=== PATIENT | male | born 1945 | race Caucasian/White ===

== ENCOUNTER 2017-02-21 20:35 | Observation (INO) | payer BC, MEDICARE ==
[2017-02-21 20:36] VITALS: BMI 37.0
--- NOTE | 2017-02-21 21:22 | ED PDOC ---
Arrival/HPI - General Time Seen by Provider: 02/21/17 21:18 Historian: Patient, Family - History of Present Illness Narrative History of Present Illness (Text): 02/21/17 21:19 71 year old male with a past medical history that includes hypertension, diabetes, coronary artery disease, CVA, CABG, COPD, peripheral vascular disease presents to the emergency department with bilateral foot pain and swelling. Family member translates history. Patient states it is worse in the left than the right. He states pain has been keeping him up at night. Family member reports the worsening skin color changes to purplish color prompted them to come to the ER for further evaluation. Denies fever, shortness of breath, chest pain, or other symptoms. PMD: Dr. Ferrell Symptom Onset: Gradual Symptom Course: Worsening Modifying Factors (Text): None Associated Symptoms (Text): None Past Medical History - Provider Review Nursing Documentation Reviewed: Yes - Infectious Disease Hx of Infectious Diseases: None - Past Medical History Past Medical History: No Previous - Cardiac Hx Cardiac Disorders: Yes Hx Hypertension: Yes - Pulmonary Hx Chronic Obstructive Pulmonary Disease (COPD): Yes - Neurological HX Cerebrovascular Accident: Yes (during this hospitalization) - HEENT Hx HEENT Disorder: No - Renal Hx Renal Failure: No - Endocrine/Metabolic Hx Diabetes Mellitus Type 2: Yes - Hematological/Oncological Hx Cancer: No - Integumentary Hx Dermatological Disorder: No - Musculoskeletal/Rheumatological Hx Arthritis: No Hx Rheumatoid Arthritis: No - Gastrointestinal Hx Gastroesophageal Reflux: No - Genitourinary/Gynecological Hx Genitourinary Disorders: No - Psychiatric Hx Psychophysiologic Disorder: No Hx Substance Use: No - Surgical History Hx Cardiac Catheterization: Yes Hx Cholecystectomy: Yes Hx Coronary Stent: Yes Hx Open Heart Surgery: Yes (CABG) - Anesthesia Hx Anesthesia Reactions: No Hx Malignant Hyperthermia: No - Suicidal Assessment Feels Threatened In Home Enviroment: No Family/Social History - Physician Review Nursing Documentation Reviewed: Yes Family/Social History: Unknown Family HX Smoking Status: Heavy Smoker > 10 Cigarettes Daily Hx Alcohol Use: No Hx Substance Use: No Hx Substance Use Treatment: No Allergies/Home Meds Allergies/Adverse Reactions: Allergies No Known Allergies Allergy (Verified 11/11/15 12:31) Review of Systems - Physician Review All systems were reviewed & negative as marked: Yes - Review of Systems Respiratory: absent: SOB Cardiovascular: Edema (in bilateral feet, L>R). absent: Chest Pain Neurological: absent: Dizziness Physical Exam - Physical Exam Narrative Physical Exam (Text): Constitutional: No acute distress. Head: Normocephalic. Atraumatic. Eyes: PERRL. ENT: Moist mucous membranes. Musculoskeletal: Bilateral lower extremity edema, L>R, with duskiness. No black or blue digits. Bilateral DP pulses palpable but diminished. Skin: No rash. Neurologic: Alert, no focal deficit. Sensation to light touch in bilateral feet intact. Moves all toes. Vital Signs Temp Pulse Resp BP Pulse Ox 02/22/17 01:02 92 H 18 110/72 95 02/21/17 22:15 97.6 F 93 H 16 146/82 98 Medical Decision Making ED Course and Treatment: Impression: 71 year old male with a past medical history that includes hypertension, diabetes, coronary artery disease, CVA, CABG, COPD, peripheral vascular disease presents to the emergency department with bilateral foot pain and swelling. Differential Diagnosis included but are not limited to: Plan: -- EKG, Chest X-ray, US ankle/brachial indice -- Labs -- Reassess and disposition Prior Visits: Notes and results from previous visits were reviewed. In 04/2016 patient had angioplasty for short segment of distal left SFA, atherectomy and drug-eluted balloon agioplasty, and percutaneous embolectomy of macroembolus to the left TP trans-bifurcation. Progress Notes: Dr. Cordova recommends hydration and PRAVEEN/TBI for tomorrow morning and he will see patient as consult. Dr. Agarwal accepts to her service. - Lab Interpretations Lab Results: 02/21/17 22:40 02/21/17 22:40 Lab Results 02/21/17 22:40: WBC 5.1 D, RBC 5.29, Hgb 16.9, Hct 49.1, MCV 92.8, MCH 31.9, MCHC 34.4, RDW 13.8, Plt Count 115 L, Gran % 41.7 L, Lymph % (Auto) 44.4 H, [place] % (Auto) 7.4 H, Eos % (Auto) 4.9, Baso % (Auto) 1.6, Gran # 2.13, Lymph # 2.3, [place] # 0.4, Eos # 0.3, Baso # 0.08, PT 11.6, INR 1.07, APTT 30.4, Sodium 133, Potassium 4.9, Chloride 95 L, Carbon Dioxide 28, Anion Gap 15, BUN 23 H, Creatinine 1.1, Est GFR ( Amer) > 60, Est GFR (Non-Af Amer) > 60, Random Glucose 491 H* D, Calcium 9.1, Total Bilirubin 0.9, AST 26, ALT 15, Alkaline Phosphatase 75, Total Creatine Kinase 106, Troponin I < 0.01 D, Total Protein 7.9, Albumin 4.1, Globulin 3.7, Albumin/Globulin Ratio 1.1, Blood Type A POSITIVE, Antibody Screen Negative, BBK History Checked Patient has bt - RAD Interpretation Radiology Orders: 02/21/17 21:41 CHEST PORTABLE [RAD] Stat 02/22/17 07:00 LOWER EXT ART NON-INV COMPL [US] Urgent - Medication Orders Current Medication Orders: Acetaminophen (Tylenol 325mg Tab) 650 mg PO Q6H PRN PRN Reason: Fever >100.4 F Aspirin (Ecotrin) 81 mg PO DAILY [facility] Last Admin: 02/22/17 17:13 Dose: Not Given Non-Admin Reason: NPO Atorvastatin Calcium (Lipitor) 40 mg PO DIN [facility] Last Admin: 02/22/17 17:16 Dose: 40 MG Clopidogrel Bisulfate (Plavix) 75 mg PO DAILY [facility] Last Admin: 02/22/17 17:16 Dose: 75 MG Sodium Chloride (Sodium Chloride 0.45%) 1,000 mls @ 75 mls/hr IV .[id number] [facility] Insulin Detemir (Levemir) 25 unit SC ACB [facility] Last Admin: 02/22/17 14:00 Dose: Not Given Non-Admin Reason: NPO Insulin Human Lispro (Humalog High) 0 units SC ACHS [facility] PRN Reason: Protocol Last Admin: 02/22/17 17:14 Dose: 4 UNITS Subcutaneous Administrations Document 02/22/17 17:14 LUKE (Rec: 02/22/17 17:14 LUKE [id number]) Charges for Administration # of Subcutaneous Administrations 1 Metoprolol Succinate (Toprol Xl) 25 mg PO BRK [facility] Last Admin: 02/22/17 17:17 Dose: 25 MG MAR Pulse and Blood Pressure Document 02/22/17 17:17 LUKE (Rec: 02/22/17 17:17 LUKE [id number]) Pulse Pulse Rate (60-90) 81 Blood Pressure Blood Pressure (100/60-150/90) 146/88 Pantoprazole Sodium (Protonix Ec Tab) 40 mg PO 0630 AMINA Discontinued Medications Acetaminophen (Tylenol 325mg Tab) 650 mg PO Q4H PRN PRN Reason: Fever >100.5 F Sodium Chloride (Sodium Chloride 0.9%) 1,000 mls @ 150 mls/hr IV .Q6H40M STA Stop: 02/22/17 04:20 Last Admin: 02/21/17 22:46 Dose: 150 MLS/HR eMAR Start Stop Document 02/21/17 22:46 EQ (Rec: 02/21/17 22:46 EQ [id number]) Intravenous Solution Start Date 02/21/17 Start Time 22:46 Insulin Human Regular (Humulin R) 10 units IVP STAT STA Stop: 02/21/17 23:59 Last Admin: 02/22/17 00:12 Dose: 10 UNITS Subcutaneous Admin in ER Document 02/22/17 00:12 CHAITANYA (Rec: 02/22/17 00:13 CHAITANYA [facility] [email or web address] Injection Site MAR Injection Site Left Arm IVP Administration Document 02/22/17 00:12 CHAITANYA (Rec: 02/22/17 00:13 CHAITANYA [facility] [email or web address] Charges for Administration # of IVP Administrations 1 Insulin Human Regular (Humulin R) Confirm Administered Dose 10 units .ROUTE .STK -MED ONE Stop: 02/22/17 00:11 Last Admin: 02/22/17 01:45 Dose: Not Given Non-Admin Reason: Blood Sugar Parameter MAR Blood Glucose Document 02/22/17 01:45 CHAITANYA (Rec: 02/22/17 01:45 CHAITANYA [facility] [email or web address] Blood Glucose Finger Stick Blood Glucose (70-120) 0 Morphine Sulfate (Morphine) 2 mg IVP STAT STA Stop: 02/22/17 00:57 Last Admin: 02/22/17 01:14 Dose: 2 MG MAR Pain Assessment Document 02/22/17 01:14 CHAITANYA (Rec: 02/22/17 01:15 CHAITANYA [facility] [email or web address] Pain Reassessment Is this a pain reassessment? Yes Sleep Is patient sleeping during reassessment? No Presence of Pain Presence of Pain Yes Location Left, Right or Bilateral Left Upper or Lower Lower Pain Location Body Site Leg IVP Administration Document 02/22/17 01:14 CHAITANYA (Rec: 02/22/17 01:15 CHAITANYA [facility] [email or web address] Charges for Administration # of IVP Administrations 1 Re-Assess: JANETH Pain Assessment Document 02/22/17 02:14 [email or web address] (Rec: 02/22/17 05:14 [email or web address] [facility] [id number] Pain Reassessment Is this a pain reassessment? Yes Sleep Is patient sleeping during reassessment? No Presence of Pain Presence of Pain No - Scribe Statement The provider has reviewed the documentation as recorded by the Ra Sifuentes Provider Scribe Attestation: All medical record entries made by the Ra were at my direction and personally dictated by me. I have reviewed the chart and agree that the record accurately reflects my personal performance of the history, physical exam, medical decision making, and the department course for this patient. I have also personally directed, reviewed, and agree with the discharge instructions and disposition. Disposition/Present on Arrival - Present on Arrival Any Indicators Present on Arrival: Yes History of DVT/PE: No History of Uncontrolled Diabetes: Yes Urinary Catheter: No History Surgical Site Infection Following: None - Disposition Have Diagnosis and Disposition been Completed?: Yes Diagnosis: Peripheral arterial disease Disposition: HOSPITALIZED Disposition Time: 19:00 Patient Plan: Admission Condition: GOOD
[2017-02-21] MEDS ORDERED: Sodium Chloride 0.9% 1,000 ML IV STA (21:41)
[2017-02-21 22:49] LABS: ADD MANUAL DIFF? NO
[2017-02-21 23:19] LABS: ALB/GLOB RATIO 1.1 (1.1-1.8); ALKALINE PHOSPHATASE 75 U/L (38-133); ALT/SGPT 15 U/L (7-56); AST/SGOT 26 U/L (15-59); BILIRUBIN,TOTAL 0.9 mg/dL (0.2-1.3); BLOOD UREA NITROGEN 23 mg/dL (7-21); CALCIUM 9.1 mg/dL (8.4-10.5); CARBON DIOXIDE 28 mmol/L (21-33); CHLORIDE 95 mmol/L (98-107); GFR AFRICAN-AMERICAN > 60; POTASSIUM 4.9 mmol/L (3.6-5.0); SODIUM 133 mmol/L (132-148); TOTAL PROTEIN 7.9 g/dL (5.8-8.3)
[2017-02-21 23:24] LABS: BASO # 0.08 K/mm3 (0.0-2.0); BASO % 1.6 % (0.0-3.0); EOS # 0.3 (0.0-0.7); EOS % 4.9 % (1.5-5.0); GLUCOSE,RANDOM 491 mg/dL (70-110); GRAN # 2.13 (1.4-6.5); GRAN % 41.7 % (50.0-68.0); HEMATOCRIT 49.1 % (42.0-52.0); LYMPH # 2.3 (1.2-3.4); LYMPH % 44.4 % (22.0-35.0); MEAN CELL VOLUME 92.8 fL (80.0-105.0); MEAN CORPUSCULAR HEMOGLOBIN 31.9 pg (25.0-35.0); MEAN CORPUSCULAR HGB CONC 34.4 g/dl (31.0-37.0); MONO # 0.4 (0.1-0.6); MONO % 7.4 % (1.0-6.0); PLATELET COUNT 115 10^3/uL (120.0-450.0); RED CELL DISTRIBUTION WIDTH 13.8 % (11.5-14.5); WHITE BLOOD COUNT 5.1 10^3/ul (4.5-11.0)
[2017-02-21 23:26] LABS: INR 1.07 (0.93-1.08); PARTIAL THROMBOPLASTIN TIME 30.4 Seconds (23.7-30.8)
[2017-02-21 23:31] LABS: TROPONIN I < 0.01 ng/mL
[2017-02-21] MEDS ORDERED: Insulin Regular 1 UNITS/0.01 ML ML IVP STA (23:58)
[2017-02-22] MEDS ORDERED: Insulin Regular 1 UNITS/0.01 ML ML ONE (00:10)
--- NOTE | 2017-02-22 00:31 | ED PDOC ---
Physical Exam Vital Signs Temp Pulse Resp BP Pulse Ox 02/21/17 22:15 97.6 F 93 H 16 146/82 98 Temperature: Afebrile Blood Pressure: Normal Pulse: Regular Respiratory Rate: Normal Appearance: Positive for: Well-Appearing, Non-Toxic, Comfortable Pain Distress: None Mental Status: Positive for: Alert and Oriented X 3 Medical Decision Making ED Course and Treatment: 02/21/17 23:00 Case endorsed to me by Dr. Damon, who discussed case with Dr. Agarwal. Pending labs, imaging studies, and hospital admission. - Lab Interpretations Lab Results: 02/21/17 22:40 02/21/17 22:40 Lab Results 02/21/17 22:40: WBC 5.1 D, RBC 5.29, Hgb 16.9, Hct 49.1, MCV 92.8, MCH 31.9, MCHC 34.4, RDW 13.8, Plt Count 115 L, Gran % 41.7 L, Lymph % (Auto) 44.4 H, [place] % (Auto) 7.4 H, Eos % (Auto) 4.9, Baso % (Auto) 1.6, Gran # 2.13, Lymph # 2.3, [place] # 0.4, Eos # 0.3, Baso # 0.08, PT 11.6, INR 1.07, APTT 30.4, Sodium 133, Potassium 4.9, Chloride 95 L, Carbon Dioxide 28, Anion Gap 15, BUN 23 H, Creatinine 1.1, Est GFR ( Amer) > 60, Est GFR (Non-Af Amer) > 60, Random Glucose 491 H* D, Calcium 9.1, Total Bilirubin 0.9, AST 26, ALT 15, Alkaline Phosphatase 75, Total Creatine Kinase 106, Troponin I < 0.01 D, Total Protein 7.9, Albumin 4.1, Globulin 3.7, Albumin/Globulin Ratio 1.1, Blood Type A POSITIVE, Antibody Screen Negative, BBK History Checked Patient has bt - RAD Interpretation Radiology Orders: 02/21/17 21:41 CHEST PORTABLE [RAD] Stat 02/22/17 07:00 ANKLE/BRACHIAL INDICE [US] Urgent - Medication Orders Current Medication Orders: Sodium Chloride (Sodium Chloride 0.9%) 1,000 mls @ 150 mls/hr IV .Q6H40M STA Stop: 02/22/17 04:20 Last Admin: 02/21/17 22:46 Dose: 150 MLS/HR eMAR Start Stop Document 02/21/17 22:46 EQ (Rec: 02/21/17 22:46 EQ [id number]) Intravenous Solution Start Date 02/21/17 Start Time 22:46 Discontinued Medications Insulin Human Regular (Humulin R) 10 units IVP STAT STA Stop: 02/21/17 23:59 Last Admin: 02/22/17 00:12 Dose: 10 UNITS Subcutaneous Admin in ER Document 02/22/17 00:12 CHAITANYA (Rec: 02/22/17 00:13 [facility]ITANYA [email or web address]) Injection Site MAR Injection Site Left Arm IVP Administration Document 02/22/17 00:12 CHAITANYA (Rec: 02/22/17 00:13 [facility]ITANYA [email or web address]) Charges for Administration # of IVP Administrations 1 Insulin Human Regular (Humulin R) Confirm Administered Dose 10 units .ROUTE .STK -MED ONE Stop: 02/22/17 00:11 Disposition/Present on Arrival - Present on Arrival Any Indicators Present on Arrival: No History of DVT/PE: No History of Uncontrolled Diabetes: Yes Urinary Catheter: No History of Decub. Ulcer: No History Surgical Site Infection Following: None - Disposition Have Diagnosis and Disposition been Completed?: Yes Diagnosis: PAD (peripheral artery disease) Disposition: HOSPITALIZED Disposition Time: 23:00 Condition: GOOD
[2017-02-22] MEDS ORDERED: Morphine 2 mg/ml ISec IVP STA (00:56)
[2017-02-22] MEDS ORDERED: Insulin Reg-LOW-Coverage SC SCH (07:30)
[2017-02-22] MEDS ORDERED: Sodium Chloride 0.45% 1,000 ML IV SCH (07:45)
--- NOTE | 2017-02-22 09:32 | RAD ---
HISTORY: LEG PAINS COMPARISON: 10/17/2016 FINDINGS: LUNGS: No active pulmonary disease. PLEURA: No significant pleural effusion identified, no pneumothorax apparent. CARDIOVASCULAR: No cardiomegaly. Sternotomy wires noted. OSSEOUS STRUCTURES: No significant abnormalities. VISUALIZED UPPER ABDOMEN: Normal. OTHER FINDINGS: None. IMPRESSION: No active disease.
--- NOTE | 2017-02-22 10:33 | US ---
PROCEDURE: Lower extremity PRAVEEN exam HISTORY: Peripheral vascular disease. Previous bilateral SFA interventions. Left foot pain. Evaluate for occlusive disease. PHYSICIAN(S): David Cordova MD. FINDINGS: The resting PRAVEEN's are mildly abnormal: Right, 0.85 and left, 0.82 The brachial systolic pressures are symmetric. The right high thigh PVR waveform is normal. The left high thigh PVR waveform is slightly decreased in amplitude compared to the right. There is a 26 mm gradient between the high thigh pressures. Could represent subtle left iliac disease The calf PVR waveforms augment normally. No gradients are noted across the thighs. This implies that the SFA interventions are patent bilaterally. The ankle and metatarsal waveforms are pulsatile bilaterally. The left ankle PVR waveform is decreased in amplitude compared to the right. IMPRESSION: 1. Patent SFA interventions bilaterally. 2. Mildly abnormal ABIs at rest. 3. Subtle left iliac occlusive disease.
--- NOTE | 2017-02-22 10:37 | US ---
PROCEDURE: Duplex arterial ultrasound of the distal left SFA HISTORY: Bilateral SFA interventions. Left foot pain. Evaluate for restenosis. PHYSICIAN(S): David Cordova MD. FINDINGS: Extensive atherosclerotic disease is noted. The distal left SFA is patent though there are areas of significantly elevated velocities suggestive of restenosis. The left popliteal artery is patent with normal velocities. IMPRESSION: 1. Focal areas of elevated velocities in the distal left SFA suggestive of 50-99 percent stenoses. The previously intervened segment is patent. A repeat angio can be considered as an outpatient if the patient describes claudication
[2017-02-22] MEDS: Insulin Lispro (HUMAlog) HIGH Coverage SC SCH ×3 (11:54→22:38)
--- NOTE | 2017-02-22 13:13 | HP ---
HISTORY OF PRESENT ILLNESS: The patient is a 71-year-old, seen and examined. He came to [facility] last night because of increasing pain in his legs. He is also complaining of bilateral leg and f eet pain and swelling. His symptoms are more in the left leg and the foot as compared to the right. Pain is more at nighttime and he is unable to sleep because of pain. He does not have any fever or chills. No nausea, vomiting, no diarrhea, no trauma to the area. PAST MEDICAL HISTORY: Significant for: 1. Recent CVA and he was admitted 09/2016. 2. Hypertension. 3. Coronary artery disease, status post open heart surgery many years ago. 4. Insulin-dependent diabetes. 5. COPD. 6. Active smoker. 7. Peripheral vascular disease, angioplasty done in the short segment of distal left superficial fem oral artery and status post atherectomy and drug-eluted balloon angioplasty. ALLERGIES: He is not allergic to any medications. MEDICATIONS AT HOME: The patient is on: 1. Plavix 75 daily. 2. Aspirin 81 daily. 3. Protonix 40 daily. 4. Metoprolol 25 daily. 5. Levemir 25 units before breakfast. 6. Atorvastatin 40 mg daily. SOCIAL HISTORY: He is , lives with his . He used to be a 2-pack smoker for many, many ye ars. He still smokes here and there. REVIEW OF SYSTEMS: Significant for bilateral leg discoloration, mostly on the distal legs and both f eet. Complained of feeling tired, said he did not sleep well. PHYSICAL EXAMINATION: GENERAL: He is awake and alert, able to communicate. VITAL SIGNS: He is afebrile, pulse 67, respirations 18, blood pressure 140/75. LUNGS: Bilateral fair airflow, no rhonchi or crackle. HEART: S1, S2 audible. ABDOMEN: Soft, nontender, no rebound, no guarding. NEUROLOGIC: The patient is awake, alert, feels sleepy because he did not sleep good last night. LABORATORY EXAMINATION: WBC is 5.1, hemoglobin 16.9, hematocrit 49.1, and platelets of 115. PT 11.6 , INR 1.07. Chemistry: Sodium 133, potassium 4.9, chloride 95, CO2 of 28, BUN 23, creatinine 1.1, b lood sugar of 264. Bilateral lower extremity Doppler shows focal areas of elevated velocity in the d istal left SFA suggestive of 50-90% stenosis. Previously intervened segment is patent. PLAN: Currently, the patient is n.p.o. Dr. David Cordova is aware, plan for angiography and possible intervention today later on. Kierra Agarwal MD cc: [phone] TT: 02/22/2017 13:13:24 tn
[2017-02-22] MEDS: Insulin Detemir 100 units/ml Vial (Levemir) SC SCH (14:00)
[2017-02-22] MEDS: Metoprolol Succinate 25 mg XL Tab PO SCH (17:17)
[2017-02-22 17:39] VITALS: RESP 20; TEMP 98.4
--- NOTE | 2017-02-22 18:31 | CARD ---
APPROVED REPORT EKG Measurement Heart [id number] <Conclusion> Normal sinus rhythm Possible Left atrial enlargement Right bundle branch block Left posterior fascicular block Bifascicular block Cannot rule out Inferior infarct, age undetermined Abnormal ECG
[2017-02-23] MEDS ORDERED: Pantoprazole 40 mg EC Tab PO SCH (06:30)
[2017-02-23] MEDS: Insulin Detemir 100 units/ml Vial (Levemir) SC SCH (08:09)
[2017-02-23] MEDS: Insulin Lispro (HUMAlog) HIGH Coverage SC SCH ×2 (08:09→12:18)
[2017-02-23] MEDS: Metoprolol Succinate 25 mg XL Tab PO SCH (08:10)
[2017-02-23 08:11] VITALS: O2SAT 97
[2017-02-23 08:14] VITALS: BP 143/74
[2017-02-23 14:52] VITALS: PULSE 83
--- NOTE | 2017-02-23 16:14 | CON ---
DATE: 02/23/2017 PAST MEDICAL HISTORY: A 71-year-old male seen at bedside complaining of pain and discomfort as well as swelling in both lower legs. The patient states that he has been feeling pain and discomfort for the past several days. Arterial Dopplers taken yesterday revealed patent SFA interventions bilateral ly as well as mild left iliac occlusive disease. Dr. David Cordova has recommended a repeat angio be c onsidered as an outpatient due to his intermittent claudication. VITAL SIGNS: Reveal a temperature of 98.4, pulse rate of 81, blood pressure 155/94, respiratory rate of 20. PAST MEDICAL HISTORY: Significant for peripheral arterial disease, cerebral vascular disease, acute pancreatitis and erythrocytosis. ALLERGIES: The patient has no known drug allergies. CURRENT MEDICATIONS: All medications are noted in MAR. SOCIAL HISTORY: The patient is and lives with his . Was a very heavy smoker most of his life and states he is still smoking; however, he has cut down to less than 1 pack a day. The patien t denies illicit drug use and denies alcohol abuse. FAMILY HISTORY: Noncontributory LABORATORY DATA: Reveal a white count of 5.1, hemoglobin of 16.9, hematocrit 49.1, platelet count of 115. OBJECTIVE: Nonpalpable posterior tibial pulse and weakly palpable dorsalis pedis pulse. There is di ffuse discomfort upon palpation at the gastrocsoleus complex as well as along the course of the left lower leg. There is just diffuse discomfort when the dorsal foot is palpated. There are no open les ions. There are no ulcerations. There are no interdigital macerations. There are no signs of acute cellulitis. ASSESSMENT: Severe peripheral vascular disease, bilateral lower extremities. PLAN: The patient was examined. Diagnostic ultrasounds were reviewed. Dr. David Cordova is planning vascular intervention in the near future. In the meantime, I gave the patient a light compression Tu bigrip to be used while walking and in bed, and to be removed at nighttime. Meño Navarro DPM cc: [phone] TT: 02/23/2017 16:13:09 Confirmation # [id number] Dictation # [id number] mn
--- NOTE | 2017-02-23 21:34 | DS ---
The patient is 71-year-old male, seen and examined, sitting in chair. Complained of some foot pain, but better than before. The patient was evaluated by Dr. David Cordova who ordered for arterial Dopple r. According to him, his previous stent is patent, and his ABIs seems to be fair, does not need any intervention; however, Dr. Navarro was consulted who evaluated the patient, and there was no more need to have any interventions done, so patient is being discharged home today. PHYSICAL EXAMINATION: GENERAL: He is awake and alert, communicative. VITAL SIGNS: He is afebrile, pulse 83, respirations 20, blood pressure 143/74. LUNGS: Bilateral fair airflow, no rhonchi or crackle. However, he has diffusely decreased breath so unds. HEART: S1, S2 audible. ABDOMEN: Soft, nontender, no rebound, no guarding. NEUROLOGIC: He is awake and alert, communicative. EXTREMITIES: Bilateral legs, no edema. He has chronic microvascular changes with discoloration of b oth shins and feet. LABORATORY EXAM: There is no new lab available today. Blood sugar is 236. ASSESSMENT: 1. Severe peripheral vascular disease. 2. Recent cerebrovascular accident. 3. Peripheral vascular disease in the distal left superficial femoral artery suggestive of stenosis. 4. Chronic obstructive pulmonary disease. 5. Heavy smoker. 6. Left iliac occlusive disease. 7. Abnormal ankle-brachial index at rest. 8. Coronary artery disease, status post open heart surgery. 9. Insulin-dependent diabetes. 10. Active smoker. PLAN: The patient is being discharged home today. He is advised to resume all his medication as khadar or to admission that include Protonix 40 daily, metoprolol 25 daily, Levemir 25 before breakfast, Miko vix 75 daily, Lipitor 40 mg at dinnertime, aspirin 81 daily. He will follow up with his PMD, Dr. ___ __ He will follow with Dr. David Cordova as an outpatient. He was evaluated by Dr. Navarro. He will fo llow up with him, also. Kierra Agarwal MD cc: [phone] TT: 02/23/2017 21:33:20 mn
== END 2017-02-23 14:47 | disposition home or self-care (01) ==
LOC: ED 20:35 → ERH 02-22 00:40 → INTOOBSV 02-22 00:40 → 3RSO 02-22 02:43
PROVIDERS: ADMIT Internal Medicine; ATTEND Internal Medicine
DX: E11.51 Type 2 diabetes mellitus with diabetic peripheral angiopathy without gangrene (principal); J44.9 Chronic obstructive pulmonary disease, unspecified; F17.200 Nicotine dependence, unspecified, uncomplicated; I10 Essential (primary) hypertension; I25.10 Atherosclerotic heart disease of native coronary artery without angina pectoris; Z79.4 Long term (current) use of insulin; Z95.1 Presence of aortocoronary bypass graft; Z95.5 Presence of coronary angioplasty implant and graft; Z79.82 Long term (current) use of aspirin; Z79.02 Long term (current) use of antithrombotics/antiplatelets; Z86.73 Personal history of transient ischemic attack (TIA), and cerebral infarction without residual deficits
CPT/HCPCS: 71010; 80053; 82550; 82948; 84484; 85025; 85610; 85730; 86850; 86900; 93005; 93923; 93926; 96374; 96375; 99285; G0378; J2270; J7030; J7040

== ENCOUNTER 2017-05-06 18:31 | Observation (INO) | payer BC ==
[2017-05-06 18:31] VITALS: BMI 26.6
--- NOTE | 2017-05-06 19:11 | ED PDOC ---
Arrival/HPI - General Chief Complaint: Weakness/Neurological Deficit Time Seen by Provider: 05/06/17 19:03 - History of Present Illness Narrative History of Present Illness (Text): 05/06/17 19:08 72 yo male, hx of htn, hld, copd, prevous cva, residual mild left sided deficit , presents with weakness/slurred speech that started last night as per pt, "feels like another stroke". denies any fevers, cough, n/v, abdominal pain, cp, urinary changes Past Medical History - Provider Review Nursing Documentation Reviewed: Yes - Infectious Disease Hx of Infectious Diseases: None - Past Medical History Past Medical History: No Previous - Cardiac Hx Cardiac Disorders: Yes Hx Hypertension: Yes - Pulmonary Hx Chronic Obstructive Pulmonary Disease (COPD): Yes - Neurological HX Cerebrovascular Accident: Yes - HEENT Hx HEENT Disorder: No - Renal Hx Renal Failure: No - Endocrine/Metabolic Hx Diabetes Mellitus Type 2: Yes - Hematological/Oncological Hx Cancer: No - Integumentary Hx Dermatological Disorder: No - Musculoskeletal/Rheumatological Hx Arthritis: No - Gastrointestinal Hx Gastroesophageal Reflux: No - Genitourinary/Gynecological Hx Genitourinary Disorders: No - Psychiatric Hx Psychophysiologic Disorder: No Hx Substance Use: No - Surgical History Hx Cardiac Catheterization: Yes Hx Cholecystectomy: Yes Hx Coronary Stent: Yes Hx Open Heart Surgery: Yes (CABG) - Anesthesia Hx Anesthesia Reactions: No Hx Malignant Hyperthermia: No - Suicidal Assessment Feels Threatened In Home Enviroment: No Family/Social History - Physician Review Nursing Documentation Reviewed: Yes Family/Social History: Unknown Family HX Smoking Status: Heavy Smoker > 10 Cigarettes Daily Hx Alcohol Use: No Hx Substance Use: No Hx Substance Use Treatment: No Allergies/Home Meds Allergies/Adverse Reactions: Allergies No Known Allergies Allergy (Verified 05/06/17 18:38) Home Medications: Home Meds Medication Instructions Recorded Confirmed Albuterol 0.083% [Albuterol 0.083% 2.5 mg NEB Q6 PRN 05/06/17 05/06/17 Inhal Olga (2.5 mg/3 ml) UD] Baclofen [Lioresal] 10 mg PO DAILY 05/06/17 05/06/17 Fluticasone/Salmeterol [Advair 1 inh NEB Q12 05/06/17 05/06/17 250-50 Diskus] Rosuvastatin Calcium [Crestor] 40 mg PO DAILY 05/06/17 05/06/17 Tiotropium [Spiriva] 1 cap NEB DAILY 05/06/17 05/06/17 traZODone [Desyrel] 50 mg PO DAILY 05/06/17 05/06/17 Review of Systems - Review of Systems Constitutional: Normal Eyes: Normal ENT: Normal Respiratory: Normal Cardiovascular: Normal Gastrointestinal: Normal Genitourinary Male: Normal Musculoskeletal: Normal Skin: Normal Neurological: Speech Changes, Facial Droop Endocrine: Normal Hemo/Lymphatic: Normal Psychiatric: Normal Physical Exam Vital Signs Temp Pulse Resp BP Pulse Ox 05/06/17 22:21 98.9 F 78 16 159/78 H 96 05/06/17 21:01 84 16 95 05/06/17 18:31 98.2 F 97 H 17 121/65 92 L Temperature: Afebrile Blood Pressure: Normal Pulse: Regular Respiratory Rate: Normal Appearance: Positive for: Well-Appearing, Non-Toxic, Comfortable Pain Distress: None Mental Status: Positive for: Alert and Oriented X 3 - Systems Exam Head: Present: Atraumatic, Normocephalic Pupils: Present: PERRL Extroacular Muscles: Present: EOMI Conjunctiva: Present: Normal Mouth: Present: Moist Mucous Membranes Neck: Present: Normal Range of Motion Respiratory/Chest: Present: Clear to Auscultation, Good Air Exchange. No: Respiratory Distress, Accessory Muscle Use Cardiovascular: Present: Regular Rate and Rhythm, Normal S1, S2. No: Murmurs Abdomen: Present: Normal Bowel Sounds. No: Tenderness, Distention, Peritoneal Signs Back: Present: Normal Inspection Upper Extremity: Present: Normal Inspection. No: Cyanosis, Edema Lower Extremity: Present: Normal Inspection. No: Edema Neurological: Present: GCS=15, CN II-XII Intact, Speech Normal, Motor Func Grossly Intact, Normal Sensory Function, Normal Cerebellar Funct, Other (midly slured speech, left sided facial droop (baseline)) Skin: Present: Warm, Dry, Normal Color. No: Rashes Psychiatric: Present: Alert, Oriented x 3, Normal Insight, Normal Concentration Medical Decision Making ED Course and Treatment: 05/06/17 19:24 consider cva, metabolic infectious etiology labs imaging neg as read by me cxr neg as read by me. 05/06/17 19:24 05/06/17 19:35 ekg nsr 96 rbbb, no interval changes from previous 05/06/17 20:00 IMPRESSION: No acute intracranial process. Chronic right MCA territory infarction. Age appropriate volume loss and small associated change. 05/06/17 20:56 noted blood sugar, no e/o of dka, fluids, and insulin dosed. dr jing macias. - Lab Interpretations Lab Results: 05/06/17 19:20 05/06/17 19:20 Lab Results 05/06/17 20:45: Urine Color Yellow, Urine Appearance Clear, Urine pH 6.0, Ur Specific [place] 1.020, Urine Protein Trace H, Urine Glucose (UA) >=1000, Urine Ketones Negative, Urine Blood Negative, Urine Nitrate Negative, Urine Bilirubin Negative, Urine Urobilinogen 0.2, Ur Leukocyte Esterase Negative, Urine RBC 0 - 2, Urine WBC 0 - 2, Ur Epithelial Cells None, Urine Bacteria Small 05/06/17 20:30: Serum Osmolality 301 H 05/06/17 20:30: pO2 206 H, VBG pH 7.38, VBG pCO2 42.0, VBG HCO3 24.8, VBG Total CO2 26.1, VBG O2 Sat (Calc) 98.8 H, VBG Base Excess -0.4 L, VBG Potassium 4.5, Glucose 507 H*, Lactate 2.1, FiO2 21.0, Sodium 130.0 L, Chloride 98.0, Venous Blood Potassium 4.5 05/06/17 19:20: Sodium 130 L, Potassium 4.2, Chloride 95 L, Carbon Dioxide 24, Anion Gap 15, BUN 22 H, Creatinine 1.1, Est GFR ( Amer) > 60, Est GFR ( Non-Af Amer) > 60, Random Glucose 526 H*, Calcium 9.0, Magnesium 2.1, Total Bilirubin 1.6 H, AST 28, ALT 25, Alkaline Phosphatase 69, Lactate Dehydrogenase 389, Total Creatine Kinase 80, Troponin I < 0.01, Total Protein 7.2, Albumin 3.9 , Globulin 3.3, Albumin/Globulin Ratio 1.2 05/06/17 19:20: PT 12.0 H, INR 1.11 H, APTT 31.4 H 05/06/17 19:20: WBC 4.6, RBC 5.15, Hgb 16.2, Hct 46.8, MCV 90.9, MCH 31.5, MCHC 34.6, RDW 13.8, Plt Count 127, Gran % 46.2 L, Lymph % (Auto) 41.7 H, [place] % ( Auto) 7.8 H, Eos % (Auto) 3.2, Baso % (Auto) 1.1, Gran # 2.14, Lymph # 1.9, [place] # 0.4, Eos # 0.2, Baso # 0.05 - RAD Interpretation Radiology Orders: 05/06/17 19:07 CHEST PORTABLE [RAD] Stat 05/06/17 19:08 HEAD W/O CONTRAST [CT] Stat - Medication Orders Current Medication Orders: Acetaminophen (Tylenol 325mg Tab) 650 mg PO Q6H PRN PRN Reason: Fever >100.4 F Albuterol/Ipratropium (Duoneb 3 Mg/0.5 Mg (3 Ml) Ud) 3 ml IH Q2H PRN PRN Reason: Shortness of Breath Albuterol/Ipratropium (Duoneb 3 Mg/0.5 Mg (3 Ml) Ud) 3 ml IH [id number] AMINA Aspirin (Ecotrin) 81 mg PO DAILY AMINA Atorvastatin Calcium (Lipitor) 40 mg PO DIN MAINA Baclofen (Lioresal) 10 mg PO DAILY AMINA Clopidogrel Bisulfate (Plavix) 75 mg PO DAILY AMINA Insulin Detemir (Levemir) 25 unit SC ACB AMINA Insulin Human Regular (Humulin R High) 0 units SC ACHS AMINA PRN Reason: Protocol Insulin Lispro Protam/Lispro Human (Humalog Mix 75/25) 15 units SC ACBD AMINA Pantoprazole Sodium (Protonix Ec Tab) 40 mg PO 0630 AMINA Tiotropium [place] (Spiriva) 18 mcg INH DAILY AMINA Trazodone HCl (Desyrel) 50 mg PO HS AMINA Discontinued Medications Aspirin (Aspirin) 325 mg PO STAT STA Stop: 05/06/17 20:22 Last Admin: 05/06/17 20:35 Dose: 325 mg Sodium Chloride (Sodium Chloride 0.9%) 1,000 mls @ 999 mls/hr IV .Q1H1M STA Stop: 05/06/17 21:13 Last Admin: 05/06/17 20:34 Dose: 999 mls/hr Insulin Human Regular (Humulin R) 6 units IV STAT STA Stop: 05/06/17 20:16 Last Admin: 05/06/17 20:35 Dose: 6 units Insulin Human Regular (Humulin R High) 1 units SC ACHS [facility] PRN Reason: Protocol Non-Formulary Medication (Rosuvastatin Calcium [Crestor]) 40 mg PO DAILY AMINA NIHSS Scale ([place]) Time Performed: 19:10 - How Severe is the Stoke Baseline Level of Consciousness: 0=Alert LOC to Questions: 0=Both comments correct LOC to commands: 0=Obeys both correctly Best Gaze: 0=Normal Visual: 0=No visual loss Facial: 0=Normal Motor Arm - Left: 0=No drift Motor Arm - Right: 0=No drift Motor Leg - Left: 0=No drift Motor Leg - Right: 0=No drift Limb Ataxia: 0=Absent Sensory: 0=Normal Best Language: 1=Mild to moderate aphasia Dysarthia: 1=Mild to moderate slurring Extinction & Inattention (Neglect): 0=Normal, no object Score: 2 Risk Level: Minor Stroke Risk rTPA Inclusion/Exclusion - Refusal of Treatment Patient Refused Treatment: No - Inclusion Criteria for Altepase Patient is 18 years or Older: Yes The Clinical Diagnosis of Ischemic Stroke That is Causing a Potentially Disabling Neurological Deficit: No Time of Onset is Well Established to be Less Than 270 Minute Before Treatment Would Begin: No Risk/Benefit Discussed With Patient/Family Member Present: Yes Disposition/Present on Arrival - Present on Arrival Any Indicators Present on Arrival: No History of DVT/PE: No History of Uncontrolled Diabetes: Yes Urinary Catheter: No History of Decub. Ulcer: No History Surgical Site Infection Following: None - Disposition Have Diagnosis and Disposition been Completed?: Yes Diagnosis: Weakness, Hyperglycemia Disposition: HOSPITALIZED Disposition Time: 10:00 Condition: FAIR
[2017-05-06 19:44] LABS: ADD MANUAL DIFF? NO
[2017-05-06 19:58] LABS: ALB/GLOB RATIO 1.2 (1.1-1.8); ALKALINE PHOSPHATASE 69 U/L (38-133); ALT/SGPT 25 U/L (7-56); AST/SGOT 28 U/L (15-59); BILIRUBIN,TOTAL 1.6 mg/dL (0.2-1.3); BLOOD UREA NITROGEN 22 mg/dL (7-21); CARBON DIOXIDE 24 mmol/L (21-33); CHLORIDE 95 mmol/L (98-107); GFR AFRICAN-AMERICAN > 60; MAGNESIUM 2.1 mg/dL (1.7-2.2); POTASSIUM 4.2 mmol/L (3.6-5.0); SODIUM 130 mmol/L (132-148); TOTAL PROTEIN 7.2 g/dL (5.8-8.3)
[2017-05-06 20:05] LABS: BASO # 0.05 K/mm3 (0.0-2.0); BASO % 1.1 % (0.0-3.0); EOS # 0.2 (0.0-0.7); EOS % 3.2 % (1.5-5.0); GRAN # 2.14 (1.4-6.5); GRAN % 46.2 % (50.0-68.0); HEMATOCRIT 46.8 % (42.0-52.0); LYMPH # 1.9 (1.2-3.4); LYMPH % 41.7 % (22.0-35.0); MEAN CELL VOLUME 90.9 fL (80.0-105.0); MEAN CORPUSCULAR HEMOGLOBIN 31.5 pg (25.0-35.0); MEAN CORPUSCULAR HGB CONC 34.6 g/dl (31.0-37.0); MONO # 0.4 (0.1-0.6); MONO % 7.8 % (1.0-6.0); PLATELET COUNT 127 10^3/uL (120.0-450.0); RED CELL DISTRIBUTION WIDTH 13.8 % (11.5-14.5); WHITE BLOOD COUNT 4.6 10^3/ul (4.5-11.0)
[2017-05-06 20:09] LABS: INR 1.11 (0.93-1.08); PARTIAL THROMBOPLASTIN TIME 31.4 Seconds (23.7-30.8)
[2017-05-06 20:13] LABS: GLUCOSE,RANDOM 526 mg/dL (70-110); TROPONIN I < 0.01 ng/mL
[2017-05-06] MEDS ORDERED: Sodium Chloride 0.9% 1,000 ML IV STA (20:13)
[2017-05-06] MEDS ORDERED: Insulin Regular 1 UNITS/0.01 ML ML IV STA (20:15)
[2017-05-06 20:42] LABS: VENOUS BLOOD GAS BASE EXCESS -0.4 mmol/L (0.0-2.0); VENOUS BLOOD PH 7.38 (7.32-7.43)
[2017-05-06 21:08] LABS: URINE APPEARANCE CLEAR (CLEAR); URINE BILIRUBIN NEGATIVE (NEGATIVE); URINE BLOOD NEGATIVE (NEGATIVE); URINE COLOR YELLOW (YELLOW); URINE GLUCOSE (UA) >=1000 mg/dL (NEGATIVE); URINE KETONE NEGATIVE (NEGATIVE); URINE LEUKOCYTE ESTERASE NEGATIVE Leu/uL (NEGATIVE); URINE PROTEIN TRACE mg/dL (<30 mg/dL); URINE UROBILINOGEN 0.2 E.U./dL (<1 E.U./dL)
[2017-05-06 21:11] LABS: URINE BACTERIA SMALL (NEG); URINE RBC 0 - 2 /hpf (0-2); URINE WBC 0 - 2 /hpf (0-6)
[2017-05-06] MEDS ORDERED: Albuterol-Ipratrop 3 mg / 0.5 (3 ml) UD IH PRN (22:07)
[2017-05-07] MEDS ORDERED: Pantoprazole 40 mg EC Tab PO SCH (06:30)
[2017-05-07 06:33] VITALS: O2SAT 95
[2017-05-07 07:21] LABS: ADD MANUAL DIFF? NO
[2017-05-07] MEDS ORDERED: Insulin Detemir 100 units/ml Vial (Levemir) SC SCH ×3 (07:30→22:00)
[2017-05-07] MEDS ORDERED: Insulin Lispro (humaLOG) MIX 75/25(10 ml) SC SCH ×2 (07:30→16:30)
[2017-05-07] MEDS ORDERED: Insulin Reg-HIGH-Coverage SC SCH (07:30)
[2017-05-07 07:31] LABS: BASO # 0.04 K/mm3 (0.0-2.0); BASO % 0.8 % (0.0-3.0); EOS # 0.3 (0.0-0.7); EOS % 5.7 % (1.5-5.0); GRAN # 1.98 (1.4-6.5); GRAN % 38.8 % (50.0-68.0); HEMATOCRIT 50.3 % (42.0-52.0); LYMPH # 2.4 (1.2-3.4); LYMPH % 46.9 % (22.0-35.0); MEAN CELL VOLUME 90.1 fL (80.0-105.0); MEAN CORPUSCULAR HEMOGLOBIN 31.9 pg (25.0-35.0); MEAN CORPUSCULAR HGB CONC 35.4 g/dl (31.0-37.0); MONO # 0.4 (0.1-0.6); MONO % 7.8 % (1.0-6.0); PLATELET COUNT 113 10^3/uL (120.0-450.0); RED CELL DISTRIBUTION WIDTH 13.7 % (11.5-14.5); WHITE BLOOD COUNT 5.1 10^3/ul (4.5-11.0)
[2017-05-07 07:42] LABS: ALB/GLOB RATIO 1.2 (1.1-1.8); ALKALINE PHOSPHATASE 72 U/L (38-133); ALT/SGPT 27 U/L (7-56); AST/SGOT 23 U/L (15-59); BILIRUBIN,TOTAL 1.6 mg/dL (0.2-1.3); BLOOD UREA NITROGEN 17 mg/dL (7-21); CALCIUM 9.3 mg/dL (8.4-10.5); CARBON DIOXIDE 28 mmol/L (21-33); CHLORIDE 99 mmol/L (98-107); CHOLESTEROL 125 mg/dL (130-200); GFR AFRICAN-AMERICAN > 60; GLUCOSE,RANDOM 248 mg/dL (70-110); PHOSPHOROUS 3.2 mg/dL (2.5-4.5); SODIUM 135 mmol/L (132-148); TOTAL PROTEIN 7.5 g/dL (5.8-8.3)
[2017-05-07] MEDS: Insulin Reg-HIGH-Coverage SC SCH ×2 (07:46→11:48)
[2017-05-07 07:53] LABS: TROPONIN I 0.01 ng/mL
[2017-05-07 08:11] LABS: THYROID STIMULATING HORMONE 3.67 mIU/mL (0.46-4.68)
--- NOTE | 2017-05-07 08:20 | CT ---
PROCEDURE: CT HEAD WITHOUT CONTRAST. HISTORY: weakness/slurred speech COMPARISON: 10/17/2016 TECHNIQUE: Axial computed tomography images were obtained through the head/brain without intravenous contrast. Radiation dose: Total exam DLP = 774 mGy-cm. This CT exam was performed using one or more of the following dose reduction techniques: Automated exposure control, adjustment of the mA and/or kV according to patient size, and/or use of iterative reconstruction technique. FINDINGS: HEMORRHAGE: No intracranial hemorrhage. BRAIN: No mass effect or edema. Interval development of a large right frontal parietal infarct which appears chronic. VENTRICLES: Unremarkable. No hydrocephalus. CALVARIUM: Unremarkable. PARANASAL SINUSES: Unremarkable as visualized. No significant inflammatory changes. MASTOID AIR CELLS: Unremarkable as visualized. No inflammatory changes. OTHER FINDINGS: None. IMPRESSION: No acute hemorrhage.
[2017-05-07 08:41] LABS: VENOUS BLOOD GAS BASE EXCESS 1.3 mmol/L (0.0-2.0); VENOUS BLOOD PH 7.37 (7.32-7.43)
[2017-05-07] MEDS: Albuterol-Ipratrop 3 mg / 0.5 (3 ml) UD IH SCH ×3 (08:49→19:24)
--- NOTE | 2017-05-07 08:49 | HP ---
The patient is a 72-year-old Samo[place] male, known to me from multiple previous admissions, was natalya t to Emergency Room when family noted having slurred speech and generalized weakness that started las t night. They felt he was having another stroke. Denies any nausea and vomiting. No history of fev er, no chills, no headache. Abdominal pain. The patient states he felt better, but had symptoms aga in, so he was brought to Emergency Room for further evaluation. PAST MEDICAL HISTORY: Significant for: 1. Hypertension. 2. History of CVA in the past. 3. Insulin-dependent diabetes. 4. Coronary artery disease. 5. Status post open heart surgery many, many years ago. 6. Chronic obstructive pulmonary disease. 7. Severe peripheral vascular disease, had angioplasty done for short segment of the distal left sup erficial femoral artery in 04/[address] David Cordova. He also had atherectomy followed by drug elute d balloon angioplasty. 8. Erythrocytosis, secondary to active smoking. 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 No evidence of hematological malignancy. ALLERGIES: He is not allergic to any medications. MEDICATIONS AT HOME: 1. He is on insulin. 2. He is on Levemir 25 units at bedtime. 3. Nebulizer treatment. 4. Crestor 40 mg daily. 5. Baclofen 10 mg daily. 6. Spiriva 1 cap inhaled daily. 7. Plavix 75 daily. 8. Aspirin 81 daily. 9. Trazodone 50 mg at bedtime. 10. Advair. 11. Protonix. SOCIAL HISTORY: He is , lives with his and family. He has been a heavy smoker and smoke s almost 2 packs a day, although has cut down much less than before. REVIEW OF SYSTEMS: Significant for generalized weakness and slight left-sided weakness. PHYSICAL EXAMINATION: GENERAL: He is awake and alert, communicative. VITAL SIGNS: He is afebrile, pulse 97, respirations 17, blood pressure 121/65. LUNGS: Bilateral fair airflow, few expiratory rhonchi. HEART: S1, S2 audible. ABDOMEN: Soft, nontender, no rebound, no guarding. NEUROLOGIC: The patient is awake and alert, able to communicate. No significant weakness noted othe r than previous left-sided slight weakness. ASSESSMENT: 1. Coronary artery disease, status post open heart surgery and angioplasty. 2. Hypertension. 3. Insulin-dependent diabetes and uncontrolled hyperglycemia. 4. Right internal carotid stenosis. 5. Severe peripheral vascular disease, status post in angioplasties. 6. Active smoker. 7. Chronic obstructive pulmonary disease. 8. Polycythemia. 9. History of previous cerebrovascular accident with left hemiparesis. 10. Right internal carotid artery occlusion. PLAN: The patient will be admitted to telemetry. We will monitor blood sugar. Dr. Elizabeth Blevins has be en consulted. I will start him on high dose coverage. He will receive his Levemir. I will start hi m on 75/25, units before breakfast and dinner. We will start him on low dose IV fluid, monitor his blood pressure, start him on neuro check to avoid stroke . Dr. Heck has been also consul caitlyn. The patient has been started on aspirin and Plavix. Continue on nebulizer treatment. We will reevaluate patient in a.m. Kierra Agarwal MD cc: [phone] TT: 05/07/2017 08:48:26 en
[2017-05-07] MEDS ORDERED: Tiotropium 18 mcg Cap For Inhalation INH SCH (10:00)
--- NOTE | 2017-05-07 10:23 | RAD ---
HISTORY: weakness COMPARISON: 02/21/2017 FINDINGS: LUNGS: No active pulmonary disease. PLEURA: No significant pleural effusion identified, no pneumothorax apparent. CARDIOVASCULAR: Normal. OSSEOUS STRUCTURES: Sternal wires VISUALIZED UPPER ABDOMEN: Normal. OTHER FINDINGS: None. IMPRESSION: No active disease.
--- NOTE | 2017-05-07 10:56 | CARD ---
APPROVED REPORT EKG Measurement Heart [id number] IN [id number] [id number] <Conclusion> Normal sinus rhythm Possible Left atrial enlargement Right bundle branch block Left posterior fascicular block Bifascicular block Possible Inferior infarct, age undetermined STTW changes c/w ischemia
[2017-05-07 12:07] VITALS: RESP 20
[2017-05-07] MEDS ORDERED: Insulin Lispro (humaLOG) LOW Coverage SC SCH (16:30)
[2017-05-07 19:04] VITALS: BP 134/79; PULSE 78; TEMP 97.3
--- NOTE | 2017-05-07 19:05 | US ---
PROCEDURE: Bilateral carotid artery duplex ultrasound HISTORY: Carotid stenosis PHYSICIAN(S): David Cordova MD. TECHNIQUE: Duplex sonography and color-flow Doppler were used to evaluate the carotid bifurcations and limited segments of the vertebral arteries bilaterally. FINDINGS: There is sonographic occlusion of the proximal right internal carotid artery. No string sign is appreciated. The proximal right external carotid artery is patent. There is antegrade flow in the right vertebral artery. The peak systolic velocity in the proximal left internal carotid artery is 61 cm/sec. This corresponds to a 20 to 39% proximal left ICA stenosis. Normal systolic velocities are noted in the proximal left external carotid artery. There is antegrade flow in the left vertebral artery. IMPRESSION: 1. Sonographic occlusion of the proximal right internal carotid artery. No string sign is appreciated. 2. 20-39 percent proximal left ICA stenosis. 3. Antegrade flow in both vertebral arteries.
--- NOTE | 2017-05-07 20:25 | CON ---
DATE: 05/07/2017 LOCATION: Room 272. HISTORY OF PRESENT ILLNESS: This is a 72-year-old male with known history of type 2 insulin-requirin g diabetes, admitted here with worsening left-sided weakness on the background of a previous CVA and was admitted for a possible acute onset of right CVA with worsening left-sided weakness and is curren tly undergoing neurological evaluation and management, and has been referred also for diabetic evalua tion because of marked hyperglycemic accelerations as noted thereof. PAST MEDICAL HISTORY: As mentioned above, history of type 2 insulin-requiring diabetes, currently on a combination of Levemir given as 25 units subcutaneous before breakfast once daily as given with re gular insulin coverage scale as noted for his mealtimes. History of hypertensive cardiovascular dise ase and dyslipidemia, history of chronic obstructive lung disease with previous admissions for exacer bations of the same, history of a prior CVA with residual left-sided weakness as noted, history of co ronary artery disease with a previous coronary artery bypass graft surgery and subsequent coronary st ent placement, history of diabetic retinopathy and polyneuropathy with underlying diabetic peripheral arterial disease and vasculopathy. FAMILY HISTORY: Positive for diabetes and hypertension. SOCIAL HISTORY: The patient has a supportive family and admits to nicotine dependence. No other sub stance use. REVIEW OF SYSTEMS: As mentioned above, admits to generalized body weakness with easy fatigability an d tiredness and suboptimal energy level. Also admits to bifrontal headaches with recent onset of slu rred speech and worsening left-sided weakness as noted. No chest pains or palpitations or paroxysmal nocturnal dyspnea. However, admits to occasional dyspnea and fatigability upon exertion. His oral intake is variable with nausea, dyspepsia, and vague upper abdominal pain. Admits to persistent noct uria, as noted, and occasional constipation. PHYSICAL EXAMINATION: GENERAL: This is an average-built male in no apparent distress. VITAL SIGNS: Blood pressure 150/90, pulse of 70 beats per minute, regular, temperature 98, respirati ons 20. Height is 6 feet, weight is 188 pounds. HEENT: Head normocephalic. Eyes anicteric with pink conjunctivae. Fundoscopy not possible at this time. Ears, nose, and throat otherwise normal. NECK: Supple. Thyroid gland is normal size. No carotid bruits or any cervical adenopathy. CARDIOPULMONARY: Some adynamic precordium. S1, S2 are rapid and regular. LUNGS: Clear to auscultation. ABDOMEN: Flat, soft, with positive bowel sounds. EXTREMITIES: No peripheral edema. Pulses are +2 bilaterally. LABORATORY DATA: Hemoglobin A1c is 12.5%, clearly extremely elevated and indicative of suboptimal me tabolic control of his diabetic condition, with his current insulin regimen taken on the outpatient, as noted. His laboratories, chemistry showed a BUN of 17, sodium 135, potassium 4.0, chloride 99, CO 2 26, glucose 248, and creatinine is 0.9. His glucose levels have ranged from 289 to 293 mg/dL. His TSH is 3.67. ASSESSMENT: This is a 72-year-old male with uncontrolled and decompensated type 2 insulin-requiring diabetes, presenting here with an acute cerebrovascular accident in the background of a previous cere brovascular accident, and is now undergoing neurological workup and management as noted thereof. He also has marked uncontrolled type 2 insulin-requiring diabetes with hyperglycemic accelerations, as n oted thereof, and also clearly has prior suboptimal metabolic control of his diabetic condition prior to this admission with a superimposed acute physical stressor, which could contribute to the increas ed insulin resistance and further impair glucose tolerance thereof. He has diabetic microvascular co mplications of retinopathy and polyneuropathy with diabetic macrovascular complications of cerebrovas cular disease with a possible acute and recurrent cerebrovascular accident, and also concomitant emma nary artery disease with a previous coronary artery bypass graft surgery and peripheral arterial dise ase and vasculopathy. PLAN OF MANAGEMENT: As discussed with the patient and the staff. Will modify his current insulin r egimen and increase the premixed regimen to Humalog 75/25 given as 30 units a.c. breakfast and 20 uni ts a.c. dinner to start today. We will also modify the basal insulin and we will switch it over to a n overnight bedtime dose of Levemir given as 20 units subcutaneous at bedtime daily to start tonight. Will modify the coverage scale to a very low-dose algorithm using Humalog insulin as given to obvia te hypoglycemia and detailed orders have been given. We will obtain serial chemistries and supplemen t accordingly as needed. We will also initiate diabetic education and dietary instructions at the [facility] of this admission. Will follow. Elizabeth Blevins MD cc: [phone] TT: 05/07/2017 20:25:11 Confirmation # [id number] Dictation # [id number] dn
--- NOTE | 2017-05-07 21:43 | CON ---
DATE: 05/07/2017 HISTORY OF PRESENT ILLNESS: This is a 72-year-old [place] female who came to the hospital with slur ring of speech and generalized weakness, started last night and felt that having another stroke and d enies any nausea or vomiting, no fever, no chills, no abdominal pain. PAST MEDICAL HISTORY: Hypertension, history of CVA in the past, diabetes, coronary artery disease, s tatus post open heart surgery many years ago, COPD and peripheral vascular disease. ALLERGIES: None known, allergic to any medication. MEDICATIONS: The patient is on insulin, Levemir, nebulizer, Crestor, baclofen, Spiriva, Plavix, aspi rin, trazodone, and Protonix. SOCIAL HISTORY: , living with family. Heavy smoker. REVIEW OF SYSTEMS: Was negative. PHYSICAL EXAMINATION: HEENT: Normocephalic, atraumatic. NECK: Supple. NEUROLOGIC: Alert, awake, oriented x 3. No aphasia. Cranial nerves II through XII are tested. Pup ils reactive. EOM intact. Visual marinelli full. No facial asymmetry. Tongue midline. Motor examina tion: Moves all the extremities equally. Tone normal. Deep tendon reflexes 1+. Both plantars down going. Sensory appears intact. Cerebellar gait deferred. IMPRESSION AND PLAN: Possibly transient ischemic attack, less likely a stroke. CAT scan of the head was negative and workup in progress. We will follow up. Juan Heck MD cc: [id number] TT: 05/07/2017 21:43:33 Confirmation # [id number] Dictation # [id number] mn
[2017-05-08] MEDS ORDERED: Insulin Lispro (humaLOG) MIX 75/25(10 ml) SC SCH (07:30)
--- NOTE | 2017-05-08 08:15 | PN ---
DATE: 05/07/2017 The patient is 72 years old, seen and examined sitting in chair. He states he feels a lot better. María Elena nieves only felt dizzy yesterday because of the heat, he could not sleep and his family noticed he was slu rring speech, but he states actually he was just having generalized weakness because of sleeplessness . PHYSICAL EXAMINATION: GENERAL: He is awake and alert, communicative, eating his bagel and cup of coffee brought by the [facility]. He is anxious to go home. VITAL SIGNS: He is afebrile, pulse 74, respirations 20, blood pressure 113/65. LUNGS: Bilateral fair airflow, no rhonchi or crackle. HEART: S1, S2 audible. ABDOMEN: Soft, nontender, no rebound, no guarding. NEUROLOGIC: The patient is awake and alert and able to communicate. Moves all extremities. LABORATORY EXAMINATION: WBC 5.1, hemoglobin 17.8, hematocrit 50, platelets 113. Chemistry: Sodium 135, potassium 4.0, chloride 99, CO2 of 28, BUN 17, creatinine 0.9, blood sugar 293. ASSESSMENT: 1. Generalized weakness. 2. Questionable transient ischemic attack, highly doubt. The patient's neurological status is back to baseline. 3. Active smoker. 4. Right carotid stenosis, complete occlusion, sign, probably not a candidate for surgical int ervention. 5. Hypertension. 6. Insulin-dependent diabetes. 7. Hyperlipidemia. PLAN: Get physical therapy evaluation after patient is evaluated by neurologist, and we can make a d ischarge plan. Kierra Agarwal MD cc: [phone] TT: 05/07/2017 21:39:04 Confirmation # [id number] Dictation # [id number]
== END 2017-05-07 21:11 | disposition home or self-care (01) ==
LOC: ED 18:31 → ERH 21:31 → 2RSO 22:57
PROVIDERS: ADMIT Internal Medicine; ATTEND Internal Medicine
DX: R53.1 Weakness (principal); E11.65 Type 2 diabetes mellitus with hyperglycemia; E11.319 Type 2 diabetes mellitus with unspecified diabetic retinopathy without macular edema; E11.42 Type 2 diabetes mellitus with diabetic polyneuropathy; I73.9 Peripheral vascular disease, unspecified; D75.1 Secondary polycythemia; E78.5 Hyperlipidemia, unspecified; F17.210 Nicotine dependence, cigarettes, uncomplicated; I11.9 Hypertensive heart disease without heart failure; I25.10 Atherosclerotic heart disease of native coronary artery without angina pectoris; I69.354 Hemiplegia and hemiparesis following cerebral infarction affecting left non-dominant side; I65.21 Occlusion and stenosis of right carotid artery; J44.9 Chronic obstructive pulmonary disease, unspecified; Z79.02 Long term (current) use of antithrombotics/antiplatelets; Z79.4 Long term (current) use of insulin; Z79.82 Long term (current) use of aspirin; Z79.899 Other long term (current) drug therapy; Z82.49 Family history of ischemic heart disease and other diseases of the circulatory system; Z83.3 Family history of diabetes mellitus; Z90.49 Acquired absence of other specified parts of digestive tract; Z95.1 Presence of aortocoronary bypass graft; Z95.5 Presence of coronary angioplasty implant and graft; R35.1 Nocturia; K59.00 Constipation, unspecified
CPT/HCPCS: 36415; 70450; 71010; 80053; 80061; 81001; 82550; 82803; 82948; 83036; 83615; 83735; 83930; 84100; 84439; 84443; 84484; 85025; 85610; 85730; 93005; 93880; 94640; 97116; 97162; 99285; G0378; G8978; G8979; G8980; J7040

== ENCOUNTER 2018-01-11 09:14 | Inpatient (IN) | payer BC, MEDICARE ==
[2018-01-11 09:25] VITALS: BMI 27.1
[2018-01-11] MEDS ORDERED: Sodium Chloride 0.9% 1,000 ML IV STA (09:40)
--- NOTE | 2018-01-11 10:00 | RAD ---
HISTORY: admission COMPARISON: 05/06/2017. FINDINGS: LUNGS: The lungs are well inflated and clear. There is right basilar atelectasis. PLEURA: No significant pleural effusion identified, no pneumothorax apparent. CARDIOVASCULAR: There is mild cardiomegaly. Status post CABG. OSSEOUS STRUCTURES: No significant abnormalities. VISUALIZED UPPER ABDOMEN: Normal. OTHER FINDINGS: None. IMPRESSION: No active pulmonary disease.
[2018-01-11 10:09] LABS: BASO # 0.05 K/mm3 (0.0-2.0); BASO % 0.8 % (0.0-3.0); EOS # 0.2 (0.0-0.7); EOS % 2.7 % (1.5-5.0); GRAN # 2.84 (1.4-6.5); GRAN % 45.4 % (50.0-68.0); HEMOGLOBIN 15.1 g/dL (14.0-18.0); LYMPH # 2.6 (1.2-3.4); LYMPH % 40.7 % (22.0-35.0); MEAN CELL VOLUME 90.3 fl (80.0-105.0); MEAN CORPUSCULAR HGB CONC 34.3 g/dl (31.0-37.0); MEAN PLATELET VOLUME 13.1 fl (7.0-11.0); MONO # 0.7 (0.1-0.6); MONO % 10.4 % (1.0-6.0); RBC 4.87 10^6/uL (3.5-6.1); RED CELL DISTRIBUTION WIDTH 14.6 % (11.5-14.5); WHITE BLOOD COUNT 6.3 10^3/ul (4.5-11.0)
--- NOTE | 2018-01-11 10:20 | ED PDOC ---
Arrival/HPI - General Chief Complaint: High Blood Sugar Time Seen by Provider: 01/11/18 09:39 Historian: Patient - History of Present Illness Narrative History of Present Illness (Text): 01/11/18 10:17 72yo male with PMhx of Polycythemia, PVD, Diabetes, COPD, CVA bib bls with complaint of hyperglycemia. PAtient states he was lightheaded when he woke up this morning and tried to stand up, so he assumed that his BS is elevated. Notes that he took his insulin this morning. He however denies headache, chest pain, focal weakness, nausea, vomiting, diarrhea, fever, chills, recent URI symptoms, sick contact, any other complaint. Past Medical History - Provider Review Nursing Documentation Reviewed: Yes - Infectious Disease Hx of Infectious Diseases: None - Past Medical History Past Medical History: No Previous - Cardiac Hx Cardiac Disorders: Yes Hx Hypertension: Yes - Pulmonary Hx Chronic Obstructive Pulmonary Disease (COPD): Yes - Neurological HX Cerebrovascular Accident: Yes - HEENT Hx HEENT Disorder: No - Renal Hx Renal Failure: No - Endocrine/Metabolic Hx Diabetes Mellitus Type 2: Yes - Hematological/Oncological Hx Blood Disorders: No - Integumentary Hx Dermatological Disorder: No - Musculoskeletal/Rheumatological Hx Arthritis: No - Gastrointestinal Hx Gastroesophageal Reflux: No - Genitourinary/Gynecological Hx Genitourinary Disorders: No - Psychiatric Hx Psychophysiologic Disorder: No Hx Substance Use: No - Surgical History Hx Cardiac Catheterization: Yes Hx Cholecystectomy: Yes Hx Coronary Stent: Yes Hx Open Heart Surgery: Yes (CABG) - Anesthesia Hx Anesthesia Reactions: No Hx Malignant Hyperthermia: No - Suicidal Assessment Feels Threatened In Home Enviroment: No Family/Social History - Physician Review Nursing Documentation Reviewed: Yes Family/Social History: Unknown Family HX Smoking Status: Current Some Days Smoker Hx Alcohol Use: No Hx Substance Use: No Hx Substance Use Treatment: No Allergies/Home Meds Allergies/Adverse Reactions: Allergies No Known Allergies Allergy (Verified 01/11/18 17:49) Home Medications: Home Meds Medication Instructions Recorded Confirmed Albuterol 0.083% [Albuterol 0.083% 2.5 mg NEB Q6 PRN 05/06/17 05/07/17 Inhal Olga (2.5 mg/3 ml) UD] Baclofen [Lioresal] 10 mg PO DAILY 05/06/17 05/07/17 Fluticasone/Salmeterol [Advair 1 inh NEB Q12 05/06/17 05/06/17 250-50 Diskus] Rosuvastatin Calcium [Crestor] 40 mg PO DAILY 05/06/17 05/07/17 Tiotropium [Spiriva] 1 cap NEB DAILY 05/06/17 05/07/17 traZODone [Desyrel] 50 mg PO DAILY 05/06/17 05/06/17 Review of Systems - Physician Review All systems were reviewed & negative as marked: Yes - Review of Systems Constitutional: Normal Eyes: Normal ENT: Normal Respiratory: Normal Cardiovascular: Normal Gastrointestinal: Normal Genitourinary Male: Normal Musculoskeletal: Normal Skin: Normal Neurological: Dizziness. absent: Headache, Focal Weakness, Speech Changes, Facial Droop Endocrine: Other (elevated BS) Hemo/Lymphatic: Normal Psychiatric: Normal Physical Exam Vital Signs Reviewed: Yes Vital Signs Temp Pulse Resp BP Pulse Ox 01/11/18 12:35 90 17 108/72 96 01/11/18 11:40 90 18 135/83 99 01/11/18 10:57 92 H 17 117/63 97 01/11/18 09:59 96 H 19 107/64 97 01/11/18 09:41 97.8 F 84 18 70/49 L 97 Temperature: Afebrile Blood Pressure: Normal Pulse: Regular Respiratory Rate: Normal Appearance: Positive for: Well-Appearing, Non-Toxic, Comfortable Pain Distress: None Mental Status: Positive for: Alert and Oriented X 3 Finger Stick Blood Glucose: 338 - Systems Exam Head: Present: Atraumatic, Normocephalic Pupils: Present: PERRL Extroacular Muscles: Present: EOMI Conjunctiva: Present: Normal Mouth: Present: Moist Mucous Membranes Neck: Present: Normal Range of Motion Respiratory/Chest: Present: Clear to Auscultation, Good Air Exchange. No: Respiratory Distress, Accessory Muscle Use Cardiovascular: Present: Regular Rate and Rhythm, Normal S1, S2. No: Murmurs Abdomen: Present: Normal Bowel Sounds. No: Tenderness, Distention, Peritoneal Signs, Rebound, Guarding, McBurney's Point Tender, Rovsing's Sign Present Back: Present: Normal Inspection Upper Extremity: Present: Normal Inspection. No: Cyanosis, Edema Lower Extremity: Present: Normal Inspection. No: Edema Neurological: Present: GCS=15, CN II-XII Intact, Speech Normal, Motor Func Grossly Intact, Normal Sensory Function, Normal Cerebellar Funct, Norm Deep Tendon Reflexes, Memory Normal Skin: Present: Warm, Dry, Normal Color. No: Rashes Psychiatric: Present: Alert, Oriented x 3, Normal Insight, Normal Concentration Medical Decision Making ED Course and Treatment: 01/11/18 19:19 PT in ED for stated history. He was hypotensive on arrival. His BP improved in ED with a liter of NS. BS also improved in ED with insulin. On re evaluation pt states he feels better. The who was by the bedside notes that pt is noncompliant with his medication. PT was however admitted. Head CT - Negative EKG NSR; RBBB @85bpm Case was DW Dr. Agarwal and pt was admitted. She also saw patient by the bedside in ED. - Lab Interpretations Lab Results: 01/11/18 09:30 01/11/18 09:30 Lab Results 01/11/18 12:00: Urine Color Light yellow, Urine Appearance Clear, Urine pH 6.0, Ur Specific [place] 1.015, Urine Protein Negative, Urine Glucose (UA) >=1000, Urine Ketones Negative, Urine Blood Negative, Urine Nitrate Negative, Urine Bilirubin Negative, Urine Urobilinogen 0.2, Ur Leukocyte Esterase Negative 01/11/18 11:24: POC Glucose (mg/dL) 259 H 01/11/18 10:05: pO2 190 H, VBG pH 7.34, VBG pCO2 47.0, VBG HCO3 25.4, VBG Total CO2 26.8, VBG O2 Sat (Calc) 99.2 H, VBG Base Excess -0.8 L, VBG Potassium 3.7, Glucose 446 H* D, Lactate 2.1, FiO2 21.0, Sodium 131.0 L, Chloride 98.0, Venous Blood Potassium 3.7 01/11/18 09:30: Sodium 132, Potassium 3.8, Chloride 96 L, Carbon Dioxide 22, Anion Gap 18, BUN 25 H, Creatinine 1.5, Est GFR ( Amer) 56, Est GFR (Non- Af Amer) 46, Random Glucose 426 H* D, Calcium 9.8, Magnesium 2.3 H, Total Bilirubin 0.9, AST 21, ALT 20, Alkaline Phosphatase 72, Lactate Dehydrogenase 352, Total Creatine Kinase 129, Troponin I 0.03 D, Total Protein 7.3, Albumin 3.9, Globulin 3.4, Albumin/Globulin Ratio 1.1 01/11/18 09:30: PT 11.8, INR 1.03, APTT 32.1 01/11/18 09:30: WBC 6.3 D, RBC 4.87, Hgb 15.1 D, Hct 44.0, MCV 90.3, MCH 31.0 , MCHC 34.3, RDW 14.6 H, Plt Count 157, MPV 13.1 H, Gran % 45.4 L, Lymph % (Auto ) 40.7 H, Winkler % (Auto) 10.4 H, Eos % (Auto) 2.7, Baso % (Auto) 0.8, Gran # 2.84 , Lymph # (Auto) 2.6, Winkler # (Auto) 0.7 H, Eos # (Auto) 0.2, Baso # (Auto) 0.05 01/11/18 09:29: POC Glucose (mg/dL) 338 H - RAD Interpretation Radiology Orders: 01/11/18 09:39 CHEST PORTABLE [RAD] Stat - Medication Orders Current Medication Orders: Acetaminophen (Tylenol 325mg Tab) 650 mg PO Q6H PRN PRN Reason: Fever >100.4 F Albuterol/Ipratropium (Duoneb 3 Mg/0.5 Mg (3 Ml) Ud) 3 ml IH [id number] [facility] Aspirin (Ecotrin) 81 mg PO DAILY [facility] Last Admin: 01/11/18 15:39 Dose: 81 mg Clopidogrel Bisulfate (Plavix) 75 mg PO DAILY [facility] Last Admin: 01/11/18 15:39 Dose: 75 mg Insulin Detemir (Levemir) 25 unit SC ACB [facility] Insulin Human Regular (Humulin R High) 0 units SC ACHS [facility] PRN Reason: Protocol Meclizine HCl (Antivert) 25 mg PO TID [facility] Non-Formulary Medication (Rosuvastatin Calcium [Crestor]) 40 mg PO DAILY [facility] Last Admin: 01/11/18 15:39 Dose: Pantoprazole Sodium (Protonix Ec Tab) 40 mg PO 0630 [facility] Tiotropium Normanna (Spiriva) 18 mcg IH DAILY [facility] Last Admin: 01/11/18 18:58 Dose: 18 mcg Trazodone HCl (Desyrel) 50 mg PO DAILY [facility] Last Admin: 01/11/18 15:39 Dose: 50 mg Discontinued Medications Sodium Chloride (Sodium Chloride 0.9%) 1,000 mls @ 999 mls/hr IV .Q1H1M STA Stop: 01/11/18 10:40 Last Admin: 01/11/18 09:40 Dose: 999 mls/hr eMAR Start Stop Document 01/11/18 09:40 SF (Rec: 01/11/18 10:01 SF [id number]) Intravenous Solution Start Date 01/11/18 Start Time 09:40 End Date 01/11/18 End time 10:41 Total Infusion Time 61 Insulin Human Regular (Humulin R) 10 units IVP ONCE STA Stop: 01/11/18 10:31 Last Admin: 01/11/18 10:54 Dose: 10 units MAR Blood Glucose Document 01/11/18 10:54 SF (Rec: 01/11/18 10:54 SF [id number]) Blood Glucose Finger Stick Blood Glucose (70-120) 446 IVP Administration Document 01/11/18 10:54 SF (Rec: 01/11/18 10:54 SF [id number]) Charges for Administration # of IVP Administrations 1 Disposition/Present on Arrival - Present on Arrival Any Indicators Present on Arrival: No History of DVT/PE: No History of Uncontrolled Diabetes: Yes Urinary Catheter: No History of Decub. Ulcer: No History Surgical Site Infection Following: None - Disposition Have Diagnosis and Disposition been Completed?: Yes Diagnosis: Hyperglycemia, Near syncope, Hypotension Disposition: HOSPITALIZED Disposition Time: 12:05 Patient Plan: Admission Patient Problems: Current Active Problems Problem Status Onset Hyperglycemia Acute Hypotension Acute Near syncope Acute Condition: FAIR
[2018-01-11 10:24] LABS: VENOUS BLOOD GAS BASE EXCESS -0.8 mmol/L (0.0-2.0); VENOUS BLOOD GAS PO2 190 mm/Hg (30-55); VENOUS BLOOD PH 7.34 (7.32-7.43)
[2018-01-11 10:24] LABS: INR 1.03 (0.93-1.08); PARTIAL THROMBOPLASTIN TIME 32.1 Seconds (25.1-36.5); PROTHROMBIN TIME 11.8 SECONDS (9.4-12.5)
[2018-01-11 10:30] LABS: ALB/GLOB RATIO 1.1 (1.1-1.8); ALBUMIN 3.9 g/dL (3.0-4.8); CALCIUM 9.8 mg/dL (8.4-10.5); MAGNESIUM 2.3 mg/dL (1.7-2.2); TROPONIN I 0.03 ng/mL
[2018-01-11] MEDS ORDERED: Insulin Regular 1 UNITS/0.01 ML ML IVP STA (10:30)
[2018-01-11 12:19] LABS: URINE BILIRUBIN NEGATIVE (NEGATIVE); URINE BLOOD NEGATIVE (NEGATIVE); URINE GLUCOSE (UA) >=1000 mg/dL (NEGATIVE); URINE LEUKOCYTE ESTERASE NEGATIVE Leu/uL (NEGATIVE); URINE NITRATE NEGATIVE (NEGATIVE); URINE PROTEIN NEGATIVE mg/dL (<30 mg/dL); URINE UROBILINOGEN 0.2 E.U./dL (<1 E.U./dL)
[2018-01-11 12:20] LABS: URINE APPEARANCE CLEAR (CLEAR); URINE COLOR LIGHT YELLOW (YELLOW)
[2018-01-11] MEDS ORDERED: Iohexol 350 MG/100 ML VIAL ONE (12:32)
[2018-01-11 13:46] LABS: VENOUS BLOOD GAS BASE EXCESS -1.3 mmol/L (0.0-2.0); VENOUS BLOOD GAS PO2 73 mm/Hg (30-55); VENOUS BLOOD PH 7.34 (7.32-7.43)
--- NOTE | 2018-01-11 15:59 | CT ---
PROCEDURE: CT Chest with contrast HISTORY: cough COMPARISON: Chest radiograph 01/11/2018 TECHNIQUE: Contiguous axial images were obtained through the chest with intravenous contrast enhancement. Sagittal and coronal reconstructions were performed. IV contrast: Omnipaque 350, 100 cc Radiation dose (DLP): 485.24 mGy-cm. This CT exam was performed using one or more of the following dose reduction techniques: Automated exposure control, adjustment of the mA and/or kV according to patient size, and/or use of iterative reconstruction technique. FINDINGS: LUNGS: No definite alveolar infiltrate is appreciated although centrilobular emphysema is appreciated which is apical predominant. Further, there multiple small partially calcified plaque scattered bilaterally, some of which are noncalcified though. A 5 mm subpleural nodule seen in the right lower lobe posteriorly in image 69 series 3. A 3 mm subpleural nodule seen at the left apex image 8. Limited fibrotic changes seen at the right greater than left lower lobe basilar subsegments as well as the inferior right middle lobe as well. Central airways appear clear, however, medium-sized bronchi appears somewhat thick-walled which may reflect bronchitis. MEDIASTINUM: The thoracic aorta is mildly aneurysmal at 4.1 cm greatest transverse dimension taper to a normal caliber at the proximal arch (3.6 cm). Cardiac size appears borderline enlarged. Main pulmonary artery unremarkable. No vascular congestion. No lymphadenopathy. Mild thickening of the esophagus is in question. Clinically correlate for potential esophagitis or other pathology. PLEURA: No pneumothorax is appreciated or definite pleural effusion. Trace thickening of the minor fissure. BONES: No fracture. No destructive lesion. Prior median sternotomy apparent. UPPER ABDOMEN: Surgically absent gallbladder. Left renal lucency is too small to characterize. OTHER FINDINGS: None. IMPRESSION: 1. COPD is identified with centrilobular emphysema as discussed above. Limited fibrotic change identified in the bilateral bases. Medium-size bronchial thickening may indicate bronchitis though etiologies are possible clinical correlation is advised. 2. Multifocal partially calcified pleural plaques identified bilaterally. Two nodular foci are subpleural and may be related but are not calcified. Recommend follow-up chest CT in 12 months. 3. Mild esophageal thickening is identified relatively diffusely. 4. Mildly aneurysmal at the ascending thoracic aorta up to 4.1 cm greatest transverse dimension. The remainder of the thoracic aorta appears normal caliber.
[2018-01-11] MEDS: Tiotropium 18 mcg Cap For Inhalation IH SCH (18:58)
[2018-01-11] MEDS ORDERED: Pneumococcal 23-Valent Vaccine IM ONE (20:00)
[2018-01-11] MEDS ORDERED: Influenza Vaccine 60 mcg/0.5 mL SYR (4YR UP) IM ONE (20:00)
[2018-01-11] MEDS: Albuterol-Ipratrop 3 mg / 0.5 (3 ml) UD IH SCH (20:35)
[2018-01-11] MEDS: Insulin Reg-HIGH-Coverage SC SCH (22:05)
[2018-01-12] MEDS: Albuterol-Ipratrop 3 mg / 0.5 (3 ml) UD IH SCH ×4 (01:02→20:04)
--- NOTE | 2018-01-12 05:18 | HP ---
HISTORY OF PRESENT ILLNESS: The patient is 72 years old, known to me from previous admission, came to emergency room because of feeling weak and dizzy as if he is going to pass out. The patient states that he has not been eating, was not feeling well. According to , he smokes a lot, almost 2 packs a day. The patient denies any fever or chills. No history of nausea or vomiting. No diarrhea. The patient states that this morning when he got up, he was having difficulty walking. He thought his sugar is high. He took his insulin, did without checking his blood sugar. PAST MEDICAL HISTORY: Significant for 1. Polycythemia secondary to heavy smoking. 2. Insulin-dependent diabetes. 3. History of COPD. 4. History of previous stroke. 5. Chronic bronchitis. 6. History of angioplasty. 7. History of coronary artery disease, status post open heart surgery. 8. PVD, had distal left superficial femoral artery angioplasty done by Dr. David Cordova. ALLERGIES: HE IS NOT ALLERGIC TO ANY MEDICATION. MEDICATION AT HOME: He is on Protonix 40 day, Advair 250/50 one puff twice a day, trazodone 50 mg at bedtime, aspirin 81 daily, Plavix 75 daily, Spiriva one inhaler daily, baclofen 10 mg daily, Crestor 40 mg daily, nebulizer treatment. He is on Levemir 25 units at bedtime. SOCIAL HISTORY: He is , lives with his . Denies alcohol use; however, he is smoking a lot. He smokes almost 2 pack a day. REVIEW OF SYSTEMS: Significant for generalized weakness and dizziness. PHYSICAL EXAMINATION: GENERAL: He is awake, alert, oriented, and communicative. VITAL SIGNS: He is afebrile. Pulse 90, respirations 17, blood pressure 108/72. LUNGS: Bilateral good airflow. Soft crackle in the upper lung region. HEART: S1 and S2 audible. ABDOMEN: Soft and nontender. No rebound. No guarding. NEUROLOGIC: He is awake, alert, oriented, and communicative. LABORATORY DATA: WBC 6.3, hemoglobin 15, hematocrit 44, and platelets 157. PT 11.8 and INR 1.03. Chemistry: Sodium 132, potassium 3.8, chloride 96, CO2 of 22, BUN 25, creatinine 1.5, and blood sugar . Urinalysis is unremarkable. Blood sugar is 426. He had CT scan of the chest done . CT scan of the chest shows COPD with centrilobular emphysema, medium-sized bronchial thickening may indicate bronchitis, multifocal partially calcified pleural plaques, nodular foci are subpleural and may be related, but not calcified, mild esophageal thickening is identified. ASSESSMENT: 1. Uncontrolled diabetes. 2. Hypotension. 3. Dehydration. 4. Dizziness secondary to hypotension and hyperglycemia. PLAN: We will continue the patient on IV fluids. Start nebulizer treatment. Monitor blood sugar. Continue on Protonix. I will follow up this patient closely and monitor his vital signs. Monitor his CBC and CMP in the a.m. Kierra Agarwal MD
[2018-01-12] MEDS: Pantoprazole 40 mg EC Tab PO SCH (05:44)
[2018-01-12] MEDS ORDERED: Insulin Detemir 100 units/ml Vial (Levemir) SC SCH ×2 (07:30→22:00)
[2018-01-12 08:26] LABS: BASO # 0.04 K/mm3 (0.0-2.0); BASO % 0.9 % (0.0-3.0); EOS # 0.2 (0.0-0.7); EOS % 4.7 % (1.5-5.0); GRAN # 1.52 (1.4-6.5); GRAN % 35.4 % (50.0-68.0); HEMOGLOBIN 14.6 g/dL (14.0-18.0); LYMPH # 2.2 (1.2-3.4); LYMPH % 50.9 % (22.0-35.0); MEAN CELL VOLUME 91.5 fl (80.0-105.0); MEAN CORPUSCULAR HEMOGLOBIN 30.2 pg (25.0-35.0); MEAN PLATELET VOLUME 12.7 fl (7.0-11.0); MONO # 0.4 (0.1-0.6); MONO % 8.1 % (1.0-6.0); RBC 4.84 10^6/uL (3.5-6.1); RED CELL DISTRIBUTION WIDTH 14.7 % (11.5-14.5); WHITE BLOOD COUNT 4.3 10^3/ul (4.5-11.0)
[2018-01-12 08:54] LABS: ALB/GLOB RATIO 1.1 (1.1-1.8); ALBUMIN 3.7 g/dL (3.0-4.8); ALT/SGPT 29 U/L (7-56); AST/SGOT 19 U/L (17-59); BLOOD UREA NITROGEN 19 mg/dL (7-21); CALCIUM 9.8 mg/dL (8.4-10.5); GFR AFRICAN-AMERICAN > 60; GFR NON-AFRICAN AMERICAN > 60
[2018-01-12] MEDS: Insulin Reg-HIGH-Coverage SC SCH ×3 (08:56→17:24)
--- NOTE | 2018-01-12 09:44 | CARD ---
APPROVED REPORT EKG Measurement Heart [id number] <Conclusion> Normal sinus rhythm Possible Left atrial enlargement Right bundle branch block Left posterior fascicular block Bifascicular block Possible Inferior infarct, old STTW changes Less ST depression c/w ECG 05/06/17
[2018-01-12] MEDS: Tiotropium 18 mcg Cap For Inhalation IH SCH (11:00)
[2018-01-12] MEDS ORDERED: Insulin Lispro (humaLOG) MIX 75/25(10 ml) SC STA (19:18)
[2018-01-12] MEDS ORDERED: Oxycodone/Acetaminophen 5/325 mg Tab PO PRN (19:19)
[2018-01-12] MEDS: Magnesium Oxide 400 mg Tab UD PO SCH (20:23)
--- NOTE | 2018-01-12 22:05 | PN ---
DATE: SUBJECTIVE: The patient is 72 years old, seen and examined, lying in bed. Complained of leg cramp. Eating and tolerating. Blood sugar running on the high side. PHYSICAL EXAMINATION: VITAL SIGNS: He is afebrile, pulse 88, respirations 20, blood pressure 110/67. LUNGS: Bilateral fair airflow. No rhonchi or crackle. HEART: S1 and S2 audible. ABDOMEN: Soft. Nontender. No rebound. No guarding. NEUROLOGIC: He is awake and alert, able to communicate. Complained of bilateral leg cramps. LABORATORY EXAM: WBC is 4.3, hemoglobin 14.3, hematocrit 44.3, platelet 145. Chemistry: Sodium 135, potassium 4.5, chloride 97, CO2 of 27, BUN 19, creatinine 1.0, blood sugar of 418. CT scan of the chest was done that showed COPD with centrilobular emphysema, multifocal partially calcified pleural plaques. ASSESSMENT: 1. Dizziness with dehydration, probably secondary to uncontrolled diabetes. 2. Hypertension. 3. Severe peripheral vascular disease, status post angioplasty. 4. Coronary artery disease. 5. History of cerebrovascular accident in the past. PLAN: We will request physical therapy evaluation and monitor blood sugar. Endocrine consult by Dr. Elizabeth Blevins has been requested. Kierra Agarwal MD
[2018-01-12] MEDS: Insulin Lispro (humaLOG) LOW Coverage SC SCH (22:28)
[2018-01-13] MEDS: Albuterol-Ipratrop 3 mg / 0.5 (3 ml) UD IH SCH ×4 (04:15→20:03)
[2018-01-13] MEDS: Pantoprazole 40 mg EC Tab PO SCH (05:31)
[2018-01-13 07:15] VITALS: O2SAT 98
[2018-01-13] MEDS ORDERED: Insulin Lispro (humaLOG) MIX 75/25(10 ml) SC SCH ×3 (07:30→16:30)
[2018-01-13 08:05] LABS: ALB/GLOB RATIO 1.1 (1.1-1.8); ALBUMIN 4.2 g/dL (3.0-4.8); ALT/SGPT 27 U/L (7-56); AST/SGOT 21 U/L (17-59); BLOOD UREA NITROGEN 18 mg/dL (7-21); CALCIUM 10.4 mg/dL (8.4-10.5); GFR AFRICAN-AMERICAN > 60; GFR NON-AFRICAN AMERICAN > 60; HDL CHOLESTEROL 55 mg/dL (29-60)
[2018-01-13] MEDS: Insulin Lispro (humaLOG) LOW Coverage SC SCH ×4 (08:16→23:21)
[2018-01-13 08:23] LABS: LDL CHOLESTEROL 108 mg/dL (0-129)
[2018-01-13] MEDS: Magnesium Oxide 400 mg Tab UD PO SCH ×2 (09:25→17:29)
[2018-01-13] MEDS: Tiotropium 18 mcg Cap For Inhalation IH SCH (09:25)
--- NOTE | 2018-01-13 09:35 | CON ---
DATE: ENDOCRINOLOGY CONSULT LOCATION: Room 373. HISTORY OF PRESENT ILLNESS: This is a 72-year-old male with known history of type 2 insulin-requiring diabetes, presenting here with generalized body weakness and progressive dizziness and lightheadedness with supervening hyperglycemic accelerations and is now being referred for diabetic evaluation and management. PAST MEDICAL HISTORY: As mentioned above, history of type 2 insulin-requiring diabetes, currently on Levemir taken as 25 units once daily in the morning with a sliding scale coverage as noted. History of hypertensive cardiovascular disease and dyslipidemia, history of diabetic retinopathy and painful polyneuropathy in both lower extremities. History of a previous cerebrovascular event with no residual weakness. He also has significant history of cardiac vasculopathy with a previous coronary artery bypass graft surgery and subsequent coronary stent placements as noted. History of peripheral arterial disease and vasculopathy with the previous angioplasty in the left lower extremity undertaken as noted. History of chronic obstructive lung disease from longstanding nicotine dependence. He also has underlying and associated polycythemia as noted. FAMILY HISTORY: Positive for hypertension and diabetes. SOCIAL HISTORY: The patient has longstanding history of nicotine dependence and smokes 2 packs of cigarettes a day until the present time. He is and has a very supportive family otherwise. REVIEW OF SYSTEMS: Admits to generalized body weakness with progressive dizziness and lightheadedness, worse on the day of admission. Also admits to increasing somnolence and lethargy with suboptimal energy level. No chest pains, but admits to progressive shortness of breath, especially on exertion. His oral intake has been variable with nausea, dyspepsia and vague upper abdominal pains. Also admitted to marked polyuria, nocturia and polydipsia as noted. PHYSICAL EXAMINATION: GENERAL: This is an average built male, in no apparent distress. VITAL SIGNS: Blood pressure of 150/90, pulse of 100 beats per minute regular, temperature 98, respirations 20, height is 6 feet, weight is 176 pounds. HEENT: Head normocephalic. Eyes anicteric with pink conjunctivae. Funduscopy not possible at this time. Ears, nose and throat otherwise normal. NECK: Supple. Thyroid gland is normal in size. No carotid bruits. No cervical adenopathy. CARDIOPULMONARY: Some adynamic precordium. S1, S2 is rapid and regular. LUNGS: Clear to auscultation. ABDOMEN: Flat, soft with positive bowel sounds. EXTREMITIES: No peripheral edema. Pulses are +2 bilaterally. LABORATORY DATA: Chemistry showed a BUN of 19, sodium 135, potassium 4.5, chloride 97, CO2 of 27, glucose 562 and creatinine 1.0. His glucose levels are ranging from 284-418 and 445 mg/dL. ASSESSMENT: This is a 72-year-old male with uncontrolled and decompensated type 2 insulin-requiring diabetes related to a subtherapeutic insulin regimen as noted thereof. He also has diabetic microvascular complications of retinopathy and polyneuropathy and possibly also underlying subclinical nephropathy with microalbuminuria. He also has diabetic macrovascular complications of cerebrovascular disease with no residual weakness and coronary artery disease and a pair coronary artery bypass graft surgery with subsequent coronary stent placements. Moreover, he also has diabetic peripheral arterial disease and vasculopathy with a previous angioplasty in the left lower extremity as noted. PLAN OF MANAGEMENT: As discussed with the patient and the staff, we will modify his current insulin regimen to a more physiologic basal and premixed insulin drug combination. It would be ideal to give him a basal and bolus insulin dose regimen, but because of his variable eating patterns and poor adherence to home glucose monitoring, then would concur with the current initiation of a premixed insulin regimen and we will titrate accordingly to optimize metabolic control. We will increase the Humalog 75/25 to 40 units before meals breakfast and 30 units before meals dinner to start tomorrow morning as ordered. We will also add tonight a basal insulin with Levemir given as 20 units subcu at bedtime daily to be initiated tonight as ordered. We will obtain serial chemistries and supplement accordingly needed. We will also give him a very low-dose Humalog coverage scale as ordered to obviate hypoglycemia and detailed orders have been given. A hemoglobin A1c will be done to confirm his prior glycemic control and baseline thyroid function studies and the lipid panel will be ordered. We will initiate diabetic education and dietary instructions also at the time of this admission. We will also strongly advise for smoking cessation especially in the light of significant macrovascular disease as noted and mentioned. We will follow and advise accordingly. Elizabeth Blevins MD [facility] # [id number]
[2018-01-13] MEDS: Insulin Lispro (humaLOG) MIX 75/25(10 ml) SC SCH (17:37)
[2018-01-13 18:42] VITALS: BP 115/65; RESP 20; TEMP 98
--- NOTE | 2018-01-13 20:05 | PN ---
DATE: ENDOCRINOLOGY FOLLOWUP NOTE LOCATION: Room 373. SUBJECTIVE: This is a 72-year-old male with recent uncontrolled type 2 insulin-requiring diabetes, presenting here with near-syncopal episodes and progressive dizziness and lightheadedness with generalized body weakness and associated hyperglycemic accelerations and is being followed closely for metabolic management. His glycemic levels today are fluctuating and have ranged from 249-303 mg/dL. His latest chemistry showed a BUN of 18, sodium 137, potassium 3.9, chloride 98, CO2 of 29, glucose 274, and creatinine 0.9. ASSESSMENT: This is a 72-year-old male with uncontrolled and decompensated type 2 insulin-requiring diabetes, presenting here with marked hyperglycemic accelerations and concomitant hyperosmolar hyperglycemic state and dehydration and is now being followed closely for metabolic management. PLAN OF MANAGEMENT: We will modify once again his basal and premixed insulin regimen as he clearly is quite insulin resistant and would have to give higher insulin requirements to override the existing insulin resistance thereof. We will increase the Levemir to 30 units subcu at bedtime daily to start tonight. We will also increase the premixed insulin regimen with Humalog 75/25 given as 46 units before breakfast and 36 units before dinner as ordered. We will titrate incrementally as indicated to optimize metabolic control. We will continue the same low-dose correction scale using Humalog insulin as given. We will follow and advise accordingly. Elizabeth Blevins MD
--- NOTE | 2018-01-13 21:06 | PN ---
DATE: SUBJECTIVE: Patient is 72 years old, seen and examined. Complaining of feeling weak and dizzy, but better than before. Eating and tolerating. PHYSICAL EXAMINATION: VITAL SIGNS: He is afebrile, pulse 62, respiration 18, blood pressure 94/57. LUNGS: Bilateral fair airflow. No rhonchi or crackle. HEART: S1, S2 audible. ABDOMEN: Soft. Nontender. No rebound. No guarding. NEUROLOGIC: He is awake, alert, oriented; able to communicate; able to walk with a walker. LABORATORY DATA: Blood sugar is 303. ASSESSMENT: 1. Uncontrolled hypertension. 2. Dehydration. 3. Peripheral vascular disease. 4. Coronary artery disease, status post open heart surgery. 5. History of chronic obstructive pulmonary disease. 6. Active smoker. PLAN: Patient is still unsteady to walk. We will continue to monitor his blood sugar. Continue on nebulizer treatment. Dr. Elizabeth Blevins's input noted and appreciated. I think patient will benefit from admission, so we can monitor his blood sugar to control it better and give him a regimen prior to discharge. Kierra Agarwal MD
[2018-01-13] MEDS ORDERED: Insulin Detemir 100 units/ml Vial (Levemir) SC SCH (22:00)
[2018-01-14 03:12] VITALS: PULSE 62
[2018-01-14] MEDS: Albuterol-Ipratrop 3 mg / 0.5 (3 ml) UD IH SCH ×3 (03:30→13:17)
[2018-01-14] MEDS: Pantoprazole 40 mg EC Tab PO SCH (05:52)
[2018-01-14] MEDS ORDERED: Insulin Lispro (humaLOG) MIX 75/25(10 ml) SC SCH (07:30)
[2018-01-14] MEDS: Insulin Lispro (humaLOG) LOW Coverage SC SCH ×3 (08:54→17:18)
[2018-01-14] MEDS: Magnesium Oxide 400 mg Tab UD PO SCH ×2 (10:06→17:20)
[2018-01-14] MEDS: Tiotropium 18 mcg Cap For Inhalation IH SCH (10:06)
[2018-01-14] MEDS: Insulin Lispro (humaLOG) MIX 75/25(10 ml) SC SCH (17:26)
--- NOTE | 2018-01-14 21:57 | PN ---
DATE: ENDOCRINOLOGY FOLLOWUP NOTE ROOM: 373 This is a 72-year-old male with recent uncontrolled type 2 insulin-requiring diabetes, now being followed closely for metabolic management. His glycemic levels are fluctuating but much improved at this time and the glucose levels today have ranged from 175-232 mg/dL. It was 251 at bedtime last night. His latest chemistry showed a BUN of 18, sodium 139, potassium 3.9, chloride 98, CO2 of 29, glucose 274 and creatinine 0.9. So at this time, we will continue the same basal and premixed insulin regimen to allow for dose equilibration and keep him on the Levemir given as 30 units subcu at bedtime daily as ordered. We will continue the premixed insulin regimen given as Humalog 75/25 at 46 units before breakfast and 36 units before dinner as ordered. He will follow with his medical doctor for outpatient diabetic management. We will follow. Elizabeth Blevins MD
--- NOTE | 2018-01-15 16:00 | DS ---
HISTORY OF PRESENT ILLNESS: The patient is 72 years old who was admitted because of feeling dizzy as if he is going to pass out. The patient was found to be hyperglycemic, dehydrated, was given IV fluids. Blood sugar was running high and he was hypotensive, so Dr. Elizabeth Blevins was involved. His insulin is adjusted. He was started on therapy. He seems to be stable and he was seen walking today. Blood sugar seems to be doing better. PHYSICAL EXAMINATION: VITAL SIGNS: He is afebrile, pulse 96, respirations 20, blood pressure 115/65. LUNGS: Bilateral fair airflow. No rhonchi or crackle. HEART: S1 and S2 audible. ABDOMEN: Soft. Nontender. No rebound. No guarding. NEUROLOGIC: He is awake and alert, able to communicate. LABORATORY EXAM: Blood sugar is 232. ASSESSMENT: 1. Dizziness secondary to dehydration and dehydration is secondary to uncontrolled diabetes. 2. Active smoker. 3. Hypertension. 4. Uncontrolled hypertension. 5. Hyperlipidemia. 6. Severe peripheral vascular disease. 7. Coronary artery disease, status post open heart surgery. 8. History of chronic obstructive pulmonary disease. PLAN: The patient is being discharged home today. Dr. Elizabeth Blevins was consulted. She recommended Humalog 75/25, 46 units before breakfast, 36 units before dinner, and he was given nicotine patch and he will be managed medically. Kierra Agarwal MD
== END 2018-01-14 21:56 | disposition home or self-care (01) | DRG 639 ==
LOC: ED 09:14 → ERH 12:08 → 3RSO 14:04 → OBSVTOIN 01-13 16:04 → 3RNO 01-14 06:20
PROVIDERS: ADMIT Internal Medicine; ATTEND Internal Medicine
PROC: 3E0F7GC Introduction of Other Therapeutic Substance into Respiratory Tract, Via Natural or Artificial Opening (ICD-10-PCS; principal; 2018-01-11)
DX: E11.65 Type 2 diabetes mellitus with hyperglycemia (principal); E11.42 Type 2 diabetes mellitus with diabetic polyneuropathy; E11.51 Type 2 diabetes mellitus with diabetic peripheral angiopathy without gangrene; D75.1 Secondary polycythemia; J44.9 Chronic obstructive pulmonary disease, unspecified; E86.0 Dehydration; E11.319 Type 2 diabetes mellitus with unspecified diabetic retinopathy without macular edema; I25.10 Atherosclerotic heart disease of native coronary artery without angina pectoris; F17.210 Nicotine dependence, cigarettes, uncomplicated; I11.9 Hypertensive heart disease without heart failure; E78.5 Hyperlipidemia, unspecified; Z79.4 Long term (current) use of insulin; Z86.73 Personal history of transient ischemic attack (TIA), and cerebral infarction without residual deficits; Z95.1 Presence of aortocoronary bypass graft; Z95.5 Presence of coronary angioplasty implant and graft

== ENCOUNTER 2018-06-20 14:04 | Inpatient (IN) | payer BC, MEDICARE ==
[2018-06-20 14:04] VITALS: BMI 27.1
[2018-06-20] MEDS ORDERED: Sodium Chloride 0.9% 1,000 ML IV STA ×2 (14:41→15:53)
--- NOTE | 2018-06-20 14:54 | ED PDOC ---
Arrival/HPI - General Chief Complaint: Weakness/Neurological Deficit Time Seen by Provider: 06/20/18 14:07 Historian: Patient, Spouse - History of Present Illness Narrative History of Present Illness (Text): 06/20/18 14:45 A 73 year old male, whose past medical history includes Polycythemia, PVD, Diabetes, COPD, CVA in 2016, presents to the emergency room with a complaint of worsening right-sided weakness. At baseline, patient walks with a cane. The patient's states that the patient has been complaining of worsening weakness of the right side for the past week. She notes that yesterday the patient fell and was able to get up on his own. However, this morning, while he was on his way to the bathroom he fell and was too weak to stand up. The patient 's notes that his blood sugar was high yesterday. The patient The patient denies fevers, chills, headache, dizziness, sore throat, cough, chest pain, shortness of breath, dyspnea on exertion, abdominal pain, nausea, vomiting, diarrhea, neck/back pain, urinary/bowel changes or any other complaint. PMD: Dr. Ferrell Time/Duration: 1 week Symptom Onset: Gradual Symptom Course: Unchanged Activities at Onset: Rest, Light Context: Home Past Medical History - Provider Review Nursing Documentation Reviewed: Yes - Infectious Disease Hx of Infectious Diseases: None - Past Medical History Past Medical History: No Previous - Cardiac Hx Cardiac Disorders: Yes (CABG) Hx Hypertension: Yes - Pulmonary Hx Chronic Obstructive Pulmonary Disease (COPD): Yes - Neurological HX Cerebrovascular Accident: Yes (Mild residual weakness) - HEENT Hx HEENT Disorder: No - Renal Hx Renal Failure: No - Endocrine/Metabolic Hx Diabetes Mellitus Type 2: Yes - Hematological/Oncological Hx Blood Disorders: No - Integumentary Hx Dermatological Disorder: No - Musculoskeletal/Rheumatological Hx Arthritis: No Hx Falls: Yes - Gastrointestinal Hx Gastroesophageal Reflux: No - Genitourinary/Gynecological Hx Genitourinary Disorders: No - Psychiatric Hx Psychophysiologic Disorder: No Hx Substance Use: No - Surgical History Hx Cardiac Catheterization: Yes Hx Cholecystectomy: Yes Hx Coronary Stent: Yes Hx Open Heart Surgery: Yes (CABG) - Anesthesia Hx Anesthesia Reactions: No Hx Malignant Hyperthermia: No - Suicidal Assessment Feels Threatened In Home Enviroment: No Family/Social History - Physician Review Nursing Documentation Reviewed: Yes Family/Social History: No Known Family HX Smoking Status: Former Smoker Hx Alcohol Use: No Hx Substance Use: No Hx Substance Use Treatment: No Allergies/Home Meds Allergies/Adverse Reactions: Allergies No Known Allergies Allergy (Verified 06/20/18 14:19) Home Medications: Home Meds Medication Instructions Recorded Confirmed Albuterol 0.083% [Albuterol 0.083% 2.5 mg NEB Q6 PRN 05/06/17 01/11/18 Inhal Olga (2.5 mg/3 ml) UD] Baclofen [Lioresal] 10 mg PO DAILY 05/06/17 01/11/18 Fluticasone/Salmeterol [Advair 1 inh NEB Q12 05/06/17 01/11/18 250-50 Diskus] Rosuvastatin Calcium [Crestor] 40 mg PO DAILY 05/06/17 01/11/18 Tiotropium [Spiriva] 1 cap NEB DAILY 05/06/17 01/11/18 traZODone [Desyrel] 50 mg PO DAILY 05/06/17 01/11/18 Review of Systems - Physician Review All systems were reviewed & negative as marked: Yes - Review of Systems Constitutional: absent: Fevers, Night Sweats Respiratory: absent: SOB, Cough Cardiovascular: absent: Chest Pain, DELACRUZ Gastrointestinal: absent: Abdominal Pain, Stool Changes, Diarrhea, Nausea, Vomiting Genitourinary Male: absent: Urinary Output Changes Musculoskeletal: absent: Back Pain, Neck Pain Neurological: Other (Right sided weakness. ). absent: Headache, Dizziness Physical Exam Vital Signs Reviewed: Yes Vital Signs Temp Pulse Resp BP Pulse Ox 06/20/18 16:12 98.1 F 94 H 18 146/57 L 94 L 06/20/18 14:21 98.2 F 95 H 18 99/60 L 97 Temperature: Afebrile Blood Pressure: Hypotensive Pulse: Tachycardic Respiratory Rate: Normal Appearance: Positive for: Well-Appearing, Non-Toxic, Comfortable Pain Distress: None Mental Status: Positive for: Alert and Oriented X 3 Finger Stick Blood Glucose: 413 - Systems Exam Head: Present: Atraumatic, Normocephalic Pupils: Present: PERRL Extroacular Muscles: Present: EOMI Conjunctiva: Present: Normal Mouth: Present: Moist Mucous Membranes Neck: Present: Normal Range of Motion Respiratory/Chest: No: Good Air Exchange (Decreased air entry at the bases. ) Cardiovascular: Present: Regular Rate and Rhythm, Normal S1, S2. No: Murmurs Abdomen: No: Tenderness, Distention, Peritoneal Signs Back: Present: Normal Inspection Upper Extremity: Present: Normal Inspection. No: Cyanosis, Edema Lower Extremity: Present: Normal Inspection. No: Edema Neurological: Present: GCS=15, CN II-XII Intact, Speech Normal. No: Gait Normal (Ataxia) Skin: Present: Warm, Dry, Normal Color. No: Rashes Psychiatric: Present: Alert, Oriented x 3, Normal Insight, Normal Concentration Medical Decision Making ED Course and Treatment: 06/20/18 14:56 Impression: A 73 year old presents to the emergency room with for complaining of worsening right-sided weakness for the past week. He reports that he is having a right sided stroke. He has normal strength in b/l upper and lower extremities , however, he is ataxic when attempts to ambulate. Plan: -- EKG -- Head CT -- Chest X-ray -- Labs -- Urinalysis -- IV Fluids -- Reassess and disposition Progress Notes: 06/20/18 14:57 EKG: Ordered, reviewed, and independently interpreted the EKG. Rate : 97 BPM Rhythm : NSR Interpretation : RBBB, Left posterior fasicular block. Comparison : No change from 01/11/18 Chest X-ray Dictator : David Ventura MD Report Date : 06/20/2018 15:41:30 IMPRESSION: No active disease. 06/20/18 16:00: Case discussed in detail with Dr. Agarwal who accepts patient to her service. 06/20/18 16:07 Lactate 2.4. SIRS criteria due to elevated hr and elevated wbc. Blood spectrum antibiotics, IVF, blood and urine cultures ordered. Elevated lactate thought more likely secondary to hyperglycemia but ua still pending. Insulin ordered for hyperglycemia. Aspirin given due to cva concern PROCEDURE: CT HEAD WITHOUT CONTRAST. Dictator : Mario Alberto Travis MD Report Date : 06/20/2018 15:56:35 IMPRESSION: Extensive chronic encephalomalacia is seen in the right cerebral hemisphere. No acute findings 06/20/18 17:29 Repeat xray ordered as patient now coughing and has been given IVF LUNGS: Patchy left basilar and right midlung atelectasis PLEURA: No significant pleural effusion identified, no pneumothorax apparent. CARDIOVASCULAR: Prior sternotomy with sternal wires and surgical clips redemonstrated. Atherosclerotic aortic calcifications. Cardiomediastinal silhouette stably enlarged. OSSEOUS STRUCTURES: Unchanged. VISUALIZED UPPER ABDOMEN: Normal. OTHER FINDINGS: None. IMPRESSION: Patchy left basilar right midlung atelectasis. - Lab Interpretations Lab Results: 06/20/18 15:00 06/20/18 15:00 Lab Results 06/20/18 16:18: POC Glucose (mg/dL) 328 H 06/20/18 15:00: pO2 24 L, VBG pH 7.31 L, VBG pCO2 63.0 H, VBG HCO3 31.7 H, VBG Total CO2 33.6 H, VBG O2 Sat (Calc) 45.2, VBG Base Excess 3.6 H, VBG Potassium 4.9, Sodium 133.0, Chloride 92.0 L, Glucose 442 H*, Lactate 2.4 H, FiO2 21.0, Venous Blood Potassium 4.9 06/20/18 15:00: Sodium 134, Chloride 91 L, Potassium 5.0, Carbon Dioxide 29, Anion Gap 19, BUN 21, Creatinine 1.5, Est GFR ( Amer) 56, Est GFR (Non- Af Amer) 46, Random Glucose 430 H* D, Calcium 9.8, Phosphorus 3.4, Magnesium 2.3 H, Total Bilirubin 1.6 H, AST 26, ALT 27, Alkaline Phosphatase 104, Troponin I 0.02 D, Total Protein 8.2, Albumin 4.4, Globulin 3.8, Albumin/ Globulin Ratio 1.2, Lipase 57, B-Hydroxybutyrate Pending 06/20/18 15:00: WBC 13.1 H D, RBC 5.17, Hgb 16.4, Hct 46.4, MCV 89.7, MCH 31.7, MCHC 35.3, RDW 13.4, Plt Count 179, MPV 13.0 H, Gran % 77.5 H, Lymph % (Auto) 15.9 L, [place] % (Auto) 6.0, Eos % (Auto) 0.4 L, Baso % (Auto) 0.2, Gran # 10.12 H , Lymph # (Auto) 2.1, [place] # (Auto) 0.8 H, Eos # (Auto) 0.1, Baso # (Auto) 0.03 06/20/18 14:28: POC Glucose (mg/dL) 413 H* I have reviewed the lab results: Yes - RAD Interpretation Radiology Orders: 06/20/18 14:39 HEAD W/O CONTRAST [CT] Stat CHEST PORTABLE [RAD] Stat 06/20/18 16:54 CHEST PORTABLE [RAD] Stat - EKG Interpretation Interpreted by ED Physician: Yes Type: 12 lead EKG - Medication Orders Current Medication Orders: Acetaminophen (Tylenol 325mg Tab) 650 mg PO Q6H PRN PRN Reason: Fever >100.4 F Albuterol/Ipratropium (Duoneb 3 Mg/0.5 Mg (3 Ml) Ud) 3 ml IH Q2H PRN PRN Reason: Shortness of Breath Albuterol/Ipratropium (Duoneb 3 Mg/0.5 Mg (3 Ml) Ud) 3 ml IH [id number] AMINA Aspirin (Ecotrin) 81 mg PO DAILY AMINA Clopidogrel Bisulfate (Plavix) 75 mg PO DAILY AMINA Ceftriaxone Sodium (Rocephin 1 Gram Ivpb) 1 gm in 100 mls @ 100 mls/hr IVPB DAILY AMINA PRN Reason: Protocol Sodium Chloride (Sodium Chloride 0.45%) 1,000 mls @ 60 mls/hr IV .[id number] AMINA Insulin Detemir (Levemir) 30 unit SC HS AMINA Insulin Lispro Protam/Lispro Human (Humalog Mix 75/25) 36 units SC ACD AMINA Insulin Lispro Protam/Lispro Human (Humalog Mix 75/25) 46 units SC ACB AMINA Nicotine (Nicoderm Cq) 1 patch TD DAILY AMINA Pantoprazole Sodium (Protonix Ec Tab) 40 mg PO 0630 AMINA Trazodone HCl (Desyrel) 50 mg PO DAILY AMINA Discontinued Medications Aspirin (Aspirin Chewable) 324 mg PO STAT STA Stop: 06/20/18 15:58 Last Admin: 06/20/18 16:40 Dose: 324 mg Sodium Chloride (Sodium Chloride 0.9%) 1,000 mls @ 999 mls/hr IV .[id number] STA Stop: 06/20/18 15:41 Last Admin: 06/20/18 15:11 Dose: 999 mls/hr eMAR Start Stop Document 06/20/18 15:11 [email or web address] (Rec: 06/20/18 15:11 [email or web address] [id number]) Intravenous Solution Start Date 06/20/18 Start Time 15:11 Lactated Ringer's 1,600 ml/ IV (SUPPLIES) 1,600 mls @ 5,443.08 mls/hr IV ONCE ONE PRN Reason: 60 ML/KG/HR Stop: 06/20/18 16:02 Last Admin: 06/20/18 16:30 Dose: 5,443.08 mls/hr eMAR Start Stop Document 06/20/18 16:30 [email or web address] (Rec: 06/20/18 16:31 [email or web address] [id number]) Intravenous Solution Start Date 06/20/18 Start Time 16:31 Vancomycin HCl (Vancomycin 1gm) 1 gm in 250 mls @ 167 mls/hr IVPB STAT STA PRN Reason: Protocol Stop: 06/20/18 17:35 Piperacillin Sod/Tazobactam Sod (Zosyn 4.5 Gm In Ns 100ml) 4.5 gm in 100 mls @ 200 mls/hr IVPB STAT STA PRN Reason: Protocol Stop: 06/20/18 16:35 Last Admin: 06/20/18 16:31 Dose: 200 mls/hr eMAR Start Stop Document 06/20/18 16:31 [email or web address] (Rec: 06/20/18 16:31 [email or web address] [id number]) Intravenous Solution Start Date 06/20/18 Start Time 16:31 Insulin Human Regular (Humulin R) 8 units IV STAT STA Stop: 06/20/18 15:54 Last Admin: 06/20/18 16:40 Dose: 8 unit eMAR Start Stop Document 06/20/18 16:40 [email or web address] (Rec: 06/20/18 16:41 [email or web address] [id number]) Intravenous Solution Start Date 06/20/18 Start Time 16:41 MAR Blood Glucose Document 06/20/18 16:40 [email or web address] (Rec: 06/20/18 16:41 [email or web address] [id number]) Blood Glucose Finger Stick Blood Glucose (70-120) 328 Disposition/Present on Arrival - Present on Arrival Any Indicators Present on Arrival: No History of DVT/PE: No History of Uncontrolled Diabetes: Yes Urinary Catheter: No History of Decub. Ulcer: No History Surgical Site Infection Following: None - Disposition Have Diagnosis and Disposition been Completed?: Yes Diagnosis: Hyperglycemia, Ataxia Disposition: HOSPITALIZED Disposition Time: 16:12 Patient Plan: Observation Patient Problems: Current Active Problems Problem Status Onset Ataxia Acute Hyperglycemia Acute Condition: FAIR
[2018-06-20 15:28] LABS: VENOUS BLOOD GAS BASE EXCESS 3.6 mmol/L (0.0-2.0); VENOUS BLOOD GAS PO2 24 mm/Hg (30-55); VENOUS BLOOD PH 7.31 (7.32-7.43)
[2018-06-20 15:31] LABS: BASO # 0.03 K/mm3 (0.0-2.0); BASO % 0.2 % (0.0-3.0); EOS # 0.1 (0.0-0.7); EOS % 0.4 % (1.5-5.0); GRAN # 10.12 (1.4-6.5); GRAN % 77.5 % (50.0-68.0); HEMOGLOBIN 16.4 g/dL (14.0-18.0); LYMPH # 2.1 (1.2-3.4); LYMPH % 15.9 % (22.0-35.0); MEAN CELL VOLUME 89.7 fl (80.0-105.0); MEAN CORPUSCULAR HEMOGLOBIN 31.7 pg (25.0-35.0); MEAN CORPUSCULAR HGB CONC 35.3 g/dl (31.0-37.0); MONO # 0.8 (0.1-0.6); RBC 5.17 10^6/uL (3.5-6.1); RED CELL DISTRIBUTION WIDTH 13.4 % (11.5-14.5); WHITE BLOOD COUNT 13.1 10^3/ul (4.5-11.0)
--- NOTE | 2018-06-20 15:43 | RAD ---
Date of service: 06/20/2018 HISTORY: ataxia COMPARISON: 01/11/2018 FINDINGS: LUNGS: No active pulmonary disease. PLEURA: No significant pleural effusion identified, no pneumothorax apparent. CARDIOVASCULAR: Sternotomy wires. Normal heart size. No congestive change. OSSEOUS STRUCTURES: No significant abnormalities. VISUALIZED UPPER ABDOMEN: Normal. OTHER FINDINGS: None. IMPRESSION: No active disease.
[2018-06-20 15:50] LABS: ALB/GLOB RATIO 1.2 (1.1-1.8); ALBUMIN 4.4 g/dL (3.0-4.8); CALCIUM 9.8 mg/dL (8.4-10.5)
[2018-06-20 15:53] LABS: TROPONIN I 0.02 ng/mL
[2018-06-20] MEDS ORDERED: Insulin Regular 1 UNITS/0.01 ML ML IV STA ×2 (15:53→21:51)
--- NOTE | 2018-06-20 15:57 | CT ---
Date of service: 06/20/2018 PROCEDURE: CT HEAD WITHOUT CONTRAST. HISTORY: head injury COMPARISON: 05/06/2017 TECHNIQUE: Axial computed tomography images were obtained through the head/brain without intravenous contrast. Radiation dose: Total exam DLP = 999 mGy-cm. This CT exam was performed using one or more of the following dose reduction techniques: Automated exposure control, adjustment of the mA and/or kV according to patient size, and/or use of iterative reconstruction technique. FINDINGS: HEMORRHAGE: No intracranial hemorrhage. BRAIN: No mass effect or edema. Extensive chronic encephalomalacia is seen in the right cerebral hemisphere. No acute findings VENTRICLES: Enlargement of the right lateral ventricle secondary to atrophy. CALVARIUM: Unremarkable. PARANASAL SINUSES: Unremarkable as visualized. No significant inflammatory changes. MASTOID AIR CELLS: Unremarkable as visualized. No inflammatory changes. OTHER FINDINGS: None. IMPRESSION: Extensive chronic encephalomalacia is seen in the right cerebral hemisphere. No acute findings
[2018-06-20] MEDS ORDERED: Piperacill/Tazo 4.5gm in NS 4.5 GM/100 ML BAG IVPB STA (16:06)
[2018-06-20] MEDS ORDERED: Vancomycin 1gm in NS 250ml 1 GM/250 ML BAG IVPB STA (16:06)
--- NOTE | 2018-06-20 17:26 | RAD ---
Date of service: 06/20/2018 HISTORY: cough COMPARISON: Chest radiograph performed 1.75 hours prior. FINDINGS: LUNGS: Patchy left basilar and right midlung atelectasis PLEURA: No significant pleural effusion identified, no pneumothorax apparent. CARDIOVASCULAR: Prior sternotomy with sternal wires and surgical clips redemonstrated. Atherosclerotic aortic calcifications. Cardiomediastinal silhouette stably enlarged. OSSEOUS STRUCTURES: Unchanged. VISUALIZED UPPER ABDOMEN: Normal. OTHER FINDINGS: None. IMPRESSION: Patchy left basilar right midlung atelectasis.
[2018-06-20] MEDS ORDERED: Albuterol-Ipratrop 3 mg / 0.5 (3 ml) UD IH PRN (17:55)
[2018-06-20] MEDS ORDERED: Insulin Lispro (humaLOG) MIX 75/25(10 ml) SC SCH (18:00)
[2018-06-20] MEDS ORDERED: Sodium Chloride 0.45% 1,000 ML IV SCH (18:15)
[2018-06-20 18:47] LABS: URINE APPEARANCE CLEAR (CLEAR); URINE BILIRUBIN NEGATIVE (NEGATIVE); URINE BLOOD LARGE (NEGATIVE); URINE COLOR LIGHT YELLOW (YELLOW); URINE GLUCOSE (UA) >=1000 mg/dL (NEGATIVE); URINE LEUKOCYTE ESTERASE NEGATIVE Leu/uL (NEGATIVE); URINE PROTEIN TRACE mg/dL (<30 mg/dL); URINE UROBILINOGEN 0.2 E.U./dL (<1 E.U./dL)
--- NOTE | 2018-06-20 18:53 | CARD ---
APPROVED REPORT Date of service: 06/20/2018 EKG Measurement Heart [id number] <Conclusion> Poor data quality, interpretation may be adversely affected Normal sinus rhythm Possible Left atrial enlargement Right bundle branch block Left posterior fascicular block Bifascicular block Possible Inferior infarct, age undetermined Abnormal ECG
[2018-06-20 18:57] LABS: URINE WBC NEGATIVE /hpf (0-6)
--- NOTE | 2018-06-20 19:32 | PCM.SEPTIC ---
Sepsis Progress Note - Reassessment Type Date of Evaluation: 06/20/18 Time of Evaluation: 19:04 Reassessment Type: Non-invasive reassessment - Non Invasive Reassessment Were the most recent vital sign reviewed: Yes Vital Sign (Latest): Temp Pulse Resp BP Pulse Ox 98.0 F 106 H 20 131/77 99 06/20/18 19:26 06/20/18 19:26 06/20/18 19:26 06/20/18 19:26 06/20/18 19:26 Cardiovascular: Yes: Tachycardia Respiratory: Yes: Normal Breath Sounds Capillary Refill: Normal (Less than 2 sec) Pulses: Normal Dorsalis Pedis Skin: Normal Color, Warm, Dry - Invasive Reassessment (complete 2 of 4) Was a Central Venous Pressure Measurement obtained within 6 Hours after the presentation of septic shock: No Was a central venous oxygen measurement obtained within 6 hours after the presentation of septic shock: No Was a bedside cardiovascular ultrasound performed within 6 hours after the presentation of septic shock: No Was a passive leg raise performed or was a fluid challenge performed within 6 hrs of the initial fluid bolus: Yes Fluid Challenge performed: Yes
[2018-06-20] MEDS: Albuterol-Ipratrop 3 mg / 0.5 (3 ml) UD IH SCH (20:15)
--- NOTE | 2018-06-20 21:03 | HP ---
HISTORY OF PRESENT ILLNESS: The patient is 73 years old, brought to the emergency room by the family because of left sided weakness, more than usual. According to , he fell yesterday, was able to get up, was able to ambulate with the cane; however, he has been increasingly weak. She complained that he still smokes heavy. Yesterday while on his way to the bathroom, he fell. Since then, his pain has gotten worse. Denies any slurred speech. No history of headaches. No nausea or vomiting. No fever, no chills. No chest pain. No shortness of breath. PAST MEDICAL HISTORY: Significant for: 1. COPD. 2. History of CVA in 2016. 3. Insulin-dependent diabetes. 4. Polycythemia vera. 5. Severe peripheral vascular disease. 6. History of previous angioplasty done by Dr. David Cordova. ALLERGIES: HE IS NOT ALLERGIC TO ANY MEDICATION. MEDICATION AT HOME: He is on trazodone 50 mg at bedtime, Protonix 40 daily, nicotine patch, he is on Humalog 75/25 before breakfast and dinner, Levemir 30 units at bedtime, Plavix 75 daily, aspirin 81 daily, Crestor 40 mg daily and he is on nebulizer treatment. SOCIAL HISTORY: He lives with his . He is a heavy smoker, almost one to two pack every day for many years. He does not drink. REVIEW OF SYSTEMS: Significant for generalized weakness. PHYSICAL EXAMINATION: GENERAL: He is awake, alert, oriented, and communicative. VITAL SIGNS: He is afebrile. Pulse 94, respirations 18, blood pressure 146/57. LUNGS: Bilateral fair airflow. No rhonchi or crackle. He has diffusely decreased breath sounds. HEART: S1 and S2 audible. ABDOMEN: Soft and nontender. No rebound. No guarding. NEUROLOGIC: He is awake, alert, oriented with left sided weakness. LABORATORY EXAM: WBC 13.1, hemoglobin 16, hematocrit 46, platelets 179. Chemistry: Sodium 134, potassium 5, chloride 91, CO2 of 29, BUN 21, creatinine 1.5, blood sugar of 413. Magnesium 2.3. Total bili 1.6. He had x-ray of chest done that shows patchy left basilar right midlung atelectasis. CT scan of the head, extensive chronic encephalomalacia in the right cerebral hemisphere, no acute finding otherwise. ASSESSMENT: 1. Generalized weakness with multiple falls at home. 2. Left sided weakness, history of cerebrovascular accident in the past, in 2016. 3. Coronary artery disease, status post angioplasty. 4. Hypertension. 5. Hyperlipidemia. 6. Insulin-dependent diabetes. 7. Severe peripheral vascular disease. 8. History of chronic obstructive pulmonary disease. 9. Status post open heart surgery. 10. Uncontrolled diabetes. PLAN: The patient will be admitted. We will start him on IV fluids. Monitor his blood sugar. Blood culture, urine cultures were sent. We will start him empirically on Rocephin. Because of his leukocytosis, we will monitor his blood sugar. Neuro consult by Dr. Heck, Cardiology consult by Dr. Rubio has been requested. We will follow up electrolytes and CBC in a.m. Kierra Agarwal MD
[2018-06-20] MEDS: Insulin Detemir 100 units/ml Vial (Levemir) SC SCH (22:10)
[2018-06-20 23:01] LABS: VENOUS BLOOD GAS PO2 48 mm/Hg (30-55)
[2018-06-20] MEDS: Sodium Chloride 0.45% 1,000 ML IV SCH (23:43)
[2018-06-21] MEDS: guaiFENesin 600 mg ER Tab PO SCH ×3 (01:59→17:40)
[2018-06-21] MEDS: Albuterol-Ipratrop 3 mg / 0.5 (3 ml) UD IH SCH ×4 (03:24→21:00)
[2018-06-21] MEDS: Pantoprazole 40 mg EC Tab PO SCH (05:58)
[2018-06-21 07:07] LABS: ALB/GLOB RATIO 1.1 (1.1-1.8); ALBUMIN 3.8 g/dL (3.0-4.8); ALT/SGPT 21 U/L (7-56); AST/SGOT 21 U/L (17-59); BLOOD UREA NITROGEN 19 mg/dL (7-21); CALCIUM 9.4 mg/dL (8.4-10.5); GFR AFRICAN-AMERICAN > 60; GFR NON-AFRICAN AMERICAN > 60; HDL CHOLESTEROL 42 mg/dL (29-60)
[2018-06-21 07:16] LABS: LDL CHOLESTEROL 62 mg/dL (0-129)
[2018-06-21] MEDS ORDERED: Insulin Lispro (humaLOG) MIX 75/25(10 ml) SC SCH (07:30)
[2018-06-21] MEDS: Insulin Lispro (humaLOG) LOW Coverage SC SCH ×5 (08:15→21:47)
--- NOTE | 2018-06-21 08:16 | CON ---
DATE: 06/20/2018 ENDOCRINOLOGY CONSULTATION LOCATION: Room 267. HISTORY OF PRESENT ILLNESS: This is a 73-year-old male with known history of type 2 insulin-requiring diabetes presenting here with sudden onset of worsening right-sided weakness with severe ataxia and an apparent fall prompting this ER consult and subsequent admission. PAST MEDICAL HISTORY: As mentioned above, history of type 2 insulin-requiring diabetes, currently on a combination of a premixed insulin regimen using Humalog 75/25 given as 46 units before breakfast and 36 units before dinner with Levemir given as 30 units subcu at bedtime daily as given. However, he admits to recent hyperglycemic accelerations and glucose levels over 400 mg/dL at home in the past week or so prior to admission, history of hypertension and dyslipidemia, history of a previous CVA with residual right-sided weakness, history of diabetic retinopathy, polyneuropathy and nephropathy. Also, history of coronary artery disease, peripheral arterial disease and vasculopathy, history of polycythemia vera, history of COPD with longstanding nicotine dependence. FAMILY HISTORY: Positive for diabetes and hypertension. SOCIAL HISTORY: The patient admits to nicotine dependence and has a supportive family, otherwise. PAST SURGICAL HISTORY: History of coronary artery bypass graft surgery. REVIEW OF SYSTEMS: Admits to generalized body weakness with easy fatigability and tiredness and suboptimal energy level with supervening progressive bouts of dizziness and lightheadedness with gait instability and worsening right-sided weakness with an apparent fall at home. Also, admits to visual blurring and bifrontal headaches. No chest pains, but admits to progressive shortness of breath, initially on exertion and then at rest. His oral intake has been variable with nausea, dyspepsia and vague upper abdominal pains. Also, admits to marked polyuria and nocturia and polydipsia with lower extremity painful paresthesias. PHYSICAL EXAMINATION: GENERAL: An average built male in no apparent distress. VITAL SIGNS: Blood pressure of 150/90, pulse of 100 beats per minute and regular, temperature 98, respirations 20, height is 6 feet, weight is 200 pounds. HEENT: Head normocephalic. Eyes anicteric with pink conjunctivae. Funduscopy not possible at this time. Ears, nose and throat, otherwise, normal. NECK: Supple. Thyroid gland is normal in size. No carotid bruits or cervical adenopathy. CARDIOPULMONARY: Some adynamic precordium. S1, S2 is rapid and regular. LUNGS: Clear to auscultation. ABDOMEN: Flat, soft with positive bowel sounds. EXTREMITIES: No peripheral edema. Pulses are +2 bilaterally. LABORATORY DATA: Initial chemistries showed a BUN of 21, sodium 134, potassium 5, chloride 91, CO2 29, glucose 430 and creatinine 1.5. His subsequent glucose levels have ranged from 320 to 444 mg/dL. ASSESSMENT: This is a 73-year-old male with uncontrolled and decompensated type 2 insulin-requiring diabetes presenting here with progressively worsening right-sided weakness and supervening marked hyperglycemic accelerations with hyperosmolar hyperglycemic state and dehydration with prerenal azotemia and spurious hyponatremia. He also has diabetic microvascular complications of retinopathy, polyneuropathy and nephropathy with diabetic macrovascular complications of cerebrovascular disease with possible worsening of right-sided weakness and also concomitant coronary artery disease with previous coronary artery bypass graft surgery and underlying peripheral arterial disease and vasculopathy. PLAN OF MANAGEMENT: We will continue the vigorous IV hydration as given and increase the normal saline to 100 mL/hour as ordered and obtain serial chemistries and supplement accordingly as needed. We will also switch him over to a more physiologic basal and bolus insulin regimen instead of using his current premixed insulin regimen at this time. We will start Humalog given as 12 units subcu t.i.d. before meals to start tomorrow morning as ordered. We will modify the coverage scale to obviate hypoglycemia and detailed orders have been given with Humalog coverage to be given only for glucose above 300 mg/dL. We will also continue the basal insulin given as Levemir at 30 units subcu at bedtime daily as given. We will titrate incrementally as indicated to optimize metabolic control. We will also obtain a hemoglobin A1c to confirm his prior glycemic control and baseline thyroid function studies and lipid panel will be ordered. We will obtain serial chemistries and supplement accordingly as needed. We will follow. Elizabeth Blevins MD
[2018-06-21] MEDS: Insulin Lispro 1 UNITS/0.01 ML SC SCH ×3 (08:40→17:39)
[2018-06-21] MEDS: Sodium Chloride 0.45% 1,000 ML IV SCH (09:58)
[2018-06-21] MEDS: cefTRIAXone 1 gm 1 GM/100 ML BAG IVPB SCH (09:58)
[2018-06-21] MEDS ORDERED: cefTRIAXone 1 gm 1 GM/100 ML BAG IVPB SCH (10:00)
--- NOTE | 2018-06-21 13:39 | PN ---
DATE: 06/21/2018 ENDOCRINOLOGY FOLLOWUP LOCATION: Room 267. This is a 73-year-old male with recent uncontrolled type 2 insulin-requiring diabetes presenting here with gait instability and worsening right-sided weakness with supervening hyperglycemic accelerations and is now being followed closely for metabolic management. His glucose values are fluctuating as noted overnight, but have improved, otherwise and the glucose levels have ranged from 133 to 201 and 290 mg/dL. His latest chemistries showed BUN of 19, sodium 142, potassium 3.8, chloride 102, CO2 29, glucose 85 and creatinine 1. His hemoglobin A1c is extremely elevated at 16.2%, which is indicative of very poor outpatient metabolic control of his diabetic condition despite the use of his premixed insulin regimen and also, basal insulin at bedtime. ASSESSMENT: This is a 73-year-old male with uncontrolled and decompensated type 2 insulin-requiring diabetes, presented here with hyperosmolar hyperglycemic state and dehydration with clearly a subtherapeutic insulin regimen as noted, especially with the extremely elevated A1c value as given. PLAN OF MANAGEMENT: We will also increase the basal insulin, Levemir to be given as 34 units subcutaneously at bedtime daily to start tonight. We will continue the modified coverage scale to obviate hypoglycemia and detailed orders have been given. We will also continue the IV hydration as ordered. We will obtain serial chemistries and supplement accordingly needed. We will follow up with you. Elizabeth Blevins MD
--- NOTE | 2018-06-21 15:18 | CON ---
DATE: 06/21/2018 SERVICE: Cardiology. REASON FOR THE CONSULTATION AND FOLLOWUP: Cardiac evaluation; history of coronary artery disease, status post coronary artery bypass surgery; hypertension; hyperlipidemia admitted with ataxia and hyperglycemia and falling on standing. BRIEF CLINICAL HISTORY: This is a 73-year-old Indian male with past medical history significant for coronary artery disease, status post coronary artery bypass surgery 10-12 years ago, diabetes, hypertension, hyperlipidemia, very noncompliant to medication, history of CVA with left-sided weakness, history of active tobacco abuse came in with complaint that on standing, the patient falling and unsteady gait, also was hyperglycemic. The patient is a private patient of Dr. Agarwal, went to the office and complained that the patient keeps on falling, so brought here. Denies any chest pain. Denies any shortness of breath. Denies any palpitation. Denies any focal weakness. PAST MEDICAL HISTORY: Past history significant for history of coronary artery disease, status post CABG 10 to 12 years ago, history of CVA 2 years ago, history of diabetes, hypertension, hyperlipidemia, history of polycythemia vera, history of peripheral arterial disease, history of COPD, history of peripheral intervention by Dr. Cordova in the past. SOCIAL HISTORY: Active tobacco abuse 2 packs a day, still smokes. Denies any history of alcohol abuse. CURRENT MEDICATIONS: The patient is taking trazodone at bedtime, Protonix, nicotine, Humalog at breakfast and dinner, Levemir, Plavix and Crestor. REVIEW OF SYSTEMS: As per HPI. RECENT CARDIAC WORKUP: The patient had echocardiography on 10/18/2016 that showed normal chamber size, ejection fraction 50-55%, trace mitral regurgitation, trace tricuspid regurgitation, trace aortic regurgitation, trace pulmonary insufficiency. No vegetation noted, dated 10/20/2016. The patient had multiple peripheral intervention by Dr. Cordova done in the past. PHYSICAL EXAMINATION: VITAL SIGNS: Height of the patient is 6 feet, weight of the patient is 173 pounds, body mass index 23.5 kg/m2. Temperature afebrile, heart rate 60, blood pressure 102/51. HEENT: PERRLA, intact. NECK: Supple. No carotid bruit. No thyromegaly. CHEST: Clear to auscultation. HEART: S1 and S2 regular. ABDOMEN: Soft. EXTREMITIES: Clubbing and cyanosis negative. LABORATORY DATA: EKG shows normal sinus, right-bundle branch block, left axis deviation. No acute ST-T changes noted. Blood workup as follows; WBC , hemoglobin 16.4, hematocrit 46.4, platelet count 179. Chemistry shows sodium 142, potassium 3.8, chloride 102, carbon dioxide 27, anion gap of 16, BUN 19, creatinine 1. IMPRESSION: This is a 73-year-old male with past medical history significant for diabetes, hypertension, hyperlipidemia, history of coronary artery disease 12 years ago, status post coronary artery bypass graft, very noncompliant, the patient has active tobacco abuse admitted with blood sugar of 403, uncontrolled diabetes and keeps on falling. RECOMMENDATIONS: We will do echo to assess LV function, orthostatic hypotension, aggressive controlled medical treatment, complete cessation of smoking, emphasis made and lifestyle modification. For risk stratification, suggest also a stress test on Sunday or as outpatient. We will get lipid profile, TSH, hemoglobin A1c. We will follow with you and we will also check orthostatic tension. Thank you, Dr. Agarwal, for providing us the opportunity in taking care of the patient, Brad Barber. Cami Rubio MD cc: Kierra Agarwal MD.
--- NOTE | 2018-06-21 15:28 | CON ---
DATE: 06/21/2018 HISTORY OF PRESENT ILLNESS: This is a 73-year-old [place] male with past medical history of COPD, history of stroke in 2016 with residual left-sided weakness and also diabetes, polycythemia vera, peripheral vascular disease. Came to the hospital with at this time right-sided weak and has been falling at home for the last 3 times in 5 days. The patient has difficulty ambulating and also has numbness and tingling. The patient walks with a cane. Complaining of worsening of the right-sided weakness while going to the bathroom and felt too weak to stand up. His blood sugar was also high and brought in to the hospital for further management of the patient. PAST MEDICAL HISTORY: As above. ALLERGY: NO KNOWN DRUG ALLERGY. HOME MEDICATIONS: Baclofen, Crestor, Desyrel. REVIEW OF THE SYSTEMS: Ten-point review of systems was right-sided weakness. PHYSICAL EXAMINATION: VITAL SIGNS: Blood pressure 99/60. HEENT: Normocephalic, atraumatic. NECK: Supple. NEUROLOGIC: Awake, orientated to self. No aphasia. Cranial nerves II through XII were tested. Pupils reactive. EOM intact. Visual field full. No facial asymmetry. Tongue is midline. Motor examination: Moves all the extremities spontaneously. Deep tendon reflexes 1+. Both plantars are downgoing. Sensory appears intact. Cerebellar gait deferred. IMPRESSION: A 73-year-old male with past medical history of diabetes and chronic obstructive pulmonary disease, peripheral vascular disease and stroke with residual left-sided weakness. Came to hospital after having 3 falls. CAT scan of the head was done, which was reported chronic encephalomalacia on the right hemisphere. LABORATORY DATA: WBC 13.1, hemoglobin 16.4, hematocrit 46.4, platelet 179. Sodium 134, potassium 5, glucose 430, BUN 21, creatinine 1.5. We will order MRI of the head with and without Gadolinium and carotid Doppler. Further management after the results of above tests and physical therapy for ambulation. Juan Heck MD
--- NOTE | 2018-06-21 17:03 | CARD ---
APPROVED REPORT Date of service: 06/21/2018 EXAM: Two-dimensional and M-mode echocardiogram with Doppler and color Doppler. INDICATION Cardiac Disease: CAD Syncope 2D DIMENSIONS Left Atrium (2D)3.7 (1.6-4.0cm)IVSd1.5 (0.7-1.1cm) LVDd4.0 (3.9-5.9cm)PWd1.2 (0.7-1.1cm) LVDs2.9 (2.5-4.0cm)FS (%) 27.0 % LVEF (%)53.3 (>50%) M-Mode DIMENSIONS Aortic Root3.20 (2.2-3.7cm)Aortic Cusp Exc.1.10 (1.5-2.0cm) Aortic Valve AoV Peak Apfmubzr804.0cm/Ene Peak GR.13mmHgLVOT Peak Wgvvbiha79.1cm/s LVOT VTI15.60cm Mitral Valve MV E Bzmabtnr64.1cm/sMV A Oatabgsa32.3cm/sE/A ratio0.6 TDI E/Lateral E'0.0E/Medial E'0.0 Tricuspid Valve TR Peak Abgfnshk557qj/sRAP SZHPCEPC89ujIeWQ Peak Gr.11mmHg [id number] LEFT VENTRICLE The left ventricle is normal size. There is mild concentric left ventricular hypertrophy. The left ventricular function is normal.Ef-55% There is normal LV segmental wall motion. Transmitral Doppler flow pattern is Grade III-reversible restrictive diastolic dysfunction. No left ventricle thrombus noted on this study. There is no ventricular septal defect visualized. There is no left ventricular aneurysm. There is no mass noted in the left ventricle. RIGHT VENTRICLE The right ventricle is normal size. There is normal right ventricular wall thickness. The right ventricular systolic function is normal. ATRIA The left atrium size is normal. The right atrium size is normal. The interatrial septum is intact with no evidence for an atrial septal defect. AORTIC VALVE The aortic valve is calcified and displays decreased opening. Non coronary cusp is immobile There is trace aortic regurgitation. There is moderate valvular aortic stenosis.Peakgradient across aortic valve is 13 mm of Hg. Non coronary cusp is immobile There is no aortic valvular vegetation. MITRAL VALVE The mitral valve is thickened but opens well. Mitral regurgitation is trace to mild. There is no mitral valve stenosis. There is no evidence of mitral valve prolapse. TRICUSPID VALVE The tricuspid valve leaflets are thickened , but open well. There is trace tricuspid regurgitation.RVSP-21 mmof Hg. There is no tricuspid valve stenosis. There is no tricuspid valve prolapse or vegetation. PULMONIC VALVE The pulmonic valve is mildly thickened. There is no pulmonic valvular regurgitation. There is no pulmonic valvular stenosis. GREAT VESSELS The aortic root is normal in size. The ascending aorta is normal in size. The pulmonary artery is normal. The IVC is normal in size and collapses >50% with inspiration. PERICARDIAL EFFUSION There is no pleural effusion. There is no pericardial effusion. <Conclusion> The left ventricle is normal size. There is mild concentric left ventricular hypertrophy. The left ventricular function is normal.Ef-55% There is trace aortic regurgitation. There is moderate valvular aortic stenosis.Peakgradient across aortic valve is 13 mm of Hg. Non coronary cusp is immobile Mitral regurgitation is trace to mild. There is trace tricuspid regurgitation.RVSP-21 mmof Hg. The IVC is normal in size and collapses >50% with inspiration. There is no pericardial effusion.
--- NOTE | 2018-06-21 21:15 | PN ---
DATE: 06/21/2018 SUBJECTIVE: The patient is 73 years old, known to me from previous admission. Admitted because of right-sided weakness, has difficulty walking according to . He has multiple falls at home. This right-sided weakness is new, although he has left-sided weakness from previous stroke. PHYSICAL EXAMINATION: Today; GENERAL: He is awake, alert, oriented, able to communicate. VITAL SIGNS: He is afebrile, pulse 60, respirations 18, and blood pressure 138/69. LUNGS: Bilateral fair airflow. No rhonchi or crackle. HEART: S1 and S2 audible. ABDOMEN: Soft, obese, and nontender. No rebound. No guarding. NEUROLOGICAL: He is awake, alert, oriented, able to communicate. He has right-sided weakness. Subtle weakness 4/5, motor and has unstable gait. LABORATORY EXAM: Blood sugar is 290. Sodium 142, potassium 3.8, chloride 102, CO2 of 29. BUN 19, creatinine 1. Blood sugar of 85. LFTs are within normal limit. Urine shows large blood. No leukocyte. Urine culture is pending. Echocardiogram shows concentric LVH with ejection fraction of 55%. There is moderate valvular aortic stenosis with mitral regurgitation. ASSESSMENT: 1. Right-sided weakness. 2. Status post cerebrovascular accident in the past with left-sided weakness. 3. Coronary artery disease. 4. Hypertension. 5. Hyperlipidemia. 6. Coronary artery disease, status post open heart surgery. 7. Insulin-dependent diabetes because of noncompliance with the diet and the medications. 8. History of chronic obstructive pulmonary disease. 9. Active 2-pack smoker. 10. Dysuria. PLAN: The patient has been empirically started on Rocephin to cover UTI complaining of dysuria, generalized weakness with multiple falls at home, coronary artery disease, hypertension. We will continue the patient on current antibiotic. We will request for TCU evaluation. We will continue to monitor his blood sugar. He needs physical therapy and gait training. Continue nebulizer treatment. We will follow up. Kierra Agarwal MD
[2018-06-21] MEDS: Insulin Detemir 100 units/ml Vial (Levemir) SC SCH (21:48)
[2018-06-22] MEDS: Albuterol-Ipratrop 3 mg / 0.5 (3 ml) UD IH SCH ×4 (03:00→20:09)
[2018-06-22] MEDS: Pantoprazole 40 mg EC Tab PO SCH (05:46)
[2018-06-22 07:17] LABS: BASO # 0.05 K/mm3 (0.0-2.0); BASO % 0.9 % (0.0-3.0); EOS # 0.1 (0.0-0.7); EOS % 2.3 % (1.5-5.0); GRAN # 2.54 (1.4-6.5); GRAN % 45.8 % (50.0-68.0); HEMOGLOBIN 15.1 g/dL (14.0-18.0); LYMPH # 2.5 (1.2-3.4); LYMPH % 44.3 % (22.0-35.0); MEAN CELL VOLUME 90.8 fl (80.0-105.0); MEAN CORPUSCULAR HGB CONC 34.2 g/dl (31.0-37.0); MEAN PLATELET VOLUME 12.6 fl (7.0-11.0); MONO # 0.4 (0.1-0.6); MONO % 6.7 % (1.0-6.0); RBC 4.87 10^6/uL (3.5-6.1); WHITE BLOOD COUNT 5.6 10^3/ul (4.5-11.0)
[2018-06-22] MEDS: Insulin Lispro (humaLOG) LOW Coverage SC SCH ×4 (07:37→22:40)
[2018-06-22] MEDS: Insulin Lispro 1 UNITS/0.01 ML SC SCH ×3 (07:40→17:37)
[2018-06-22 07:43] LABS: LDL CHOLESTEROL 69 mg/dL (0-129)
[2018-06-22 07:45] LABS: ALB/GLOB RATIO 1.1 (1.1-1.8); ALBUMIN 3.9 g/dL (3.0-4.8); ALT/SGPT 24 U/L (7-56); AST/SGOT 29 U/L (17-59); BLOOD UREA NITROGEN 16 mg/dL (7-21); CALCIUM 9.4 mg/dL (8.4-10.5); GFR AFRICAN-AMERICAN > 60; GFR NON-AFRICAN AMERICAN > 60; HDL CHOLESTEROL 45 mg/dL (29-60)
--- NOTE | 2018-06-22 09:09 | CP.PCM.PN ---
Subjective - Date & Time of Evaluation Date of Evaluation: 06/22/18 Time of Evaluation: 06:20 - Subjective Subjective: Awake,alert, denies chest pain,denies shortness of breath Reason for consultation and follow up: Cardiac evaluation for coronary artery disease, history of CVA 2015,diabetes, PVD, COPD, polycythemia, Seen and examined by me and Dr. Starks Objective - Vital Signs/Intake and Output Vital Signs (last 24 hours): Temp Pulse Resp BP Pulse Ox 98.4 F 100 H 20 150/91 H 96 06/22/18 06:00 06/22/18 06:00 06/22/18 06:00 06/22/18 06:00 06/22/18 06:00 Intake and Output: 06/22/18 06/22/18 06:59 18:59 Intake Total 1840 Output Total 1050 Balance 790 - Medications Medications: Current Medications Acetaminophen (Tylenol 325mg Tab) 650 mg PO Q6H PRN PRN Reason: Fever >100.4 F Albuterol/Ipratropium (Duoneb 3 Mg/0.5 Mg (3 Ml) Ud) 3 ml IH Q2H PRN PRN Reason: Shortness of Breath Last Admin: 06/20/18 23:15 Dose: 3 ml Albuterol/Ipratropium (Duoneb 3 Mg/0.5 Mg (3 Ml) Ud) 3 ml IH [id number] [facility] Last Admin: 06/22/18 07:40 Dose: 3 ml Aspirin (Ecotrin) 81 mg PO DAILY [facility] Last Admin: 06/21/18 10:01 Dose: 81 mg Benzonatate (Tessalon Perles) 100 mg PO TID [facility] Clopidogrel Bisulfate (Plavix) 75 mg PO DAILY [facility] Last Admin: 06/21/18 10:01 Dose: 75 mg Guaifenesin (Mucinex La) 600 mg PO BID [facility] Last Admin: 06/21/18 17:40 Dose: 600 mg Ceftriaxone Sodium (Rocephin 1 Gram Ivpb) 1 gm in 100 mls @ 100 mls/hr IVPB DAILY [facility] PRN Reason: Protocol Last Admin: 06/21/18 09:58 Dose: 100 mls/hr Insulin Detemir (Levemir) 30 unit SC HS [facility] Last Admin: 06/21/18 21:48 Dose: 30 units Insulin Human Lispro (Humalog Low) 0 units SC ACHS [facility] PRN Reason: Protocol Last Admin: 06/22/18 07:37 Dose: Not Given Insulin Human Lispro (Humalog) 16 units SC AC [facility] Last Admin: 06/22/18 07:40 Dose: 16 unit Nicotine (Nicoderm Cq) 1 patch TD DAILY [facility] Last Admin: 06/21/18 10:00 Dose: 1 patch Pantoprazole Sodium (Protonix Ec Tab) 40 mg PO 0630 [facility] Last Admin: 06/22/18 05:46 Dose: 40 mg Trazodone HCl (Desyrel) 50 mg PO DAILY [facility] Last Admin: 06/21/18 10:01 Dose: 50 mg - Labs Labs: 06/22/18 06:30 06/22/18 06:30 - Constitutional Appears: No Acute Distress - Eye Exam Eye Exam: Normal appearance - Respiratory Exam Respiratory Exam: Decreased Breath Sounds, NORMAL BREATHING PATTERN - Cardiovascular Exam Cardiovascular Exam: REGULAR RHYTHM, +S1, +S2 Additional comments: NSR-90's - GI/Abdominal Exam GI & Abdominal Exam: Soft, Normal Bowel Sounds - Exam Additional comments: continent - Extremities Exam Extremities Exam: Normal Capillary Refill - Neurological Exam Neurological Exam: Alert, Awake, Oriented x3 - Psychiatric Exam Psychiatric exam: Normal Affect - Skin Skin Exam: Intact, Warm Assessment and Plan - Assessment and Plan (Free Text) Assessment: A 73 year old male who came in to the ER due to progressive right sided weakness. History of coronary artery disease, status post CABG 12 years ago, history of CVA 2016, diabetes mellitus, uncontrolled glucose, PVD, COPD, polycythemia,hypertension, hyperlipidemia, current smoker, non compliant and kept falling. Plan: ECHO done- mild LV hyperthropy, LVEF 55%, trace AR/TR, moderate aortic stenosis peak gradient 13mmHg mild MR Will order Orthostatic vital signs Glucose control Neuro on consult On ASA 81 mg daily,Plavix 75 mg daily,Nicotine patch daily Smoking cessation Lifestyle modifications Continue current treatment Continue current medications Will follow up Plan and treatment discussed with Dr. Starks
[2018-06-22] MEDS: guaiFENesin 600 mg ER Tab PO SCH ×2 (10:17→17:37)
[2018-06-22] MEDS: cefTRIAXone 1 gm 1 GM/100 ML BAG IVPB SCH (10:19)
--- NOTE | 2018-06-22 10:40 | PN ---
DATE: 06/22/2018 ENDO FOLLOWUP NOTE LOCATION: In room 267. SUBJECTIVE: This is a 73-year-old male with recent uncontrolled type 2 insulin-requiring diabetes, presenting here with gait instability and ataxia and worsening right-sided weakness and is currently undergoing neurologic workup and management and is also being followed closely for metabolic management. His glycemic levels are still fluctuating as noted overnight and the glucose levels have ranged from 292-327 mg/dL. It was 337 at bedtime last night. The chemistries today showed a BUN of 16, sodium 139, potassium 4, chloride 100, CO2 of 28, glucose 317 and creatinine 0.9. So at this time, we will modify once again his basal and bolus insulin regimen considering the increased insulin resistance thereof and clearly has increased insulin requirements as noted thereof. We will increase his Humalog to 20 units subcu t.i.d. before meals to start at lunchtime today as ordered. We will also increase the basal insulin with Levemir to be given as 40 units subcu at bedtime daily to start tonight. We will continue the low-dose correction scale using Humalog insulin as given. We will obtain serial chemistries and supplement accordingly as needed. We will follow. Elizabeth Blevins MD
--- NOTE | 2018-06-22 22:31 | US ---
PROCEDURE: Bilateral carotid artery duplex ultrasound HISTORY: Carotid stenosis PHYSICIAN(S): David Cordova MD. TECHNIQUE: Duplex sonography and color-flow Doppler were used to evaluate the carotid bifurcations and limited segments of the vertebral arteries bilaterally. FINDINGS: There is diffuse moderate smooth heterogeneous plaque noted at the carotid bifurcations bilaterally. There is sonographic occlusion of the proximal right internal carotid artery. Normal systolic velocities are noted in the proximal right external carotid artery. There is antegrade flow in the right vertebral artery. The peak systolic velocity in the proximal left internal carotid artery is 68 cm/sec. This corresponds to a 20 to 39% proximal left ICA stenosis. Normal systolic velocities are noted in the proximal left external carotid artery. There is antegrade flow in the left vertebral artery. IMPRESSION: 1. Sonographic occlusion of the proximal right internal carotid artery. No string sign is appreciated. If clinically indicated, this can be confirmed with CTA, MRA, or conventional arteriography 2. 20-39 percent proximal left ICA stenosis. 3. Antegrade flow in both vertebral arteries
[2018-06-22] MEDS: Insulin Detemir 100 units/ml Vial (Levemir) SC SCH (22:40)
--- NOTE | 2018-06-22 23:25 | PN ---
DATE: 06/22/2018 SUBJECTIVE: The patient is 73-year-old, seen and examined. Complaining of generalized weakness, difficulty walking. Right-sided weakness was recent. The patient is scheduled to have MRI of the brain done later on today. PHYSICAL EXAMINATION: GENERAL: He is awake, alert, oriented, communicative. VITAL SIGNS: He is afebrile, pulse 94, respirations 18, blood pressure 118/63. LUNGS: Bilateral fair airflow. No rhonchi or crackle. HEART: S1 and S2 audible. ABDOMEN: Soft. Nontender. No rebound. No guarding. NEUROLOGICAL: He is awake, alert, oriented, able to communicate. Has generalized weakness and difficulty walking. LABORATORY DATA: WBC 5.6, hemoglobin 15, hematocrit 44, platelet 187. Chemistry: Sodium 139, potassium 4, chloride 100, CO2 of 28, BUN 16, creatinine 0.9, blood sugar of 254. Blood culture and urine cultures are negative. ASSESSMENT: 1. New right-sided weakness. 2. Uncontrolled diabetes. 3. Noncompliance with diet and medication. 4. Hypertension. 5. History of cerebrovascular accident with left-sided weakness in the past. 6. Coronary artery disease, status post open-heart surgery. 7. Deconditioning and difficulty walking. PLAN: We will follow up MRI of the brain. Continue nebulizer treatment. He is on aspirin 81 daily. Continue him on Plavix 75 daily. He is on Rocephin. Started on . We will follow up carotid Doppler. The patient needs to going to subacute rehab. We will talk to Insurance Sales Associate. Kierra Agarwal MD
[2018-06-23] MEDS: Albuterol-Ipratrop 3 mg / 0.5 (3 ml) UD IH SCH ×4 (01:20→21:30)
[2018-06-23] MEDS: Pantoprazole 40 mg EC Tab PO SCH (06:02)
--- NOTE | 2018-06-23 07:38 | CP.PCM.PN ---
Subjective - Date & Time of Evaluation Date of Evaluation: 06/23/18 Time of Evaluation: 06:15 - Subjective Subjective: OOB to chair, Awake,alert, denies chest pain,denies shortness of breath Reason for consultation and follow up: Cardiac evaluation for coronary artery disease, history of CVA 2015,diabetes, PVD, COPD, polycythemia, Seen and examined by me and Dr. Starks Objective - Vital Signs/Intake and Output Vital Signs (last 24 hours): Temp Pulse Resp BP Pulse Ox 97.6 F 105 H 20 140/87 93 L 06/23/18 06:00 06/23/18 06:00 06/23/18 06:00 06/23/18 06:00 06/23/18 06:00 Intake and Output: 06/23/18 06/23/18 06:59 18:59 Intake Total 300 Output Total 800 Balance -500 - Medications Medications: Current Medications Acetaminophen (Tylenol 325mg Tab) 650 mg PO Q6H PRN PRN Reason: Fever >100.4 F Last Admin: 06/22/18 10:25 Dose: 650 mg Albuterol/Ipratropium (Duoneb 3 Mg/0.5 Mg (3 Ml) Ud) 3 ml IH Q2H PRN PRN Reason: Shortness of Breath Last Admin: 06/20/18 23:15 Dose: 3 ml Albuterol/Ipratropium (Duoneb 3 Mg/0.5 Mg (3 Ml) Ud) 3 ml IH [id number] [facility] Last Admin: 06/23/18 07:29 Dose: 3 ml Aspirin (Ecotrin) 81 mg PO DAILY [facility] Last Admin: 06/22/18 10:17 Dose: 81 mg Benzonatate (Tessalon Perles) 100 mg PO TID [facility] Last Admin: 06/22/18 17:38 Dose: 100 mg Clopidogrel Bisulfate (Plavix) 75 mg PO DAILY [facility] Last Admin: 06/22/18 10:18 Dose: 75 mg Guaifenesin (Mucinex La) 600 mg PO BID [facility] Last Admin: 06/22/18 17:37 Dose: 600 mg Ceftriaxone Sodium (Rocephin 1 Gram Ivpb) 1 gm in 100 mls @ 100 mls/hr IVPB DAILY [facility] PRN Reason: Protocol Last Admin: 06/22/18 10:19 Dose: 100 mls/hr Insulin Detemir (Levemir) 40 unit SC HS [facility] Last Admin: 06/22/18 22:40 Dose: 40 unit Insulin Human Lispro (Humalog Low) 0 units SC ACHS [facility] PRN Reason: Protocol Last Admin: 06/22/18 22:40 Dose: Not Given Insulin Human Lispro (Humalog) 20 units SC AC [facility] Last Admin: 06/22/18 17:37 Dose: 20 units Nicotine (Nicoderm Cq) 1 patch TD DAILY [facility] Last Admin: 06/22/18 10:17 Dose: 1 patch Pantoprazole Sodium (Protonix Ec Tab) 40 mg PO 629 [facility] Last Admin: 06/23/18 06:02 Dose: 40 mg Phenazopyridine HCl (Pyridium) 100 mg PO BID [facility] Stop: 06/25/18 12:00 Last Admin: 06/22/18 17:37 Dose: 100 mg Trazodone HCl (Desyrel) 50 mg PO DAILY [facility] Last Admin: 06/22/18 10:17 Dose: 50 mg - Labs Labs: 06/22/18 06:30 06/22/18 06:30 - Constitutional Appears: No Acute Distress - Eye Exam Eye Exam: Normal appearance - ENT Exam ENT Exam: Mucous Membranes Moist - Respiratory Exam Respiratory Exam: Decreased Breath Sounds, Clear to Ausculation Bilateral, NORMAL BREATHING PATTERN - Cardiovascular Exam Cardiovascular Exam: REGULAR RHYTHM, +S1, +S2 - GI/Abdominal Exam GI & Abdominal Exam: Soft, Normal Bowel Sounds - Extremities Exam Extremities Exam: Normal Capillary Refill - Neurological Exam Neurological Exam: Alert, Awake, Oriented x3 - Psychiatric Exam Psychiatric exam: Normal Affect - Skin Skin Exam: Intact, Warm Assessment and Plan - Assessment and Plan (Free Text) Assessment: A 73 year old male who came in to the ER due to progressive right sided weakness. History of coronary artery disease, status post CABG 12 years ago, history of CVA 2016 ( left sided weakness) diabetes mellitus, uncontrolled glucose, PVD, COPD, polycythemia,hypertension, hyperlipidemia, current smoker, non compliant and kept falling.ECHO done- mild LV hyperthropy, LVEF 55%, trace AR/TR, moderate aortic stenosis peak gradient 13mmHg, mild MR.new onset right sided weakness.MRI of brain done awaiting final result. Plan: Orthostatic vital signs normal Heart rate and blood pressure controlled New onset right sided weakness, MRI of brain done awaiting result Endocrine on consult for glucose control Neuro on consult/follow up On ASA 81 mg daily,Plavix 75 mg daily,Nicotine patch daily Smoking cessation Lifestyle modifications Continue current treatment Continue current medications Will follow up Plan and treatment discussed with Dr. Starks
[2018-06-23] MEDS: Insulin Lispro (humaLOG) LOW Coverage SC SCH ×4 (08:38→21:57)
[2018-06-23] MEDS: Insulin Lispro 1 UNITS/0.01 ML SC SCH ×3 (08:40→17:25)
[2018-06-23] MEDS: guaiFENesin 600 mg ER Tab PO SCH ×2 (09:41→17:25)
[2018-06-23] MEDS: cefTRIAXone 1 gm 1 GM/100 ML BAG IVPB SCH (09:42)
[2018-06-23] MEDS ORDERED: Lidocaine 2% Jelly (Uro-Jet) TOP SCH (11:00)
--- NOTE | 2018-06-23 20:58 | PN ---
DATE: 06/23/2018 SUBJECTIVE: The patient is 73 years old, seen and examined, sitting in chair, seems to be comfortable, complained of generalized weakness, complained of difficulty walking. Otherwise, he is eating well, tolerating. PHYSICAL EXAMINATION: VITAL SIGNS: He is afebrile, pulse 92, respirations 18, blood pressure 114/67. LUNGS: Bilateral fair airflow. No rhonchi or crackle. HEART: S1 and S2 audible. ABDOMEN: Soft. Nontender. No rebound. No guarding. NEUROLOGICAL: He is awake, alert, oriented, and communicative. Has right-sided weakness. LABORATORY DATA: Blood sugar is 254. MRI of the brain preliminary shows lacunar infarct. ASSESSMENT: 1. Right-sided weakness. 2. Status post multiple falls. 3. Deconditioning and difficulty walking. 4. Coronary artery disease, status post open heart surgery. 5. Polycythemia secondary to chronic smoking. 6. Insulin-dependent diabetes. 7. Chronic obstructive pulmonary disease. PLAN: The patient is currently on nebulizer treatment. He is on aspirin. Continue him on insulin. He is on Plavix and aspirin. Complained of burning urination. Will apply some urethra. His urine culture is negative. Empirically, he is on antibiotics. We will monitor in the next 24 hours. Today, social sciences research scientist need to make arrangements for subacute rehab. Once the arrangement is made, the patient will be discharged. Kierra Agarwal MD
[2018-06-23] MEDS: Insulin Detemir 100 units/ml Vial (Levemir) SC SCH (22:02)
[2018-06-24] MEDS: Albuterol-Ipratrop 3 mg / 0.5 (3 ml) UD IH SCH ×4 (03:00→19:57)
[2018-06-24] MEDS: Pantoprazole 40 mg EC Tab PO SCH (05:59)
--- NOTE | 2018-06-24 06:41 | PN ---
DATE: 06/23/2018 ENDOCRINOLOGY FOLLOWUP NOTE LOCATION: Room 267. SUBJECTIVE: This is a 73-year-old male with recent uncontrolled type 2 insulin-requiring diabetes, presenting here with severe hyperglycemic accelerations consistent with hyperosmolar hyperglycemic state thereof; however, overnight, he developed hyperglycemic accelerations and the glucose levels today have ranged from 312 mg/dL. His bedtime glucose was 222 mg/dL. His latest chemistries are pending at this time. ASSESSMENT AND PLAN: Because of the variability of his oral intake with preferential intake of food from home, we will hold off present dose adjustments for now to allow for dose equilibration. We will continue the modified basal and bolus insulin regimen as given with Humalog given as 20 units subcutaneously t.i.d. before meals as ordered. We will continue with the basal insulin given as Levemir at 40 units subcutaneously at bedtime daily as given. We will also continue the modified coverage scale with Humalog insulin as ordered. We will obtain serial chemistries and supplement accordingly as needed. We will follow. Elizabeth Blevins MD
[2018-06-24 06:49] LABS: ALB/GLOB RATIO 1.2 (1.1-1.8); ALBUMIN 3.8 g/dL (3.0-4.8); ALT/SGPT 16 U/L (7-56); AST/SGOT 14 U/L (17-59); BLOOD UREA NITROGEN 26 mg/dL (7-21); CALCIUM 9.6 mg/dL (8.4-10.5); GFR AFRICAN-AMERICAN > 60; GFR NON-AFRICAN AMERICAN > 60
[2018-06-24] MEDS: Insulin Lispro (humaLOG) LOW Coverage SC SCH ×4 (07:47→22:12)
[2018-06-24] MEDS: Insulin Lispro 1 UNITS/0.01 ML SC SCH ×3 (08:00→17:05)
[2018-06-24] MEDS: cefTRIAXone 1 gm 1 GM/100 ML BAG IVPB SCH (09:18)
[2018-06-24] MEDS: guaiFENesin 600 mg ER Tab PO SCH ×2 (09:18→17:06)
--- NOTE | 2018-06-24 10:51 | CP.PCM.PN ---
<Justyn Busch - Last Filed: 06/25/18 12:05> Subjective - Date & Time of Evaluation Date of Evaluation: 06/24/18 Time of Evaluation: 10:00 - Subjective Subjective: Endocrinology progress note for Dr. Blevins: Patient was seen and examined at bedside. No acute events overnight. Patient still complaining of some right-sided weakness. No other new complaints. Denies any headache, dizziness, visual changes, SOB, chest pain, abdominal pain , nausea, vomiting, or urinary changes. 12 point ROS performed and negative other than stated above. Objective - Vital Signs/Intake and Output Vital Signs (last 24 hours): Temp Pulse Resp BP Pulse Ox 97.6 F 99 H 20 123/79 97 06/24/18 05:52 06/24/18 10:00 06/24/18 05:52 06/24/18 05:52 06/24/18 05:52 Intake and Output: 06/24/18 06/24/18 06:59 18:59 Intake Total 480 Output Total 1550 Balance -1070 - Medications Medications: Current Medications Acetaminophen (Tylenol 325mg Tab) 650 mg PO Q6H PRN PRN Reason: Fever >100.4 F Last Admin: 06/22/18 10:25 Dose: 650 mg Albuterol/Ipratropium (Duoneb 3 Mg/0.5 Mg (3 Ml) Ud) 3 ml IH Q2H PRN PRN Reason: Shortness of Breath Last Admin: 06/20/18 23:15 Dose: 3 ml Albuterol/Ipratropium (Duoneb 3 Mg/0.5 Mg (3 Ml) Ud) 3 ml IH [id number] [facility] Last Admin: 06/24/18 07:28 Dose: 3 ml Aspirin (Ecotrin) 81 mg PO DAILY [facility] Last Admin: 06/24/18 09:18 Dose: 81 mg Benzonatate (Tessalon Perles) 100 mg PO TID [facility] Last Admin: 06/24/18 09:18 Dose: 100 mg Clopidogrel Bisulfate (Plavix) 75 mg PO DAILY [facility] Last Admin: 06/24/18 09:18 Dose: 75 mg Guaifenesin (Mucinex La) 600 mg PO BID [facility] Last Admin: 06/24/18 09:18 Dose: 600 mg Ceftriaxone Sodium (Rocephin 1 Gram Ivpb) 1 gm in 100 mls @ 100 mls/hr IVPB DAILY [facility] PRN Reason: Protocol Last Admin: 06/24/18 09:18 Dose: 100 mls/hr Insulin Detemir (Levemir) 40 unit SC [facility] Last Admin: 06/23/18 22:02 Dose: 40 unit Insulin Human Lispro (Humalog Low) 0 units SC ACHS [facility] PRN Reason: Protocol Last Admin: 06/24/18 07:47 Dose: Not Given Insulin Human Lispro (Humalog) 20 units SC AC [facility] Last Admin: 06/24/18 08:00 Dose: 20 units Nicotine (Nicoderm Cq) 1 patch TD DAILY [facility] Last Admin: 06/24/18 09:17 Dose: 1 patch Pantoprazole Sodium (Protonix Ec Tab) 40 mg PO 629 [facility] Last Admin: 06/24/18 05:59 Dose: 40 mg Phenazopyridine HCl (Pyridium) 100 mg PO BID [facility] Stop: 06/25/18 12:00 Last Admin: 06/24/18 09:18 Dose: 100 mg Trazodone HCl (Desyrel) 50 mg PO [facility] Last Admin: 06/23/18 22:02 Dose: 50 mg - Labs Labs: 06/22/18 06:30 06/24/18 05:25 - Constitutional Appears: No Acute Distress - Head Exam Head Exam: ATRAUMATIC, NORMOCEPHALIC - Eye Exam Eye Exam: EOMI - ENT Exam ENT Exam: Mucous Membranes Moist - Respiratory Exam Respiratory Exam: Clear to Ausculation Bilateral. absent: Rales, Wheezes - Cardiovascular Exam Cardiovascular Exam: REGULAR RHYTHM, RRR, +S1, +S2 - GI/Abdominal Exam GI & Abdominal Exam: Soft. absent: Distended, Tenderness - Extremities Exam Extremities Exam: absent: Calf Tenderness - Neurological Exam Neurological Exam: Alert, Awake - Skin Skin Exam: Intact, Normal Color, Warm Assessment and Plan - Assessment and Plan (Free Text) Assessment: 73-year-old M with past medical history of uncontrolled type 2 insulin- dependent diabetes presents with severe hypoglycemic accelerations since then with hyperosmolar hyperglycemic state. Patient had blood glucose levels in the 200s yesterday. 3 AM blood sugar was 341. - Continue with basal and bolus insulin regimen - Increase Humalog to 24 units sc TID before meals - Increase Levemir to 50 units sc at bedtime - Continue to monitor fingersticks and serial chemistries Case and plan was reviewed and discussed with Dr. Blevins. Justyn Busch, PGY3 <Elizabeth Blevins - Last Filed: 06/25/18 23:25> Objective - Vital Signs/Intake and Output Vital Signs (last 24 hours): Temp Pulse Resp BP Pulse Ox 98 F 93 H 21 128/76 95 06/25/18 18:00 06/25/18 18:00 06/25/18 18:00 06/25/18 18:00 06/25/18 19:00 Intake and Output: 06/25/18 06/26/18 18:59 06:59 Intake Total 300 Output Total 2150 Balance -1850 - Medications Medications: Current Medications Acetaminophen (Tylenol 325mg Tab) 650 mg PO Q6H PRN PRN Reason: Fever >100.4 F Last Admin: 06/22/18 10:25 Dose: 650 mg Albuterol/Ipratropium (Duoneb 3 Mg/0.5 Mg (3 Ml) Ud) 3 ml IH Q2H PRN PRN Reason: Shortness of Breath Last Admin: 06/20/18 23:15 Dose: 3 ml Albuterol/Ipratropium (Duoneb 3 Mg/0.5 Mg (3 Ml) Ud) 3 ml IH [id number] [facility] Last Admin: 06/25/18 21:05 Dose: Not Given Aspirin (Ecotrin) 81 mg PO DAILY [facility] Last Admin: 06/25/18 10:07 Dose: 81 mg Atorvastatin Calcium (Lipitor) 40 mg PO DIN [facility] Last Admin: 06/25/18 17:45 Dose: 40 mg Benzonatate (Tessalon Perles) 100 mg PO TID [facility] Last Admin: 06/25/18 17:45 Dose: 100 mg Clopidogrel Bisulfate (Plavix) 75 mg PO DAILY [facility] Last Admin: 06/25/18 10:07 Dose: 75 mg Guaifenesin (Mucinex La) 600 mg PO BID [facility] Last Admin: 06/25/18 17:45 Dose: 600 mg Insulin Detemir (Levemir) 60 unit SC HS [facility] Last Admin: 06/25/18 22:10 Dose: 60 unit Insulin Human Lispro (Humalog Low) 0 units SC ACHS [facility] PRN Reason: Protocol Last Admin: 06/25/18 16:53 Dose: Not Given Insulin Human Lispro (Humalog) 30 units SC AC [facility] Last Admin: 06/25/18 17:45 Dose: 30 units Nicotine (Nicoderm Cq) 1 patch TD DAILY [facility] Last Admin: 06/25/18 10:07 Dose: 1 patch Pantoprazole Sodium (Protonix Ec Tab) 40 mg PO 0630 [facility] Last Admin: 06/25/18 06:53 Dose: 40 mg Trazodone HCl (Desyrel) 25 mg PO HS [facility] Last Admin: 06/25/18 21:50 Dose: 25 mg - Labs Labs: 06/22/18 06:30 06/24/18 05:25 Assessment and Plan - Assessment and Plan (Free Text) Plan: Agree and concur with SOAP note and management. Discussed plan of care with resident.
[2018-06-24] MEDS ORDERED: Sodium Chloride 0.9% 250 ML IV SCH (12:15)
--- NOTE | 2018-06-24 12:27 | DS ---
HISTORY OF PRESENT ILLNESS: The patient is 73 years old. The patient was admitted with right-sided weakness. He already has history of previous CVA with left-sided weakness. According to , he had multiple falls prior to coming to the hospital. During his stay, he had MRI done that shows lacunar infarct. Receiving physical therapy. The patient's also states that he has been a heavy smoker all his life and he still smokes and his blood sugar has been also running high. PHYSICAL EXAMINATION: GENERAL: On examination today, he is awake, alert, oriented, came back from therapy, feels exhausted. VITAL SIGNS: He is afebrile, pulse 99, respirations 18, blood pressure 120/79. LUNGS: Bilateral fair airflow. No rhonchi or crackle. HEART: S1 and S2 audible. ABDOMEN: Soft. Nontender. No rebound. No guarding. NEUROLOGICAL: The patient is awake, alert, oriented, able to communicate. LABORATORY EXAM: Blood cultures are negative. Urine culture is negative. Had MRI of the brain that shows lacunar infarct. Carotid Doppler shows occlusion of the right internal carotid, but no string sign appreciated. However, left right coronary artery is 20-39%. ASSESSMENT: 1. Lacunar infarct. 2. Uncontrolled diabetes. 3. Insulin-dependent diabetes. 4. Hypertension. 5. Hyperlipidemia. 6. Coronary artery disease, status post open heart surgery. 7. Aortic stenosis. 8. Mitral regurgitation. PLAN: Currently, the patient is on nebulizer treatment. His blood sugar is being monitored closely. He is on Plavix 75 daily. He is on aspirin 81 daily. I will request Dr. David Cordova to reevaluate for evaluation of right internal carotid stenosis. Miniature Set Designer are making arrangement for subacute rehab. Once he is accepted, he will be discharged later on today. Kierra Agarwal MD
--- NOTE | 2018-06-24 15:13 | PN ---
DATE: 06/24/2018 NEUROLOGY FOLLOWUP CHIEF COMPLAINT: Generalized weakness. SUBJECTIVE: The patient is seen and examined at bedside and has left-sided weakness and prior CVA and has hyperglycemic accelerations and is a heavy smoker. Had MRI of the brain showed a small acute to subacute right frontal lacunar infarct, which is likely secondary to uncontrolled diabetes and dyslipidemia and also patient is being noncompliant from medical management standpoint. Carotid ultrasound showed right ICA occlusion, but no string sign and the left ICA of 20-29% proximal ICA stenosis. He has been evaluated and go to the subacute rehab which I agree with. PAST MEDICAL HISTORY: History of uncontrolled diabetes insulin dependent, hypertension, hyperlipidemia, coronary artery disease, status post open heart surgery, aortic stenosis, mitral regurgitation, history of right MCA territory infarct in the past related to left-sided weakness. REVIEW OF SYSTEMS: Fourteen-point review of systems was negative except as per the HPI. FAMILY HISTORY: Noncontributory. MEDICATIONS: Reviewed by nurses' reconciliation sheet. SOCIAL HISTORY: He is a heavy smoker. No illicit drug use or EtOH abuse. PHYSICAL EXAMINATION: VITAL SIGNS: Temperature 97.6, pulse rate of 102, blood pressure 123/79, respiratory rate of 20, oxygen saturation 97% by room air. GENERAL: The patient is sitting up in bed, in no acute distress. HEENT: Atraumatic, normocephalic. PERRLA. Extraocular muscles intact. NECK: Supple. No JVD, no adenopathy noted. LUNGS: Clear to auscultation. No adventitious sounds. HEART: S1 and S2. Normal rate and rhythm. No murmurs, rubs or gallops. ABDOMEN: Soft, nontender and nondistended. Bowel sounds are present. EXTREMITIES: No clubbing. No cyanosis. Peripheral pulses 2+ felt bilaterally. NEUROLOGIC: The patient is alert and oriented to person, place, month and year. Speech is fluent without any errors. No aphasia noted. Cranial nerves II through XII intact. Motor exam: Residual left-sided weakness from prior CVA and slightly reduced left-sided when compared to the right. Sensory exam: Decreased light touch and pinprick up to the calves bilaterally. Decreased vibration of the toes. DTRs are 2+ throughout and 1 at both knees and ankles. Coordination: [id number] intact. Gait is deferred for now. LABORATORY DATA: Sodium is 136, potassium 4.6, chloride 99, carbon dioxide 25, BUN of 26, creatinine of 0.8, random glucose of 333. ASSESSMENT AND PLAN: This is a 73-year-old man with past medical history of insulin-dependent diabetes mellitus, uncontrolled, noncompliant with diabetic medications, hypertension, hyperlipidemia, history of coronary artery disease, status post coronary artery bypass grafting, aortic stenosis and mitral regurgitation, history of right middle cerebral artery territory infarct with residual left-sided weakness who presented with generalized weakness and found to have hyperglycemic accelerations of sugars of above 300 in addition to acute to subacute infarct in the right frontal area, which is lacunar type and the carotid Doppler showing a right internal carotid artery proximal stenosis without any string sign and without 20-29% proximal internal carotid artery stenosis. At this time, since he is noncompliant with medications, his acute lacunar infarct is secondary to diffuse atherosclerotic disease from underlying uncontrolled risk factors of hypertension and dyslipidemia and diabetes and being heavy smoker. At this time, we recommend, 1. Keep his blood sugar between 140s-180s, get better diabetic management given his A1c is above 16. Follow Dr. Blveins's regimen from Endocrinology. 2. Aspirin 81 and Plavix 75 mg, Lipitor 80 for dual antiplatelet therapy. 3. Subacute rehab for physical and occupational therapy for weakness. 4. Smoking counseling done. 5. We will recommend to repeat CT angiogram in about 3-4 months in regards to his right internal carotid artery stenosis. At this time, continue medical management. Matthew Heck MD
--- NOTE | 2018-06-24 16:31 | PN ---
DATE: 06/24/2018 REASON FOR CONSULTATION AND FOLLOWUP: Cardiac evaluation, history of coronary artery disease status post coronary artery bypass surgery, admitted with ataxia and hyperglycemia, frequent falling. SUBJECTIVE: The patient denies any chest pain, shortness of breath, or any palpitation. OBJECTIVE: GENERAL: Not in apparent distress, sitting in bedside. VITAL SIGNS: Temperature afebrile, heart rate 99, blood pressure 123/79. Blood pressure lying 118/63, sitting 118/73, standing 112/70. HEENT: PERRLA. Extraocular muscles intact. NECK: Supple. No carotid bruits or thyromegaly. CHEST: Clear to auscultation. HEART: S1 and S2 regular. ABDOMEN: Soft. EXTREMITIES: Clubbing and cyanosis negative. LABORATORY DATA: Blood workup: WBC 5.6, hemoglobin , hematocrit 44.2, platelet count 187. Chemistry shows sodium 130, potassium 4.6, chloride 90, carbon dioxide 25, anion gap of 17, BUN 26, creatinine 0.8. IMPRESSION: A 73-year-old male with past medical history of coronary artery disease, coronary artery bypass graft, admitted with deconditioning and difficulty in walking, right-sided weakness, history of cerebrovascular accident, insulin-dependent diabetes, chronic obstructive pulmonary disease. No evidence of acute myocardial infarction. The patient had echocardiography on this admission on 06/21/2018 that showed ejection fraction of 55%, trace aortic regurgitation, moderate aortic stenosis. Peak gradient across the aortic valve, 13 mmHg. [id number] valvular aortic stenosis , trace to mild mitral regurgitation, tricuspid regurgitation, right ventricular systolic pressure of 21, bilateral carotid duplex at 20 to 39%, left internal carotid artery stenosis noted, sonographic artery, occlusion of the proximal internal carotid artery noted. History of coronary artery bypass graft 20 years ago, history of cerebrovascular accident in 2016 with left-sided weakness, diabetes mellitus, chronic obstructive pulmonary disease, polycythemia, hypertension, hyperlipidemia. MRI of the brain was done, awaiting for the result. RECOMMENDATION: Continue aspirin, continue Plavix, insulin. We will discontinue telemetry. We will follow with you. Follow up the MRI of the brain. Thank you, Dr. Agarwal, for providing us the opportunity in taking care of the patient, Brad Barber. For risk stratification, suggested stress test as outpatient in 4 weeks for risk stratification when the patient stabilizes. Cami Rubio MD cc: Kierra Agarwal MD.
--- NOTE | 2018-06-24 20:52 | PN ---
DATE: 06/24/2018 ENDOCRINOLOGY FOLLOWUP NOTE LOCATION: In room 267. SUBJECTIVE: This is a 73-year-old male with recent uncontrolled type 2 insulin-requiring diabetes with persistent hyperglycemic accelerations with increased insulin requirements thereof. His glucose values overnight have ranged from 225 mg/dL to 341 mg/dL. It was 203 mg/dL to 271 mg/dL this morning preprandially as noted. The latest chemistry showed a BUN of 26, sodium 136, potassium 4.6, chloride 99, CO2 of 25, glucose 333 and creatinine 0.8. ASSESSMENT AND PLAN: So at this time, we will modify once again his basal and bolus insulin regimen as he clearly has tremendous increased insulin resistance with hefty insulin requirements thereof to override the underlying increased insulin resistance. We will increase his Humalog to 24 units subcu t.i.d. before meals to start today as ordered. We will also increase the basal insulin with Levemir to be given as 50 units subcu at bedtime daily to start tonight. We will titrate incrementally as indicated to optimize metabolic control. We will obtain serial chemistries and supplement accordingly as needed. We will follow. Elizabeth Blevins MD
[2018-06-24] MEDS ORDERED: Insulin Detemir 100 units/ml Vial (Levemir) SC SCH (22:00)
[2018-06-25] MEDS: Albuterol-Ipratrop 3 mg / 0.5 (3 ml) UD IH SCH ×4 (01:25→21:05)
--- NOTE | 2018-06-25 04:34 | CON ---
DATE: 06/24/2018 TIME: 04:38 p.m. CHIEF COMPLAINT/HISTORY OF PRESENT ILLNESS: This is a noncompliant smoking diabetic, who was admitted with progressive left sided weakness. He has history of a right MCA infarct in the past. His previous carotid ultrasounds have demonstrated a right ICA occlusion. 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 I agree that further vascular imaging is not necessary at this time. He should be on dual platelet therapy. He should control his diabetes and quit smoking. David Cordova MD MTDD
[2018-06-25] MEDS: Pantoprazole 40 mg EC Tab PO SCH (06:53)
[2018-06-25] MEDS: Insulin Lispro (humaLOG) LOW Coverage SC SCH ×4 (07:47→22:00)
[2018-06-25] MEDS: Insulin Lispro 1 UNITS/0.01 ML SC SCH ×3 (08:20→17:45)
--- NOTE | 2018-06-25 08:38 | CP.PCM.PN ---
Subjective - Date & Time of Evaluation Date of Evaluation: 06/25/18 Time of Evaluation: 07:10 - Subjective Subjective: Endocrinology progress note for Dr. Blevins: Patient was seen and examined at bedside. Patient resting in bed comfortably and states that he is feeling well. No complaints. Denies any headache, dizziness, visual changes, SOB, chest pain, abdominal pain, nausea, vomiting, or urinary changes. 12 point ROS performed and negative other than stated above. Objective - Vital Signs/Intake and Output Vital Signs (last 24 hours): Temp Pulse Resp BP Pulse Ox 97.9 F 97 H 20 128/72 94 L 06/25/18 05:52 06/25/18 05:52 06/25/18 05:52 06/25/18 05:52 06/25/18 05:52 Intake and Output: 06/25/18 06/25/18 06:59 18:59 Intake Total 300 Output Total 2150 Balance -1850 - Medications Medications: Current Medications Acetaminophen (Tylenol 325mg Tab) 650 mg PO Q6H PRN PRN Reason: Fever >100.4 F Last Admin: 06/22/18 10:25 Dose: 650 mg Albuterol/Ipratropium (Duoneb 3 Mg/0.5 Mg (3 Ml) Ud) 3 ml IH Q2H PRN PRN Reason: Shortness of Breath Last Admin: 06/20/18 23:15 Dose: 3 ml Albuterol/Ipratropium (Duoneb 3 Mg/0.5 Mg (3 Ml) Ud) 3 ml IH [id number] [facility] Last Admin: 06/25/18 07:53 Dose: 3 ml Aspirin (Ecotrin) 81 mg PO DAILY [facility] Last Admin: 06/24/18 09:18 Dose: 81 mg Atorvastatin Calcium (Lipitor) 40 mg PO DIN [facility] Benzonatate (Tessalon Perles) 100 mg PO TID [facility] Last Admin: 06/24/18 17:06 Dose: 100 mg Clopidogrel Bisulfate (Plavix) 75 mg PO DAILY [facility] Last Admin: 06/24/18 09:18 Dose: 75 mg Guaifenesin (Mucinex La) 600 mg PO BID [facility] Last Admin: 06/24/18 17:06 Dose: 600 mg Insulin Detemir (Levemir) 50 unit SC [facility] Last Admin: 06/24/18 22:11 Dose: 50 units Insulin Human Lispro (Humalog Low) 0 units SC ACHS [facility] PRN Reason: Protocol Last Admin: 06/25/18 07:47 Dose: Not Given Insulin Human Lispro (Humalog) 24 units SC AC [facility] Last Admin: 06/25/18 08:20 Dose: 24 units Nicotine (Nicoderm Cq) 1 patch TD DAILY [facility] Last Admin: 06/24/18 09:17 Dose: 1 patch Pantoprazole Sodium (Protonix Ec Tab) 40 mg PO 30 [facility] Last Admin: 06/25/18 06:53 Dose: 40 mg Phenazopyridine HCl (Pyridium) 100 mg PO BID [facility] Stop: 06/25/18 12:00 Last Admin: 06/24/18 17:06 Dose: 100 mg Trazodone HCl (Desyrel) 50 mg PO HS [facility] Last Admin: 06/24/18 22:12 Dose: 50 mg - Labs Labs: 06/22/18 06:30 06/24/18 05:25 - Constitutional Appears: No Acute Distress - Head Exam Head Exam: ATRAUMATIC, NORMOCEPHALIC - Eye Exam Eye Exam: EOMI - ENT Exam ENT Exam: Mucous Membranes Moist - Respiratory Exam Respiratory Exam: Clear to Ausculation Bilateral. absent: Wheezes - Cardiovascular Exam Cardiovascular Exam: REGULAR RHYTHM - GI/Abdominal Exam GI & Abdominal Exam: Soft. absent: Tenderness - Extremities Exam Extremities Exam: absent: Calf Tenderness - Neurological Exam Neurological Exam: Alert, Awake - Skin Skin Exam: Normal Color, Warm Assessment and Plan - Assessment and Plan (Free Text) Assessment: 73-year-old M with past medical history of uncontrolled type 2 insulin- dependent diabetes presents with severe hypoglycemic accelerations since then with hyperosmolar hyperglycemic state. Patient had blood glucose levels in the low 200's yesterday. 8 AM blood sugar was 291. - Continue with basal and bolus insulin regimen - Inc Humalog to 30 units sc TID before meals - Inct Levemir to 60 units sc at bedtime - Continue to monitor fingersticks and serial chemistries Case and plan was reviewed and discussed with Dr. Blevins. Justyn Busch, PGY3
--- NOTE | 2018-06-25 09:46 | MRI ---
Date of service: 06/22/2018 PROCEDURE: MRI BRAIN WITHOUT CONTRAST HISTORY: ataxia COMPARISON: 10/18/2016 TECHNIQUE: Multiplanar, multisequence MR images of the brain were obtained without intravenous contrast enhancement. The study was performed on 06/22/2018 and a preliminary report was provided via [employer]. This was not available on the PAC system until today. FINDINGS: HEMORRHAGE: None DWI: There are 2 small foci of restricted diffusion within the larger area of chronic infarct in the right cerebral hemisphere. The findings are consistent with small acute infarcts. These are of doubtful clinical significance considering the size of the chronic infarct. BRAIN PARENCHYMA: No mass effect or edema. No atrophy or chronic microvascular ischemic changes. VENTRICLES: Unremarkable. No hydrocephalus. CRANIUM: There is a chronic fracture of the odontoid. ORBITS: Grossly unremarkable. PARANASAL SINUSES/MASTOIDS: Clear VASCULAR SYSTEM: There is occlusion of the right internal carotid artery. This was seen previously OTHER FINDINGS: None. IMPRESSION: Large chronic infarct in the right hemisphere in the distribution of the middle cerebral artery. There are 2 small foci of restricted diffusion within this area consistent with superimposed acute infarcts.
[2018-06-25] MEDS: guaiFENesin 600 mg ER Tab PO SCH ×2 (10:07→17:45)
--- NOTE | 2018-06-25 15:17 | PN ---
Copied To: Cami Rubio MD Attending MD: Cami Rubio MD. DATE: 06/25/2018 REASON FOR CONSULTATION AND FOLLOWUP: Cardiac evaluation, history of coronary artery disease, history of coronary artery bypass surgery, admitted with ataxia and hyperglycemia, frequent falling. SUBJECTIVE: The patient denies any chest pain, shortness of breath, or any palpitation. OBJECTIVE: GENERAL: Not in apparent distress, lying flat in the bed. VITAL SIGNS: Temperature afebrile, heart rate 97, blood pressure 128/72. HEENT: PERRLA. Extraocular muscles intact. NECK: Supple. No carotid bruits or thyromegaly. CHEST: Clear to auscultation. HEART: S1 and S2, regular. ABDOMEN: Soft. EXTREMITIES: Clubbing and cyanosis negative. LABORATORY DATA: Blood workup as follows: WBC 5.6, hemoglobin , hematocrit 42.4, and platelet count 187. Chemistry shows sodium yesterday was 130, potassium 4.6, chloride 99, carbon dioxide is 25, anion gap of 17, BUN 26, creatinine 0.8. IMPRESSION: A 73-year-old male with past medical history significant for coronary artery disease, history of coronary artery bypass surgery in the past, admitted with deconditioning of the body and difficulty in walking, right-sided weakness, history of old cerebrovascular accident, insulin-dependent diabetes, chronic obstructive pulmonary disease. No evidence of acute myocardial infarction. The patient had an echocardiogram on 06/21/2018, that showed ejection fraction of 55%, trace aortic regurgitation, moderate aortic stenosis, peak gradient across 13 mmHg, [id number] valvular aortic stenosis, bfkul-[id number] mitral regurgitation and tricuspid regurgitation, right ventricular systolic pressure of 21. Bilateral carotid duplex: 20% to 39% left internal carotid artery stenosis, total occlusion of right internal carotid artery. History of coronary artery bypass graft 20 years ago. History of cerebrovascular accident in 2016 with left-sided weakness and occlusion of 20% to 39% left internal carotid artery, right is totally occluded. MRI of the brain with large chronic infarct in the right hemisphere, in the distribution of middle cerebral artery territory infarct in the past. No acute infarct noted. RECOMMENDATIONS: Discontinue telemetry. Continue dual antiplatelet therapy. Because of risk stratification, we will schedule a stress test as an outpatient. Paper has given to Cardiology assembler tractor, Rebeca. Further recommendation as per Dr. Agarwal. From Cardiology point of view, the patient is stable to be discharged home. As mentioned, we will schedule a stress test for risk stratification as an outpatient. Thank you, Dr. Agarwal, for providing us the opportunity in taking care of the patient, Brad Barber. Cami Rubio MD
--- NOTE | 2018-06-25 15:33 | PN ---
Copied To: Kierra Agarwal MD Attending MD: Kierra Agarwal MD DATE: 06/25/2018 SUBJECTIVE: Patient is 73 years old, seen and examined, lying in bed, seems to be comfortable. No urinary symptoms. Eating and tolerating. No nausea or vomiting. No diarrhea. Awaiting subacute rehab transfer review of insurance company. PHYSICAL EXAMINATION: VITAL SIGNS: He is afebrile, pulse 97, respirations 20, and blood pressure 128/72. LUNGS: Bilateral fair airflow. No rhonchi or crackles. HEART: S1, S2 audible. ABDOMEN: Soft, nontender. No rebound. No guarding. NEUROLOGIC: Patient is awake, alert, oriented, and communicative. EXTREMITIES: Bilateral legs, no edema. LABORATORY DATA: His blood sugar is 291. Blood cultures and urine cultures are negative. ASSESSMENT: 1. Chronic infarct in the right hemisphere in the distribution of middle cerebral artery and there are two small parts of lacunar infarct in the same hemisphere. 2. New right-sided weakness, probably secondary to lacunar infarct. 3. Hypertension. 4. Insulin-dependent diabetes. 5. Hyperlipidemia. 6. Coronary artery disease, status post angioplasty. 7. Right internal carotid stenosis. PLAN: We will continue patient on current therapy that is aspirin 81 daily, Plavix 75 daily. He is on statins. Dr. David Cordova has been consulted for evaluation of carotid artery stenosis. We will continue to monitor blood sugar. His vital signs are stable at this point and awaiting transfer to subacute rehab. Kierra Agarwal MD
--- NOTE | 2018-06-25 20:05 | PN ---
Copied To: Elizabeth Blevins MD Attending MD: Elizabeth Blevins MD DATE: 06/25/2018 ENDOCRINOLOGY FOLLOWUP NOTE LOCATION: In room 267. SUBJECTIVE: This is a 73-year-old male with recent uncontrolled type 2 insulin-requiring diabetes, presenting here with persistent hyperglycemic accelerations despite daily insulin dose adjustments. He really has marked insulin resistance with increased insulin requirements to override the insulin resistance thereof. His glycemic levels overnight ranged from 160 to 291 and 208 mg/dL. His latest chemistry shows a BUN of 26, sodium 136, potassium 4.6, chloride 99, CO2 of 25, glucose 333 and creatinine 0.8. ASSESSMENT AND PLAN: So at this time, we will modify once again his basal and bolus insulin regimen, and increase the Humalog to 30 units subcutaneously t.i.d. before meals to start today. We will also increase the basal insulin with Levemir given at 60 units subcutaneously at bedtime daily to start tonight. We will obtain serial chemistries and supplement accordingly as needed. We will follow with you. Elizabeth Blevins MD
[2018-06-25] MEDS: Insulin Detemir 100 units/ml Vial (Levemir) SC SCH (22:10)
[2018-06-26] MEDS: Albuterol-Ipratrop 3 mg / 0.5 (3 ml) UD IH SCH ×3 (02:00→20:27)
[2018-06-26] MEDS: Pantoprazole 40 mg EC Tab PO SCH (05:30)
[2018-06-26] MEDS: Insulin Lispro (humaLOG) LOW Coverage SC SCH ×4 (08:00→21:30)
[2018-06-26] MEDS: Insulin Lispro 1 UNITS/0.01 ML SC SCH ×3 (08:17→18:19)
--- NOTE | 2018-06-26 08:46 | CP.PCM.PN ---
Subjective - Date & Time of Evaluation Date of Evaluation: 06/26/18 Time of Evaluation: 07:30 - Subjective Subjective: Endocrinology progress note for Dr. Blevins: Patient was seen and examined at bedside. Patient resting in bed comfortably and states that he is feeling well with no new complaints. 12 point ROS performed and negative other than stated above. Objective - Vital Signs/Intake and Output Vital Signs (last 24 hours): Temp Pulse Resp BP Pulse Ox 98.1 F 99 H 20 143/86 95 06/26/18 06:00 06/26/18 06:00 06/26/18 06:00 06/26/18 06:00 06/26/18 06:00 Intake and Output: 06/26/18 06/26/18 06:59 18:59 Intake Total 360 Balance 360 - Medications Medications: Current Medications Acetaminophen (Tylenol 325mg Tab) 650 mg PO Q6H PRN PRN Reason: Fever >100.4 F Last Admin: 06/22/18 10:25 Dose: 650 mg Albuterol/Ipratropium (Duoneb 3 Mg/0.5 Mg (3 Ml) Ud) 3 ml IH Q2H PRN PRN Reason: Shortness of Breath Last Admin: 06/20/18 23:15 Dose: 3 ml Albuterol/Ipratropium (Duoneb 3 Mg/0.5 Mg (3 Ml) Ud) 3 ml IH [id number] [facility] Last Admin: 06/26/18 07:46 Dose: 3 ml Aspirin (Ecotrin) 81 mg PO DAILY [facility] Last Admin: 06/25/18 10:07 Dose: 81 mg Atorvastatin Calcium (Lipitor) 40 mg PO DIN [facility] Last Admin: 06/25/18 17:45 Dose: 40 mg Benzonatate (Tessalon Perles) 100 mg PO TID [facility] Last Admin: 06/25/18 17:45 Dose: 100 mg Clopidogrel Bisulfate (Plavix) 75 mg PO DAILY [facility] Last Admin: 06/25/18 10:07 Dose: 75 mg Guaifenesin (Mucinex La) 600 mg PO BID [facility] Last Admin: 06/25/18 17:45 Dose: 600 mg Insulin Detemir (Levemir) 60 unit SC HS [facility] Last Admin: 06/25/18 22:10 Dose: 60 unit Insulin Human Lispro (Humalog Low) 0 units SC ACHS [facility] PRN Reason: Protocol Last Admin: 06/26/18 08:00 Dose: Not Given Insulin Human Lispro (Humalog) 30 units SC AC [facility] Last Admin: 06/26/18 08:17 Dose: 30 units Nicotine (Nicoderm Cq) 1 patch TD DAILY [facility] Last Admin: 06/25/18 10:07 Dose: 1 patch Pantoprazole Sodium (Protonix Ec Tab) 40 mg PO 0630 [facility] Last Admin: 06/26/18 05:30 Dose: 40 mg Trazodone HCl (Desyrel) 25 mg PO HS [facility] Last Admin: 06/25/18 21:50 Dose: 25 mg - Labs Labs: 06/22/18 06:30 06/24/18 05:25 - Constitutional Appears: No Acute Distress - Head Exam Head Exam: ATRAUMATIC, NORMOCEPHALIC - Eye Exam Eye Exam: EOMI - ENT Exam ENT Exam: Mucous Membranes Moist - Respiratory Exam Respiratory Exam: Clear to Ausculation Bilateral. absent: Rales, Wheezes - Cardiovascular Exam Cardiovascular Exam: REGULAR RHYTHM, +S1, +S2 - GI/Abdominal Exam GI & Abdominal Exam: Soft. absent: Distended, Tenderness - Neurological Exam Neurological Exam: Alert, Awake, Oriented x3 - Psychiatric Exam Psychiatric exam: Normal Mood - Skin Skin Exam: Dry, Intact, Warm Assessment and Plan - Assessment and Plan (Free Text) Assessment: 73-year-old M with past medical history of uncontrolled type 2 insulin- dependent diabetes presents with severe hypoglycemic accelerations since then with hyperosmolar hyperglycemic state. Patient had blood glucose levels in the low 100's yesterday. 2 AM blood sugar was 222. - Continue with basal and bolus insulin regimen - Inc Humalog to 30 units sc TID before meals and Levemir to 60 units sc at bedtime - Continue to monitor fingersticks and chemistries Case and plan was reviewed and discussed with Dr. Belvins. Justyn Busch, PGY3
[2018-06-26] MEDS: guaiFENesin 600 mg ER Tab PO SCH ×2 (09:25→18:18)
--- NOTE | 2018-06-26 12:27 | PN ---
Copied To: Cami Rubio MD Attending MD: Cami Rubio MD DATE: 06/26/2018 REASON FOR CONSULTATION AND FOLLOWUP: Cardiac evaluation, history of coronary artery disease, history of coronary artery bypass, admitted with ataxia and hyperglycemia, frequent falling. SUBJECTIVE: Patient denies any chest pain, shortness of breath, or any palpitation. OBJECTIVE: GENERAL: Not in apparent distress, lying flat in the bed. VITAL SIGNS: Temperature afebrile, heart rate 94, blood pressure 143/86. HEENT: PERRLA. Extraocular muscles intact. NECK: Supple. No carotid bruits or thyromegaly. CHEST: Clear to auscultation. HEART: S1 and S2 regular. ABDOMEN: Soft. EXTREMITIES: Clubbing and cyanosis, negative. LABORATORY DATA: Blood workup as follows: WBC 5.6, hemoglobin 15, hematocrit of 44.2, platelet count 187. Chemistry shows sodium 130, potassium 4.6, chloride 99, carbon dioxide 25, anion gap of 17, BUN 26, creatinine 0.8. IMPRESSION: A 73-year-old male with a past medical history significant for coronary artery disease, status post coronary artery bypass graft, admitted with deconditioning of the body and difficulty in walking, ataxia, history of cerebrovascular accident, right-sided stroke, history of cerebrovascular accident, diabetes, hypertension, hyperlipidemia, chronic obstructive pulmonary disease, history of total chronic occlusion of right internal carotid artery occlusion, history of coronary artery bypass surgery 20 years ago, history of cerebrovascular accident in 2016, history of old large infarct in right hemisphere. Recent echo dated 06/21/2018, showed ejection fraction of 55%, trace aortic regurgitation, moderate aortic stenosis, peak gradient across aortic valve13 mmHg, [id number]-[id number] valvular aortic stenosis, osmhg-ko-ywtr mitral regurgitation, and tricuspid regurgitation, right ventricular systolic pressure 21. RECOMMENDATION: Continue dual antiplatelet therapy. Patient is off telemetry. Continue rehab. Continue insulin. Continue albuterol. For risk stratification, we will do a stress test as outpatient. Arrangement has been made to . Patient is cleared from Cardiology point of view to go to rehab. Thank you, Dr. Agarwal, for providing us the opportunity in taking care of the patient, Brad Barber. Cami Rubio MD [facility] # [id number]
--- NOTE | 2018-06-26 20:29 | PN ---
Copied To: Elizabeth Blevins MD Attending MD: Elizabeth Blevins MD DATE: 06/26/2018 ENDO FOLLOWUP NOTE LOCATION: In room 267. SUBJECTIVE: This is a 73-year-old male with recent uncontrolled type 2 insulin-requiring diabetes presenting here with marked hyperglycemic accelerations and has now improved clinically and metabolically with a very hefty insulin dose regimen as noted. His glucose levels today have ranged from 128 to 192 and 241 mg/dL. It was 160 at bedtime last night. The latest chemistry showed a BUN of 26, sodium 136, potassium 4.6, chloride 99, CO2 of 25, glucose 333 and creatinine 0.8. So at this time, we will continue the same basal and bolus insulin dose regimen with the underlying increased insulin resistance thereof and also very hefty insulin requirements as noted. We will continue the Humalog given as 30 units subcu t.i.d. before meals and Levemir given as for as 60 units subcu at bedtime daily as given. We will continue the same regimen to allow for full dose equilibration as noted. We will obtain serial chemistries and supplement accordingly as needed. We will follow. Elizabeth Blevins MD
[2018-06-26] MEDS: Insulin Detemir 100 units/ml Vial (Levemir) SC SCH (22:41)
[2018-06-27] MEDS: Albuterol-Ipratrop 3 mg / 0.5 (3 ml) UD IH SCH ×4 (03:00→19:41)
[2018-06-27] MEDS: Pantoprazole 40 mg EC Tab PO SCH (05:32)
--- NOTE | 2018-06-27 07:52 | CP.PCM.PN ---
Subjective - Date & Time of Evaluation Date of Evaluation: 06/27/18 Time of Evaluation: 06:35 - Subjective Subjective: sleeping but easily awaken ,alert, denies chest pain,denies shortness of breath Reason for consultation and follow up: Cardiac evaluation for coronary artery disease, history of CVA 2015,diabetes, PVD, COPD, polycythemia, Seen and examined by me and Objective - Vital Signs/Intake and Output Vital Signs (last 24 hours): Temp Pulse Resp BP Pulse Ox 97.2 F L 95 H 20 130/74 96 06/26/18 17:56 06/26/18 17:56 06/26/18 17:56 06/26/18 17:56 06/26/18 17:56 Intake and Output: 06/27/18 06/27/18 06:59 18:59 Intake Total 360 Output Total 700 Balance -340 - Medications Medications: Current Medications Acetaminophen (Tylenol 325mg Tab) 650 mg PO Q6H PRN PRN Reason: Fever >100.4 F Last Admin: 06/22/18 10:25 Dose: 650 mg Albuterol/Ipratropium (Duoneb 3 Mg/0.5 Mg (3 Ml) Ud) 3 ml IH Q2H PRN PRN Reason: Shortness of Breath Last Admin: 06/20/18 23:15 Dose: 3 ml Albuterol/Ipratropium (Duoneb 3 Mg/0.5 Mg (3 Ml) Ud) 3 ml IH [id number] [facility] Last Admin: 06/27/18 03:00 Dose: 3 ml Aspirin (Ecotrin) 81 mg PO DAILY [facility] Last Admin: 06/26/18 09:25 Dose: 81 mg Atorvastatin Calcium (Lipitor) 40 mg PO DIN [facility] Last Admin: 06/26/18 18:18 Dose: 40 mg Benzonatate (Tessalon Perles) 100 mg PO TID [facility] Last Admin: 06/26/18 18:19 Dose: 100 mg Clopidogrel Bisulfate (Plavix) 75 mg PO DAILY [facility] Last Admin: 06/26/18 09:25 Dose: 75 mg Clotrimazole (Mycelex Patrick) 10 mg MT 5XD [facility] Last Admin: 06/27/18 05:32 Dose: 10 mg Guaifenesin (Mucinex La) 600 mg PO BID [facility] Last Admin: 06/26/18 18:18 Dose: 600 mg Insulin Detemir (Levemir) 60 unit SC [facility] Last Admin: 06/26/18 22:41 Dose: 60 unit Insulin Human Lispro (Humalog Low) 0 units SC ACHS [facility] PRN Reason: Protocol Last Admin: 06/26/18 21:30 Dose: Not Given Insulin Human Lispro (Humalog) 30 units SC AC [facility] Last Admin: 06/26/18 18:19 Dose: 30 units Nicotine (Nicoderm Cq) 1 patch TD DAILY [facility] Last Admin: 06/26/18 09:25 Dose: 1 patch Pantoprazole Sodium (Protonix Ec Tab) 40 mg PO 0630 [facility] Last Admin: 06/27/18 05:32 Dose: 40 mg Trazodone HCl (Desyrel) 25 mg PO [facility] Last Admin: 06/26/18 21:30 Dose: 25 mg - Labs Labs: 06/22/18 06:30 06/24/18 05:25 - Constitutional Appears: No Acute Distress - Eye Exam Eye Exam: Normal appearance - ENT Exam ENT Exam: Mucous Membranes Moist - Respiratory Exam Respiratory Exam: Decreased Breath Sounds, NORMAL BREATHING PATTERN - Cardiovascular Exam Cardiovascular Exam: +S1, +S2 - GI/Abdominal Exam GI & Abdominal Exam: Soft, Normal Bowel Sounds - Extremities Exam Extremities Exam: Normal Capillary Refill - Neurological Exam Neurological Exam: Alert, Awake, Oriented x3 - Psychiatric Exam Psychiatric exam: Normal Affect - Skin Skin Exam: Dry, Warm Assessment and Plan - Assessment and Plan (Free Text) Assessment: A 73 year old male who came in to the ER due to progressive right sided weakness. History of coronary artery disease, status post CABG 12 years ago, history of CVA 2016 ( left sided weakness) diabetes mellitus, uncontrolled glucose, PVD, COPD, polycythemia,hypertension, hyperlipidemia, current smoker, non compliant and kept falling.ECHO done- mild LV hyperthropy, LVEF 55%, trace AR/TR, moderate aortic stenosis peak gradient 13mmHg, mild MR.new onset right sided weakness.MRI of brain done.Orthostatic vital signs normal. Plan: Cardiac status stable Heart rate and blood pressure controlled Endocrine on consult for glucose control Neuro on consult/follow up On ASA 81 mg daily,Plavix 75 mg daily,Nicotine patch daily Smoking cessation Lifestyle modifications Continue current treatment Continue current medications Discharge planning, possible rehab Will follow up Plan and treatment discussed with
[2018-06-27] MEDS: Insulin Lispro 1 UNITS/0.01 ML SC SCH ×3 (08:17→16:40)
[2018-06-27] MEDS: Insulin Lispro (humaLOG) LOW Coverage SC SCH ×4 (08:18→21:27)
--- NOTE | 2018-06-27 09:46 | CP.PCM.PN ---
Subjective - Date & Time of Evaluation Date of Evaluation: 06/27/18 Time of Evaluation: 07:55 - Subjective Subjective: Endocrinology progress note for Dr. Blevins: Patient was seen and examined at bedside. Patient resting in bed comfortably. His blood sugars have been better in the 100's. No other complaints. 12 point ROS performed and negative other than stated above. Objective - Vital Signs/Intake and Output Vital Signs (last 24 hours): Temp Pulse Resp BP Pulse Ox 97.9 F 103 H 18 120/65 100 06/27/18 09:11 06/27/18 09:11 06/27/18 09:11 06/27/18 09:11 06/27/18 09:11 Intake and Output: 06/27/18 06/27/18 06:59 18:59 Intake Total 360 Output Total 700 Balance -340 - Medications Medications: Current Medications Acetaminophen (Tylenol 325mg Tab) 650 mg PO Q6H PRN PRN Reason: Fever >100.4 F Last Admin: 06/22/18 10:25 Dose: 650 mg Albuterol/Ipratropium (Duoneb 3 Mg/0.5 Mg (3 Ml) Ud) 3 ml IH Q2H PRN PRN Reason: Shortness of Breath Last Admin: 06/20/18 23:15 Dose: 3 ml Albuterol/Ipratropium (Duoneb 3 Mg/0.5 Mg (3 Ml) Ud) 3 ml IH [id number] [facility] Last Admin: 06/27/18 08:37 Dose: 3 ml Aspirin (Ecotrin) 81 mg PO DAILY [facility] Last Admin: 06/26/18 09:25 Dose: 81 mg Atorvastatin Calcium (Lipitor) 40 mg PO DIN [facility] Last Admin: 06/26/18 18:18 Dose: 40 mg Benzonatate (Tessalon Perles) 100 mg PO TID [facility] Last Admin: 06/26/18 18:19 Dose: 100 mg Clopidogrel Bisulfate (Plavix) 75 mg PO DAILY [facility] Last Admin: 06/26/18 09:25 Dose: 75 mg Clotrimazole (Mycelex Patrick) 10 mg MT 5XD [facility] Last Admin: 06/27/18 05:32 Dose: 10 mg Guaifenesin (Mucinex La) 600 mg PO BID [facility] Last Admin: 06/26/18 18:18 Dose: 600 mg Insulin Detemir (Levemir) 60 unit SC HS [facility] Last Admin: 06/26/18 22:41 Dose: 60 unit Insulin Human Lispro (Humalog Low) 0 units SC ACHS [facility] PRN Reason: Protocol Last Admin: 06/27/18 08:18 Dose: Not Given Insulin Human Lispro (Humalog) 30 units SC AC [facility] Last Admin: 06/27/18 08:17 Dose: 30 units Nicotine (Nicoderm Cq) 1 patch TD DAILY [facility] Last Admin: 06/26/18 09:25 Dose: 1 patch Pantoprazole Sodium (Protonix Ec Tab) 40 mg PO 629 [facility] Last Admin: 06/27/18 05:32 Dose: 40 mg Trazodone HCl (Desyrel) 25 mg PO [facility] Last Admin: 06/26/18 21:30 Dose: 25 mg - Labs Labs: 06/22/18 06:30 06/24/18 05:25 - Constitutional Appears: No Acute Distress - Head Exam Head Exam: ATRAUMATIC, NORMOCEPHALIC - Eye Exam Eye Exam: EOMI - ENT Exam ENT Exam: Mucous Membranes Moist - Respiratory Exam Respiratory Exam: Clear to Ausculation Bilateral. absent: Wheezes - Cardiovascular Exam Cardiovascular Exam: REGULAR RHYTHM, +S1, +S2 - GI/Abdominal Exam GI & Abdominal Exam: Soft, Normal Bowel Sounds. absent: Tenderness - Extremities Exam Extremities Exam: absent: Calf Tenderness - Neurological Exam Neurological Exam: Alert, Awake, Oriented x3 - Psychiatric Exam Psychiatric exam: Normal Mood - Skin Skin Exam: Dry, Intact, Warm Assessment and Plan - Assessment and Plan (Free Text) Assessment: 73-year-old M with past medical history of uncontrolled type 2 insulin- dependent diabetes presents with severe hypoglycemic accelerations since then with hyperosmolar hyperglycemic state. Yesterdays blood glucose levels was in the low 100's. - Continue with basal and bolus insulin regimen - Continue Humalog to 30 units sc TID before meals - Continue Levemir to 60 units sc HS - Continue to monitor fingersticks and serial chemistries Case and plan was reviewed and discussed with Dr. Blevins. Justyn Busch, PGY3
[2018-06-27] MEDS: guaiFENesin 600 mg ER Tab PO SCH ×2 (10:52→17:35)
--- NOTE | 2018-06-27 19:32 | PN ---
Copied To: Elizabeth Blevins MD Attending MD: Elizabeth Blevins MD ENDOCRINOLOGY FOLLOWUP NOTE DATE: 06/27/2018 LOCATION: In room 375. SUBJECTIVE: This is a 73-year-old male with recent uncontrolled type 2 insulin-requiring diabetes, now with improved metabolic profile with the current hefty insulin requirements as noted thereof. His glucose levels have ranged from 119-146 and 193 mg/dL as noted today. It was 121 at bedtime last night. So at this time, we will continue the same basal and bolus insulin regimen to allow for dose equilibration and keep him on Humalog given as 30 units subcu t.i.d. before meals as ordered. We will continue the basal insulin given as Levemir at 60 units subcu at bedtime daily as given. We will titrate incrementally as indicated to optimize metabolic control. We will continue also the very low-dose correctional scale using Humalog insulin as given. We will obtain serial chemistries and supplement accordingly as needed. We will follow. Elizabeth Blevins MD : 06/27/2018 16:30:34
[2018-06-27] MEDS: Insulin Detemir 100 units/ml Vial (Levemir) SC SCH (21:25)
--- NOTE | 2018-06-28 00:13 | DS ---
Copied To: Kierra Agarwal MD Attending MD: Kierra Agarwal MD HISTORY OF PRESENT ILLNESS: The patient is 73 years old, seen and examined. He states he could not sleep last night, sleepy. Otherwise, complained of generalized weakness. The patient came in with new right-sided weakness, was found to have superimposed lacunar infarcts. PHYSICAL EXAMINATION: GENERAL: He is awake, alert, oriented, communicative. VITAL SIGNS: He is afebrile, pulse 103, respirations 18, blood pressure 120/65. LUNGS: Bilateral fair airflow. No rhonchi or crackle. HEART: S1 and S2 audible. ABDOMEN: Soft. Nontender. No rebound. No guarding. NEUROLOGICAL: He is awake, alert, oriented, communicative. Able to ambulate with the walker. LABORATORY EXAM: Urine cultures were negative. ASSESSMENT: 1. Lacunar infarct. 2. History of cerebrovascular accident in the past. 3. Uncontrolled insulin-dependent diabetes. 4. Hypertension. 5. Coronary artery disease, status post open heart surgery. 6. Hyperlipidemia. 7. Deconditioning and difficulty walking. PLAN: The patient was presented to insurance company for arrangement of subacute rehab, but it has been denied on 3 different occasions. So I guess the patient is going to be discharged home with home PT and he is advised to strictly not smoke. He is also advised to take his medication regularly. He is going to resume all his usual medications that include trazodone 25 at bedtime, Protonix 40 daily. He is given nicotine patch. He is on insulin 75/25, Levemir 30 units at bedtime and he takes insulin 36 units before each meal. He will continue Plavix, aspirin, Crestor and his inhalers. He will follow up with his PMD.. Kierra Agarwal MD
[2018-06-28] MEDS: Albuterol-Ipratrop 3 mg / 0.5 (3 ml) UD IH SCH ×2 (01:51→08:33)
[2018-06-28] MEDS: Pantoprazole 40 mg EC Tab PO SCH (05:34)
--- NOTE | 2018-06-28 07:46 | CP.PCM.PN ---
Subjective - Date & Time of Evaluation Date of Evaluation: 06/28/18 Time of Evaluation: 06:35 - Subjective Subjective: awake ,alert, denies chest pain,denies shortness of breath Reason for consultation and follow up: Cardiac evaluation for coronary artery disease, history of CVA 2015,diabetes, PVD, COPD, polycythemia, Seen and examined by me and Objective - Vital Signs/Intake and Output Vital Signs (last 24 hours): Temp Pulse Resp BP Pulse Ox 98.2 F 92 H 19 109/62 95 06/27/18 18:00 06/27/18 18:00 06/27/18 18:00 06/27/18 18:00 06/27/18 18:00 Intake and Output: 06/28/18 06/28/18 06:59 18:59 Intake Total 950 Output Total 1200 Balance -250 - Medications Medications: Current Medications Acetaminophen (Tylenol 325mg Tab) 650 mg PO Q6H PRN PRN Reason: Fever >100.4 F Last Admin: 06/22/18 10:25 Dose: 650 mg Acetaminophen (Tylenol 325mg Tab) 650 mg PO Q4H PRN PRN Reason: Pain, moderate (4-7) Last Admin: 06/27/18 17:36 Dose: 650 mg Albuterol/Ipratropium (Duoneb 3 Mg/0.5 Mg (3 Ml) Ud) 3 ml IH Q2H PRN PRN Reason: Shortness of Breath Last Admin: 06/20/18 23:15 Dose: 3 ml Albuterol/Ipratropium (Duoneb 3 Mg/0.5 Mg (3 Ml) Ud) 3 ml IH [id number] [facility] Last Admin: 06/28/18 01:51 Dose: 3 ml Aspirin (Ecotrin) 81 mg PO DAILY [facility] Last Admin: 06/27/18 10:52 Dose: 81 mg Atorvastatin Calcium (Lipitor) 40 mg PO DIN [facility] Last Admin: 06/27/18 17:35 Dose: 40 mg Benzonatate (Tessalon Perles) 100 mg PO TID [facility] Last Admin: 06/27/18 17:35 Dose: 100 mg Clopidogrel Bisulfate (Plavix) 75 mg PO DAILY [facility] Last Admin: 06/27/18 10:52 Dose: 75 mg Clotrimazole (Mycelex Patrick) 10 mg MT 5XD [facility] Last Admin: 06/28/18 05:34 Dose: 10 mg Guaifenesin (Mucinex La) 600 mg PO BID [facility] Last Admin: 06/27/18 17:35 Dose: 600 mg Insulin Detemir (Levemir) 60 unit SC [facility] Last Admin: 06/27/18 21:25 Dose: 60 unit Insulin Human Lispro (Humalog Low) 0 units SC ACHS [facility] PRN Reason: Protocol Last Admin: 06/27/18 21:27 Dose: Not Given Insulin Human Lispro (Humalog) 30 units SC AC [facility] Last Admin: 06/27/18 16:40 Dose: 30 units Nicotine (Nicoderm Cq) 1 patch TD DAILY [facility] Last Admin: 06/27/18 10:52 Dose: 1 patch Pantoprazole Sodium (Protonix Ec Tab) 40 mg PO 0630 [facility] Last Admin: 06/28/18 05:34 Dose: 40 mg Trazodone HCl (Desyrel) 25 mg PO [facility] Last Admin: 06/27/18 21:24 Dose: 25 mg - Labs Labs: 06/22/18 06:30 06/24/18 05:25 - Constitutional Appears: No Acute Distress - Head Exam Head Exam: NORMOCEPHALIC - Eye Exam Eye Exam: Normal appearance - ENT Exam ENT Exam: Mucous Membranes Moist - Respiratory Exam Respiratory Exam: Decreased Breath Sounds, Clear to Ausculation Bilateral, NORMAL BREATHING PATTERN - Cardiovascular Exam Cardiovascular Exam: +S1, +S2 - GI/Abdominal Exam GI & Abdominal Exam: Soft, Normal Bowel Sounds - Extremities Exam Extremities Exam: Normal Capillary Refill - Neurological Exam Neurological Exam: Alert, Awake - Psychiatric Exam Psychiatric exam: Normal Affect - Skin Skin Exam: Dry, Warm Assessment and Plan - Assessment and Plan (Free Text) Assessment: 73 year old male who came in to the ER due to progressive right sided weakness. History of coronary artery disease, status post CABG 12 years ago, history of CVA 2016 ( left sided weakness) diabetes mellitus, uncontrolled glucose, PVD, COPD, polycythemia,hypertension, hyperlipidemia, current smoker, non compliant and kept falling.ECHO done- mild LV hyperthropy, LVEF 55%, trace AR/TR, moderate aortic stenosis peak gradient 13mmHg, mild MR.new onset right sided weakness.MRI of brain done.Orthostatic vital signs normal.Lacunar infarct. Plan: Cardiac status stable Heart rate and blood pressure controlled Neuro on consult/follow up On ASA 81 mg daily,Plavix 75 mg daily,Nicotine patch daily Smoking cessation Lifestyle modifications Continue current treatment Continue current medications Insurance denied rehab placement Discharge planning Will follow up Plan and treatment discussed with
[2018-06-28] MEDS: Insulin Lispro 1 UNITS/0.01 ML SC SCH ×2 (07:52→11:46)
[2018-06-28] MEDS: Insulin Lispro (humaLOG) LOW Coverage SC SCH ×2 (07:53→11:38)
[2018-06-28 08:00] VITALS: BP 126/70; PULSE 100; RESP 20; TEMP 97.6; O2SAT 97
[2018-06-28] MEDS: guaiFENesin 600 mg ER Tab PO SCH (09:16)
--- NOTE | 2018-06-28 11:09 | CP.PCM.PN ---
Subjective - Date & Time of Evaluation Date of Evaluation: 06/28/18 Time of Evaluation: 08:25 - Subjective Subjective: Endocrinology progress note for Dr. Blevins: Patient was seen and examined at bedside. Patient resting in bed comfortably. No other complaints. 12 point ROS performed and negative other than stated above. Objective - Vital Signs/Intake and Output Vital Signs (last 24 hours): Temp Pulse Resp BP Pulse Ox 97.6 F 100 H 20 126/70 97 06/28/18 07:59 06/28/18 07:59 06/28/18 07:59 06/28/18 07:59 06/28/18 07:59 Intake and Output: 06/28/18 06/28/18 06:59 18:59 Intake Total 950 Output Total 1200 Balance -250 - Medications Medications: Current Medications Acetaminophen (Tylenol 325mg Tab) 650 mg PO Q6H PRN PRN Reason: Fever >100.4 F Last Admin: 06/22/18 10:25 Dose: 650 mg Acetaminophen (Tylenol 325mg Tab) 650 mg PO Q4H PRN PRN Reason: Pain, moderate (4-7) Last Admin: 06/27/18 17:36 Dose: 650 mg Albuterol/Ipratropium (Duoneb 3 Mg/0.5 Mg (3 Ml) Ud) 3 ml IH Q2H PRN PRN Reason: Shortness of Breath Last Admin: 06/20/18 23:15 Dose: 3 ml Albuterol/Ipratropium (Duoneb 3 Mg/0.5 Mg (3 Ml) Ud) 3 ml IH [id number] [facility] Last Admin: 06/28/18 08:33 Dose: 3 ml Aspirin (Ecotrin) 81 mg PO DAILY [facility] Last Admin: 06/28/18 09:16 Dose: 81 mg Atorvastatin Calcium (Lipitor) 40 mg PO DIN [facility] Last Admin: 06/27/18 17:35 Dose: 40 mg Benzonatate (Tessalon Perles) 100 mg PO TID [facility] Last Admin: 06/28/18 09:17 Dose: 100 mg Clopidogrel Bisulfate (Plavix) 75 mg PO DAILY [facility] Last Admin: 06/28/18 09:17 Dose: 75 mg Clotrimazole (Mycelex Patrick) 10 mg MT 5XD [facility] Last Admin: 06/28/18 09:17 Dose: 10 mg Guaifenesin (Mucinex La) 600 mg PO BID [facility] Last Admin: 06/28/18 09:16 Dose: 600 mg Insulin Detemir (Levemir) 60 unit SC [facility] Last Admin: 06/27/18 21:25 Dose: 60 unit Insulin Human Lispro (Humalog Low) 0 units SC ACHS [facility] PRN Reason: Protocol Last Admin: 06/28/18 07:53 Dose: Not Given Insulin Human Lispro (Humalog) 30 units SC AC [facility] Last Admin: 06/28/18 07:52 Dose: 30 units Nicotine (Nicoderm Cq) 1 patch TD DAILY [facility] Last Admin: 06/28/18 09:17 Dose: 1 patch Pantoprazole Sodium (Protonix Ec Tab) 40 mg PO 0630 [facility] Last Admin: 06/28/18 05:34 Dose: 40 mg Trazodone HCl (Desyrel) 25 mg PO [facility] Last Admin: 06/27/18 21:24 Dose: 25 mg - Labs Labs: 06/22/18 06:30 06/24/18 05:25 - Constitutional Appears: No Acute Distress - Head Exam Head Exam: ATRAUMATIC, NORMOCEPHALIC - Eye Exam Eye Exam: EOMI - ENT Exam ENT Exam: Mucous Membranes Moist - Respiratory Exam Respiratory Exam: Clear to Ausculation Bilateral. absent: Wheezes - Cardiovascular Exam Cardiovascular Exam: REGULAR RHYTHM, +S1, +S2 - GI/Abdominal Exam GI & Abdominal Exam: Soft, Normal Bowel Sounds - Extremities Exam Extremities Exam: absent: Calf Tenderness, Pedal Edema - Neurological Exam Neurological Exam: Alert, Awake - Skin Skin Exam: Intact, Warm Assessment and Plan - Assessment and Plan (Free Text) Assessment: 73-year-old M with past medical history of uncontrolled type 2 insulin- dependent diabetes presents with severe hypoglycemic accelerations since then with hyperosmolar hyperglycemic state. Yesterdays blood glucose levels was in the low 100's. - Continuebolus Humalog to 30 units sc TID before meals and basal Levemir to 60 units sc HS - Continue to monitor fingersticks and serial chemistries Case and plan was reviewed and discussed with Dr. Blevins. Justyn Busch, PGY3
--- NOTE | 2018-06-28 13:09 | DS ---
Copied To: Kierra Agarwal MD Attending MD: Kierra Agarwal MD HISTORY OF PRESENT ILLNESS: Patient is 73 years old, seen and examined, lying in bed, seems to be comfortable. Denies any nausea or vomiting. Complained of some oral discomfort. Urine discomfort has improved. Patient was admitted because of new right-sided weakness, found to have lacunar infarct in preexisting infarcted area, had two falls at home, participating in Therapy. Insurance company has denied his referral to subacute rehab, they were but were declined. PHYSICAL EXAMINATION: VITAL SIGNS: He is afebrile, pulse 92, respirations 20, blood pressure 113/71. LUNGS: Bilateral fair airflow. No rhonchi or crackle. HEART: S1, S2 audible. ABDOMEN: Soft, nontender. No rebound. No guarding. NEUROLOGICAL: Patient is awake, alert, oriented, communicative. Moves all extremities while in bed, has unstable gait. LABORATORY DATA: His blood sugar is 268. ASSESSMENT: 1. Left lacunar infarct. 2. History of cerebrovascular accident in the past. 3. Coronary artery disease, status post open heart surgery. 4. Insulin-dependent diabetes. 5. Hypertension. 6. Chronic obstructive pulmonary disease. So, plan is since the patient has been denied for rehab, arrangement is being made to arrange for visiting nurse and some home PT. Once it is arranged, he will be discharged later on today; otherwise will be notified. He will be discharged home on trazodone 25 at bedtime, nebulizer treatment, aspirin 81 daily. We will resume his insulin as he is getting here. He will continue on Lipitor, Plavix, Protonix and he will follow with his PMD, Kierra Agarwal MD
--- NOTE | 2018-06-28 23:36 | DS ---
Copied To: Kierra Agarwal MD Attending MD: Kierra Agarwal MD HISTORY OF PRESENT ILLNESS: The patient is a 73-year-old, seen and examined, lying in bed, refusing physical therapy. The other day, he walked almost 300 feet. Denies any chest pain. No shortness of breath. PHYSICAL EXAMINATION: VITAL SIGNS: He is afebrile, pulse 92, respiration 19, blood pressure 126/70. LUNGS: Bilateral good airflow. No rhonchi or crackle. HEART: S1 and S2 audible. ABDOMEN: Soft, nontender. No rebound, no guarding. NEUROLOGIC: He is awake, alert, oriented, able to communicate. LABORATORY DATA: Blood sugar is 169. ASSESSMENT: 1. New right-sided weakness, superimposed lacunar infarct. 2. History of cerebrovascular accident in the past. 3. Hypertension. 4. Coronary artery disease, status post open heart surgery. 5. Insulin-dependent diabetes. 6. History of nicotine addiction. PLAN: The patient will be discharged today. He will resume his medication as prior to admission. He is advised to take Plavix, aspirin and continue nebulizer treatment as needed and he will follow up with his PMD. Kierra Agarwal MD
== END 2018-06-28 13:55 | disposition home health service (06) | DRG 64 ==
LOC: ED 14:04 → ERH 18:39 → 2RNO 21:11 → OBSVTOIN 06-21 15:32 → 3RSO 06-26 10:00
PROVIDERS: ADMIT Internal Medicine; ATTEND Internal Medicine
PROC: 3E0F7GC Introduction of Other Therapeutic Substance into Respiratory Tract, Via Natural or Artificial Opening (ICD-10-PCS; principal; 2018-06-20)
DX: I63.9 Cerebral infarction, unspecified (principal); G81.91 Hemiplegia, unspecified affecting right dominant side; I69.354 Hemiplegia and hemiparesis following cerebral infarction affecting left non-dominant side; E11.00 Type 2 diabetes mellitus with hyperosmolarity without nonketotic hyperglycemic-hyperosmolar coma (NKHHC); J44.9 Chronic obstructive pulmonary disease, unspecified; D45 Polycythemia vera; E11.51 Type 2 diabetes mellitus with diabetic peripheral angiopathy without gangrene; G93.89 Other specified disorders of brain; R29.6 Repeated falls; E86.0 Dehydration; I25.10 Atherosclerotic heart disease of native coronary artery without angina pectoris; I10 Essential (primary) hypertension; E78.5 Hyperlipidemia, unspecified; E11.42 Type 2 diabetes mellitus with diabetic polyneuropathy; E11.21 Type 2 diabetes mellitus with diabetic nephropathy; E11.319 Type 2 diabetes mellitus with unspecified diabetic retinopathy without macular edema; I65.23 Occlusion and stenosis of bilateral carotid arteries; I08.3 Combined rheumatic disorders of mitral, aortic and tricuspid valves; R26.2 Difficulty in walking, not elsewhere classified; F17.200 Nicotine dependence, unspecified, uncomplicated; Z79.4 Long term (current) use of insulin; Z91.19 Patient's noncompliance with other medical treatment and regimen; Z91.11 Patient's noncompliance with dietary regimen; Z91.14 Patient's other noncompliance with medication regimen; Z91.81 History of falling; Z95.1 Presence of aortocoronary bypass graft; Z95.5 Presence of coronary angioplasty implant and graft

== ENCOUNTER 2018-08-14 20:13 | Inpatient (IN) | payer BC, MEDICARE ==
[~2018-08-14 20:13] MED LIST: Arformoterol 15 mcg/2 ml Inh Sol IH SCH; Budesonide 0.5 mg/2 ml Inhal Susp UD IH SCH
--- NOTE | 2018-08-14 20:46 | ED PDOC ---
Arrival/HPI - General Chief Complaint: Shortness Of Breath Time Seen by Provider: 08/14/18 20:14 Historian: Patient - Critical Care Critical Care Minutes: 45 minutes - History of Present Illness Narrative History of Present Illness (Text): 08/14/18 20:45 Patient is a 73 year old male whose past medical history includes hypertension, hyperlipidemia, CAD, and CABG, who presents to the emergency department complaining of shortness of breath and chest discomfort. Patient reports experiencing both symptoms for the past few days, and has been feeling very weak. HE states that at times he has almost collapsed from how weak he felt. Patient denies fevers, chills, cough, abdominal pain, nausea, vomiting, diarrhea, back pain, neck pain, headache, dizziness, or any other complaint. Time/Duration: < week Symptom Onset: Sudden Symptom Course: Unchanged Context: Home Past Medical History - Provider Review Nursing Documentation Reviewed: Yes - Infectious Disease Hx of Infectious Diseases: None - Past Medical History Past Medical History: No Previous - Cardiac Hx Cardiac Disorders: Yes (CABG) Hx Hypertension: Yes - Pulmonary Hx Respiratory Disorders: Yes Hx Chronic Obstructive Pulmonary Disease (COPD): Yes - Neurological Hx Neurological Disorder: Yes HX Cerebrovascular Accident: Yes (2015) - HEENT Hx HEENT Disorder: No - Renal Hx Renal Failure: No - Endocrine/Metabolic Hx Endocrine Disorders: Yes Hx Diabetes Mellitus Type 2: Yes - Hematological/Oncological Hx Blood Disorders: No - Integumentary Hx Dermatological Disorder: No - Musculoskeletal/Rheumatological Hx Musculoskeletal Disorders: Yes Hx Arthritis: Yes - Gastrointestinal Hx Gastroesophageal Reflux: No - Genitourinary/Gynecological Hx Genitourinary Disorders: No - Psychiatric Hx Psychophysiologic Disorder: No Hx Substance Use: No - Surgical History Hx Cholecystectomy: Yes Hx Coronary Artery Bypass Graft: Yes (2005) Hx Open Heart Surgery: Yes (2005) - Anesthesia Hx Anesthesia Reactions: No Hx Malignant Hyperthermia: No - Suicidal Assessment Feels Threatened In Home Enviroment: No Family/Social History - Physician Review Nursing Documentation Reviewed: Yes Family/Social History: No Known Family HX Smoking Status: Heavy Smoker > 10 Cigarettes Daily Hx Alcohol Use: No Hx Substance Use: No Hx Substance Use Treatment: No Allergies/Home Meds Allergies/Adverse Reactions: Allergies No Known Allergies Allergy (Verified 06/20/18 14:19) Home Medications: Home Meds Medication Instructions Recorded Confirmed Albuterol 0.083% [Albuterol 0.083% 2.5 mg NEB Q6 PRN 05/06/17 01/11/18 Inhal Olga (2.5 mg/3 ml) UD] Baclofen [Lioresal] 10 mg PO DAILY 05/06/17 01/11/18 Fluticasone/Salmeterol [Advair 1 inh NEB Q12 05/06/17 01/11/18 250-50 Diskus] Rosuvastatin Calcium [Crestor] 40 mg PO DAILY 05/06/17 01/11/18 Tiotropium [Spiriva] 1 cap NEB DAILY 05/06/17 01/11/18 traZODone [Desyrel] 50 mg PO DAILY 05/06/17 01/11/18 Review of Systems - Physician Review All systems were reviewed & negative as marked: Yes - Review of Systems Constitutional: absent: Fevers, Other (chills) Respiratory: SOB. absent: Cough Cardiovascular: Other (chest discomfort) Gastrointestinal: absent: Abdominal Pain, Diarrhea, Nausea, Vomiting Musculoskeletal: absent: Back Pain, Neck Pain Neurological: absent: Headache, Dizziness Physical Exam Vital Signs Reviewed: Yes Vital Signs Temp Pulse Resp BP Pulse Ox 08/14/18 23:11 156/47 H 08/14/18 22:12 65 18 99/52 L 94 L 08/14/18 20:29 97.8 F 45 L 18 136/55 L 92 L Temperature: Afebrile Blood Pressure: Normal Pulse: Bradycardic Respiratory Rate: Normal Appearance: Positive for: Well-Appearing Pain Distress: None Mental Status: Positive for: Alert and Oriented X 3 - Systems Exam Head: Present: Atraumatic, Normocephalic Pupils: Present: PERRL Extroacular Muscles: Present: EOMI Conjunctiva: Present: Normal Mouth: Present: Moist Mucous Membranes Neck: Present: Normal Range of Motion Respiratory/Chest: Present: Good Air Exchange, Rhonchi (scattered bilaterally). No: Respiratory Distress, Accessory Muscle Use Cardiovascular: Present: Regular Rate and Rhythm, Normal S1, S2, Bradycardic. No: Murmurs Abdomen: No: Tenderness, Distention, Peritoneal Signs Back: Present: Normal Inspection Upper Extremity: Present: Normal Inspection. No: Cyanosis, Edema Lower Extremity: Present: Normal Inspection. No: Edema Neurological: Present: GCS=15, CN II-XII Intact, Speech Normal. No: Other (No focal deficits) Skin: Present: Warm, Dry, Normal Color. No: Rashes Psychiatric: Present: Alert, Oriented x 3, Normal Insight, Normal Concentration Medical Decision Making ED Course and Treatment: 08/14/18 20:45 Impression: Patient is a 73 year old male who is complaining of chest discomfort, shortness of breath, and weakness. Differential Diagnosis included but are not limited to: CAD vs. Cardiac arrhythmia vs. CHF vs. Pneumonia Plan: -- EKG -- Cardiac enzymes -- Blood work -- Labs -- Chest X-ray -- Reassess and disposition Prior Visits: Notes and results from previous visits were reviewed. Progress Notes: 08/14/18 20:45 EKG shows 3rd degree heart block, which is new. Heart rate at 45 BPM. 08/14/18 22:15 Reviewed Chest X-Ray, shows minimally increased pulmonary vascular markings. 08/14/18 22:[address] Rubio, personnel supervisor, who is aware and agrees with Dopamine at this time. Paged Dr. Agarwal and filter machine operator. 08/14/18 22:[address] Scherer, filter machine operator, who is aware and agrees to evaluate pt for ICU admission. 08/14/18 22:[address] Agarwla, who is aware and agrees with plan. Accepts pt in to her service. Pt will be admitted to ICU for complete heart block, CHF, hypotension. Requests Dr. Rubio on consult. 08/14/18 22:50 Case discussed with expert medical writer infection control practitioner, who is aware and agrees with plan. - Lab Interpretations Lab Results: 08/14/18 21:10 08/14/18 21:10 Lab Results 08/14/18 21:10: TSH 3rd Generation 3.06 08/14/18 21:10: WBC 8.0 D, RBC 4.84, Hgb 15.1, Hct 44.7, MCV 92.4, MCH 31.2, MCHC 33.8, RDW 13.7, Plt Count 141, MPV 13.4 H 08/14/18 21:10: PT 14.6 H, INR 1.27, APTT 34.4 08/14/18 21:10: Sodium 137, Potassium 4.1, Chloride 100, Carbon Dioxide 25, Anion Gap 16, BUN 22 H, Creatinine 0.9, Est GFR ( Amer) > 60, Est GFR ( Non-Af Amer) > 60, Random Glucose 333 H*, Calcium 9.0, Total Bilirubin 1.6 H, AST 31, ALT 26, Alkaline Phosphatase 113, Lactate Dehydrogenase 394, Total Creatine Kinase 48, Troponin I 0.03 D, NT-Pro-B Natriuret Pep 8650 H, Total Protein 7.2, Albumin 3.8, Globulin 3.5, Albumin/Globulin Ratio 1.1 I have reviewed the lab results: Yes - RAD Interpretation Radiology Orders: 08/14/18 20:39 CHEST PORTABLE [RAD] Stat Restaurant Host: ED Physician - EKG Interpretation Interpreted by ED Physician: Yes Type: 12 lead EKG - Medication Orders Current Medication Orders: Albuterol/Ipratropium (Duoneb 3 Mg/0.5 Mg (3 Ml) Ud) 3 ml IH [id number] AMINA Arformoterol Tartrate (Brovana) 15 mcg IH [id number] AMINA Aspirin (Ecotrin) 81 mg PO DAILY AMINA Budesonide (Pulmicort Respules) 0.5 mg IH [id number] AMINA Clopidogrel Bisulfate (Plavix) 75 mg PO DAILY AMINA Enoxaparin Sodium (Lovenox) 40 mg SC DAILY AMINA PRN Reason: Protocol Dopamine HCl/Dextrose (Dopamine 400mg/250ml D5w) 400 mg in 250 mls @ 16.244 mls /hr IV .[id number] PRN; Protocol; 5 MCG/KG/MIN PRN Reason: TITRATE PER MD ORDER Last Admin: 08/14/18 23:10 Dose: 5 mcg/kg/min, 16.244 mls/hr eMAR Start Stop Document 08/14/18 23:10 CNR (Rec: 08/14/18 23:11 CNR [id number]) Intravenous Solution Start Date 08/14/18 Start Time 23:11 Titration Intervention Document 08/14/18 23:10 CNR (Rec: 08/14/18 23:11 CNR [id number]) Titration Intake Waste Amount 0 Container Volume 250 Titration Dosing Titration Dose 5 IV Rate 16.244 Intake/Decrease Started Insulin Detemir (Levemir) 30 unit SC HS AMINA Insulin Human Lispro (Humalog High) 0 units SC ACHS AMINA PRN Reason: Protocol Non-Formulary Medication (Rosuvastatin Calcium [Crestor]) 40 mg PO DAILY [facility]INA Pantoprazole Sodium (Protonix Ec Tab) 40 mg PO 0630 AMINA Trazodone HCl (Desyrel) 50 mg PO DAILY AMINA Discontinued Medications Albuterol/Ipratropium (Duoneb 3 Mg/0.5 Mg (3 Ml) Ud) 3 ml IH ONCE STA Stop: 08/14/18 22:42 Last Admin: 08/14/18 22:44 Dose: 3 ml Arformoterol Tartrate (Brovana) 15 mcg IH [id number] AMINA Atropine Sulfate (Atropine) 1 mg IVP STAT STA Stop: 08/14/18 21:14 Last Admin: 08/14/18 21:22 Dose: 1 mg IVP Administration Document 08/14/18 21:22 CNR (Rec: 08/14/18 21:22 CNR [id number]) Charges for Administration # of IVP Administrations 1 Budesonide (Pulmicort Respules) 0.5 mg IH [id number] AMINA Furosemide (Lasix) 40 mg IVP ONCE ONE Stop: 08/14/18 22:45 Last Admin: 08/14/18 23:11 Dose: 40 mg MAR Blood Pressure Document 08/14/18 23:11 CNR (Rec: 08/14/18 23:11 CNR [id number]) Blood Pressure Blood Pressure (100/60-150/90) 156/47 IVP Administration Document 08/14/18 23:11 CNR (Rec: 08/14/18 23:11 CNR [id number]) Charges for Administration # of IVP Administrations 1 Dopamine HCl 800 mg/ Dextrose 270 mls @ 8.77 mls/hr IV .Q24H PRN; Protocol; 5 MCG/KG/MIN PRN Reason: TITRATE PER MD ORDER Last Admin: 08/14/18 22:29 Dose: 8.77 mls/hr eMAR Start Stop Document 08/14/18 22:29 CNR (Rec: 08/14/18 22:29 CNR [id number]) Intravenous Solution Start Date 08/14/18 Start Time 22:29 - Scribe Statement The provider has reviewed the documentation as recorded by the Ra Wilson Provider Scribe Attestation: All medical record entries made by the Scribe were at my direction and personally dictated by me. I have reviewed the chart and agree that the record accurately reflects my personal performance of the history, physical exam, medical decision making, and the department course for this patient. I have also personally directed, reviewed, and agree with the discharge instructions and disposition. Disposition/Present on Arrival - Present on Arrival Any Indicators Present on Arrival: No History of DVT/PE: No History of Uncontrolled Diabetes: Yes Urinary Catheter: No History of Decub. Ulcer: No History Surgical Site Infection Following: None - Disposition Have Diagnosis and Disposition been Completed?: Yes Diagnosis: Third degree AV block, CHF (congestive heart failure) Disposition: HOSPITALIZED Disposition Time: 22:57 Patient Plan: Admission Patient Problems: Current Active Problems Problem Status Onset CHF (congestive heart failure) Acute Third degree AV block Acute Condition: GUARDED
[2018-08-14 21:27] LABS: HEMOGLOBIN 15.1 g/dL (14.0-18.0); MEAN CELL VOLUME 92.4 fl (80.0-105.0); MEAN CORPUSCULAR HEMOGLOBIN 31.2 pg (25.0-35.0); MEAN CORPUSCULAR HGB CONC 33.8 g/dl (31.0-37.0); MEAN PLATELET VOLUME 13.4 fl (7.0-11.0); RBC 4.84 10^6/uL (3.5-6.1); RED CELL DISTRIBUTION WIDTH 13.7 % (11.5-14.5)
[2018-08-14 21:34] LABS: INR 1.27; PARTIAL THROMBOPLASTIN TIME 34.4 Seconds (25.1-36.5); PROTHROMBIN TIME 14.6 SECONDS (9.4-12.5)
[2018-08-14 21:51] LABS: B-TYPE NATRIURETIC PEPTIDE 8650 pg/mL (0-450); TROPONIN I 0.03 ng/mL
[2018-08-14] MEDS ORDERED: DOPamine 400mg/250ml D5W 400 MG/250 ML BAG IV ONE (22:26)
[2018-08-14] MEDS ORDERED: Albuterol-Ipratrop 3 mg / 0.5 (3 ml) UD IH STA (22:41)
[2018-08-14 22:45] LABS: ALB/GLOB RATIO 1.1 (1.1-1.8); ALBUMIN 3.8 g/dL (3.0-4.8); ALT/SGPT 26 U/L (7-56); AST/SGOT 31 U/L (17-59); BLOOD UREA NITROGEN 22 mg/dL (7-21); GFR NON-AFRICAN AMERICAN > 60
[2018-08-14] MEDS ORDERED: DOPamine 400mg/250ml D5W 400 MG/250 ML BAG IV PRN (22:53)
[2018-08-14 23:30] LABS: ARTERIAL BLOOD GAS HCO3 23.2 mmol/L (21-28); ARTERIAL BLOOD GAS O2 SAT 95.7 % (95-98); ARTERIAL BLOOD GAS PCO2 35 mm/Hg (35-45); ARTERIAL BLOOD GAS PH 7.43 (7.35-7.45); ARTERIAL BLOOD GAS TCO2 24.3 mmol.L (22-28)
--- NOTE | 2018-08-14 23:44 | CP.PCM.CON ---
<Gary Edmond - Last Filed: 08/15/18 00:18> History of Present Illness - History of Present Illness History of Present Illness: ICU consult note for Dr. Scherer 73 year old male [place] male with a past medical history of CVA, hypertension , CAD s/p open heart surgery, nicotine dependence, and IDDM who presents with two days of worsening dyspnea and concurrent chest pain. In the ED the patient was found to be in 3rd degree heart block along with having a chf exacerbation. He was started on Dopamine drip and given Lasix, Duonebs, and Atropine in the ED. Cardiology was consulted Dr. Rubio, and the patient will be admitted to the CCU for closer monitoring. A complete 12 point review of system was limited secondary to patient being short of breath. PMH: CABG in 2005, CVA, hypertension, nicotine dependence, COPD, and IDDM PSH: CABG in 2005 Allergies: NKA FH: Not obtainable secondary to patient being short of breath Social: Smoker, drinks, from [place] Review of Systems - Review of Systems All systems: reviewed and no additional remarkable complaints except (as per HPI ) Past Patient History - Infectious Disease Hx of Infectious Diseases: None - Past Social History Smoking Status: Heavy Smoker > 10 Cigarettes Daily - CARDIAC Hx Cardiac Disorders: Yes (CABG) Hx Hypertension: Yes - PULMONARY Hx Respiratory Disorders: Yes Hx Chronic Obstructive Pulmonary Disease (COPD): Yes - NEUROLOGICAL Hx Neurological Disorder: Yes HX Cerebrovascular Accident: Yes (2015) - HEENT Hx HEENT Problems: No - RENAL Hx Renal Failure: No - ENDOCRINE/METABOLIC Hx Endocrine Disorders: Yes Hx Diabetes Mellitus Type 2: Yes - HEMATOLOGICAL/ONCOLOGICAL Hx Blood Disorders: No - INTEGUMENTARY Hx Dermatological Problems: No - MUSCULOSKELETAL/RHEUMATOLOGICAL Hx Musculoskeletal Disorders: Yes Hx Arthritis: Yes - GASTROINTESTINAL Hx Gastroesophageal Reflux: No - GENITOURINARY/GYNECOLOGICAL Hx Genitourinary Disorders: No - PSYCHIATRIC Hx Psychophysiologic Disorder: No Hx Substance Use: No - SURGICAL HISTORY Hx Cholecystectomy: Yes Hx Coronary Artery Bypass Graft: Yes (2005) Hx Open Heart Surgery: Yes (2005) - ANESTHESIA Hx Anesthesia Reactions: No Hx Malignant Hyperthermia: No Meds Allergies/Adverse Reactions: Allergies Allergy/AdvReac Type Severity Reaction Status Date / Time No Known Allergies Allergy Verified 06/20/18 14:19 - Medications Medications: Current Medications Aspirin (Ecotrin) 81 mg PO DAILY AMINA Clopidogrel Bisulfate (Plavix) 75 mg PO DAILY [facility] Dopamine HCl/Dextrose (Dopamine 400mg/250ml D5w) 400 mg in 250 mls @ 16.244 mls /hr IV .[id number] PRN; Protocol; 5 MCG/KG/MIN PRN Reason: TITRATE PER MD ORDER Last Admin: 08/14/18 23:10 Dose: 5 mcg/kg/min, 16.244 mls/hr Insulin Detemir (Levemir) 30 unit SC HS [facility] Non-Formulary Medication (Rosuvastatin Calcium [Crestor]) 40 mg PO DAILY [facility] Fluticasone/Salmeterol (Advair Diskus 250/50) puff INH Q12 [facility] Trazodone HCl (Desyrel) 50 mg PO DAILY [facility] Physical Exam - Constitutional Appears: In Acute Distress - Head Exam Head Exam: ATRAUMATIC, NORMOCEPHALIC - Eye Exam Eye Exam: EOMI, Normal appearance - ENT Exam ENT Exam: Mucous Membranes Dry - Neck Exam Additional comments: JVD - Respiratory Exam Respiratory Exam: Decreased Breath Sounds, Rales, Respiratory Distress (moderate ). absent: Accessory Muscle Use - Cardiovascular Exam Cardiovascular Exam: Bradycardia Additional comments: ectopy - GI/Abdominal Exam GI & Abdominal Exam: Normal Bowel Sounds, Soft - Extremities Exam Extremities exam: Positive for: normal inspection. Negative for: calf tenderness, pedal edema - Back Exam Back exam: absent: CVA tenderness (L), CVA tenderness (R) - Neurological Exam Neurological exam: Alert, CN II-XII Intact, Oriented x3 - Psychiatric Exam Psychiatric exam: Normal Affect, Normal Mood - Skin Skin Exam: Dry, Intact, Normal Color Results - Vital Signs Recent Vital Signs: Last Vital Signs Temp 97.8 F 08/14/18 20:29 Pulse 65 08/14/18 22:12 Resp 18 08/14/18 22:12 BP 156/47 H 08/14/18 23:11 Pulse Ox 94 L 08/14/18 22:12 - Labs Result Diagrams: 08/14/18 21:10 08/14/18 21:10 - EKG Data EKG comments: 3rd degree AV block, prolonged QRS, Assessment & Plan - Assessment and Plan (Free Text) Assessment: 73 year old male with a past medical history of CVA, CABG, CHF, IDDM who presented with two days of worsening dyspnea and associated chest pain and was found to be in third degree heart block in the setting of a CHF exacerbation. Patient was admitted to CCU for closer evaluation and started on dopamine drip. Plan: 1) New third degree heart block - Dopamine drip with target MAP of 65 - Duonebs q4h AMINA - Cardiology consulted, Dr. Rubio - Monitor in CCU - TSH 2) Rule out [place] - troponins x 3 3) acute on chronic CHF exacerbation - BNP elevated at 8,000 + - 4L Oxygen via NC - Dopamine drip - Lasix per cardiology 4) IDDM - Resume home Levemir with ISS (medium) - HgbA1c ordered 5) Known CAD and stroke - Continue DAPT - Continue Statin - Lipid panel 6) DVT/GI prophylaxis - Lovenox 40 mg SC - Protonix 40 mg PO daily Case reviewed and discussed with attending physician, Dr. Scherer - Date & Time Date: 08/15/18 Time: 00:06 <Marci Scherer - Last Filed: 08/15/18 02:26> Meds - Medications Medications: Current Medications Albuterol/Ipratropium (Duoneb 3 Mg/0.5 Mg (3 Ml) Ud) 3 ml IH [id number] AMINA Arformoterol Tartrate (Brovana) 15 mcg IH [id number] AMINA Aspirin (Ecotrin) 81 mg PO DAILY AMINA Budesonide (Pulmicort Respules) 0.5 mg IH [id number] AMINA Clopidogrel Bisulfate (Plavix) 75 mg PO DAILY AMINA Enoxaparin Sodium (Lovenox) 40 mg SC DAILY [facility] PRN Reason: Protocol Dopamine HCl/Dextrose (Dopamine 400mg/250ml D5w) 400 mg in 250 mls @ 16.244 mls /hr IV .[id number] PRN; Protocol; 5 MCG/KG/MIN PRN Reason: TITRATE PER MD ORDER Last Admin: 08/14/18 23:10 Dose: 5 mcg/kg/min, 16.244 mls/hr Insulin Detemir (Levemir) 30 unit SC HS AMINA Insulin Human Lispro (Humalog High) 0 units SC ACHS AMINA PRN Reason: Protocol Non-Formulary Medication (Rosuvastatin Calcium [Crestor]) 40 mg PO DAILY AMINA Pantoprazole Sodium (Protonix Ec Tab) 40 mg PO 0630 AMINA Trazodone HCl (Desyrel) 50 mg PO DAILY [facility] Results - Vital Signs Recent Vital Signs: Last Vital Signs Temp 97.8 F 08/14/18 20:29 Pulse 48 L 08/15/18 00:48 Resp 24 08/15/18 00:48 BP 152/60 H 08/15/18 00:48 Pulse Ox 94 L 08/15/18 00:48 - Labs Result Diagrams: 08/14/18 21:10 08/14/18 21:10 Labs: Laboratory Results - last 24 hr 08/14/18 08/15/18 23:22 01:15 pCO2 35 pO2 70.0 L HCO3 23.2 ABG pH 7.43 ABG Total CO2 24.3 ABG O2 Saturation 95.7 ABG Base Excess -0.6 ABG Potassium 4.0 Sodium 135.0 Chloride 104.0 Glucose 367 H Lactate 1.5 FiO2 36.0 Troponin I 0.03 Triglycerides 94 Cholesterol 98 L LDL Cholesterol Direct < 30 HDL Cholesterol 42 Arterial Blood Potassium 4.0 Attending/Attestation - Attestation I have personally seen and examined this patient.: Yes I have fully participated in the care of the patient.: Yes I have reviewed all pertinent clinical information: Yes
[2018-08-15 01:35] LABS: HDL CHOLESTEROL 42 mg/dL (29-60)
[2018-08-15 01:48] LABS: TROPONIN I 0.03 ng/mL
[2018-08-15 01:53] LABS: LDL CHOLESTEROL < 30 mg/dL (0-129)
[2018-08-15 02:35] VITALS: BMI 24.7
[2018-08-15] MEDS: Albuterol-Ipratrop 3 mg / 0.5 (3 ml) UD IH SCH ×4 (04:00→18:50)
[2018-08-15] MEDS: Pantoprazole 40 mg EC Tab PO SCH (06:11)
[2018-08-15] MEDS: Arformoterol 15 mcg/2 ml Inh Sol IH SCH ×3 (07:54→22:35)
[2018-08-15] MEDS: Budesonide 0.5 mg/2 ml Inhal Susp UD IH SCH ×2 (07:54→18:50)
--- NOTE | 2018-08-15 08:37 | CP.CCUPN ---
<Maykel Jones - Last Filed: 08/15/18 11:36> CCU Subjective - Physician Review Subjective (Free Text): 08/15/18 08:37 Some reports of SOB last night; Complaints improved on dopamine drip. Seen and examined at bedside this morning; Complaining of shortness of breath, cough, mild left sided non reproducible chest pain; unchanged from presentation; some complaints of lethargy at this time 12 System ROS otherwise unremarkable 08/15/18 10:50 CCU Objective - Vital Signs / Intake & Output Vital Signs (Last 4 hours): Vital Signs Pulse Resp BP Pulse Ox 08/15/18 07:00 48 L 39 H 155/63 H 98 08/15/18 06:30 49 L 20 142/49 L 08/15/18 06:00 50 L 38 H 153/58 H 91 L 08/15/18 05:31 172/62 H 08/15/18 05:30 50 L 40 H 91 L 08/15/18 05:00 115/51 L 08/15/18 04:59 48 H Intake and Output (Last 8hrs): Intake & Output 08/14/18 08/15/18 08/15/18 22:59 06:59 14:59 Intake Total 98 Output Total 380 Balance -282 Weight 82.962 kg Intake: IV 98 Right Forearm 98 Output: Urine 380 Urine, Voided 380 Other: Voiding Method Urinal - Physical Exam Head: Positive for: Atraumatic, Normocephalic Pupils: Positive for: PERRL Extroacular Muscles: Positive for: EOMI Conjunctiva: Positive for: Normal Mouth: Positive for: Moist Mucous Membranes Neck: Positive for: Normal Range of Motion Respiratory/Chest: Positive for: Good Air Exchange, Rhonchi, Tachypneic, Other ( BL crackles RML/ RLL and LLL; Does not appear cyanotic; ). Negative for: Respiratory Distress, Accessory Muscle Use Cardiovascular: Positive for: Regular Rate and Rhythm, Bradycardic. Negative for: Murmurs Abdomen: Negative for: Tenderness, Distention, Peritoneal Signs Back: Positive for: Normal Inspection Upper Extremity: Positive for: Normal Inspection, Other (Cool to touch). Negative for: Cyanosis, Edema Lower Extremity: Positive for: Normal Inspection, Other (No palpable pulses; Extremities cool to touch). Negative for: Edema Neurological: Positive for: GCS=15, CN II-XII Intact, Speech Normal. Negative for: Other (No focal deficits; Lethargic ) Skin: Positive for: Warm, Dry, Normal Color. Negative for: Rashes Psychiatric: Positive for: Alert, Oriented x 3, Normal Insight, Normal Concentration - Medications Active Medications: Active Medications Generic Name Dose Route Start Last Admin Trade Name Freq PRN Reason Stop Dose Admin Albuterol/Ipratropium 3 ml 08/15/18 14:00 Duoneb 3 Mg/0.5 Mg (3 Ml) Ud IH [id number] AMINA Arformoterol Tartrate 15 mcg 08/15/18 08:00 08/15/18 07:54 Brovana IH 15 mcg [id number] AMINA Administration Aspirin 81 mg 08/15/18 10:00 Ecotrin PO DAILY AMINA Budesonide 0.5 mg 08/15/18 08:00 08/15/18 07:54 Pulmicort Respules IH 0.5 mg [id number] AMINA Administration Clopidogrel Bisulfate 75 mg 08/15/18 10:00 Plavix PO DAILY AMINA Enoxaparin Sodium 40 mg 08/15/18 10:00 Lovenox SC DAILY [facility] Protocol Dopamine HCl/Dextrose 400 mg in 250 mls @ 16.244 mls/hr 08/14/18 22:53 23:10 Dopamine 400mg/250ml D5w IV 5 mcg/kg/min .[id number] PRN 16.244 mls/hr TITRATE PER MD ORDER Administration Protocol 5 MCG/KG/MIN Insulin Detemir 30 unit 08/15/18 22:00 Levemir SC HS [facility] Insulin Human Lispro 0 units 08/15/18 07:30 Humalog High SC ACHS [facility] Protocol Non-Formulary Medication 40 mg 08/15/18 10:00 Rosuvastatin Calcium [Crestor] PO DAILY AMINA Pantoprazole Sodium 40 mg 08/15/18 06:30 08/15/18 06:11 Protonix Ec Tab PO 40 mg 0630 AMINA Administration Trazodone HCl 50 mg 08/15/18 22:00 Desyrel PO HS [facility] - Patient Studies Lab Studies: Lab Studies 08/15/18 08/15/18 08/14/18 Range/Units 06:45 01:15 23:22 pCO2 35 (35-45) mm/Hg pO2 70.0 L (80-100) mm/Hg HCO3 23.2 (21-28) mmol/L ABG pH 7.43 (7.35-7.45) ABG Total CO2 24.3 (22-28) mmol.L ABG O2 Saturation 95.7 (95-98) % ABG Base Excess -0.6 (-2.0-3.0) mmol/L ABG Potassium 4.0 (3.6-5.2) mmol/L Sodium 135.0 (132-148) mmol/L Chloride 104.0 (98-107) mmol/L Glucose 367 H (75-110) mg/dl Lactate 1.5 (0.7-2.1) mmol/L FiO2 36.0 % Troponin I 0.06 D 0.03 ng/mL Triglycerides 94 (35-160) mg/dL Cholesterol 98 L (130-200) mg/dL LDL Cholesterol Direct < 30 (0-129) mg/dL HDL Cholesterol 42 (29-60) mg/dL Arterial Blood Potassium 4.0 (3.6-5.2) mmol/L Laboratory Results - last 24 hr 08/14/18 08/15/18 08/15/18 23:22 01:15 06:45 pCO2 35 pO2 70.0 L HCO3 23.2 ABG pH 7.43 ABG Total CO2 24.3 ABG O2 Saturation 95.7 ABG Base Excess -0.6 ABG Potassium 4.0 Sodium 135.0 Chloride 104.0 Glucose 367 H Lactate 1.5 FiO2 36.0 Troponin I 0.03 0.06 D Triglycerides 94 Cholesterol 98 L LDL Cholesterol Direct < 30 HDL Cholesterol 42 Arterial Blood Potassium 4.0 Review of Systems - Review of Systems All systems: reviewed and no additional remarkable complaints except Review of Systems: As per HPI Critical Care Progress Note - Nutrition Nutrition: Nutrition Category Date Time Status NPO Diet [DIET] Diets 08/14/18 Dinner Ordered Assessment/Plan - Assessment and Plan (Free Text) Assessment: 73M found to be in CHF exacerbation 2/2 third degree heart block requiring dopamine drip admitted to ICU for monitoring and management. NEURO: AAO3 Lethargic (most likely due to poor oxygenation/ CHF) No FND Moving all extremities past midline ReOrient as necessary Hx CVA DAPT + Statin PULM: Satting well on 2L NC Orthopneic CXR shows RLL Pleural effusion; Cephalization Aggressive diuresis post pacemaker placement CHF management detailed below Hx COPD C/w duoneb + budesonide + brovana CARDIO: Third degree heart block Undergoing emergent pacemaker placement at this time; HD Stable while in ICU Dopamine drip 5mcg/min can be DC when patient returns from pacemaker placement ACS R/O trops x3 equivocal CHF Exacerbation Can begin diuresis post procedure ; Lasix 40 IVP BID Strict IO Salt restricted diet Hx CAD/ PAD ASA + Plavix + Statin as above Cardiology Following appreciate reccs GI: NPO for procedure Salt restricted + Fluid restricted diet post procedure Protonix /Nephro: Monitor urine out put Lasix as above ENDO: IDDM C/w Home levemir; ISS High Accucheck ACHS DVT/GI prophylaxis Held for procedure Lovenox 40 mg SC Protonix 40 mg PO daily Patient was seen, examined, and discussed w/ attending physician Dr. 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5 Mg (3 Ml) Ud IH 3 ml [id number] AMINA Administration Arformoterol Tartrate 15 mcg 08/15/18 08:00 08/15/18 07:54 Brovana IH 15 mcg [id number] AMINA Administration Aspirin 81 mg 08/15/18 10:00 Ecotrin PO DAILY AMINA Budesonide 0.5 mg 08/15/18 08:00 08/15/18 07:54 Pulmicort Respules IH 0.5 mg [id number] AMINA Administration Cephalexin Monohydrate 250 mg 08/15/18 14:00 Keflex PO 08/19/18 23:59 TID [facility] Protocol Clopidogrel Bisulfate 75 mg 08/15/18 10:00 Plavix PO DAILY [facility] Enoxaparin Sodium 40 mg 08/17/18 10:00 Lovenox SC DAILY [facility] Protocol Furosemide 40 mg 08/15/18 15:00 Lasix IV 08/15/18 15:01 ONCE ONE Furosemide 40 mg 08/16/18 10:00 Lasix IV DAILY [facility] Dopamine HCl/Dextrose 400 mg in 250 mls @ 16.244 mls/hr 08/14/18 22:53 23:10 Dopamine 400mg/250ml D5w IV 5 mcg/kg/min .[id number] PRN 16.244 mls/hr TITRATE PER MD ORDER Administration Protocol 5 MCG/KG/MIN Insulin Detemir 30 unit 08/15/18 22:00 Levemir SC HS [facility] Insulin Human Lispro 0 units 08/15/18 07:30 08/15/18 09:25 Humalog High SC 7 units ACHS [facility] Administration Protocol Insulin Lispro Protam/Lispro Human 36 units 08/15/18 16:30 Humalog Mix 75/25 SC ACD [facility] Nicotine 1 patch 08/15/18 13:00 Nicoderm Cq TD DAILY [facility] Non-Formulary Medication 40 mg 08/15/18 10:00 Rosuvastatin Calcium [Crestor] PO DAILY [facility] Pantoprazole Sodium 40 mg 08/15/18 06:30 08/15/18 06:11 Protonix Ec Tab PO 40 mg 0630 [facility] Administration Tiotropium [place] 18 mcg 08/15/18 13:00 Spiriva INH DAILY [facility] Trazodone HCl 50 mg 08/15/18 22:00 Desyrel PO HS [facility] - Patient Studies Lab Studies: Lab Studies 08/15/18 08/15/18 08/15/18 Range/Units 12:40 08:40 08:40 WBC 10.8 D (4.5-11.0) 10^3/ul RBC 4.65 (3.5-6.1) 10^6/uL Hgb 14.3 (14.0-18.0) g/dL Hct 43.0 (42.0-52.0) % MCV 92.5 (80.0-105.0) fl MCH 30.8 (25.0-35.0) pg MCHC 33.3 (31.0-37.0) g/dl RDW 13.9 (11.5-14.5) % Plt Count 148 (120.0-450.0) 10^3/uL MPV 13.2 H (7.0-11.0) fl Gran % 65.1 (50.0-68.0) % Lymph % (Auto) 22.5 (22.0-35.0) % Meade % (Auto) 12.1 H (1.0-6.0) % Eos % (Auto) 0.0 L (1.5-5.0) % Baso % (Auto) 0.3 (0.0-3.0) % Gran # 7.04 H (1.4-6.5) Lymph # (Auto) 2.4 (1.2-3.4) Meade # (Auto) 1.3 H (0.1-0.6) Eos # (Auto) 0.0 (0.0-0.7) Baso # (Auto) 0.03 (0.0-2.0) K/mm3 pCO2 (35-45) mm/Hg pO2 (80-100) mm/Hg HCO3 (21-28) mmol/L ABG pH (7.35-7.45) ABG Total CO2 (22-28) mmol.L ABG O2 Saturation (95-98) % ABG Base Excess (-2.0-3.0) mmol/L ABG Potassium (3.6-5.2) mmol/L Sodium 137 136 (132-148) mmol/L Chloride 103 99 (98-107) mmol/L Glucose (75-110) mg/dl Lactate (0.7-2.1) mmol/L FiO2 % Potassium 4.4 5.1 H (3.6-5.0) mmol/L Carbon Dioxide 25 27 (21-33) mmol/L Anion Gap 14 16 (10-20) BUN 21 22 H (7-21) mg/dL Creatinine 1.0 1.1 (0.8-1.5) mg/dl Est GFR ( Amer) > 60 > 60 Est GFR (Non-Af Amer) > 60 > 60 POC Glucose (mg/dL) (65-110) mg/dL Random Glucose 283 H 362 H* (70-110) mg/dL Calcium 8.6 8.8 (8.4-10.5) mg/dL Phosphorus 3.4 (2.5-4.5) mg/dL Magnesium 2.2 (1.7-2.2) mg/dL Total Bilirubin 1.9 H (0.2-1.3) mg/dL AST 22 (17-59) U/L ALT 28 (7-56) U/L Alkaline Phosphatase 114 (38-126) U/L Troponin I ng/mL Total Protein 7.4 (5.8-8.3) g/dL Albumin 3.9 (3.0-4.8) g/dL Globulin 3.6 gm/dL Albumin/Globulin Ratio 1.1 (1.1-1.8) Triglycerides (35-160) mg/dL Cholesterol (130-200) mg/dL LDL Cholesterol Direct (0-129) mg/dL HDL Cholesterol (29-60) mg/dL Arterial Blood Potassium (3.6-5.2) mmol/L 08/15/18 08/15/18 08/15/18 Range/Units 07:57 06:45 01:15 WBC (4.5-11.0) 10^3/ul RBC (3.5-6.1) 10^6/uL Hgb (14.0-18.0) g/dL Hct (42.0-52.0) % MCV (80.0-105.0) fl MCH (25.0-35.0) pg MCHC (31.0-37.0) g/dl RDW (11.5-14.5) % Plt Count (120.0-450.0) 10^3/uL MPV (7.0-11.0) fl Gran % (50.0-68.0) % Lymph % (Auto) (22.0-35.0) % Meade % (Auto) (1.0-6.0) % Eos % (Auto) (1.5-5.0) % Baso % (Auto) (0.0-3.0) % Gran # (1.4-6.5) Lymph # (Auto) (1.2-3.4) Meade # (Auto) (0.1-0.6) Eos # (Auto) (0.0-0.7) Baso # (Auto) (0.0-2.0) K/mm3 pCO2 (35-45) mm/Hg pO2 (80-100) mm/Hg HCO3 (21-28) mmol/L ABG pH (7.35-7.45) ABG Total CO2 (22-28) mmol.L ABG O2 Saturation (95-98) % ABG Base Excess (-2.0-3.0) mmol/L ABG Potassium (3.6-5.2) mmol/L Sodium (132-148) mmol/L Chloride (98-107) mmol/L Glucose (75-110) mg/dl Lactate (0.7-2.1) mmol/L FiO2 % Potassium (3.6-5.0) mmol/L Carbon Dioxide (21-33) mmol/L Anion Gap (10-20) BUN (7-21) mg/dL Creatinine (0.8-1.5) mg/dl Est GFR ( Amer) Est GFR (Non-Af Amer) POC Glucose (mg/dL) 287 H (65-110) mg/dL Random Glucose (70-110) mg/dL Calcium (8.4-10.5) mg/dL Phosphorus (2.5-4.5) mg/dL Magnesium (1.7-2.2) mg/dL Total Bilirubin (0.2-1.3) mg/dL AST (17-59) U/L ALT (7-56) U/L Alkaline Phosphatase (38-126) U/L Troponin I 0.06 D 0.03 ng/mL Total Protein (5.8-8.3) g/dL Albumin (3.0-4.8) g/dL Globulin gm/dL Albumin/Globulin Ratio (1.1-1.8) Triglycerides 94 (35-160) mg/dL Cholesterol 98 L (130-200) mg/dL LDL Cholesterol Direct < 30 (0-129) mg/dL HDL Cholesterol 42 (29-60) mg/dL Arterial Blood Potassium (3.6-5.2) mmol/L 08/14/18 Range/Units 23:22 WBC (4.5-11.0) 10^3/ul RBC (3.5-6.1) 10^6/uL Hgb (14.0-18.0) g/dL Hct (42.0-52.0) % MCV (80.0-105.0) fl MCH (25.0-35.0) pg MCHC (31.0-37.0) g/dl RDW (11.5-14.5) % Plt Count (120.0-450.0) 10^3/uL MPV (7.0-11.0) fl Gran % (50.0-68.0) % Lymph % (Auto) (22.0-35.0) % [place]ade % (Auto) (1.0-6.0) % Eos % (Auto) (1.5-5.0) % Baso % (Auto) (0.0-3.0) % Gran # (1.4-6.5) Lymph # (Auto) (1.2-3.4) Meade # (Auto) (0.1-0.6) Eos # (Auto) (0.0-0.7) Baso # (Auto) (0.0-2.0) K/mm3 pCO2 35 (35-45) mm/Hg pO2 70.0 L (80-100) mm/Hg HCO3 23.2 (21-28) mmol/L ABG pH 7.43 (7.35-7.45) ABG Total CO2 24.3 (22-28) mmol.L ABG O2 Saturation 95.7 (95-98) % ABG Base Excess -0.6 (-2.0-3.0) mmol/L ABG Potassium 4.0 (3.6-5.2) mmol/L Sodium 135.0 (132-148) mmol/L Chloride 104.0 (98-107) mmol/L Glucose 367 H (75-110) mg/dl Lactate 1.5 (0.7-2.1) mmol/L FiO2 36.0 % Potassium (3.6-5.0) mmol/L Carbon Dioxide (21-33) mmol/L Anion Gap (10-20) BUN (7-21) mg/dL Creatinine (0.8-1.5) mg/dl Est GFR ( Amer) Est GFR (Non-Af Amer) POC Glucose (mg/dL) (65-110) mg/dL Random Glucose (70-110) mg/dL Calcium (8.4-10.5) mg/dL Phosphorus (2.5-4.5) mg/dL Magnesium (1.7-2.2) mg/dL Total Bilirubin (0.2-1.3) mg/dL AST (17-59) U/L ALT (7-56) U/L Alkaline Phosphatase (38-126) U/L Troponin I ng/mL Total Protein (5.8-8.3) g/dL Albumin (3.0-4.8) g/dL Globulin gm/dL Albumin/Globulin Ratio (1.1-1.8) Triglycerides (35-160) mg/dL Cholesterol (130-200) mg/dL LDL Cholesterol Direct (0-129) mg/dL HDL Cholesterol (29-60) mg/dL Arterial Blood Potassium 4.0 (3.6-5.2) mmol/L Laboratory Results - last 24 hr 08/14/18 08/15/18 08/15/18 23:22 01:15 06:45 WBC RBC Hgb Hct MCV MCH MCHC RDW Plt Count MPV Gran % Lymph % (Auto) [place] % (Auto) Eos % (Auto) Baso % (Auto) Gran # Lymph # (Auto) [place] # (Auto) Eos # (Auto) Baso # (Auto) pCO2 35 pO2 70.0 L HCO3 23.2 ABG pH 7.43 ABG Total CO2 24.3 ABG O2 Saturation 95.7 ABG Base Excess -0.6 ABG Potassium 4.0 Sodium 135.0 Chloride 104.0 Glucose 367 H Lactate 1.5 FiO2 36.0 Potassium Carbon Dioxide Anion Gap BUN Creatinine Est GFR ( Amer) Est GFR (Non-Af Amer) POC Glucose (mg/dL) Random Glucose Calcium Phosphorus Magnesium Total Bilirubin AST ALT Alkaline Phosphatase Troponin I 0.03 0.06 D Total Protein Albumin Globulin Albumin/Globulin Ratio Triglycerides 94 Cholesterol 98 L LDL Cholesterol Direct < 30 HDL Cholesterol 42 Arterial Blood Potassium 4.0 08/15/18 08/15/18 08/15/18 07:57 08:40 08:40 WBC 10.8 D RBC 4.65 Hgb 14.3 Hct 43.0 MCV 92.5 MCH 30.8 MCHC 33.3 RDW 13.9 Plt Count 148 MPV 13.2 H Gran % 65.1 Lymph % (Auto) 22.5 [place] % (Auto) 12.1 H Eos % (Auto) 0.0 L Baso % (Auto) 0.3 Gran # 7.04 H Lymph # (Auto) 2.4 [place]ade # (Auto) 1.3 H Eos # (Auto) 0.0 Baso # (Auto) 0.03 pCO2 pO2 HCO3 ABG pH ABG Total CO2 ABG O2 Saturation ABG Base Excess ABG Potassium Sodium 136 Chloride 99 Glucose Lactate FiO2 Potassium 5.1 H Carbon Dioxide 27 Anion Gap 16 BUN 22 H Creatinine 1.1 Est GFR ( Amer) > 60 Est GFR (Non-Af Amer) > 60 POC Glucose (mg/dL) 287 H Random Glucose 362 H* Calcium 8.8 Phosphorus 3.4 Magnesium 2.2 Total Bilirubin 1.9 H AST 22 ALT 28 Alkaline Phosphatase 114 Troponin I Total Protein 7.4 Albumin 3.9 Globulin 3.6 Albumin/Globulin Ratio 1.1 Triglycerides Cholesterol LDL Cholesterol Direct HDL Cholesterol Arterial Blood Potassium 08/15/18 12:40 WBC RBC Hgb Hct MCV MCH MCHC RDW Plt Count MPV Gran % Lymph % (Auto) [place]ade % (Auto) Eos % (Auto) Baso % (Auto) Gran # Lymph # (Auto) [place]ade # (Auto) Eos # (Auto) Baso # (Auto) pCO2 pO2 HCO3 ABG pH ABG Total CO2 ABG O2 Saturation ABG Base Excess ABG Potassium Sodium 137 Chloride 103 Glucose Lactate FiO2 Potassium 4.4 Carbon Dioxide 25 Anion Gap 14 BUN 21 Creatinine 1.0 Est GFR ( Amer) > 60 Est GFR (Non-Af Amer) > 60 POC Glucose (mg/dL) Random Glucose 283 H Calcium 8.6 Phosphorus Magnesium Total Bilirubin AST ALT Alkaline Phosphatase Troponin I Total Protein Albumin Globulin Albumin/Globulin Ratio Triglycerides Cholesterol LDL Cholesterol Direct HDL Cholesterol Arterial Blood Potassium EKG/Cardiology Studies: Cardiology / EKG Studies 08/15/18 11:20 ELECTROCARDIOGRAM Stat Comment: Reason For Exam: S/p PPM Critical Care Progress Note - Nutrition Nutrition: Nutrition Category Date Time Status Heart Healthy Diet [DIET] Diets 08/15/18 Breakfast Active Assessment/Plan - Assessment and Plan (Free Text) Assessment: Patient seen and examined on rounds with resident, agree with note with following additions/exceptions: Patient is 73yo male with PMhx of CHF, CAD, DM presented with acute deomcpensated CHF exacerbation, in complete heart block, s/p PPM Currently afebrile, BP stable, comfortable in NAD doing well, post procedure chest xray noted, no PTX Cardiology following Dopamine drip top be discontinued Patient is AAOx3, groggy, NOT lethargic as noted above CHB s/p PPM Acute decompensated CHF HTN CAD DM Recommend: - cont with supp o2 as needed, duonebs PRN, IS - NO ID issues - BP control - Lasix IV diuresis - follow up cardiology - ECHO - FS control - GI ppx - DVT ppx - Monitor in MICU
[2018-08-15 08:48] LABS: BASO # 0.03 K/mm3 (0.0-2.0); BASO % 0.3 % (0.0-3.0); GRAN # 7.04 (1.4-6.5); GRAN % 65.1 % (50.0-68.0); HEMOGLOBIN 14.3 g/dL (14.0-18.0); LYMPH # 2.4 (1.2-3.4); LYMPH % 22.5 % (22.0-35.0); MEAN CELL VOLUME 92.5 fl (80.0-105.0); MEAN CORPUSCULAR HEMOGLOBIN 30.8 pg (25.0-35.0); MEAN CORPUSCULAR HGB CONC 33.3 g/dl (31.0-37.0); MEAN PLATELET VOLUME 13.2 fl (7.0-11.0); MONO # 1.3 (0.1-0.6); MONO % 12.1 % (1.0-6.0); RBC 4.65 10^6/uL (3.5-6.1); RED CELL DISTRIBUTION WIDTH 13.9 % (11.5-14.5); WHITE BLOOD COUNT 10.8 10^3/ul (4.5-11.0)
[2018-08-15 09:15] LABS: ALB/GLOB RATIO 1.1 (1.1-1.8); ALBUMIN 3.9 g/dL (3.0-4.8); ALT/SGPT 28 U/L (7-56); AST/SGOT 22 U/L (17-59); BLOOD UREA NITROGEN 22 mg/dL (7-21); CALCIUM 8.8 mg/dL (8.4-10.5); GFR NON-AFRICAN AMERICAN > 60
--- NOTE | 2018-08-15 09:15 | RAD ---
Date of service: 08/14/2018 HISTORY: chest pain COMPARISON: 06/20/2018. FINDINGS: LUNGS: The lungs are well inflated. There is severe pulmonary venous congestion with redistribution PLEURA: Small right pleural effusion, no pneumothorax apparent. CARDIOVASCULAR: There is moderate cardiomegaly. Status post CAB OSSEOUS STRUCTURES: No significant abnormalities. VISUALIZED UPPER ABDOMEN: Normal. OTHER FINDINGS: None. IMPRESSION: Findings are most compatible with congestive heart failure.
[2018-08-15] MEDS: Insulin Lispro (HUMAlog) HIGH Coverage SC SCH ×4 (09:25→22:14)
[2018-08-15] MEDS ORDERED: Lidocaine PF 2% (5 ml) Inj (For Cardiac Arrhy) ONE (09:47)
[2018-08-15] MEDS ORDERED: Enoxaparin 40 mg Syringe SC SCH (10:00)
[2018-08-15] MEDS ORDERED: Fluticasone-Salmeterol 250-50mcg Diskus INH SCH (10:00)
[2018-08-15] MEDS ORDERED: Midazolam 2 MG/2 ML VIAL ONE (10:20)
--- NOTE | 2018-08-15 11:39 | CPOSTOP ---
DATE: 08/15/2018 CARDIOVASCULAR LAB POST PROCEDURE NOTE DICTATING PHYSICIAN: Cami Rubio MD. QUALITY IMPROVEMENT ENGINEER: Thelma diamond powder technician. TYPE OF ANESTHESIA: Moderate conscious sedation. Total 2 mg of Versed, 100 of fentanyl given. Periodically started 1 mg of Versed, 50 of fentanyl. PRE-PROCEDURE DIAGNOSIS: Complete heart block. PROCEDURE PERFORMED: Implantation of permanent pacemaker, single chamber, MRI safe. FINDINGS: Complete heart block. FINAL DIAGNOSIS: Complete heart block, status post pacemaker. POST PROCEDURE CONDITION: Post procedure, the patient's condition is stable. VASCULAR ACCESS SITE: Left subclavian vein. CLOSURE DEVICE: Closed with suture, surgical closure. TOTAL RADIATION DOSE: 3463.38 milligray unit. TOTAL FLUORO TIME: 4.5 minutes. Cami Rubio MD
[2018-08-15 12:56] LABS: BLOOD UREA NITROGEN 21 mg/dL (7-21); CALCIUM 8.6 mg/dL (8.4-10.5); GFR NON-AFRICAN AMERICAN > 60
--- NOTE | 2018-08-15 13:54 | RAD ---
Date of service: 08/15/2018 HISTORY: Post Pacemaker, R/o pneumothorax COMPARISON: 08/14/2018. FINDINGS: LUNGS: The lungs are well inflated. There is worsening severe pulmonary venous congestion. There is persistent haziness in the right mid lung and lower lobe which may represent mild alveolar pulmonary edema. PLEURA: No significant pleural effusion identified, no pneumothorax apparent. CARDIOVASCULAR: There is moderate cardiomegaly. Status post CAB There is interval placement of left-sided unipolar permanent pacing device. OSSEOUS STRUCTURES: No significant abnormalities. VISUALIZED UPPER ABDOMEN: Normal. OTHER FINDINGS: None. IMPRESSION: Status post placement of left-sided unipolar pacemaker. No evidence for pneumothorax. Worsening congestive heart failure.
[2018-08-15] MEDS: Tiotropium 18 mcg Cap For Inhalation INH SCH (15:03)
--- NOTE | 2018-08-15 16:29 | CARD ---
APPROVED REPORT Date of service: 08/15/2018 HISTORY The Patient is a 73 year-old male with a history of CAD S/p CABG admitted with SOB and CHB with junctional escape heart rate 36-40 PROCEDURES Insertion Single Chamber Ventricle Pacemaker INDICATIONS Complete Heart Block Bradycardia CONSCIOUS SEDATION AGENTS Versed Fentanyl IMPLANTED DEVICES [employer] [id number] ..... Ventricular Lead Active lead ... MRI Safe Pulse generator ... JOE XT .. MRI safe OPERATIVE NOTE The patient was brought to the Cardiac Catheterization Laboratory in a fasting state and was prepped and draped in a sterile manner. The left subclavian region was infiltrated with 2% Lidocaine, subcutaneous anesthesia. A transverse incision was made in the left subclavicular area. The subcutaneous pocket was formed via blunt dissection, Percutaneous venous access was achieved and an introducer sheath was inserted into the Lt Subclavian vein. Through the introducer sheath, the ventricular lead wire was postitioned in the right ventricular apex utilizing fluoroscopic guidance. The ventricular was advanced over the wire under fluoroscopic guidance and positioned in the right ventricle. Capturing and sensing thresholds were verified. THE VENTRICULAR ELECTRODE PARAMETERS R WAVE 6.0 THRESHOLD0.5 RESISTANCE 943 The ventricular lead was then secured using Silk 0. The subcutaneous pocket was irrigated with Betadine. The ventricular lead was attached to the appropriate receptacle on the pulse generator and set screws firmly tightened to insure adequate contact and stability. The lead and pulse generator were placed into the subcutaneous pocket. Sharp and sponge counts were confirmed to be correct. At this time the pocket was closed subcutaneously with a Vicryl 2.0 and the skin was closed with a Vicryl 4.0 .The operative site was dressed in sterile fashion. The patient tolerated the procedure well and was transferred to the floor in stable condition. COMPLICATIONS The patient tolerated the procedure well and there were no complications associated with the procedure. CONCLUSION Successful implantation of PPM VVIR MRI safe JOE XT from [employer]. CC; Dr. Agarwal
[2018-08-15] MEDS ORDERED: Insulin Lispro (humaLOG) MIX 75/25(10 ml) SC SCH (16:30)
--- NOTE | 2018-08-15 19:41 | HP ---
HISTORY OF PRESENT ILLNESS: The patient is 73 years old, who I saw in office yesterday, brought in by with complaint of shortness of breath and also she stated that he is having difficulty walking, get short of breath easily and he is unable to stand up or walk. When I examined the patient, he was in CHF. He has crackles bilaterally in lower two-third of his lungs. He was also found to be bradycardiac so I advised him to come to emergency room for further evaluation. When patient was brought to emergency room, he was found to be in heart block, dopamine was started. Patient was transferred to ICU for close monitoring. Patient was having generalized weakness, difficulty walking, shortness of breath. Denies any nausea or vomiting. Did not have chest pain. No abdominal pain, only had generalized weakness. PAST MEDICAL HISTORY: Significant for; 1. CVA with left hemiparesis. 2. Hypertension. 3. Coronary artery disease status post open heart surgery. 4. Heavy smoker. 5. COPD. 6. Insulin-dependent diabetes. PAST SURGICAL HISTORY: Significant for open heart surgery in 2005. ALLERGIES: HE IS NOT ALLERGIC TO ANY MEDICATIONS. MEDICATIONS: At home, he is on trazodone 50 mg at bedtime, Crestor 40 mg daily, Protonix 40 mg daily, Levemir 30 units at bedtime. He is on Plavix, aspirin 81 daily, Spiriva. He is on Humalog 75/25, 36 units before dinner, 46 before breakfast. He is on nebulizer treatment. SOCIAL HISTORY: He is an active smoker. He used to smoke two pack a day, cut down to one pack a day now and he socially drinks here and there. PHYSICAL EXAMINATION: GENERAL: He seems to be comfortable now. VITAL SIGNS: He is afebrile, pulse 40, respiration 20, blood pressure 155/63. LUNGS: Bilateral soft crackle at bases with small . HEART: S1, S2 audible. ABDOMEN: Soft, nontender. No rebound. No guarding. NEUROLOGICAL: He is awake, alert, oriented, communicative. LABORATORY EXAM AND IMAGING: WBC is 10.8, hemoglobin 14, hematocrit 43, platelets 148. PT 14.6, INR 1.26. Chemistry: Sodium 136, potassium 5.1, chloride 99, CO2 of 27, BUN 22, creatinine 1.1. Blood sugar 362. Total bili 1.9. Troponins are negative. Initial EKG in the ER shows third-degree heart block. X-ray of chest shows congestive heart failure. ASSESSMENT: 1. Third-degree heart block, status post pacemaker placement by Dr. Rubio. 2. Chronic obstructive pulmonary disease. 3. Hypertension. 4. Congestive heart failure. 5. Insulin-dependent diabetes. 6. Active smoker. PLAN: Continue patient on his usual medications. His dopamine will be stopped. We will continue him on nebulizer treatment. Out of bed to chair. In the a.m. will be monitored in ICU. Kierra Agarwal MD
--- NOTE | 2018-08-15 19:48 | CON ---
DATE: 08/15/2018 CARDIOLOGY CONSULT REASON FOR CONSULTATION: Complete heart block, cardiac evaluation. BRIEF CLINICAL HISTORY: This is a 73-year-old male with past medical history significant for coronary artery disease, CABG, presents to the Emergency Room complaining of shortness of breath and chest pain, found to be in complete heart block. Dopamine started, now the heart rate is in 40s. External pacemaker on. Blood pressure 140/80. Denies any chest pain now. PAST HISTORY: Significant for coronary artery disease, status post CABG two years ago, history of CVA x2, history of diabetes, hypertension, hyperlipidemia, history of polycythemia vera, history of peripheral arterial disease, history of COPD, history of peripheral intervention done by Dr. Cordova in the past, very noncompliant patient, history of active tobacco abuse. SOCIAL HISTORY: Active tobacco abuse, 2 pack a day, still smokes. Denies any history of alcohol abuse. CURRENT MEDICATIONS: The patient is taking trazodone, Spiriva, Crestor, Protonix, nicotine, insulin, clopidogrel, baclofen, aspirin, albuterol, acetaminophen. PREVIOUS CARDIAC WORKUP: As follows, the patient had a recent echo on 06/21/2018 that revealed ejection fraction of 55%, trace aortic regurgitation, moderate valvular aortic stenosis, peak gradient across aortic valve 13 mmHg, noncoronary cusp is immobile, [id number] mitral regurgitation, trace tricuspid regurgitation, RV systolic pressure of 51. Patient had a multiple peripheral intervention done by Dr. Cordova in the past. REVIEW OF SYSTEMS: As per HPI. PHYSICAL EXAMINATION: VITAL SIGNS: As follows, height of the patient is 6 feet, weight of the patient is 182 pounds, body mass index 24.8 kg/m2. Rest of the vitals, on dopamine, heart rate 48, blood pressure 155/63. HEENT: PERRLA. Extraocular muscles intact. NECK: Supple. No carotid bruits or thyromegaly. CHEST: Clear to auscultation. HEART: S1 and S2 regular. ABDOMEN: Soft. EXTREMITIES: Clubbing and cyanosis, negative. LABORATORY DATA: WBC 10.8, hemoglobin 14.3, hematocrit 43, platelet count 148. Chemistry shows sodium 136, potassium 5, chloride 99, carbon dioxide 26, anion gap of 16, BUN 23, creatinine 1.1. EKG shows complete heart block, heart rate of 30. IMPRESSION AND PLAN: A 73-year-old male with past medical history of diabetes, hypertension, hyperlipidemia, coronary artery disease, admitted with complete heart block requiring pacemaker. Discussed with the on the telephone #[phone], Marjorie, explaining the patient's condition, agreed. We will proceed for pacemaker. Further recommendation after the pacemaker. Besides this, the patient has underlying diabetes, hypertension, hyperlipidemia, coronary artery disease, elevated BNP, congestive heart failure. Once the pacemaker is done, we will start diuretics and aggressive medical treatment, consider stress test if not done recently though patient is very compliant. Last time, the patient refused. We will follow with you. Thank you, Dr. Rosa, for providing us the opportunity in taking care of the patient, Brad Barber. Cami Rubio MD
--- NOTE | 2018-08-15 21:11 | CARD ---
APPROVED REPORT Date of service: 08/15/2018 EKG Measurement Heart [id number] <Conclusion> Electronic ventricular pacemaker
--- NOTE | 2018-08-15 21:36 | CARD ---
APPROVED REPORT Date of service: 08/14/2018 EKG Measurement Heart [id number] <Conclusion> Sinus tachycardia with complete heart block and idioventricular rhythm Right bundle branch block Septal infarct, age undetermined Abnormal ECG
[2018-08-15] MEDS ORDERED: Insulin Detemir 100 units/ml Vial (Levemir) SC SCH (22:00)
[2018-08-15] MEDS ORDERED: Dextrose 50% SYRINGE Inj (50 ml) IVP STA (22:16)
[2018-08-15] MEDS ORDERED: Sodium Chloride 0.9% 500 ML IV STA (23:49)
[2018-08-16] MEDS: Pantoprazole 40 mg EC Tab PO SCH (06:23)
[2018-08-16] MEDS: Albuterol-Ipratrop 3 mg / 0.5 (3 ml) UD IH SCH ×4 (06:27→20:05)
[2018-08-16 06:28] LABS: BASO # 0.03 K/mm3 (0.0-2.0); BASO % 0.4 % (0.0-3.0); EOS # 0.2 (0.0-0.7); EOS % 2.3 % (1.5-5.0); GRAN # 4.96 (1.4-6.5); GRAN % 61.1 % (50.0-68.0); HEMOGLOBIN 14.5 g/dL (14.0-18.0); LYMPH # 2.4 (1.2-3.4); LYMPH % 28.9 % (22.0-35.0); MEAN CELL VOLUME 93.6 fl (80.0-105.0); MEAN CORPUSCULAR HEMOGLOBIN 31.1 pg (25.0-35.0); MEAN CORPUSCULAR HGB CONC 33.3 g/dl (31.0-37.0); MEAN PLATELET VOLUME 12.9 fl (7.0-11.0); MONO # 0.6 (0.1-0.6); MONO % 7.3 % (1.0-6.0); RBC 4.66 10^6/uL (3.5-6.1); WHITE BLOOD COUNT 8.1 10^3/ul (4.5-11.0)
[2018-08-16 07:14] LABS: ALBUMIN 3.4 g/dL (3.0-4.8); ALT/SGPT 14 U/L (7-56); AST/SGOT 18 U/L (17-59); BLOOD UREA NITROGEN 19 mg/dL (7-21); CALCIUM 8.2 mg/dL (8.4-10.5); GFR NON-AFRICAN AMERICAN > 60
[2018-08-16] MEDS: Insulin Lispro (HUMAlog) HIGH Coverage SC SCH ×4 (08:01→21:16)
[2018-08-16] MEDS: Arformoterol 15 mcg/2 ml Inh Sol IH SCH ×2 (08:35→20:05)
[2018-08-16] MEDS: Budesonide 0.5 mg/2 ml Inhal Susp UD IH SCH ×2 (08:35→20:05)
[2018-08-16] MEDS: Tiotropium 18 mcg Cap For Inhalation INH SCH (09:01)
--- NOTE | 2018-08-16 11:29 | RAD ---
Date of service: 08/16/2018 HISTORY: S/p ppm r/o Pneumothorax COMPARISON: 08/15/2018 TECHNIQUE: Chest PA and lateral FINDINGS: LUNGS: Minimal patchy infiltrates of both lung bases PLEURA: No evidence of pneumothorax CARDIOVASCULAR: Single lead pacemaker OSSEOUS STRUCTURES: No significant abnormalities. VISUALIZED UPPER ABDOMEN: Normal. OTHER FINDINGS: None. IMPRESSION: No evidence of pneumothorax
--- NOTE | 2018-08-16 14:23 | PN ---
DATE: 08/16/2018 REASON FOR THE CONSULTATION: Followup complete heart block, status post permanent pacemaker, history of CABG in the remote. SUBJECTIVE: The patient denies any chest pain, shortness of breath or any palpitation. OBJECTIVE: GENERAL: Not in any apparent distress. VITAL SIGNS: Temperature afebrile, heart rate 60, blood pressure 125/58. HEENT: PERRLA. Extraocular muscles intact. NECK: Supple. No carotid bruits or thyromegaly. CHEST: Clear to auscultation. HEART: S1 and S2 regular. ABDOMEN: Soft. EXTREMITIES: Clubbing and cyanosis negative. LABORATORY DATA: WBC 8.1, hemoglobin 14.5, hematocrit of 43.6, platelet count 129. Chemistry shows sodium 137, potassium 3.9, chloride 101, carbon dioxide 26, anion gap of 13, BUN 19, creatinine 1. IMPRESSION: A 73-year-old male with past medical history significant for coronary artery disease, coronary artery bypass graft in the past. Admitted with shortness of breath. Found to be in complete heart block. The patient underwent implantation of permanent pacemaker, single chamber VVI. The patient has history of cerebrovascular accident, history of peripheral arterial disease, history of multiple peripheral angiogram and percutaneous transluminal coronary angioplasty by Dr. Cordova. History of recent echo on 06/21/2018 revealed ejection fraction 55%, trace aortic regurgitation, moderate valvular aortic stenosis, peak gradient across the aortic valve 13 mmHg, noncoronary cusp is immobile, [id number] mitral regurgitation, trace tricuspid regurgitation, right ventricular systolic pressure of 51. RECOMMENDATION: Continue baseline medication. Discontinue IV fluid. Continue Proventil treatment. Continue Lasix daily. Continue DVT prophylaxis. Okay to transfer to tele. If not done a stress test, consider stress test 8 weeks after the patient is able to raise his left arm above the head. The patient recently pacemaker was placed. For risk stratification, follow because the patient is very noncompliant. I will discuss with Dr. Agarwal. We will get chest x-ray now to rule out pneumo. We will transfer to tele. Discussed with the the patient's condition and informed about the patient's condition. Called the patient's , Marjorie on telephone, , updated the patient's condition. Thank you, Dr. Agarwal, for providing us the opportunity in taking care of the patient, Brad Barber. Cami Rubio MD
--- NOTE | 2018-08-16 16:27 | PQF ---
PROVIDER RESPONSE TEXT: CHF secondary to diastolic dysfunction as well as Secondary to arrhythmia ( complete heart Block) REVIEWER QUERY TEXT: CHF Acuity and Type Congestive Heart Failure is documented in the Medical Record. Please document the type and acuity (in cludes probable or suspected) Such as: Type: -- Systolic -- Diastolic -- Combined -- Other, please specify Acuity: -- Acute -- Chronic -- Acute on chronic -- Other, please specify Also please document the underlying cause of the CHF (includes probable or suspected) The patient's Clinical Indicators include: Query created by: Agueda Mason on 08/16/2018 2:01 PM Electronically signed by: Cami Rubio 08/16/2018 4:23 PM
[2018-08-16] MEDS: Insulin Lispro (humaLOG) MIX 75/25(10 ml) SC SCH (16:55)
--- NOTE | 2018-08-16 17:21 | PN ---
DATE: 08/16/2018 SUBJECTIVE: He was seen and examined. States he feels very weak, cannot stand up, cannot go to bathroom, and complained of left upper chest pain at the surgical site. PHYSICAL EXAMINATION: VITAL SIGNS: He is afebrile. Pulse 61, respirations 15, and blood pressure 117/38. LUNGS: Bilateral good airflow. No rhonchi or crackle. HEART: S1, S2 audible. ABDOMEN: Soft, nontender. No rebound, no guarding. NEUROLOGIC: He is awake and alert, able to communicate. LABORATORY EXAMINATION: His WBC is 8.1, hemoglobin 14.5, hematocrit 43.6, and platelets 129. Chemistry: Sodium 137, potassium 3.9, chloride 101, CO2 of 26. BUN 19, creatinine 1. Blood sugar of 283. ASSESSMENT: 1. Status post complete heart block, status post pacemaker placement. 2. Chronic obstructive pulmonary disease. 3. Active smoker. 4. Congestive heart failure. 5. Severe peripheral vascular disease. 6. Episode of hypoglycemia last night. PLAN: We will cut down his evening coverage and Levemir dose. We will monitor blood sugar. Need subacute rehab. We will reach out to dialysis social worker. Kierra Agarwal MD
[2018-08-16] MEDS: Insulin Detemir 100 units/ml Vial (Levemir) SC SCH (21:17)
[2018-08-16] MEDS: guaiFENesin 100 mg/5 ml Syrup UD PO PRN (23:31)
[2018-08-17] MEDS: Albuterol-Ipratrop 3 mg / 0.5 (3 ml) UD IH SCH ×3 (02:35→19:35)
[2018-08-17] MEDS: Pantoprazole 40 mg EC Tab PO SCH (05:53)
[2018-08-17 06:14] LABS: BASO # 0.01 K/mm3 (0.0-2.0); BASO % 0.1 % (0.0-3.0); EOS # 0.4 (0.0-0.7); EOS % 4.9 % (1.5-5.0); GRAN # 4.71 (1.4-6.5); GRAN % 59.8 % (50.0-68.0); HEMOGLOBIN 13.5 g/dL (14.0-18.0); LYMPH # 2.2 (1.2-3.4); LYMPH % 28.3 % (22.0-35.0); MEAN CELL VOLUME 93.7 fl (80.0-105.0); MEAN CORPUSCULAR HEMOGLOBIN 30.6 pg (25.0-35.0); MEAN CORPUSCULAR HGB CONC 32.7 g/dl (31.0-37.0); MEAN PLATELET VOLUME 13.3 fl (7.0-11.0); MONO # 0.5 (0.1-0.6); MONO % 6.9 % (1.0-6.0); RBC 4.41 10^6/uL (3.5-6.1); RED CELL DISTRIBUTION WIDTH 13.9 % (11.5-14.5); WHITE BLOOD COUNT 7.9 10^3/ul (4.5-11.0)
[2018-08-17 06:26] LABS: ALBUMIN 3.5 g/dL (3.0-4.8); ALT/SGPT 14 U/L (7-56); AST/SGOT 18 U/L (17-59); BLOOD UREA NITROGEN 20 mg/dL (7-21); CALCIUM 8.9 mg/dL (8.4-10.5); GFR NON-AFRICAN AMERICAN 60
[2018-08-17] MEDS: Arformoterol 15 mcg/2 ml Inh Sol IH SCH ×2 (08:37→19:35)
[2018-08-17] MEDS: Budesonide 0.5 mg/2 ml Inhal Susp UD IH SCH ×2 (08:38→19:35)
[2018-08-17] MEDS: Insulin Lispro (HUMAlog) HIGH Coverage SC SCH ×3 (09:21→21:55)
[2018-08-17] MEDS: Enoxaparin 40 mg Syringe SC SCH (09:33)
[2018-08-17] MEDS: Tiotropium 18 mcg Cap For Inhalation INH SCH (09:33)
[2018-08-17] MEDS: guaiFENesin 100 mg/5 ml Syrup UD PO PRN (09:40)
--- NOTE | 2018-08-17 12:15 | PN ---
DATE: 08/17/2018 LOCATION: Patient is in CCU, 129, bed 7. REASON FOR CONSULTATION AND FOLLOWUP: Complete heart block, status post permanent pacemaker insertion, coronary artery disease, history of CABG. SUBJECTIVE: Patient is lying in bed comfortably without any chest pain, shortness of breath, palpitation. PHYSICAL EXAMINATION: VITAL SIGNS: Blood pressure 92/34, respirations 32, pulse 60. Patient is afebrile. HEENT: Head is normocephalic. Eyes: Pupils normal. Conjunctivae normal. Nose and throat normal. NECK: JVP low. Carotids equal. THORAX: AP diameter normal. LUNGS: Clear. CARDIOVASCULAR: S1 and S2. The pacemaker site healing well. ABDOMEN: Soft. No tenderness. No organomegaly. EXTREMITIES: No clubbing. No cyanosis. LABORATORY DATA: WBC 7.9, hemoglobin 13.5, hematocrit 41.3, platelets 151. Sodium 141, potassium 3.7, BUN 20, creatinine 1.2. Sugar was 128, calcium 8.9, phosphorus 2.9, magnesium 2.2. Bilirubin 0.9, AST 18, ALT 14, total protein 7, albumin 3.5. DIAGNOSES: Complete heart block, status post single chamber pacemaker VVI insertion, coronary artery disease, history of coronary artery bypass in the past, history of peripheral artery disease, history of multiple peripheral angiogram, and percutaneous transluminal peripheral angioplasty by Dr. Cordova. Echo on 06/21/2018 revealed ejection fraction 55%, trace aortic regurgitation, moderate valvular aortic stenosis, peak gradient across the valve 13 mmHg, noncoronary cusp is immobile, [id number] mitral regurgitation, trace tricuspid regurgitation, right ventricular systolic pressure 51 suggestive of moderate pulmonary hypertension, status post pacemaker insertion. Today's monitor shows pacemaker functioning normal. The patient is on aspirin 81 mg daily, Keflex 250 t.i.d., furosemide 40 daily, Lovenox 40 mg subcu daily, Plavix 75 daily, Spiriva 18 mcg inhalation daily. Chest x-ray on 08/16/2018 showed pacemaker electrode in position, minimal patchy infiltrates at both lung bases. We will continue present therapy. We will follow with you. Cami Starks MD
[2018-08-17] MEDS: Insulin Lispro (humaLOG) MIX 75/25(10 ml) SC SCH (18:16)
[2018-08-17] MEDS: Insulin Detemir 100 units/ml Vial (Levemir) SC SCH (22:00)
[2018-08-18] MEDS: guaiFENesin 100 mg/5 ml Syrup UD PO PRN ×2 (00:24→11:00)
[2018-08-18] MEDS ORDERED: MethylPREDNISolone 40 mg Vial IVP ONE ×2 (01:59→03:15)
[2018-08-18] MEDS: Albuterol-Ipratrop 3 mg / 0.5 (3 ml) UD IH SCH ×4 (02:05→19:36)
--- NOTE | 2018-08-18 02:43 | PN ---
DATE: 08/17/2018 SUBJECTIVE: Patient is 73 years old, seen and examined, complaining of some cough and congestion. No nausea or vomiting. No chest pain. No shortness of breath. PHYSICAL EXAMINATION: VITAL SIGNS: He is afebrile, pulse 80, respirations 19, blood pressure 117/63. LUNGS: Bilateral fair airflow. No rhonchi. Some soft crackle in upper lung region. HEART: S1 and S2 audible. ABDOMEN: Soft. Nontender. No rebound. No guarding. NEUROLOGICAL: He is awake, alert, oriented. Left-sided weakness, unable to walk and very unstable. LABORATORY EXAM: WBC 7.9, hemoglobin 13.5, hematocrit 41.3, platelet of 151. Chemistry: Sodium 141, potassium 3.7, chloride 101, CO2 33, BUN 20, creatinine 1.2, blood sugar of 60. ASSESSMENT: 1. Symptomatic bradycardia. 2. Congestive heart failure secondary to diastolic dysfunction. 3. Status post pacemaker placement. 4. Poorly controlled diabetes. 5. Active smoker. 6. History of cerebrovascular accident in the past. PLAN: Patient's afternoon blood sugar is running high. I will increase his morning dose to 20 units. I will request for Physical Therapy evaluation. Depending on his performance, we will decide that he will go to subacute rehab or he is a candidate for TCU. Kierra Agarwal MD
[2018-08-18] MEDS ORDERED: DiphenhydrAMINE 50 mg/ml Inj IVP ONE (03:28)
[2018-08-18] MEDS ORDERED: Albuterol-Ipratrop 3 mg / 0.5 (3 ml) UD ONE (04:53)
[2018-08-18] MEDS ORDERED: Albuterol-Ipratrop 3 mg / 0.5 (3 ml) UD IH STA (04:55)
[2018-08-18] MEDS: Pantoprazole 40 mg EC Tab PO SCH (05:39)
[2018-08-18] MEDS: Arformoterol 15 mcg/2 ml Inh Sol IH SCH ×2 (07:46→19:36)
[2018-08-18] MEDS: Budesonide 0.5 mg/2 ml Inhal Susp UD IH SCH ×2 (07:46→19:37)
--- NOTE | 2018-08-18 07:48 | PN ---
DATE: 08/18/2018 HISTORY OF PRESENT ILLNESS: Mr. Barber is a 73-year-old male, admitted to the hospital with shortness of breath, difficulty in walking. He was found to have heart block. He was treated in the ICU. He has history of CVA, left hemiparesis, coronary artery disease, status post open heart surgery. He had a defibrillator placed. COPD, shortness of breath are improved. History of diabetes mellitus, which is uncontrolled. REVIEW OF SYSTEMS: As per HPI. Rest of 12-point review of systems reviewed negative. PAST MEDICAL HISTORY: CVA; left hemiparesis; hypertension; coronary artery disease; COPD; diabetes mellitus type 2, uncontrolled. PAST SURGICAL HISTORY: Open heart surgery. ALLERGIES: NO KNOWN DRUG ALLERGIES. LABORATORY DATA: White count 7.9, hemoglobin 13.5, hematocrit 41.3, platelet count 151. Sodium 141, potassium 3.7, glucose 251 today. LFTs within normal limits. MEDICATIONS: Albuterol every 6 hours p.r.n., Brovana, aspirin 81 mg daily, Pulmicort 0.5 mg inhalation, Keflex 250 t.i.d., Plavix 75 mg daily, Lovenox 40 subcu daily, Lasix 40 mg IV daily, Levemir 10 units, Lispro sliding scale, NicoDerm patch, Protonix and trazodone 50 mg at bedtime. PHYSICAL EXAMINATION: GENERAL: Comfortable in bed, in no acute distress. VITAL SIGNS: Temperature 97.8, heart rate 60 per minute, blood pressure 153/69, respiratory rate 18 per minute, oxygen saturation 98% on oxygen by nasal cannula. HEENT: Pallor positive. NECK: No lymphadenopathy. CHEST: Air entry present, bilateral. No added sounds. CARDIOVASCULAR: S1, S2 normal. No murmur. No gallop. ABDOMEN: Soft, nontender. No hepatosplenomegaly. EXTREMITY: No edema. WORKERS COMPENSATION SPECIALIST: Awake, alert, oriented. No sensorimotor deficit. ASSESSMENT AND PLAN: 1. Third-degree heart block, status post pacemaker placement. 2. Chronic obstructive pulmonary disease, currently under control. 3. Diabetes mellitus type, uncontrolled diabetes. Sugar is not controlled, still high. 4. Congestive heart failure, compensated. 5. Mild anemia. Hemoglobin 13. We will continue to monitor hemoglobin, hematocrit. On admission, he was coagulopathic with elevated PT of 14.6, INR was 1.2. We will repeat coagulase with a.m. labs. 6. Status currently stable. Awaiting placement to subacute rehabilitation or Transitional Care Unit. Lindsey Vital MD
[2018-08-18] MEDS: Insulin Lispro (humaLOG) MIX 75/25(10 ml) SC SCH ×2 (08:15→17:28)
[2018-08-18 08:16] LABS: BASO # 0.01 K/mm3 (0.0-2.0); BASO % 0.2 % (0.0-3.0); EOS % 0.2 % (1.5-5.0); GRAN # 6.04 (1.4-6.5); GRAN % 90.7 % (50.0-68.0); HEMOGLOBIN 13.6 g/dL (14.0-18.0); LYMPH # 0.5 (1.2-3.4); LYMPH % 7.8 % (22.0-35.0); MEAN CELL VOLUME 93.8 fl (80.0-105.0); MEAN PLATELET VOLUME 13.1 fl (7.0-11.0); MONO # 0.1 (0.1-0.6); MONO % 1.1 % (1.0-6.0); PLATELET COUNT 146 10^3/uL (120.0-450.0); RBC 4.39 10^6/uL (3.5-6.1); RED CELL DISTRIBUTION WIDTH 13.8 % (11.5-14.5); WHITE BLOOD COUNT 6.7 10^3/ul (4.5-11.0)
[2018-08-18] MEDS: Insulin Lispro (HUMAlog) HIGH Coverage SC SCH ×4 (08:16→21:38)
--- NOTE | 2018-08-18 08:30 | CP.PCM.PN ---
Subjective - Date & Time of Evaluation Date of Evaluation: 08/18/18 Time of Evaluation: 06:00 - Subjective Subjective: Sitting in chair, awake, alert, coughing Reason for consultation and follow up: Cardiac evaluation of complete heart block, post permanent pacemaker, history of coronary artery disease post coronary artery bypass grafting Seen and examined by me Objective - Vital Signs/Intake and Output Vital Signs (last 24 hours): Temp Pulse Resp BP Pulse Ox 97.8 F 60 18 153/69 H 98 08/18/18 06:00 08/18/18 06:00 08/18/18 06:00 08/18/18 06:00 08/18/18 06:00 Intake and Output: 08/18/18 08/18/18 06:59 18:59 Intake Total 720 Output Total 700 Balance 20 - Medications Medications: Current Medications Albuterol/Ipratropium (Duoneb 3 Mg/0.5 Mg (3 Ml) Ud) 3 ml IH [id number] [facility] Last Admin: 08/18/18 07:46 Dose: 3 ml Arformoterol Tartrate (Brovana) 15 mcg IH [id number] [facility] Last Admin: 08/18/18 07:46 Dose: 15 mcg Aspirin (Ecotrin) 81 mg PO DAILY [facility] Last Admin: 08/17/18 09:31 Dose: 81 mg Budesonide (Pulmicort Respules) 0.5 mg IH [id number] [facility] Last Admin: 08/18/18 07:46 Dose: 0.5 mg Cephalexin Monohydrate (Keflex) 250 mg PO TID [facility] PRN Reason: Protocol Stop: 08/19/18 23:59 Last Admin: 08/17/18 17:59 Dose: 250 mg Clopidogrel Bisulfate (Plavix) 75 mg PO DAILY [facility] Last Admin: 08/17/18 09:33 Dose: 75 mg Enoxaparin Sodium (Lovenox) 40 mg SC DAILY [facility] PRN Reason: Protocol Last Admin: 08/17/18 09:33 Dose: 40 mg Furosemide (Lasix) 40 mg IV DAILY [facility] Last Admin: 08/17/18 09:32 Dose: Not Given Guaifenesin (Robitussin) 100 mg PO Q4H PRN PRN Reason: Cough Last Admin: 08/18/18 00:24 Dose: 100 mg Insulin Detemir (Levemir) 10 unit SC [facility] Last Admin: 08/17/18 22:00 Dose: 10 u Insulin Human Lispro (Humalog High) 0 units SC ACHS [facility] PRN Reason: Protocol Last Admin: 08/18/18 08:16 Dose: 12 units Insulin Lispro Protam/Lispro Human (Humalog Mix 75/25) 25 units SC ACD [facility] Last Admin: 08/17/18 18:16 Dose: 25 u Insulin Lispro Protam/Lispro Human (Humalog Mix 75/25) 25 units SC ACB [facility] Last Admin: 08/18/18 08:15 Dose: 25 units Nicotine (Nicoderm Cq) 1 patch TD DAILY [facility] Last Admin: 08/17/18 09:33 Dose: 1 patch Non-Formulary Medication (Rosuvastatin Calcium [Crestor]) 40 mg PO DAILY [facility] Last Admin: 08/17/18 09:37 Dose: Not Given Pantoprazole Sodium (Protonix Ec Tab) 40 mg PO 0630 [facility] Last Admin: 08/18/18 05:39 Dose: 40 mg Tiotropium [place] (Spiriva) 18 mcg INH DAILY [facility] Last Admin: 08/17/18 09:33 Dose: 18 mcg Trazodone HCl (Desyrel) 50 mg PO [facility] Last Admin: 08/17/18 21:59 Dose: 50 mg - Labs Labs: 08/17/18 05:00 08/17/18 05:00 PT 14.6 SECONDS (9.4-12.5) H 08/14/18 21:10 INR 1.27 08/14/18 21:10 APTT 34.4 Seconds (25.1-36.5) 08/14/18 21:10 - Constitutional Appears: No Acute Distress - Eye Exam Eye Exam: Normal appearance - ENT Exam ENT Exam: Mucous Membranes Moist - Respiratory Exam Respiratory Exam: Decreased Breath Sounds, Rhonchi, NORMAL BREATHING PATTERN - Cardiovascular Exam Cardiovascular Exam: +S1, +S2 Additional comments: [id number] 60's PPM with left arm sling Site no bleeding,no hematoma - GI/Abdominal Exam GI & Abdominal Exam: Soft, Normal Bowel Sounds - Extremities Exam Extremities Exam: Normal Capillary Refill - Neurological Exam Neurological Exam: Alert, Awake, Oriented x3 - Psychiatric Exam Psychiatric exam: Normal Affect - Skin Skin Exam: Intact, Warm Assessment and Plan - Assessment and Plan (Free Text) Assessment: A 73 year old male who came in to the ER due to shortness of breath and chest discomfort. History of coronary artery disease post coronary artery bypass grafting,hypertension, hyperlipidemia, peripheral vascular disease requiring multiple angioplasty. diabetes, CVA, active smoker diastolic dysfunction CHF, Admitted to ICU. Consult was called due to complete heart block and requiring permanent pacemaker.PPM inserted by Dr. Rubio. Stable now in Telemetry unit. Plan: Coughing but no distress, out of bed to chair Nebulizer treatment Status post PPM Site no hematoma,no bleeding V-pacing at 60's telemetry Blood pressure controlled Continue current treatment Continue current medications Glucose control Will follow Plan and treatment discussed with Dr. Starks
[2018-08-18 08:42] LABS: ALB/GLOB RATIO 0.9 (1.1-1.8); ALBUMIN 3.3 g/dL (3.0-4.8); ALT/SGPT 14 U/L (7-56); AST/SGOT 18 U/L (17-59); BLOOD UREA NITROGEN 27 mg/dL (7-21); CALCIUM 8.9 mg/dL (8.4-10.5); GFR NON-AFRICAN AMERICAN > 60
[2018-08-18 10:26] LABS: ANISOCYTOSIS SLIGHT; LYMPHOCYTE 8 % (22.0-35.0); MONOCYTE 2 % (1.0-6.0); NEUTROPHIL 91 % (50.0-70.0); PLATELET ESTIMATE NORMAL (NORMAL)
[2018-08-18] MEDS: Enoxaparin 40 mg Syringe SC SCH (11:00)
[2018-08-18] MEDS: Tiotropium 18 mcg Cap For Inhalation INH SCH (11:00)
[2018-08-18] MEDS ORDERED: Albuterol-Ipratrop 3 mg / 0.5 (3 ml) UD IH PRN (11:47)
[2018-08-18] MEDS: guaiFENesin-DM 600-30 mg ER Tab PO SCH ×2 (13:16→17:29)
[2018-08-18] MEDS ORDERED: POLYETHYLENE GLYCOL 3350 17 GM/Dose PACKET PO ONE (18:02)
[2018-08-18] MEDS: Insulin Detemir 100 units/ml Vial (Levemir) SC SCH (21:42)
[2018-08-19] MEDS ORDERED: DiphenhydrAMINE 50 mg/ml Inj IVP STA (01:13)
[2018-08-19] MEDS: Albuterol-Ipratrop 3 mg / 0.5 (3 ml) UD IH SCH ×4 (01:20→19:46)
[2018-08-19] MEDS: guaiFENesin 100 mg/5 ml Syrup UD PO PRN (04:31)
[2018-08-19] MEDS: Pantoprazole 40 mg EC Tab PO SCH (05:40)
[2018-08-19 06:31] LABS: BASO # 0.02 K/mm3 (0.0-2.0); BASO % 0.2 % (0.0-3.0); EOS # 0.2 (0.0-0.7); EOS % 1.7 % (1.5-5.0); GRAN # 6.63 (1.4-6.5); GRAN % 57.6 % (50.0-68.0); HEMOGLOBIN 13.8 g/dL (14.0-18.0); LYMPH # 4.1 (1.2-3.4); LYMPH % 35.9 % (22.0-35.0); MEAN CELL VOLUME 94.6 fl (80.0-105.0); MEAN CORPUSCULAR HEMOGLOBIN 30.8 pg (25.0-35.0); MEAN CORPUSCULAR HGB CONC 32.5 g/dl (31.0-37.0); MEAN PLATELET VOLUME 12.6 fl (7.0-11.0); MONO # 0.5 (0.1-0.6); MONO % 4.6 % (1.0-6.0); RBC 4.48 10^6/uL (3.5-6.1); RED CELL DISTRIBUTION WIDTH 14.1 % (11.5-14.5); WHITE BLOOD COUNT 11.5 10^3/ul (4.5-11.0)
--- NOTE | 2018-08-19 06:39 | CP.PCM.PN ---
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 Rubio Objective - Vital Signs/Intake and Output Vital Signs (last 24 hours): Temp Pulse Resp BP Pulse Ox 97.7 F 64 20 138/67 94 L 08/19/18 06:00 08/19/18 06:00 08/19/18 06:00 08/19/18 06:00 08/19/18 06:00 Intake and Output: 08/18/18 08/19/18 18:59 06:59 Intake Total 1140 Output Total 800 Balance 340 - Medications Medications: Current Medications Albuterol/Ipratropium (Duoneb 3 Mg/0.5 Mg (3 Ml) Ud) 3 ml IH [id number] [facility] Last Admin: 08/19/18 01:20 Dose: 3 ml Albuterol/Ipratropium (Duoneb 3 Mg/0.5 Mg (3 Ml) Ud) 3 ml IH [id number] PRN PRN Reason: Cough and congestion Last Admin: 08/19/18 05:10 Dose: 3 ml Arformoterol Tartrate (Brovana) 15 mcg IH [id number] [facility] [place] Last Admin: 08/18/18 19:36 Dose: 15 mcg Aspirin (Ecotrin) 81 mg PO DAILY [facility] [place] Last Admin: 08/18/18 11:00 Dose: 81 mg Budesonide (Pulmicort Respules) 0.5 mg IH [id number] [facility] [place] Last Admin: 08/18/18 19:37 Dose: 0.5 mg Clopidogrel Bisulfate (Plavix) 75 mg PO DAILY [facility] [place] Last Admin: 08/18/18 11:01 Dose: 75 mg Enoxaparin Sodium (Lovenox) 40 mg SC DAILY [facility] [place] PRN Reason: Protocol Last Admin: 08/18/18 11:00 Dose: 40 mg Furosemide (Lasix) 40 mg IV DAILY [facility] [place] Last Admin: 08/18/18 11:00 Dose: 40 mg Guaifenesin (Robitussin) 100 mg PO Q4H PRN PRN Reason: Cough Last Admin: 08/19/18 04:31 Dose: 100 mg Guaifenesin/Dextromethorphan (Mucinex-Dm 600-30 Mg) 1 tab PO BID [facility] [place] Last Admin: 08/18/18 17:29 Dose: 1 tab Insulin Detemir (Levemir) 10 unit SC HS [facility] [place] Last Admin: 08/18/18 21:42 Dose: 10 u Insulin Human Lispro (Humalog High) 0 units SC ACHS [facility] [place] PRN Reason: Protocol Last Admin: 08/18/18 21:38 Dose: Not Given Insulin Lispro Protam/Lispro Human (Humalog Mix 75/25) 25 units SC ACD [facility] [place] Last Admin: 08/18/18 17:28 Dose: 25 u Insulin Lispro Protam/Lispro Human (Humalog Mix 75/25) 25 units SC ACB [facility] [place] Last Admin: 08/18/18 08:15 Dose: 25 units Nicotine (Nicoderm Cq) 1 patch TD DAILY [facility] [place] Last Admin: 08/18/18 10:59 Dose: 1 patch Non-Formulary Medication (Rosuvastatin Calcium [Crestor]) 40 mg PO DAILY [facility] [place] Last Admin: 08/18/18 11:52 Dose: Not Given Pantoprazole Sodium (Protonix Ec Tab) 40 mg PO 0630 [facility] [place] Last Admin: 08/19/18 05:40 Dose: 40 mg Tiotropium [place] (Spiriva) 18 mcg INH DAILY [facility] [place] Last Admin: 08/18/18 11:00 Dose: 18 mcg Trazodone HCl (Desyrel) 50 mg PO [facility] Last Admin: 08/18/18 21:42 Dose: 50 mg - Labs Labs: 08/18/18 07:30 08/18/18 07:30 PT 14.6 SECONDS (9.4-12.5) H 08/14/18 21:10 INR 1.27 08/14/18 21:10 APTT 34.4 Seconds (25.1-36.5) 08/14/18 21:10 - Constitutional Appears: No Acute Distress - Eye Exam Eye Exam: Normal appearance - ENT Exam ENT Exam: Mucous Membranes Moist - Respiratory Exam Respiratory Exam: Decreased Breath Sounds, NORMAL BREATHING PATTERN - Cardiovascular Exam Cardiovascular Exam: +S1, +S2 Additional comments: PPM site no bleeding,no hematoma V-pacing - GI/Abdominal Exam GI & Abdominal Exam: Soft, Normal Bowel Sounds - Extremities Exam Extremities Exam: Normal Capillary Refill - Neurological Exam Neurological Exam: Alert, Awake, Oriented x3 - Psychiatric Exam Psychiatric exam: Normal Affect - Skin Skin Exam: Intact, Warm Assessment and Plan - Assessment and Plan (Free Text) Assessment: A 73 year old male who came in to the ER due to shortness of breath and chest discomfort. History of coronary artery disease post coronary artery bypass grafting,hypertension, hyperlipidemia, peripheral vascular disease requiring multiple angioplasty. diabetes, COPD, CVA, active smoker diastolic dysfunction CHF, Admitted to ICU. Consult was called due to complete heart block and requiring permanent pacemaker.PPM inserted by Dr. Rubio. Stable now in Telemetry unit. Plan: Episode of shortness of breath this morning Nebulizer treatment given with relief Productive cough Continue Nebulizer treatment Post PPM, Site no hematoma,no bleeding V-pacing at 60's telemetry Blood pressure controlled Continue current treatment Continue current medications Glucose control Physical therapy Will follow up Plan and treatment discussed with Dr. Rubio
[2018-08-19 06:52] LABS: ALB/GLOB RATIO 1.1 (1.1-1.8); ALBUMIN 3.4 g/dL (3.0-4.8); ALT/SGPT 29 U/L (7-56); AST/SGOT 34 U/L (17-59); BLOOD UREA NITROGEN 31 mg/dL (7-21); CALCIUM 8.9 mg/dL (8.4-10.5); GFR NON-AFRICAN AMERICAN > 60
[2018-08-19] MEDS: Budesonide 0.5 mg/2 ml Inhal Susp UD IH SCH ×2 (07:14→19:45)
[2018-08-19] MEDS: Arformoterol 15 mcg/2 ml Inh Sol IH SCH ×2 (07:14→19:45)
[2018-08-19] MEDS: Insulin Lispro (HUMAlog) HIGH Coverage SC SCH ×4 (08:00→22:00)
[2018-08-19] MEDS: Insulin Lispro (humaLOG) MIX 75/25(10 ml) SC SCH ×2 (08:00→18:03)
--- NOTE | 2018-08-19 09:01 | PN ---
DATE: 08/18/2018 LOCATION: The patient is in room 260, bed 1. This is an addendum to the progress note dictated by Aster Glynn APN The patient has complete heart block status post pacemaker insertion, coronary artery disease, history of CABG, peripheral arterial disease, multiple peripheral angiogram with percutaneous transluminal peripheral angioplasty by Dr. Cordova. The patient denies any dizziness, chest pain or shortness of breath. Monitor shows pacemaker is working properly and the patient is afebrile post pacemaker insertion and pacemaker site is healing well. The patient is on Keflex 250 mg p.o. t.i.d., 40 IV daily, insulin as ordered, Lovenox 40 mg subcu daily, Plavix 75 daily, DuoNeb hand nebulizer therapy, Protonix 40 daily. The patient received methylprednisolone 20 mg IV one dose, Spiriva 18 mcg inhalation daily. We will monitor the patient to evaluate the function of pacemaker and we will . Cami Starks MD
[2018-08-19] MEDS: Enoxaparin 40 mg Syringe SC SCH (09:35)
[2018-08-19] MEDS: guaiFENesin-DM 600-30 mg ER Tab PO SCH ×2 (09:35→21:29)
[2018-08-19] MEDS: Tiotropium 18 mcg Cap For Inhalation INH SCH (09:35)
--- NOTE | 2018-08-19 11:36 | PN ---
DATE: 08/19/2018 SUBJECTIVE: The patient is 73 years old, seen and examined. Complained of cough and congestion. No fever or chills. Not able to eat because of the cough. Complained of generalized weakness. Has difficulty walking even getting out of bed and standing. PHYSICAL EXAMINATION: VITAL SIGNS: He is afebrile, pulse 64, respirations 20, blood pressure 106/51. LUNGS: Bilateral fair airflow. No rhonchi or crackle. Soft crackle in the throat area. ABDOMEN: Soft. Nontender. No rebound. No guarding. NEUROLOGICAL: The patient is awake, alert, oriented, communicative. LABORATORY EXAM: WBC is 11.5, hemoglobin 13.8, hematocrit 42.4, platelet of 183. Chemistry: Sodium 139, potassium 4.8, chloride 101, CO2 of 30, BUN 31, creatinine 1, blood sugar of 211. ASSESSMENT: 1. Status post complete heart block and pacemaker placement. 2. Coronary artery disease, status post open heart surgery. 3. Status post cerebrovascular accident with left hemiparesis. 4. Unstable gait, difficulty walking, multiple falls at home. 5. Insulin-dependent diabetes. 6. Chronic obstructive pulmonary disease. PLAN: We will continue the patient on current medication. I will add small dose of steroid. Continue nebulizer treatment. Encourage physical therapy. Spoke to behavioral health case manager for possible subacute rehab. We will follow up the patient in the a.m. Kierra Agarwal MD
[2018-08-19] MEDS: Azithromycin 500MG/NS 250ml 500 MG/250 ML BAG IVPB SCH (14:41)
--- NOTE | 2018-08-19 15:15 | PN ---
DATE: 08/19/2018 REASON FOR DICTATION: Addendum to initial progress note dictated by nurse practitioner, Aster Glynn APN. SUBJECTIVE: The patient was complaining of more short of breath and bringing more phlegm and he states that he does not feel good since the pacemaker is done, did not get benefit. RECOMMENDATIONS: We will send for chest x-ray, PA and lateral. Changed antibiotic to Zithromax IV empirically because the patient is bringing very thick sputum, yellow color. We will send for also a chest x-ray, PA and lateral. The patient has already been started on steroid this morning. We will follow with you. We will discontinue telemetry. Thank you, Dr. Agarwal for providing us the opportunity in taking care of the patient, Brad Barber. Cami Rubio MD
--- NOTE | 2018-08-19 16:01 | RAD ---
Date of service: 08/19/2018 HISTORY: F/U pneumonia and compare COMPARISON: 08/16/2018 TECHNIQUE: Chest PA and lateral FINDINGS: LUNGS: Modest interval improvement left lower lobe infiltrate. Progressive right lower lobe infiltrate. PLEURA: New right pleural effusion. CARDIOVASCULAR: No radiographic findings to suggest acute or significant cardiovascular disease. Position/ configuration of pacemaker device: Satisfactory. OSSEOUS STRUCTURES: No significant abnormalities. VISUALIZED UPPER ABDOMEN: Normal. OTHER FINDINGS: None. IMPRESSION: Modest interval improvement left lower lobe retrocardiac infiltrate. Progressive right lower lobe infiltrate and right pleural effusion.
[2018-08-19] MEDS: MethylPREDNISolone 40 mg Vial IV SCH (21:29)
[2018-08-19] MEDS: Insulin Detemir 100 units/ml Vial (Levemir) SC SCH (21:30)
[2018-08-20] MEDS: Albuterol-Ipratrop 3 mg / 0.5 (3 ml) UD IH SCH ×3 (01:52→20:20)
--- NOTE | 2018-08-20 06:59 | CP.PCM.PN ---
Subjective - Date & Time of Evaluation Date of Evaluation: 08/20/18 Time of Evaluation: 06:25 - Subjective Subjective: Awake, alert, no distress, some coughing,feels better Reason for consultation and follow up: Cardiac evaluation of complete heart block, post permanent pacemaker, history of coronary artery disease post coronary artery bypass grafting, CVA,CHF Seen and examined by me and Dr. Rubio Objective - Vital Signs/Intake and Output Vital Signs (last 24 hours): Temp Pulse Resp BP Pulse Ox 97.7 F 60 20 106/51 L 94 L 08/19/18 06:00 08/19/18 14:00 08/19/18 06:00 08/19/18 09:35 08/19/18 06:00 Intake and Output: 08/19/18 08/20/18 18:59 06:59 Intake Total 600 Balance 600 - Medications Medications: Current Medications Albuterol/Ipratropium (Duoneb 3 Mg/0.5 Mg (3 Ml) Ud) 3 ml IH [id number] [facility] Last Admin: 08/20/18 01:52 Dose: Not Given Albuterol/Ipratropium (Duoneb 3 Mg/0.5 Mg (3 Ml) Ud) 3 ml IH [id number] PRN PRN Reason: Cough and congestion Last Admin: 08/19/18 05:10 Dose: 3 ml Arformoterol Tartrate (Brovana) 15 mcg IH [id number] [facility] Last Admin: 08/19/18 19:45 Dose: 15 mcg Aspirin (Ecotrin) 81 mg PO DAILY [facility] Last Admin: 08/19/18 09:35 Dose: 81 mg Budesonide (Pulmicort Respules) 0.5 mg IH [id number] [facility] Last Admin: 08/19/18 19:45 Dose: 0.5 mg Clopidogrel Bisulfate (Plavix) 75 mg PO DAILY [facility] Last Admin: 08/19/18 09:35 Dose: 75 mg Enoxaparin Sodium (Lovenox) 40 mg SC DAILY [facility]; Protocol Last Admin: 08/19/18 09:35 Dose: 40 mg Furosemide (Lasix) 40 mg IV DAILY [facility] Last Admin: 08/19/18 09:35 Dose: 40 mg Guaifenesin (Robitussin) 100 mg PO Q4H PRN PRN Reason: Cough Last Admin: 08/19/18 04:31 Dose: 100 mg Guaifenesin/Dextromethorphan (Mucinex-Dm 600-30 Mg) 1 tab PO BID [facility] Last Admin: 08/19/18 21:29 Dose: 1 tab Azithromycin (Zithromax 500mg In Ns) 500 mg in 250 mls @ 167 mls/hr IVPB DAILY [facility]; Protocol Last Admin: 08/19/18 14:41 Dose: 167 mls/hr Insulin Detemir (Levemir) 10 unit SC HS [facility] Last Admin: 08/19/18 21:30 Dose: 10 units Insulin Human Lispro (Humalog High) 0 units SC ACHS [facility]; Protocol Last Admin: 08/19/18 22:00 Dose: Not Given Insulin Lispro Protam/Lispro Human (Humalog Mix 75/25) 25 units SC ACD [facility] Last Admin: 08/19/18 18:03 Dose: 25 u Insulin Lispro Protam/Lispro Human (Humalog Mix 75/25) 25 units SC ACB [facility] Last Admin: 08/19/18 08:00 Dose: 25 units Methylprednisolone (Solu-Medrol) 30 mg IV Q12 [facility] Last Admin: 08/19/18 21:29 Dose: 30 mg Nicotine (Nicoderm Cq) 1 patch TD DAILY [facility] Last Admin: 08/19/18 09:35 Dose: 1 patch Non-Formulary Medication (Rosuvastatin Calcium [Crestor]) 40 mg PO DAILY [facility] Last Admin: 08/19/18 09:36 Dose: Not Given Pantoprazole Sodium (Protonix Ec Tab) 40 mg PO 0630 [facility] Last Admin: 08/19/18 05:40 Dose: 40 mg Tiotropium [place] (Spiriva) 18 mcg INH DAILY [facility] Last Admin: 08/19/18 09:35 Dose: 18 mcg Trazodone HCl (Desyrel) 50 mg PO HS [facility] Last Admin: 08/19/18 21:29 Dose: 50 mg - Labs Labs: 08/19/18 06:00 08/19/18 06:00 PT 14.6 SECONDS (9.4-12.5) H 08/14/18 21:10 INR 1.27 08/14/18 21:10 APTT 34.4 Seconds (25.1-36.5) 08/14/18 21:10 - Constitutional Appears: No Acute Distress - Eye Exam Eye Exam: Normal appearance - ENT Exam ENT Exam: Mucous Membranes Dry - Respiratory Exam Respiratory Exam: Decreased Breath Sounds, Rhonchi, NORMAL BREATHING PATTERN - Cardiovascular Exam Cardiovascular Exam: +S1, +S2 Additional comments: PPM left chest , site no hematoma - GI/Abdominal Exam GI & Abdominal Exam: Soft, Normal Bowel Sounds - Neurological Exam Neurological Exam: Alert, Awake, Oriented x3 - Psychiatric Exam Psychiatric exam: Normal Affect - Skin Skin Exam: Dry, Warm Assessment and Plan - Assessment and Plan (Free Text) Assessment: A 73 year old male who came in to the ER due to shortness of breath and chest discomfort. History of coronary artery disease post coronary artery bypass grafting,hypertension, hyperlipidemia, peripheral vascular disease requiring multiple angioplasty. diabetes, COPD, CVA, active smoker diastolic dysfunction CHF, Admitted to ICU. Consult was called due to complete heart block and requiring permanent pacemaker.PPM inserted by Dr. Rubio. Stable. Plan: Feeling better, some coughing Nebulizer treatment given with relief PPM- Ventricular pacing Blood pressure controlled Continue current treatment Continue current medications Glucose control Physical therapy Discharge planning Will follow up Plan and treatment discussed with Dr. Rubio
[2018-08-20] MEDS: Budesonide 0.5 mg/2 ml Inhal Susp UD IH SCH ×2 (07:10→20:20)
[2018-08-20] MEDS: Arformoterol 15 mcg/2 ml Inh Sol IH SCH ×2 (07:10→20:20)
[2018-08-20 07:13] LABS: BASO # 0.01 K/mm3 (0.0-2.0); BASO % 0.2 % (0.0-3.0); GRAN % 76.6 % (50.0-68.0); HEMOGLOBIN 13.4 g/dL (14.0-18.0); LYMPH # 1.3 (1.2-3.4); LYMPH % 19.8 % (22.0-35.0); MEAN CELL VOLUME 94.1 fl (80.0-105.0); MEAN CORPUSCULAR HEMOGLOBIN 30.5 pg (25.0-35.0); MEAN CORPUSCULAR HGB CONC 32.4 g/dl (31.0-37.0); MEAN PLATELET VOLUME 12.5 fl (7.0-11.0); MONO # 0.2 (0.1-0.6); MONO % 3.4 % (1.0-6.0); RBC 4.4 10^6/uL (3.5-6.1); RED CELL DISTRIBUTION WIDTH 13.9 % (11.5-14.5); WHITE BLOOD COUNT 6.5 10^3/ul (4.5-11.0)
[2018-08-20 07:24] LABS: ALBUMIN 3.6 g/dL (3.0-4.8); ALT/SGPT 29 U/L (7-56); AST/SGOT 31 U/L (17-59); BLOOD UREA NITROGEN 29 mg/dL (7-21); CALCIUM 9.2 mg/dL (8.4-10.5); GFR NON-AFRICAN AMERICAN > 60
[2018-08-20] MEDS: Insulin Lispro (HUMAlog) HIGH Coverage SC SCH ×5 (09:03→21:37)
[2018-08-20] MEDS: Insulin Lispro (humaLOG) MIX 75/25(10 ml) SC SCH ×2 (09:04→17:31)
[2018-08-20] MEDS: guaiFENesin-DM 600-30 mg ER Tab PO SCH ×2 (13:55→18:04)
[2018-08-20] MEDS: Enoxaparin 40 mg Syringe SC SCH (13:55)
[2018-08-20] MEDS: MethylPREDNISolone 40 mg Vial IV SCH ×2 (13:56→21:30)
[2018-08-20] MEDS: Pantoprazole 40 mg EC Tab PO SCH (13:56)
[2018-08-20] MEDS: Azithromycin 500MG/NS 250ml 500 MG/250 ML BAG IVPB SCH (13:57)
[2018-08-20] MEDS: Tiotropium 18 mcg Cap For Inhalation INH SCH (13:57)
[2018-08-20] MEDS: cefTRIAXone 1 gm 1 GM/100 ML BAG IVPB SCH (18:04)
[2018-08-20] MEDS: Insulin Detemir 100 units/ml Vial (Levemir) SC SCH (21:34)
--- NOTE | 2018-08-20 21:36 | PN ---
DATE: 08/20/2018 SUBJECTIVE: The patient is a 73-year-old, seen and examined. Still has cough, congestion, difficulty walking. No chest pain, but has shortness of breath on walking. PHYSICAL EXAMINATION VITAL SIGNS: He is afebrile, pulse 60, respiration 20, blood pressure 153/73. LUNGS: Bilateral fair airflow. No rhonchi or crackle. HEART: S1, S2 audible. ABDOMEN: Soft, nontender. No rebound, no guarding. NEUROLOGIC: The patient is awake and alert, able to communicate. EXTREMITIES: Moves all extremity. Has difficulty walking. Unstable gait. LABORATORY DATA: WBC 6.5, hemoglobin 13.4, hematocrit 41.4, platelet of 177. Chemistry: Sodium 139, potassium 4.9, chloride 99, CO2 of 31, BUN 29, creatinine 0.8, blood sugar of 99. X-ray chest shows moderate interval improvement, left lower lobe, retrocardiac infiltrate, progressive right lower lobe infiltrate and right pleural effusion. ASSESSMENT: 1. Status post complete heart block, needing pacemaker placement. 2. Right lower lobe pneumonia. 3. Hypertension. 4. Hyperlipidemia. 5. Coronary artery disease. 6. Active smoker. PLAN: The patient is already on Zithromax. I will add Rocephin. We will continue nebulizer treatment. We will follow up the patient in a.m. Kierra Agarwal MD
[2018-08-21] MEDS: Albuterol-Ipratrop 3 mg / 0.5 (3 ml) UD IH SCH ×5 (02:21→19:55)
--- NOTE | 2018-08-21 06:13 | CP.PCM.PN ---
Subjective - Date & Time of Evaluation Date of Evaluation: 08/21/18 Time of Evaluation: 06:15 - Subjective Subjective: Sitting on chair,awake, alert, no distress, feels better Reason for consultation and follow up: Cardiac evaluation of complete heart bl ock, post permanent pacemaker, history of coronary artery disease post coronary artery bypass grafting, CVA,CHF Seen and examined by me and Dr. Rubio Objective - Vital Signs/Intake and Output Vital Signs (last 24 hours): Temp Pulse Resp BP Pulse Ox 98.6 F 61 20 123/68 95 08/20/18 23:02 08/20/18 23:02 08/20/18 23:02 08/20/18 23:02 08/20/18 23:02 Intake and Output: 08/20/18 08/21/18 18:59 06:59 Intake Total 1200 Output Total 500 Balance 700 - Medications Medications: Current Medications Albuterol/Ipratropium (Duoneb 3 Mg/0.5 Mg (3 Ml) Ud) 3 ml IH [id number] [facility] Last Admin: 08/21/18 02:21 Dose: 3 ml Albuterol/Ipratropium (Duoneb 3 Mg/0.5 Mg (3 Ml) Ud) 3 ml IH [id number] PRN PRN Reason: Cough and congestion Last Admin: 08/19/18 05:10 Dose: 3 ml Arformoterol Tartrate (Brovana) 15 mcg IH [id number] [facility] Last Admin: 08/20/18 20:20 Dose: 15 mcg Aspirin (Ecotrin) 81 mg PO DAILY [facility] Last Admin: 08/20/18 13:54 Dose: 81 mg Budesonide (Pulmicort Respules) 0.5 mg IH [id number] [facility] Last Admin: 08/20/18 20:20 Dose: 0.5 mg Clopidogrel Bisulfate (Plavix) 75 mg PO DAILY [facility] Last Admin: 08/20/18 13:56 Dose: 75 mg Enoxaparin Sodium (Lovenox) 40 mg SC DAILY [facility]; Protocol Last Admin: 08/20/18 13:55 Dose: 40 mg Furosemide (Lasix) 40 mg IV DAILY [facility] Last Admin: 08/20/18 14:04 Dose: 40 mg Guaifenesin (Robitussin) 100 mg PO Q4H PRN PRN Reason: Cough Last Admin: 08/19/18 04:31 Dose: 100 mg Guaifenesin/Dextromethorphan (Mucinex-Dm 600-30 Mg) 1 tab PO BID [facility] Last Admin: 08/20/18 18:04 Dose: 1 tab Azithromycin (Zithromax 500mg In Ns) 500 mg in 250 mls @ 167 mls/hr IVPB DAILY [facility]; Protocol Last Admin: 08/20/18 13:57 Dose: 167 mls/hr Ceftriaxone Sodium (Rocephin 1 Gram Ivpb) 1 gm in 100 mls @ 100 mls/hr IVPB DAILY [facility]; Protocol Last Admin: 08/20/18 18:04 Dose: 100 mls/hr Insulin Detemir (Levemir) 10 unit SC HS [facility] Last Admin: 08/20/18 21:34 Dose: 10 units Insulin Human Lispro (Humalog High) 0 units SC ACHS [facility]; Protocol Last Admin: 08/20/18 21:37 Dose: 2 units Insulin Lispro Protam/Lispro Human (Humalog Mix 75/25) 25 units SC ACD [facility] Last Admin: 08/20/18 17:31 Dose: Not Given Insulin Lispro Protam/Lispro Human (Humalog Mix 75/25) 25 units SC ACB [facility] Last Admin: 08/20/18 09:04 Dose: 25 units Methylprednisolone (Solu-Medrol) 30 mg IV Q12 [facility] Last Admin: 08/20/18 21:30 Dose: 30 mg Nicotine (Nicoderm Cq) 1 patch TD DAILY [facility] Last Admin: 08/20/18 13:55 Dose: 1 patch Non-Formulary Medication (Rosuvastatin Calcium [Crestor]) 40 mg PO DAILY [facility] Last Admin: 08/20/18 13:56 Dose: Not Given Pantoprazole Sodium (Protonix Ec Tab) 40 mg PO 0630 [facility] Last Admin: 08/20/18 13:56 Dose: 40 mg Tiotropium [place] (Spiriva) 18 mcg INH DAILY [facility] Last Admin: 08/20/18 13:57 Dose: Not Given Trazodone HCl (Desyrel) 50 mg PO HS [facility] Last Admin: 08/20/18 21:35 Dose: 50 mg - Labs Labs: 08/20/18 06:45 08/20/18 06:45 PT 14.6 SECONDS (9.4-12.5) H 08/14/18 21:10 INR 1.27 08/14/18 21:10 APTT 34.4 Seconds (25.1-36.5) 08/14/18 21:10 - Constitutional Appears: No Acute Distress - Eye Exam Eye Exam: Normal appearance - ENT Exam ENT Exam: Mucous Membranes Moist - Respiratory Exam Respiratory Exam: Decreased Breath Sounds, Clear to Ausculation Bilateral, NORMAL BREATHING PATTERN - Cardiovascular Exam Cardiovascular Exam: +S1, +S2 Additional comments: PPM site no hematoma.no bleeding, no signs of infection - GI/Abdominal Exam GI & Abdominal Exam: Soft, Normal Bowel Sounds - Extremities Exam Extremities Exam: Normal Capillary Refill - Neurological Exam Neurological Exam: Alert, Awake, Oriented x3 - Psychiatric Exam Psychiatric exam: Normal Affect - Skin Skin Exam: Dry, Intact, Warm Assessment and Plan - Assessment and Plan (Free Text) Assessment: A 73 year old male who came in to the ER due to shortness of breath and chest discomfort. History of coronary artery disease post coronary artery bypass grafting,hypertension, hyperlipidemia, peripheral vascular disease requiring multiple angioplasty. diabetes, COPD, CVA, active smoker diastolic dysfunction CHF, Admitted to ICU. Consult was called due to complete heart block and requiring permanent pacemaker.PPM inserted by Dr. Rubio. Ventricular pacing at 60's.Stable. Productive cough,chest x ray showed for left lower lobe infiltrate, started on Zithromax. Plan: Sitting on chair,feels better PPM- site no bleeding,no hematoma,no signs of infection Blood pressure controlled Continue IV antibiotics Continue current treatment Continue current medications Glucose control Physical therapy Being evaluated if eligible for [facility] Discharge planning Smoking cessation Will follow up Plan and treatment discussed with Dr. Rubio
[2018-08-21] MEDS: Pantoprazole 40 mg EC Tab PO SCH (06:17)
[2018-08-21] MEDS: Arformoterol 15 mcg/2 ml Inh Sol IH SCH ×2 (07:19→19:55)
[2018-08-21] MEDS: Budesonide 0.5 mg/2 ml Inhal Susp UD IH SCH ×2 (07:21→19:55)
--- NOTE | 2018-08-21 09:15 | PN ---
DATE: 08/20/2018 REASON FOR CONSULTATION AND FOLLOWUP: Cardiac evaluation, status post pacemaker. This note is an addendum to initial progress note dictated by nurse practitioner. The patient started IV Zithromax, starts feels a lot better. Bringing some phlegm. Repeat chest x-ray was done yesterday, PA and lateral. That shows modest improvement in left lower lobe retrograde infiltrate, progressively right lower lobe infiltrate and right pleural effusion. Bilateral possible pneumonia. Started antibiotics. Feels a lot better. On IV Zithromax. Sick sinus syndrome, status post permanent pacemaker. The patient is an active tobacco abuser, will get benefit from the rehab facility. Continue antibiotics. Continue current medications. We will follow with you. Thank you, Dr. Agarwal, for providing us the opportunity in taking care of Brad Barber. Cami Rubio MD
[2018-08-21] MEDS: Tiotropium 18 mcg Cap For Inhalation INH SCH (11:45)
[2018-08-21] MEDS: guaiFENesin-DM 600-30 mg ER Tab PO SCH ×2 (11:45→23:08)
[2018-08-21] MEDS: cefTRIAXone 1 gm 1 GM/100 ML BAG IVPB SCH (11:46)
[2018-08-21] MEDS: Enoxaparin 40 mg Syringe SC SCH (11:47)
[2018-08-21] MEDS: Insulin Lispro (HUMAlog) HIGH Coverage SC SCH ×3 (11:50→19:26)
[2018-08-21] MEDS: Insulin Lispro (humaLOG) MIX 75/25(10 ml) SC SCH ×2 (11:51→19:26)
[2018-08-21] MEDS: MethylPREDNISolone 40 mg Vial IV SCH ×2 (11:52→23:13)
[2018-08-21 14:53] VITALS: RESP 20
--- NOTE | 2018-08-21 17:17 | US ---
PROCEDURE: Left upper extremity venous ultrasound HISTORY: Arm pain and swelling. Evaluate for deep venous thrombosis. PHYSICIAN(S): David Cordova MD. FINDINGS: The visualized leftinternal jugular vein is sonographically normal and compressible. No evidence of obstruction or thrombus is seen. The visualized segments of the left subclavian vein are patent with normal waveforms. No sonographic evidence of obstruction or thrombosis is seen. The visualized deep venous system of the proximal leftupper extremity is sonographically normal and compressible. IMPRESSION: 1. No sonographic evidence for deep venous thrombosis in the visualized segments of the left upper extremity.
--- NOTE | 2018-08-21 20:01 | PN ---
DATE: 08/21/2018 SUBJECTIVE: The patient is 73 years old, seen and examined. He states his cough is better than before. He still gets short of breath. No chest pain. Complained of generalized weakness. No diarrhea. PHYSICAL EXAMINATION: VITAL SIGNS: He is afebrile, pulse 60, respiration 20, blood pressure 121/81. LUNGS: Bilateral fair airflow. No rhonchi or crackle except in posterior upper lung region. HEART: S1 and S2 audible. ABDOMEN: Soft, nontender. No rebound, no guarding. NEUROLOGIC: He is awake, alert, oriented, communicative. EXTREMITIES: Moves all extremities, has difficulty walking, walks with contact guard and walker. LABORATORY DATA: Blood sugar is 130. His x-ray of chest that was done yesterday showed left lower lobe pneumonia with retrocardiac infiltrate. ASSESSMENT: 1. Status post complete heart block, status post pacemaker placement. 2. Peripheral vascular disease status post angioplasty. 3. Coronary artery disease status post open heart surgery. 4. Chronic obstructive pulmonary disease. 5. Hypertension. 6. Insulin-dependent diabetes. PLAN: We will continue the patient on current antibiotics. Discussed with social media coordinator. Tomorrow, we will switch to p.o. prednisone and social media coordinator are making arrangement for subacute rehab. Kierra Agarwal MD
[2018-08-21] MEDS: Insulin Detemir 100 units/ml Vial (Levemir) SC SCH (23:09)
[2018-08-21] MEDS ORDERED: Magnesium Hydroxide Susp 30 ml UD PO ONE (23:48)
[2018-08-22] MEDS: Albuterol-Ipratrop 3 mg / 0.5 (3 ml) UD IH SCH ×3 (02:55→13:10)
[2018-08-22] MEDS: Pantoprazole 40 mg EC Tab PO SCH (06:40)
--- NOTE | 2018-08-22 07:08 | CP.PCM.PN ---
Subjective - Date & Time of Evaluation Date of Evaluation: 08/22/18 Time of Evaluation: 06:20 - Subjective Subjective: Lying in bed, still coughing but better,awake, alert, no distress Reason for consultation and follow up: Cardiac evaluation of complete heart block, post permanent pacemaker, history of coronary artery disease post coronary artery bypass grafting, CVA,CHF Seen and examined by me and Dr. Rubio Objective - Vital Signs/Intake and Output Vital Signs (last 24 hours): Temp Pulse Resp BP Pulse Ox 98 F 60 20 121/81 96 08/21/18 14:00 08/21/18 14:00 08/21/18 14:00 08/21/18 14:00 08/21/18 14:00 Intake and Output: 08/22/18 08/22/18 06:59 18:59 Intake Total 840 Balance 840 - Medications Medications: Current Medications Albuterol/Ipratropium (Duoneb 3 Mg/0.5 Mg (3 Ml) Ud) 3 ml IH [id number] [facility] Last Admin: 08/22/18 02:55 Dose: 3 ml Albuterol/Ipratropium (Duoneb 3 Mg/0.5 Mg (3 Ml) Ud) 3 ml IH [id number] PRN PRN Reason: Cough and congestion Last Admin: 08/19/18 05:10 Dose: 3 ml Arformoterol Tartrate (Brovana) 15 mcg IH [id number] [facility] Last Admin: 08/21/18 19:55 Dose: 15 mcg Aspirin (Ecotrin) 81 mg PO DAILY [facility] Last Admin: 08/21/18 11:46 Dose: 81 mg Azithromycin (Zithromax) 500 mg PO DAILY [facility] Stop: 08/23/18 23:59 Budesonide (Pulmicort Respules) 0.5 mg IH [id number] [facility] Last Admin: 08/21/18 19:55 Dose: 0.5 mg Clopidogrel Bisulfate (Plavix) 75 mg PO DAILY [facility] Last Admin: 08/21/18 11:46 Dose: 75 mg Enoxaparin Sodium (Lovenox) 40 mg SC DAILY [facility]; Protocol Last Admin: 08/21/18 11:47 Dose: 40 mg Furosemide (Lasix) 40 mg IV DAILY [facility] Last Admin: 08/21/18 11:47 Dose: 40 mg Guaifenesin (Robitussin) 100 mg PO Q4H PRN PRN Reason: Cough Last Admin: 08/19/18 04:31 Dose: 100 mg Guaifenesin/Dextromethorphan (Mucinex-Dm 600-30 Mg) 1 tab PO BID [facility] Last Admin: 08/21/18 23:08 Dose: 1 tab Ceftriaxone Sodium (Rocephin 1 Gram Ivpb) 1 gm in 100 mls @ 100 mls/hr IVPB DAILY [facility]; Protocol Stop: 08/24/18 10:59 Last Admin: 08/21/18 11:46 Dose: 100 mls/hr Insulin Detemir (Levemir) 10 unit SC HS [facility] Last Admin: 08/21/18 23:09 Dose: 10 units Insulin Human Lispro (Humalog High) 0 units SC ACHS [facility]; Protocol Last Admin: 08/21/18 19:26 Dose: Not Given Insulin Lispro Protam/Lispro Human (Humalog Mix 75/25) 25 units SC ACD [facility] Last Admin: 08/21/18 19:26 Dose: Not Given Insulin Lispro Protam/Lispro Human (Humalog Mix 75/25) 25 units SC ACB [facility] Last Admin: 08/21/18 11:51 Dose: 25 units Methylprednisolone (Solu-Medrol) 30 mg IV Q12 [facility] Last Admin: 08/21/18 23:13 Dose: 30 mg Nicotine (Nicoderm Cq) 1 patch TD DAILY [facility] Last Admin: 08/21/18 11:51 Dose: 1 patch Non-Formulary Medication (Rosuvastatin Calcium [Crestor]) 40 mg PO DAILY [facility] Last Admin: 08/21/18 12:00 Dose: Not Given Ondansetron HCl (Zofran Tab) 4 mg PO Q8H PRN PRN Reason: Nausea/Vomiting Pantoprazole Sodium (Protonix Ec Tab) 40 mg PO 0630 [facility] Last Admin: 08/21/18 06:17 Dose: 40 mg Tiotropium [place] (Spiriva) 18 mcg INH DAILY [facility] Last Admin: 08/21/18 11:45 Dose: 18 mcg Trazodone HCl (Desyrel) 50 mg PO HS [facility] Last Admin: 08/21/18 23:08 Dose: 50 mg - Labs Labs: 08/20/18 06:45 08/20/18 06:45 PT 14.6 SECONDS (9.4-12.5) H 08/14/18 21:10 INR 1.27 08/14/18 21:10 APTT 34.4 Seconds (25.1-36.5) 08/14/18 21:10 - Constitutional Appears: No Acute Distress - Head Exam Head Exam: NORMOCEPHALIC - Eye Exam Eye Exam: Normal appearance - ENT Exam ENT Exam: Mucous Membranes Dry - Respiratory Exam Respiratory Exam: Decreased Breath Sounds, Rhonchi, NORMAL BREATHING PATTERN - Cardiovascular Exam Cardiovascular Exam: +S1, +S2 Additional comments: PPM - GI/Abdominal Exam GI & Abdominal Exam: Soft, Normal Bowel Sounds - Extremities Exam Extremities Exam: Normal Capillary Refill Additional comments: left arm swelling - Neurological Exam Neurological Exam: Alert, Awake, Oriented x3 - Psychiatric Exam Psychiatric exam: Normal Affect - Skin Skin Exam: Intact, Warm Assessment and Plan - Assessment and Plan (Free Text) Assessment: A 73 year old male who came in to the ER due to shortness of breath and chest discomfort. History of coronary artery disease post coronary artery bypass grafting,hypertension, hyperlipidemia, peripheral vascular disease requiring multiple angioplasty. diabetes, COPD, CVA, active smoker diastolic dysfunction CHF, Admitted to ICU. Consult was called due to complete heart block and requiring permanent pacemaker.PPM inserted by Dr. Rubio. Ventricular pacing at 60's.Stable. Productive cough,chest x ray showed for left lower lobe infiltrate, started on Zithromax. Repeat Chest X ray on 08/19/18- left lower lobe infiltrate with improvement, new right lower infiltrate with pleural effusion. Left arm swelling and pain negative for DVT Plan: Lying in bed, still coughing but less Continue IV antibiotics Continue PRN nebulizer treatment PPM- site no bleeding,no hematoma,no signs of infection Heart rate and Blood pressure controlled Cardiac status stable Control glucose Left arm swelling and pain negative for DVT Physical therapy Being evaluated for [facility] Smoking cessation On ASA 81 mg daily, Zithromax 500 mg daily,Plavix 75 mg daily, Lovenox 40 mg daily, Rocephin 1 gm daily, Solumedrol 20 mg IV q 12 hours, Nicoderm patch daily,Lasix 40 mg daily Will increase Lasix to 40 mg BID due to pleural effusion on right lobe Continue current treatment Continue current medications Will follow up Plan and treatment discussed with Dr. Rubio
[2018-08-22] MEDS: Arformoterol 15 mcg/2 ml Inh Sol IH SCH (07:16)
[2018-08-22] MEDS: Budesonide 0.5 mg/2 ml Inhal Susp UD IH SCH (07:16)
[2018-08-22] MEDS: Insulin Lispro (HUMAlog) HIGH Coverage SC SCH ×2 (07:30→11:58)
[2018-08-22] MEDS: Insulin Lispro (humaLOG) MIX 75/25(10 ml) SC SCH (07:31)
[2018-08-22 08:27] VITALS: PULSE 61; TEMP 97.4; O2SAT 95
--- NOTE | 2018-08-22 08:49 | PN ---
DATE: 08/21/2018 REASON FOR DICTATION: Addendum to the initial progress note dictated this morning by our nurse practitioner. SUBJECTIVE: The patient is complaining of left arm swelling, status post permanent pacemaker. Site looks okay. No evidence of arrhythmia or infection. We will get left upper extremity duplex to rule out DVT. The patient was complaining of bringing phlegm. Started on IV Zithromax. Feels a lot better. Chest x-ray consistent with mild pneumonia, infiltrate. Continue antibiotic. We will follow with you. We will give 5 days of IV antibiotic. Cami Rubio MD
[2018-08-22] MEDS: MethylPREDNISolone 40 mg Vial IV SCH (10:41)
[2018-08-22] MEDS: guaiFENesin-DM 600-30 mg ER Tab PO SCH (10:43)
[2018-08-22] MEDS: Enoxaparin 40 mg Syringe SC SCH (10:43)
[2018-08-22] MEDS: Tiotropium 18 mcg Cap For Inhalation INH SCH (10:44)
[2018-08-22] MEDS: cefTRIAXone 1 gm 1 GM/100 ML BAG IVPB SCH (10:45)
[2018-08-22] MEDS: guaiFENesin 100 mg/5 ml Syrup UD PO PRN (10:50)
[2018-08-22 13:22] VITALS: BP 114/60
--- NOTE | 2018-08-22 14:34 | DS ---
HISTORY OF PRESENT ILLNESS: The patient is a 73 years old, seen and examined, sitting in chair, seems to be comfortable. No chest pain, no shortness of breath. Cough is better than before. PHYSICAL EXAMINATION: VITAL SIGNS: The patient is afebrile, pulse 61, respirations 20, and blood pressure 114/61. LUNGS: Bilateral soft crackle. HEART: S1, S2 audible. ABDOMEN: Soft, nontender. No rebound, no guarding. NEUROLOGIC: The patient is awake, alert, oriented, able to communicate. Had difficulty walking and unstable gait. LABORATORY DATA: His chemistry shows there was blood sugar of 378. ASSESSMENT: 1. Status post complete heart block. 2. Chronic obstructive pulmonary disease exacerbation. 3. Pneumonia. 4. Insulin-dependent diabetes. 5. Deconditioning and difficulty walking. 6. History of peripheral vascular disease, status post angioplasty. 7. Coronary artery disease, status post open heart surgery. 8. Left lower lobe infiltrate and progressive right lower lobe infiltrate. PLAN: The patient is accepted by TCU. He can be transferred to TCU where he can get physical therapy and we can monitor him closely. Continue him on antibiotic in TCU. Kierra Agarwal MD
--- NOTE | 2018-08-23 08:29 | PN ---
DATE: 08/22/2018 This note is an addendum to the initial progress note dictated this morning by nurse practitioner. The patient responded well to the treatment for acute bronchitis. Feels better. RECOMMENDATIONS: Continue aspirin. Continue insulin. Continue IV Lasix. Continue broad-spectrum antibiotics. We will repeat chest x-ray in 1 to 2 days. The patient had echo on 06/21/2018 with ejection fraction 55%, moderate aortic stenosis, peak gradient is 13 mm, [id number] mitral regurgitation, trace tricuspid regurgitation, RV systolic pressure 51. Thank you, Dr. Agarwal, for providing us the opportunity in taking care of the patientSunil. Cami Rubio MD
== END 2018-08-22 15:37 | DRG 242 ==
LOC: ED 20:13 → ERH 22:45 → CCU 08-15 00:56 → 2RNO 08-17 16:11 → 5RNO 08-19 16:57 → UNDODISIN 08-20 11:48 → 5RNO 08-22 10:06
PROVIDERS: ADMIT Internal Medicine; ATTEND Internal Medicine
PROC: 0JH605Z Insertion of Pacemaker, Single Chamber Rate Responsive into Chest Subcutaneous Tissue and Fascia, Open Approach (ICD-10-PCS; principal; 2018-08-15)
PROC: 02HK3JZ Insertion of Pacemaker Lead into Right Ventricle, Percutaneous Approach (ICD-10-PCS; 2018-08-15)
PROC: 3E0F7GC Introduction of Other Therapeutic Substance into Respiratory Tract, Via Natural or Artificial Opening (ICD-10-PCS; 2018-08-15)
DX: I44.2 Atrioventricular block, complete (principal); I50.33 Acute on chronic diastolic (congestive) heart failure; J18.9 Pneumonia, unspecified organism; I69.354 Hemiplegia and hemiparesis following cerebral infarction affecting left non-dominant side; J44.1 Chronic obstructive pulmonary disease with (acute) exacerbation; I11.0 Hypertensive heart disease with heart failure; I25.10 Atherosclerotic heart disease of native coronary artery without angina pectoris; E78.5 Hyperlipidemia, unspecified; E11.51 Type 2 diabetes mellitus with diabetic peripheral angiopathy without gangrene; E11.65 Type 2 diabetes mellitus with hyperglycemia; D64.9 Anemia, unspecified; R29.6 Repeated falls; R26.2 Difficulty in walking, not elsewhere classified; F17.210 Nicotine dependence, cigarettes, uncomplicated; Z95.1 Presence of aortocoronary bypass graft; Z79.4 Long term (current) use of insulin

== ENCOUNTER 2018-08-22 15:37 | Inpatient (IN) | payer BC, OTHER ==
[2018-08-22 15:56] VITALS: BMI 23.9
[2018-08-22] MEDS ORDERED: Albuterol-Ipratrop 3 mg / 0.5 (3 ml) UD IH PRN (16:14)
[2018-08-22] MEDS: Insulin Lispro (humaLOG) MIX 75/25(10 ml) SC SCH (17:20)
[2018-08-22] MEDS: guaiFENesin-DM 600-30 mg ER Tab PO SCH (17:24)
[2018-08-22] MEDS: Insulin Lispro (HUMAlog) HIGH Coverage SC SCH ×2 (17:49→21:18)
[2018-08-22] MEDS: Albuterol-Ipratrop 3 mg / 0.5 (3 ml) UD IH SCH (19:35)
[2018-08-22] MEDS: Budesonide 0.5 mg/2 ml Inhal Susp UD IH SCH (19:35)
[2018-08-22] MEDS: Arformoterol 15 mcg/2 ml Inh Sol IH SCH (19:35)
[2018-08-22] MEDS ORDERED: Arformoterol 15 mcg/2 ml Inh Sol IH SCH (20:00)
[2018-08-22] MEDS: Insulin Detemir 100 units/ml Vial (Levemir) SC SCH (21:18)
[2018-08-22] MEDS ORDERED: MethylPREDNISolone 40 mg Vial IV SCH (22:00)
[2018-08-23] MEDS: Pantoprazole 40 mg EC Tab PO SCH (05:34)
[2018-08-23] MEDS: Enoxaparin 40 mg Syringe SC SCH (05:34)
[2018-08-23] MEDS: cefTRIAXone 1 gm 1 GM/100 ML BAG IVPB SCH (05:35)
[2018-08-23] MEDS: MethylPREDNISolone 40 mg Vial IV SCH ×2 (05:46→17:18)
[2018-08-23] MEDS: Insulin Lispro (HUMAlog) HIGH Coverage SC SCH ×4 (06:38→21:20)
[2018-08-23] MEDS: Budesonide 0.5 mg/2 ml Inhal Susp UD IH SCH ×2 (07:24→20:30)
[2018-08-23] MEDS: Albuterol-Ipratrop 3 mg / 0.5 (3 ml) UD IH SCH ×3 (07:24→20:30)
[2018-08-23] MEDS: Arformoterol 15 mcg/2 ml Inh Sol IH SCH ×2 (07:24→20:30)
[2018-08-23] MEDS ORDERED: Insulin Lispro (humaLOG) MIX 75/25(10 ml) SC SCH ×3 (07:30→22:23)
[2018-08-23] MEDS: guaiFENesin-DM 600-30 mg ER Tab PO SCH ×2 (09:47→17:18)
[2018-08-23] MEDS: Tiotropium 18 mcg Cap For Inhalation IH SCH (09:48)
[2018-08-23] MEDS: Insulin Lispro (humaLOG) MIX 75/25(10 ml) SC SCH (17:15)
[2018-08-23] MEDS: Insulin Detemir 100 units/ml Vial (Levemir) SC SCH (21:20)
[2018-08-24] MEDS: Albuterol-Ipratrop 3 mg / 0.5 (3 ml) UD IH SCH ×4 (01:58→21:30)
[2018-08-24] MEDS: guaiFENesin 100 mg/5 ml Syrup UD PO PRN ×2 (02:31→21:28)
[2018-08-24] MEDS: Enoxaparin 40 mg Syringe SC SCH (05:34)
[2018-08-24] MEDS: cefTRIAXone 1 gm 1 GM/100 ML BAG IVPB SCH (05:35)
[2018-08-24] MEDS: MethylPREDNISolone 40 mg Vial IV SCH ×2 (05:35→17:07)
[2018-08-24] MEDS: Pantoprazole 40 mg EC Tab PO SCH (05:35)
[2018-08-24] MEDS: Insulin Lispro (HUMAlog) HIGH Coverage SC SCH ×4 (06:52→21:27)
[2018-08-24] MEDS: Budesonide 0.5 mg/2 ml Inhal Susp UD IH SCH ×2 (07:48→21:30)
[2018-08-24] MEDS: Arformoterol 15 mcg/2 ml Inh Sol IH SCH ×2 (07:48→21:30)
--- NOTE | 2018-08-24 07:51 | HP ---
HISTORY OF PRESENT ILLNESS: The patient is a 73-year-old, was seen in the office last week with complaint of shortness of breath, difficulty walking, unable to stand up, was found to be bradycardia, sent to ER, was found to be in complete heart block, was seen by Dr. Rubio, underwent pacemaker placement. Post-procedure, the patient was complaining of cough, congestion, was found to have pneumonia, started on IV antibiotics, transferred to TCU to complete course of antibiotics and physical therapy. PAST MEDICAL HISTORY: 1. Hypertension. 2. Active smoker. 3. Coronary artery disease, status post open heart surgery. 4. History of peripheral vascular disease, status post angioplasty. 5. Insulin-dependent diabetes. ALLERGIES: HE IS NOT ALLERGIC TO ANY MEDICATIONS. MEDICATIONS AT HOME: Per MAR. SOCIAL HISTORY: , lives with his , is an active smoker, does not drink. PHYSICAL EXAMINATION: GENERAL: He is awake, alert, oriented, able to communicate. VITAL SIGNS: He is afebrile, pulse 90, respirations 20, blood pressure 131/74. LUNGS: Bilateral fair airflow. No rhonchi or crackle. HEART: S1 and S2 audible. ABDOMEN: Soft. Nontender. No rebound. No guarding. NEUROLOGICAL: He is awake, alert, oriented, communicative. LABORATORY DATA: Blood sugar is 199; on 04:30 it was 284, and morning it was 293. ASSESSMENT: 1. Status post complete heart block, requiring pacemaker. 2. Coronary artery disease, status post open heart surgery. 3. Severe peripheral vascular disease. 4. Active smoker. 5. Insulin-dependent diabetes. 6. Resolving pneumonia. PLAN: We will continue the patient on current medication and increase his nighttime Levemir to 25 units since his morning blood sugar is getting high and I will adjust his breakfast and dinner insulin. Kierra Agarwal MD
[2018-08-24] MEDS: guaiFENesin-DM 600-30 mg ER Tab PO SCH ×2 (09:43→17:07)
[2018-08-24] MEDS: Tiotropium 18 mcg Cap For Inhalation IH SCH (09:44)
--- NOTE | 2018-08-24 20:29 | PN ---
DATE: 08/24/2018 SUBJECTIVE: The patient is 73 years old, seen and examined, lying in bed, seems to be comfortable, minimal cough. PHYSICAL EXAMINATION: VITAL SIGNS: He is afebrile, pulse 85, respirations 20, blood pressure 119/68. LUNGS: Bilateral fair airflow. No rhonchi or crackle. HEART: S1 and S2 audible. ABDOMEN: Soft, nontender. No rebound. No guarding. NEUROLOGICAL: The patient is sleepy, but arousable. ASSESSMENT: 1. Status post complete heart block. 2. Status post pacemaker placement. 3. Uncontrolled hypertension. 4. Chronic obstructive pulmonary disease exacerbation. 5. Active smoker. 6. Coronary artery disease. 7. Pneumonia. PLAN: We will continue the patient on Rocephin. Continue him on Zithromax. I will cut down his steroids since his blood sugar is running high and he is not actively wheezing. We will follow up the patient in a.m. Kierra Agarwal MD
[2018-08-24] MEDS: Insulin Detemir 100 units/ml Vial (Levemir) SC SCH (21:28)
[2018-08-25] MEDS: Albuterol-Ipratrop 3 mg / 0.5 (3 ml) UD IH SCH ×4 (03:05→20:46)
[2018-08-25] MEDS: cefTRIAXone 1 gm 1 GM/100 ML BAG IVPB SCH (05:40)
[2018-08-25] MEDS: Enoxaparin 40 mg Syringe SC SCH (05:40)
[2018-08-25] MEDS: Pantoprazole 40 mg EC Tab PO SCH (05:40)
[2018-08-25] MEDS: Insulin Lispro (humaLOG) MIX 75/25(10 ml) SC SCH ×2 (06:47→16:58)
[2018-08-25] MEDS: Insulin Lispro (HUMAlog) HIGH Coverage SC SCH ×4 (06:47→21:35)
[2018-08-25] MEDS: Budesonide 0.5 mg/2 ml Inhal Susp UD IH SCH ×2 (08:59→20:47)
[2018-08-25] MEDS: Arformoterol 15 mcg/2 ml Inh Sol IH SCH ×2 (08:59→20:46)
[2018-08-25] MEDS: guaiFENesin-DM 600-30 mg ER Tab PO SCH ×2 (09:39→17:00)
[2018-08-25] MEDS: Tiotropium 18 mcg Cap For Inhalation IH SCH (09:40)
[2018-08-25] MEDS: Insulin Detemir 100 units/ml Vial (Levemir) SC SCH (21:36)
[2018-08-25] MEDS ORDERED: Insulin Lispro 1 UNITS/0.01 ML SC STA (21:47)
[2018-08-25] MEDS ORDERED: Insulin Detemir 100 units/ml Vial (Levemir) SC STA (21:48)
[2018-08-25] MEDS: guaiFENesin 100 mg/5 ml Syrup UD PO PRN (23:11)
[2018-08-25] MEDS ORDERED: Insulin Lispro 1 UNITS/0.01 ML SC ONE (23:42)
--- NOTE | 2018-08-26 01:28 | PN ---
DATE: 08/25/2018 SUBJECTIVE: Patient is 73 years old, lying in bed, seems to be comfortable. Still coughing with productive phlegm, productive cough. Participating in therapy, able to ambulate with a walker. PHYSICAL EXAMINATION: VITAL SIGNS: He is afebrile, pulse 81, respirations 18, blood pressure 111/67. LUNGS: Bilateral fair airflow. Has soft crackle in upper lung region most pronounced posteriorly. HEART: S1 and S2 audible. ABDOMEN: Soft, nontender. No rebound. No guarding. NEUROLOGIC: He is awake, alert, oriented, communicative. LABORATORY EXAM: His blood sugar is 176, 338, evening prior to dinner is 176. ASSESSMENT: 1. Status post complete heart block. 2. Chronic obstructive pulmonary disease. 3. Hypertension. 4. Coronary artery disease, status post open heart surgery. 5. Active smoker. PLAN: We will continue patient on current antibiotics. Continue nebulizer treatment, taper down steroids and encourage ambulation and we will follow up in a.m. Kierra Agarwal MD
[2018-08-26] MEDS: Albuterol-Ipratrop 3 mg / 0.5 (3 ml) UD IH SCH ×3 (03:00→20:50)
[2018-08-26] MEDS: Enoxaparin 40 mg Syringe SC SCH (05:02)
[2018-08-26] MEDS: cefTRIAXone 1 gm 1 GM/100 ML BAG IVPB SCH (05:03)
[2018-08-26] MEDS: Insulin Lispro (HUMAlog) HIGH Coverage SC SCH ×4 (06:48→22:16)
[2018-08-26] MEDS: Pantoprazole 40 mg EC Tab PO SCH (06:48)
[2018-08-26] MEDS: Insulin Lispro (humaLOG) MIX 75/25(10 ml) SC SCH ×2 (06:50→17:12)
[2018-08-26] MEDS: Budesonide 0.5 mg/2 ml Inhal Susp UD IH SCH ×2 (07:38→20:51)
[2018-08-26] MEDS: Arformoterol 15 mcg/2 ml Inh Sol IH SCH ×2 (07:38→20:50)
[2018-08-26] MEDS: guaiFENesin-DM 600-30 mg ER Tab PO SCH ×2 (09:29→17:14)
[2018-08-26] MEDS: Tiotropium 18 mcg Cap For Inhalation IH SCH (09:30)
[2018-08-26] MEDS: levoFLOXacin 500 MG TAB PO SCH (14:02)
--- NOTE | 2018-08-26 14:27 | PN ---
DATE: 08/26/2018 SUBJECTIVE: The patient is 73 years old, seen and examined, lying in bed, seems to be comfortable. Still has scanty cough. No chest pain. No shortness of breath. Eating and tolerating. Participating in therapy. Able to ambulate with a walker. PHYSICAL EXAMINATION: VITAL SIGNS: He is afebrile, pulse 78, respirations 19, blood pressure 144/79. LUNGS: Bilateral good airflow. No rhonchi or crackle. HEART: S1 and S2 audible. ABDOMEN: Soft. Nontender. No rebound. No guarding. NEUROLOGICAL: He is awake, alert, oriented, communicative. LABORATORY EXAM: Blood sugar is 276. ASSESSMENT: 1. Uncontrolled diabetes. 2. Status post complete heart block. 3. Status post pacemaker placement. 4. Hypertension. 5. Hyperlipidemia. 6. Coronary artery disease, status post open heart surgery. PLAN: I will adjust his insulin. Continue nebulizer treatment. Taper down steroid. Start him on Levaquin. Kierra Agarwal MD
[2018-08-26] MEDS: Insulin Detemir 100 units/ml Vial (Levemir) SC SCH (22:01)
[2018-08-26] MEDS: POLYETHYLENE GLYCOL 3350 17 GM/Dose PACKET PO PRN (22:01)
[2018-08-27] MEDS: Albuterol-Ipratrop 3 mg / 0.5 (3 ml) UD IH SCH ×4 (03:20→20:08)
[2018-08-27] MEDS: Insulin Lispro (humaLOG) MIX 75/25(10 ml) SC SCH ×2 (06:45→17:38)
[2018-08-27] MEDS: Insulin Lispro (HUMAlog) HIGH Coverage SC SCH ×4 (06:46→21:27)
[2018-08-27] MEDS: Enoxaparin 40 mg Syringe SC SCH (06:46)
[2018-08-27] MEDS: guaiFENesin 100 mg/5 ml Syrup UD PO PRN ×2 (06:47→21:26)
[2018-08-27] MEDS: Pantoprazole 40 mg EC Tab PO SCH (06:47)
[2018-08-27] MEDS: Arformoterol 15 mcg/2 ml Inh Sol IH SCH ×2 (07:26→20:08)
[2018-08-27] MEDS: Budesonide 0.5 mg/2 ml Inhal Susp UD IH SCH ×2 (07:27→20:00)
[2018-08-27] MEDS: guaiFENesin-DM 600-30 mg ER Tab PO SCH ×2 (10:07→17:41)
[2018-08-27] MEDS: levoFLOXacin 500 MG TAB PO SCH (10:07)
[2018-08-27] MEDS: Tiotropium 18 mcg Cap For Inhalation IH SCH (10:09)
[2018-08-27] MEDS: Cefpodoxime (Vantin) 100 mg Tab PO SCH (21:25)
[2018-08-27] MEDS: Insulin Detemir 100 units/ml Vial (Levemir) SC SCH (21:25)
--- NOTE | 2018-08-27 22:28 | PN ---
DATE: 08/27/2018 SUBJECTIVE: The patient is 73-year-old, seen and examined, lying in bed, seems to be comfortable, just came back from therapy, seems to be exhausted. PHYSICAL EXAMINATION: VITAL SIGNS: He is afebrile, pulse 86, respirations 18, blood pressure 129/69. LUNGS: Bilateral fair airflow. No rhonchi or crackle. HEART: S1 and S2 audible. ABDOMEN: Soft. Nontender. No rebound. No guarding. Pacemaker site seems to be healthy. LABORATORY DATA: Blood sugar is 263. ASSESSMENT: 1. Status post complete heart block, status post pacemaker placement. 2. Insulin-dependent diabetes. 3. Coronary artery disease, status post open heart surgery. 4. Hypertension. 5. Hyperlipidemia. 6. Bilateral pneumonia. PLAN: Currently patient is stable. He is on tapering dose of steroid. Start him on p.o. Vantin. Possible discharge in a.m. Kierra Agarwal MD
[2018-08-28] MEDS: guaiFENesin 100 mg/5 ml Syrup UD PO PRN ×2 (05:36→21:03)
[2018-08-28] MEDS: Enoxaparin 40 mg Syringe SC SCH (05:36)
[2018-08-28] MEDS: Pantoprazole 40 mg EC Tab PO SCH (05:37)
[2018-08-28] MEDS: Insulin Lispro (HUMAlog) HIGH Coverage SC SCH ×4 (07:11→22:05)
[2018-08-28] MEDS: Insulin Lispro (humaLOG) MIX 75/25(10 ml) SC SCH ×3 (07:11→17:39)
[2018-08-28] MEDS: Albuterol-Ipratrop 3 mg / 0.5 (3 ml) UD IH SCH ×3 (07:23→19:18)
[2018-08-28] MEDS: Budesonide 0.5 mg/2 ml Inhal Susp UD IH SCH ×2 (07:23→19:22)
[2018-08-28] MEDS: Arformoterol 15 mcg/2 ml Inh Sol IH SCH ×2 (07:23→19:17)
[2018-08-28] MEDS: guaiFENesin-DM 600-30 mg ER Tab PO SCH ×2 (10:34→17:45)
[2018-08-28] MEDS: levoFLOXacin 500 MG TAB PO SCH (10:34)
[2018-08-28] MEDS: Tiotropium 18 mcg Cap For Inhalation IH SCH (10:35)
[2018-08-28] MEDS: Cefpodoxime (Vantin) 100 mg Tab PO SCH ×2 (10:36→21:04)
--- NOTE | 2018-08-28 13:06 | PN ---
DATE: 08/28/2018 SUBJECTIVE: The patient is 73 years old, seen and examined. Complained of having generalized weakness, difficulty walking. Just came back from walk and felt very exhausted. PHYSICAL EXAMINATION: VITAL SIGNS: He is afebrile, pulse 86, respirations 18, blood pressure 140/85. LUNGS: Bilateral fair airflow. Few expiratory rhonchi. HEART: S1 and S2 audible. ABDOMEN: Soft. Nontender. No rebound. No guarding. NEUROLOGICAL: The patient is awake, alert, oriented, communicative. EXTREMITIES: Moves all extremities. LABORATORY EXAM: Blood sugar is 113 in the afternoon, morning was 148. ASSESSMENT: 1. Asthmatic bronchitis. 2. Status post complete heart block, status post pacemaker placement. 3. Coronary artery disease, status post open heart surgery. 4. Insulin-dependent diabetes. 5. Hypertension. PLAN: I will cut down his steroid. Continue physical therapy. Family want him to go to subacute rehab for gait training and more stability in walking. We will reevaluate in the a.m. Kierra Agarwal MD
[2018-08-28] MEDS: Insulin Detemir 100 units/ml Vial (Levemir) SC SCH (22:04)
[2018-08-29] MEDS: Enoxaparin 40 mg Syringe SC SCH (05:20)
[2018-08-29] MEDS: guaiFENesin 100 mg/5 ml Syrup UD PO PRN (05:52)
[2018-08-29] MEDS: Pantoprazole 40 mg EC Tab PO SCH (05:52)
[2018-08-29] MEDS: Insulin Lispro (HUMAlog) HIGH Coverage SC SCH ×5 (06:47→22:13)
[2018-08-29] MEDS: Insulin Lispro (humaLOG) MIX 75/25(10 ml) SC SCH ×2 (06:48→17:22)
[2018-08-29] MEDS: Albuterol-Ipratrop 3 mg / 0.5 (3 ml) UD IH SCH ×2 (07:14→13:05)
[2018-08-29] MEDS: Budesonide 0.5 mg/2 ml Inhal Susp UD IH SCH ×2 (07:14→20:39)
[2018-08-29] MEDS: Arformoterol 15 mcg/2 ml Inh Sol IH SCH (07:14)
[2018-08-29] MEDS: levoFLOXacin 500 MG TAB PO SCH (09:52)
[2018-08-29] MEDS: Tiotropium 18 mcg Cap For Inhalation IH SCH (09:52)
[2018-08-29] MEDS: guaiFENesin-DM 600-30 mg ER Tab PO SCH ×2 (09:52→17:24)
[2018-08-29] MEDS: Cefpodoxime (Vantin) 100 mg Tab PO SCH ×2 (09:53→21:54)
[2018-08-29 11:53] LABS: BASO # 0.02 K/mm3 (0.0-2.0); BASO % 0.3 % (0.0-3.0); EOS # 0.2 (0.0-0.7); GRAN # 4.26 (1.4-6.5); GRAN % 53.2 % (50.0-68.0); HEMOGLOBIN 14.5 g/dL (14.0-18.0); LYMPH # 2.7 (1.2-3.4); LYMPH % 33.5 % (22.0-35.0); MEAN CELL VOLUME 92.3 fl (80.0-105.0); MEAN CORPUSCULAR HEMOGLOBIN 30.9 pg (25.0-35.0); MEAN CORPUSCULAR HGB CONC 33.5 g/dl (31.0-37.0); MEAN PLATELET VOLUME 12.8 fl (7.0-11.0); MONO # 0.9 (0.1-0.6); RBC 4.69 10^6/uL (3.5-6.1); RED CELL DISTRIBUTION WIDTH 14.2 % (11.5-14.5)
[2018-08-29 12:13] LABS: ALB/GLOB RATIO 1.1 (1.1-1.8); ALBUMIN 3.8 g/dL (3.0-4.8); ALT/SGPT 24 U/L (7-56); AST/SGOT 28 U/L (17-59); BLOOD UREA NITROGEN 58 mg/dL (7-21); CALCIUM 9.3 mg/dL (8.4-10.5); GFR NON-AFRICAN AMERICAN > 60
--- NOTE | 2018-08-29 16:02 | PN ---
DATE: 08/29/2018 SUBJECTIVE: The patient is 73 years old, seen and examined, participating in therapy. Family wants him to be in subacute rehab. His cough seems to be doing better. PHYSICAL EXAMINATION VITAL SIGNS: The patient is afebrile, pulse 95, respirations 16, blood pressure 96/54. LUNGS: Bilateral few expiratory rhonchi, much better than before. HEART: S1 and S2 audible. ABDOMEN: Soft. Nontender. No rebound. No guarding. NEUROLOGICAL: He is awake, alert, oriented, communicative. EXTREMITIES: Moves all extremities. LABORATORY DATA: WBC is 8, hemoglobin 14, hematocrit 43, platelet 145. Chemistry: Sodium 137, potassium 3.6, chloride 97, CO2 of 34, BUN 58, creatinine 1.1, blood sugar of 113. ASSESSMENT: 1. Status post complete heart block, status post pacemaker placement. 2. Hypertension. 3. Chronic obstructive pulmonary disease. 4. Insulin-dependent diabetes. 5. Deconditioning, difficulty walking. 6. History of previous cerebrovascular accident. PLAN: Currently, the patient is on nebulizer treatment. We will cut down his Lasix to once a day and switch his Lasix to p.o. and continue nebulizer treatments. Arrangement is being made to send him to subacute rehab. Once arrangement is made, he will be transferred. Kierra Agarwal MD
[2018-08-29 16:20] VITALS: PULSE 89; RESP 18; TEMP 98.5; O2SAT 96
[2018-08-29] MEDS: Insulin Detemir 100 units/ml Vial (Levemir) SC SCH (22:07)
[2018-08-30] MEDS: POLYETHYLENE GLYCOL 3350 17 GM/Dose PACKET PO PRN (03:07)
[2018-08-30] MEDS: Enoxaparin 40 mg Syringe SC SCH (05:36)
[2018-08-30] MEDS: Pantoprazole 40 mg EC Tab PO SCH (05:42)
[2018-08-30] MEDS: Insulin Lispro (HUMAlog) HIGH Coverage SC SCH ×3 (06:36→17:27)
[2018-08-30] MEDS: Insulin Lispro (humaLOG) MIX 75/25(10 ml) SC SCH ×2 (06:37→17:28)
[2018-08-30] MEDS: Arformoterol 15 mcg/2 ml Inh Sol IH SCH ×2 (07:14→20:38)
[2018-08-30] MEDS: Albuterol-Ipratrop 3 mg / 0.5 (3 ml) UD IH SCH ×3 (07:14→20:39)
[2018-08-30] MEDS: Budesonide 0.5 mg/2 ml Inhal Susp UD IH SCH ×2 (07:14→20:39)
[2018-08-30] MEDS: guaiFENesin-DM 600-30 mg ER Tab PO SCH ×2 (09:44→17:27)
[2018-08-30] MEDS: Cefpodoxime (Vantin) 100 mg Tab PO SCH (09:44)
[2018-08-30] MEDS: levoFLOXacin 500 MG TAB PO SCH (09:45)
[2018-08-30] MEDS: Tiotropium 18 mcg Cap For Inhalation IH SCH (09:47)
[2018-08-30 09:49] VITALS: BP 135/68
--- NOTE | 2018-08-31 07:12 | DS ---
HISTORY OF PRESENT ILLNESS: The patient is 73-year-old who was initially admitted with increasing weakness, multiple falls at home. He was seen in my office, was found to be in congestive heart failure. He was sent to emergency room. He was found to be in third-degree heart block. He was admitted in ICU end up having pacemaker by Dr. Rubio, did well, postprocedure, however, he developed pneumonia, multilobar pneumonia, has been on IV antibiotics, sent to TCU for rehab and close monitoring. Received IV antibiotics. PHYSICAL EXAMINATION: GENERAL: Today his cough, congestion seems to be doing a lot better. He is still weak and unstable gait, high risk of falls, so being transferred to [facility] for subacute rehab. VITAL SIGNS: He is afebrile, pulse 89, respirations 18, blood pressure 135/68. LUNGS: Bilateral occasional expiratory rhonchi. HEART: S1, S2 audible. ABDOMEN: Soft, nontender. No rebound. No guarding. NEUROLOGIC: Patient is awake, alert, oriented, communicative, ambulatory. LABORATORY DATA: Blood sugar is 414 this morning, last night was 224, and he has been eating goodies brought from home by the family. ASSESSMENT: 1. Third-degree heart block, status post pacemaker placement. 2. Hypertension. 3. Coronary artery disease, status post angioplasty. 4. Bilobar pneumonia. 5. Coronary artery disease, status post open heart surgery. 6. History of cerebrovascular accident. 7. History of peripheral vascular disease, status post angioplasty. 8. Insulin-dependent diabetes and noncompliance. PLAN: Patient is being transferred to [facility]. Patient received antibiotics for almost 10 days. We will discontinue antibiotics. Continue nebulizer treatment and also cut down his steroid and patient will be transferred to [facility] later on. Kierra Agarwal MD
== END 2018-08-30 21:29 | DRG 945 ==
LOC: TRCU 15:37
PROVIDERS: ADMIT Internal Medicine; ATTEND Internal Medicine
PROC: F07Z9FZ Gait Training/Functional Ambulation Treatment using Assistive, Adaptive, Supportive or Protective Equipment (ICD-10-PCS; principal; 2018-08-24)
PROC: F07Z5ZZ Bed Mobility Treatment (ICD-10-PCS; 2018-08-24)
PROC: F07Z8ZZ Transfer Training Treatment (ICD-10-PCS; 2018-08-24)
PROC: F08Z1FZ Dressing Techniques Treatment using Assistive, Adaptive, Supportive or Protective Equipment (ICD-10-PCS; 2018-08-25)
PROC: F08Z2ZZ Grooming/Personal Hygiene Treatment (ICD-10-PCS; 2018-08-26)
PROC: F08Z0FZ Bathing/Showering Techniques Treatment using Assistive, Adaptive, Supportive or Protective Equipment (ICD-10-PCS; 2018-08-27)
DX: R53.1 Weakness (principal); J18.9 Pneumonia, unspecified organism; I44.2 Atrioventricular block, complete; J44.1 Chronic obstructive pulmonary disease with (acute) exacerbation; J44.0 Chronic obstructive pulmonary disease with (acute) lower respiratory infection; R26.2 Difficulty in walking, not elsewhere classified; I11.0 Hypertensive heart disease with heart failure; I50.9 Heart failure, unspecified; E11.51 Type 2 diabetes mellitus with diabetic peripheral angiopathy without gangrene; E11.65 Type 2 diabetes mellitus with hyperglycemia; E78.5 Hyperlipidemia, unspecified; F17.200 Nicotine dependence, unspecified, uncomplicated; I25.10 Atherosclerotic heart disease of native coronary artery without angina pectoris; Z95.0 Presence of cardiac pacemaker; Z86.73 Personal history of transient ischemic attack (TIA), and cerebral infarction without residual deficits; Z79.4 Long term (current) use of insulin; Z91.19 Patient's noncompliance with other medical treatment and regimen; Z95.1 Presence of aortocoronary bypass graft

== ENCOUNTER 2019-01-19 22:48 | Inpatient (IN) | payer BC, MEDICARE ==
[2019-01-19 22:48] VITALS: BMI 24.7
[2019-01-19] MEDS ORDERED: Albuterol-Ipratrop 3 mg / 0.5 (3 ml) UD IH STA (23:08)
--- NOTE | 2019-01-19 23:08 | ED PDOC ---
Arrival/HPI - General Chief Complaint: Chest Pain Time Seen by Provider: 01/19/19 22:57 Historian: Patient - History of Present Illness Narrative History of Present Illness (Text): 01/19/19 23:07 Brad Barber is a 73 year old male, whose past medical hsitory includes pacemaker, CVA, hypertension, CAD s/p CABG, IDDM, and COPD, who presents to the emergency department accompanied by relative complaining of shortness of breath. Patient states he has been experiencing intermittent shortness of breath with associated chest pain for the past 2 days, worsening today. Patient reports some orthopnea. Patient states he used his inhaler at home with no significant improvement. Patient denies any fever, chills, abdominal pain, nausea, vomiting, diarrhea, urinary symptoms, back pain, neck pain, headache, dizziness, or any other complaints. 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 Rubio Time/Duration: < week Symptom Onset: Gradual Symptom Course: Unchanged Activities at Onset: Light Context: Home Past Medical History - Provider Review Nursing Documentation Reviewed: Yes - Infectious Disease Hx of Infectious Diseases: None - Past Medical History Past Medical History: No Previous - Cardiac Hx Cardiac Disorders: Yes (third degree heart block, CAD, CABG 2005) - Pulmonary Hx Chronic Obstructive Pulmonary Disease (COPD): Yes - Neurological HX Cerebrovascular Accident: Yes (2015) - HEENT Hx HEENT Disorder: No - Renal Hx Renal Failure: No - Endocrine/Metabolic Hx Diabetes Mellitus Type 2: Yes - Hematological/Oncological Hx Blood Disorders: No - Integumentary Hx Dermatological Disorder: No - Musculoskeletal/Rheumatological Hx Arthritis: Yes - Gastrointestinal Hx Gastroesophageal Reflux: No - Genitourinary/Gynecological Hx Genitourinary Disorders: No - Psychiatric Hx Psychophysiologic Disorder: No Hx Substance Use: No - Surgical History Hx Cholecystectomy: Yes Hx Coronary Artery Bypass Graft: Yes (2005) Hx Open Heart Surgery: Yes (2005) - Anesthesia Hx Anesthesia Reactions: No Hx Malignant Hyperthermia: No - Suicidal Assessment Feels Threatened In Home Enviroment: No Family/Social History - Physician Review Nursing Documentation Reviewed: Yes Family/Social History: Unknown Family HX Smoking Status: Heavy Smoker > 10 Cigarettes Daily Hx Alcohol Use: No Hx Substance Use: No Hx Substance Use Treatment: No Allergies/Home Meds Allergies/Adverse Reactions: Allergies No Known Allergies Allergy (Verified 01/20/19 01:18) Review of Systems - Physician Review All systems were reviewed & negative as marked: Yes - Review of Systems Constitutional: Normal. absent: Fevers Eyes: Normal ENT: Normal Respiratory: SOB Cardiovascular: Chest Pain, Orthopnea Gastrointestinal: Normal. absent: Abdominal Pain, Diarrhea, Nausea, Vomiting Genitourinary Male: Normal. absent: Dysuria, Frequency, Hematuria, Urinary Output Changes Musculoskeletal: Normal. absent: Back Pain, Neck Pain Skin: Normal. absent: Rash Neurological: Normal. absent: Headache, Dizziness Endocrine: Normal Hemo/Lymphatic: Normal Psychiatric: Normal Physical Exam Vital Signs Reviewed: Yes Vital Signs Pulse BP 01/19/19 23:00 71 123/57 L Temperature: Afebrile Blood Pressure: Normal Pulse: Regular Respiratory Rate: Normal Appearance: Positive for: Well-Appearing, Non-Toxic, Comfortable Pain Distress: None Mental Status: Positive for: Alert and Oriented X 3 - Systems Exam Head: Present: Atraumatic, Normocephalic Pupils: Present: PERRL Extroacular Muscles: Present: EOMI Conjunctiva: Present: Normal Mouth: Present: Moist Mucous Membranes Neck: Present: Normal Range of Motion Respiratory/Chest: Present: Rhonchi (Rhonchi bilaterally). No: Respiratory Distress, Accessory Muscle Use Cardiovascular: Present: Regular Rate and Rhythm, Normal S1, S2. No: Murmurs Abdomen: No: Tenderness, Distention, Peritoneal Signs Back: Present: Normal Inspection Upper Extremity: Present: Normal Inspection. No: Cyanosis, Edema Lower Extremity: Present: Normal Inspection. No: Edema Neurological: Present: GCS=15, CN II-XII Intact, Speech Normal Skin: Present: Warm, Dry, Normal Color. No: Rashes Psychiatric: Present: Alert, Oriented x 3, Normal Insight, Normal Concentration Medical Decision Making ED Course and Treatment: 01/19/19 23:07 Impression: 73 year old male complaining of chest pain and shortness of breath. Plan: -- EKG -- CXR -- Labs, cardiac enzymes, BNP -- Duoneb -- Reassess and disposition Prior Visits: Notes and results from previous visits were reviewed. Progress Notes: Reviewed EKG, 100% paced rhythm at 66 bpm. 01/20/19 00:05 CXR reviewed, consistent with CHF. 01/20/19 00:[address] Coto, covering Dr. Agarwal, who is aware and agrees with plan. Pt will go to Telemetry observation for CHF under Dr. Agarwal's service. - Lab Interpretations I have reviewed the lab results: Yes - RAD Interpretation Director [employer]: ED Physician - EKG Interpretation Interpreted by ED Physician: Yes Type: 12 lead EKG - Scribe Statement The provider has reviewed the documentation as recorded by the Scribe Madhuri Vergara Provider Scribe Attestation: All medical record entries made by the Scribe were at my direction and personally dictated by me. I have reviewed the chart and agree that the record accurately reflects my personal performance of the history, physical exam, medical decision making, and the department course for this patient. I have also personally directed, reviewed, and agree with the discharge instructions and disposition. Disposition/Present on Arrival - Present on Arrival Any Indicators Present on Arrival: No History of DVT/PE: No History of Uncontrolled Diabetes: Yes Urinary Catheter: No History of Decub. Ulcer: No History Surgical Site Infection Following: None - Disposition Have Diagnosis and Disposition been Completed?: Yes Diagnosis: CHF (congestive heart failure) Disposition: HOSPITALIZED Disposition Time: 00:20 Condition: STABLE
[2019-01-19] MEDS ORDERED: Albuterol-Ipratrop 3 mg / 0.5 (3 ml) UD ONE (23:18)
[2019-01-19 23:44] LABS: HEMOGLOBIN 14.4 g/dL (14.0-18.0); MEAN CELL VOLUME 90.9 fl (80.0-105.0); MEAN CORPUSCULAR HEMOGLOBIN 29.9 pg (25.0-35.0); RBC 4.81 10^6/uL (3.5-6.1); WHITE BLOOD COUNT 6.7 10^3/uL (4.5-11.0)
[2019-01-19 23:50] LABS: INR 1.34; PARTIAL THROMBOPLASTIN TIME 37.3 Seconds (26.9-38.3); PROTHROMBIN TIME 14.9 SECONDS (9.4-12.5)
[2019-01-20 00:06] LABS: ALB/GLOB RATIO 1.1 (1.1-1.8); ALT/SGPT 7 U/L (7-56); AST/SGOT 20 U/L (17-59); B-TYPE NATRIURETIC PEPTIDE 2840 pg/mL (0-450); BLOOD UREA NITROGEN 19 mg/dL (7-21); CALCIUM 9.4 mg/dL (8.4-10.5); GFR NON-AFRICAN AMERICAN 60; TROPONIN I < 0.01 ng/mL
[2019-01-20] MEDS ORDERED: Insulin Regular 1 UNITS/0.01 ML ML SC STA (00:11)
--- NOTE | 2019-01-20 09:05 | CARD ---
APPROVED REPORT Date of service: 01/19/2019 EKG Measurement Heart [id number] IA P45 [id number] <Conclusion> Electronic ventricular pacemaker
[2019-01-20] MEDS ORDERED: Non Formulary Medication (Rosuvastatin Calcium [Crestor] 1 TAB) PO SCH (11:30)
[2019-01-20] MEDS ORDERED: ROSUVASTATIN CALCIUM PO SCH (11:30)
--- NOTE | 2019-01-20 11:58 | RAD ---
Date of service: 01/19/2019 HISTORY: sob COMPARISON: All FINDINGS: LUNGS: Slightly improved pulmonary venous congestion however there are persistent bilateral lower lobe opacities likely representing some combination of atelectasis and infiltrates and bilateral effusions. PLEURA: As above. No apparent pneumothorax heart appears enlarged. CARDIOVASCULAR: Mild-moderate aortic atherosclerotic calcification present. Cardiomegaly. No change sternotomy wires or single lead pacemaker/defibrillator.. OSSEOUS STRUCTURES: No significant abnormalities. VISUALIZED UPPER ABDOMEN: Normal. OTHER FINDINGS: None. IMPRESSION: Slightly improved pulmonary venous congestion however there are persistent bilateral lower lobe opacities likely representing some combination of atelectasis and infiltrates and bilateral effusions.
[2019-01-20 12:14] LABS: HDL CHOLESTEROL 37 mg/dL (29-60)
[2019-01-20] MEDS: Insulin Lispro (humaLOG) MEDIUM Coverage SC SCH ×3 (12:20→21:49)
[2019-01-20 12:26] LABS: LDL CHOLESTEROL 59 mg/dL (0-129); TROPONIN I < 0.01 ng/mL
[2019-01-20] MEDS: Albuterol-Ipratrop 3 mg / 0.5 (3 ml) UD IH SCH ×2 (14:10→20:01)
[2019-01-20] MEDS: Enoxaparin 30 mg Syringe SC SCH (14:43)
[2019-01-20] MEDS: cefTRIAXone 1 gm 1 GM/100 ML BAG IVPB SCH (14:47)
[2019-01-20] MEDS: Azithromycin 500MG/NS 250ml 500 MG/250 ML BAG IVPB SCH (14:48)
--- NOTE | 2019-01-20 14:53 | CT ---
Date of service: 01/20/2019 PROCEDURE: CT Chest without contrast HISTORY: SOB COMPARISON: None available. Comparison made with prior chest radiograph obtained earlier same day as well as CT chest 01/11/2018. TECHNIQUE: Contiguous axial images were obtained through the chest without intravenous contrast enhancement. Sagittal and coronal reconstructions were performed. Radiation dose: Total exam DLP = 456.89 mGy-cm. This CT exam was performed using one or more of the following dose reduction techniques: Automated exposure control, adjustment of the mA and/or kV according to patient size, and/or use of iterative reconstruction technique. FINDINGS: LUNGS: There are small bilateral effusions seen in the upper lung marinelli left larger than right. Additionally, small lobulated collections of fluid along the major as well as minor fissures. In addition, there also appears to be a small amount fluid within the superior aspect of the left major fissure as well... Tiny effusions are present within both posterior sulci bilateral effusions in both posterior sulci. There also appears to be some minimal minor atelectasis and/or scarring changes both lung bases including the middle lobe and lingular regions. Minimal pleural based calcifications both posterior lower lung marinelli likely dystrophic calcifications due to prior inflammation Significant centrilobular and panlobular emphysematous changes upper lobe predominance right greater than left... There also appears to be some minimal calcification along the pleural surface right posterior lung base - diaphragmatic surface. MEDIASTINUM: Heart is enlarged. No significant pericardial effusion. Ascending thoracic aorta slightly dilated measuring 4.2 cm in greatest dimension. Descending thoracic aorta measures approximately 3.0 cm.. There is mild aortic calcified atherosclerotic calcification present. Pulmonary trunk measures approximately 3.4 cm.. Sternotomy wires again noted the There is a small hiatal hernia with slight wall thickening of the distal esophagus likely due to protrusion gastric mucosa however esophagitis not excluded.. Air is present throughout the esophagus Trachea midline and patent with no large central endoluminal lesions. Unremarkable thoracic aorta. No aneurysm. Normal sized heart. Main pulmonary artery unremarkable. No vascular congestion. No lymphadenopathy. No there are multiple small to medium-sized mediastinal lymph nodes the largest right paratracheal lymph node measures approximately 18.4 cm. Evaluation for hilar adenopathy is somewhat limited due to the lack of circulating intravenous contrast material. PLEURA: As above. No pneumothorax BONES: Mild multilevel degenerative spondylosis of the thoracic spine. UPPER ABDOMEN: Grossly unremarkable. OTHER FINDINGS: None. IMPRESSION: Small bilateral effusions seen in the upper lung marinelli left larger right. Additionally, small lobulated collections of fluid along the right major as well as minor fissures. In addition, there also appears to be a small amount fluid within the superior aspect of the left major fissure as well... Tiny effusions are present within both posterior sulci bilateral effusions in both posterior sulci. There also appears to be some minimal minor atelectasis and/or scarring changes both lung bases including the middle lobe and lingular regions.. Minimal pleural based calcifications both posterior lower lung marinelli likely dystrophic calcifications due to prior inflammation. Significant centrilobular and panlobular emphysematous changes upper lobe predominance right greater than left
[2019-01-20] MEDS: Insulin Lispro (humaLOG) MIX 75/25(10 ml) SC SCH (17:18)
[2019-01-20 20:00] LABS: TROPONIN I < 0.01 ng/mL
--- NOTE | 2019-01-20 21:22 | CON ---
DATE: 01/20/2019REASON FOR CONSULTATION: Cardiac evaluation, history of pacemaker, history of coronary disease, CABG, admitted with chest pain, tenderness on the chest. BRIEF CLINICAL HISTORY: This is a 73-year-old male with past medical history significant for coronary artery disease, history of CVA, history of coronary artery bypass surgery, insulin-dependent diabetes, COPD, status post pacemaker, complaining of 2 days. The patient was experiencing chest pain was tender on the left side of the chest underneath the pacemaker. Denies any dyspnea on exertion or chest pain on exertion. PAST MEDICAL HISTORY: Significant for coronary artery disease, CABG 2-3 years ago, history of CVA, history of diabetes, hypertension, hyperlipidemia, history of polycythemia vera, history of peripheral arterial disease, history of COPD, history of peripheral intervention done in the past by Dr. David Cordova, very noncompliance of medication, and history of tobacco abuse. SOCIAL HISTORY: Active tobacco abuse 2 packs a day, still smokes. Denies any history of alcohol abuse. CURRENT MEDICATIONS: The patient is taking at home Crestor 1 tablet daily, Singulair, NovoLog insulin, clopidogrel, and aspirin. RECENT CARDIAC WORKUP: As follows; the patient had insertion of single chamber VVI pacemaker on 08/15/2018. The patient presented with complete heart block and bradycardia. Even Medtronic ventricular lead MRI safe and pulse generator Saskia XT MRI safe, dated 08/15/2018 was placed single chamber VVI and is a Medtronic. A previous cardiac workup further as follows; the patient has an echocardiogram on 06/19/2018, that revealed an ejection fraction of 55%, trace aortic regurgitation, moderate valvular aortic stenosis, peak gradient across the valve 13 mmHg, noncoronary cusp is immobile, [id number] mitral regurgitation, trace tricuspid regurgitation, RV systolic pressure 51. The patient had multiple peripheral intervention done by Dr. Cordova in the past. REVIEW OF SYSTEMS: As per HPI. PHYSICAL EXAMINATION: VITAL SIGNS: Height of the patient 6 feet, weight of the patient is 130 pounds, body mass index of 25 kg/m2. Temperature afebrile, heart rate 64. and blood pressure 107/53. HEENT: PERRLA. Extraocular muscles intact. NECK: Supple. No carotid bruit or thyromegaly. CHEST: Clear to auscultation. HEART: S1 and S2 regular. ABDOMEN: Soft. EXTREMITIES: Clubbing and cyanosis, negative. LABORATORY DATA: Blood workup as follows; WBC 6.7, hemoglobin 14.1, hematocrit 43.7, and platelet count 189. Chemistry shows sodium 135, potassium 4.0, chloride 97, carbon dioxide 31, anion gap of 12, BUN 19, and creatinine 1.2. BNP 2840. Triglyceride 109, cholesterol 117, LDL 59, HDL 37. EKG showed V-paced rhythm. CT chest on admission that the patient had done, report pending. Chest x-ray, mild pulmonary congestion noted. IMPRESSION AND PLAN: A 73-year-old male very noncompliance with medication, active tobacco abuse, history of coronary artery bypass surgery 3 years ago, history of pacemaker, the patient presents with complete heart block. [employer]tron[employer] MRI safe, diabetes, hypertension, hyperlipidemia, came into with complaint of chest pain it is atypical, tenderness on the chest, nonobstructive coronary artery disease, high risk patient, and hypovolemic ischemia. Though the chest pain is atypical, suggest stress test and echo. We received the stress test more than a year ago. We will repeat a stress test, if not then we will schedule tomorrow. I discussed with the patient and the patient agreed. We will proceed for a stress test and echo. Further recommendations during hospital course we will follow with you. We will get lipid profile with hemoglobin A1C, with troponin one more at 6:00 p.m. If negative, we will schedule stress test tomorrow. We will repeat echo, last echo shows moderate aortic stenosis, we will see any worsening of aortic stenosis. Thank you Dr. Agarwal for providing us an opportunity in taking care of the patient, Shonna Barber. Cami Rubio MD
[2019-01-20] MEDS ORDERED: DiphenhydrAMINE 50 mg/ml Inj IVP STA (21:40)
--- NOTE | 2019-01-20 22:37 | HP ---
DATE OF EXAM: 01/20/2019 HISTORY OF PRESENT ILLNESS: The patient is a 73-year-old who came to emergency room because of increasing cough, congestion, and shortness of breath has been going on for almost a week. The patient denies any fever. No chills. Does have productive cough and increasing chest pain and shortness of breath, so he came to emergency room for further evaluation. The patient is an active smoker, still smokes. He used to smoke 3 pack a day, but it has come down to couple of cigarettes a day. PAST MEDICAL HISTORY: Significant for: 1. Hypertension, status post open heart surgery. 2. History of CVA with left hemiparesis, had prolonged rehab and able to walk with a walker. 3. Coronary artery disease. 4. Hyperlipidemia. 5. Insulin-dependent diabetes. 6. Severe peripheral vascular disease, status post multiple angioplasty. ALLERGIES: NOT ALLERGIC TO ANY MEDICATION. MEDICATIONS AT HOME: He is very noncompliant; however, he is supposed to be taking Singulair 10 mg daily, Plavix 75 daily, Crestor 10 mg daily, aspirin 81 daily, NovoLog, and Levemir. SOCIAL HISTORY: He is , lives with his . He used to be heavy smoker, still smokes couples of cigarettes a day. REVIEW OF SYSTEMS: Significant for cough productive with shortness of breath. PHYSICAL EXAMINATION: GENERAL: He is awake, alert, oriented, able to communicate. VITAL SIGNS: He is afebrile, pulse 64, respirations 18, and blood pressure 107/53. LUNGS: Bilateral soft crackle in upper lung region. HEART: S1 and S2 audible. ABDOMEN: Soft and nontender. No rebound. No guarding. EXTREMITIES: Bilateral leg, no edema. Slight left-sided weakness. NEUROLOGIC: The patient is awake, alert, oriented, and able to communicate. LABORATORY DATA: WBC 6.7, hemoglobin 14, hematocrit 43.7, and platelet 189. PT 14.9 and INR 1.34. Chemistry, blood sugar is 277. Troponin is pending. Cholesterol 119. ASSESSMENT: 1. Chest pain, rule out underlying coronary ischemia. 2. Hypertension. 3. Coronary artery disease, status post open heart surgery. 4. Chronic obstructive pulmonary disease. 5. Bilateral basilar infiltrate, atelectasis versus pneumonia. 6. Hyperlipidemia. 7. Peripheral vascular disease. PLAN: We will start him on nebulizer treatment. He is on aspirin 81 daily. We will start him on 75/25 units before breakfast and before dinner. Monitor his blood sugar and start him on Rocephin. I will order for CT of the chest. Cardiology consult by Dr. Rubio has been requested. We will reevaluate the patient in a.m. Kierra Agarwal MD
--- NOTE | 2019-01-21 01:08 | CP.PCM.PN ---
Subjective - Date & Time of Evaluation Date of Evaluation: 01/21/19 Time of Evaluation: 01:08 - Subjective Subjective: S:Patient was seen at bedside. Complains of insomnia. Has no other complaints. Pertinent medical record was reviewed. O:VSS. Not in acute distress. LUNGS: Normal breathing pattern. A:Insomnia. Benadryl as ordered. Objective - Vital Signs/Intake and Output Vital Signs (last 24 hours): Temp Pulse Resp BP Pulse Ox 97.5 F L 61 18 122/74 98 01/20/19 18:00 01/20/19 22:00 01/20/19 18:00 01/20/19 18:00 01/20/19 14:20 Intake and Output: 01/20/19 01/21/19 18:59 06:59 Intake Total 840 Balance 840 - Medications Medications: Current Medications Albuterol/Ipratropium (Duoneb 3 Mg/0.5 Mg (3 Ml) Ud) 3 ml IH Q2H PRN PRN Reason: Shortness of Breath Albuterol/Ipratropium (Duoneb 3 Mg/0.5 Mg (3 Ml) Ud) 3 ml IH [id number] [facility] Last Admin: 01/20/19 20:01 Dose: 3 ml Aspirin (Ecotrin) 81 mg PO DAILY [facility] Last Admin: 01/20/19 14:49 Dose: 81 mg Atorvastatin Calcium (Lipitor) 10 mg PO DIN [facility] Last Admin: 01/20/19 17:20 Dose: 10 mg Clopidogrel Bisulfate (Plavix) 75 mg PO DAILY [facility] Last Admin: 01/20/19 14:49 Dose: 75 mg Enoxaparin Sodium (Lovenox) 30 mg SC DAILY [facility]; Protocol Last Admin: 01/20/19 14:43 Dose: 30 mg Furosemide (Lasix) 40 mg IVP DAILY [facility] Ceftriaxone Sodium (Rocephin 1 Gram Ivpb) 1 gm in 100 mls @ 100 mls/hr IVPB REJI LY [facility]; Protocol Last Admin: 01/20/19 14:47 Dose: 100 mls/hr Azithromycin (Zithromax 500mg In Ns) 500 mg in 250 mls @ 167 mls/hr IVPB DAILY [facility]; Protocol Last Admin: 01/20/19 14:48 Dose: 167 mls/hr Ibuprofen (Motrin Tab) 400 mg PO Q6H [facility] Stop: 01/21/19 02:31 Last Admin: 01/20/19 21:49 Dose: 400 mg Insulin Human Lispro (Humalog Med) 0 units SC ACHS [facility]; Protocol Last Admin: 01/20/19 21:49 Dose: Not Given Insulin Lispro Protam/Lispro Human (Humalog Mix 75/25) 20 units SC ACBD [facility] Last Admin: 01/20/19 17:18 Dose: 20 units Montelukast Sodium (Singulair) 10 mg PO DAILY [facility] Last Admin: 01/20/19 14:49 Dose: 10 mg - Labs Labs: 01/19/19 23:29 01/19/19 23:29 PT 14.9 SECONDS (9.4-12.5) H 01/19/19 23:29 INR 1.34 01/19/19 23:29 APTT 37.3 Seconds (26.9-38.3) 01/19/19 23:29
[2019-01-21] MEDS: Albuterol-Ipratrop 3 mg / 0.5 (3 ml) UD IH SCH ×4 (02:41→20:10)
[2019-01-21] MEDS: Albuterol-Ipratrop 3 mg / 0.5 (3 ml) UD IH PRN ×2 (05:50→23:50)
[2019-01-21] MEDS: Insulin Lispro (humaLOG) MIX 75/25(10 ml) SC SCH ×2 (07:30→16:48)
[2019-01-21] MEDS: Insulin Lispro (humaLOG) MEDIUM Coverage SC SCH ×5 (07:30→21:13)
[2019-01-21 07:32] LABS: BASO # 0.04 K/mm3 (0.0-2.0); BASO % 0.7 % (0.0-3.0); EOS # 0.2 (0.0-0.7); HEMOGLOBIN 12.5 g/dL (14.0-18.0); LYMPH # 2.4 (1.2-3.4); LYMPH % 42.9 % (22.0-35.0); MEAN CELL VOLUME 91.1 fl (80.0-105.0); MEAN CORPUSCULAR HEMOGLOBIN 29.4 pg (25.0-35.0); MEAN CORPUSCULAR HGB CONC 32.3 g/dl (31.0-37.0); MEAN PLATELET VOLUME 11.6 fl (7.0-11.0); MONO # 0.5 (0.1-0.6); MONO % 8.2 % (1.0-6.0); RBC 4.25 10^6/uL (3.5-6.1); RED CELL DISTRIBUTION WIDTH 14.9 % (11.5-14.5); WHITE BLOOD COUNT 5.5 10^3/uL (4.5-11.0)
[2019-01-21 07:56] LABS: ALBUMIN 3.4 g/dL (3.0-4.8); ALT/SGPT < 6 U/L (7-56); AST/SGOT 17 U/L (17-59); BLOOD UREA NITROGEN 27 mg/dL (7-21); CALCIUM 8.7 mg/dL (8.4-10.5); GFR NON-AFRICAN AMERICAN > 60; HDL CHOLESTEROL 35 mg/dL (29-60)
[2019-01-21 08:02] LABS: LDL CHOLESTEROL 50 mg/dL (0-129)
[2019-01-21] MEDS ORDERED: Potassium Chloride 20 mEq ER Tab PO ONE (09:56)
--- NOTE | 2019-01-21 12:25 | CARD ---
APPROVED REPORT Date of service: 01/21/2019 EXAM: Two-dimensional and M-mode echocardiogram with Doppler and color Doppler. INDICATION Chest Pain AORTIC STENOSIS 2D DIMENSIONS Left Atrium (2D)4.6 (1.6-4.0cm)IVSd1.5 (0.7-1.1cm) LVDd4.7 (3.9-5.9cm)LVOT Diameter2.0 (1.8-2.4cm) PWd1.5 (0.7-1.1cm)LVDs3.0 (2.5-4.0cm) FS (%) 36.8 %LVEF (%)66.5 (>50%) M-Mode DIMENSIONS Aortic Root3.50 (2.2-3.7cm)Aortic Cusp Exc.1.00 (1.5-2.0cm) Aortic Valve AoV Peak Pabmztgh237.0cm/sAoV VTI43.6cmAO Peak GR.20mmHg LVOT Peak Ucinuolf15.1cm/sLVOT VTI14.50cmAO Mean GR.9mmHg EVELYNE (VMAX)1.93jc1TDI (VTI)1.04cm2 Mitral Valve E/A ratio0.0 TDI E/Lateral E'0.0E/Medial E'0.0 Tricuspid Valve TR Peak Ehvzgbjc479rd/sRAP [id number] Peak Gr.41mmHg [id number] LEFT VENTRICLE The left ventricle is normal size. There is mild concentric left ventricular hypertrophy. The left ventricular function is normal.EF_55-60% Apical motion consistent with pacemaker activation. Transmitral Doppler flow pattern is Grade II-pseudonormal filling dynamics. No left ventricle thrombus noted on this study. There is no ventricular septal defect visualized. There is no left ventricular aneurysm. There is no mass noted in the left ventricle. RIGHT VENTRICLE The right ventricle is borderline dilated. There is normal right ventricular wall thickness. Systolic function is borderline reduced. There is a pacemaker lead in the right ventricle. ATRIA The left atrium is mildly dilated. The right atrium is borderline dilated. There is a catheter/pacemaker lead seen in the right atrium. The interatrial septum is intact with no evidence for an atrial septal defect. AORTIC VALVE The aortic valve is calcified and displays decreased opening. Non Coronary Cusp is Immobile There is trace aortic regurgitation. There is moderate valvular aortic stenosis. There is no aortic valvular vegetation. MITRAL VALVE The mitral valve is thickened but opens well. Mitral regurgitation is mild to moderate. There is no mitral valve stenosis. There is no evidence of mitral valve prolapse. TRICUSPID VALVE The tricuspid valve leaflets are thickened , but open well. There is moderate tricuspid regurgitation.RVSP-51 mmof Hg. There is no tricuspid valve stenosis. There is no tricuspid valve prolapse or vegetation. PULMONIC VALVE The pulmonary valve is normal in structure. There is no pulmonic valvular regurgitation. There is no pulmonic valvular stenosis. GREAT VESSELS The aortic root is normal in size. The ascending aorta is normal in size. The pulmonary artery is normal. The IVC is dilated. PERICARDIAL EFFUSION There is no pleural effusion. There is no pericardial effusion. <Conclusion> The left ventricle is normal size. There is mild concentric left ventricular hypertrophy. The left ventricular function is normal.EF_55-60% The right ventricle is borderline dilated. There is a pacemaker lead in the right ventricle. There is trace aortic regurgitation. There is moderate valvular aortic stenosis. Mitral regurgitation is mild to moderate. There is moderate tricuspid regurgitation.RVSP-51 mmof Hg. There is no pericardial effusion. The IVC is dilated. No vegetation or thrombus noted.
[2019-01-21] MEDS: Enoxaparin 30 mg Syringe SC SCH (13:33)
[2019-01-21] MEDS: Azithromycin 500MG/NS 250ml 500 MG/250 ML BAG IVPB SCH (13:35)
[2019-01-21] MEDS: cefTRIAXone 1 gm 1 GM/100 ML BAG IVPB SCH (13:35)
--- NOTE | 2019-01-21 16:03 | PN ---
DATE: 01/21/2019 REASON FOR CONSULTATION AND FOLLOWUP: Cardiac evaluation, history of pacemaker, history of coronary artery disease, CABG as well as chest pain, tenderness in the chest. SUBJECTIVE: The patient denies any chest pain, shortness of breath, or any palpitation. OBJECTIVE: GENERAL: Not in apparent distress. VITAL SIGNS: Temperature afebrile, heart rate 70, blood pressure 120/66. HEENT: PERRLA. Extraocular muscles intact. NECK: Supple. No carotid bruit. No thyromegaly. CHEST: Clear to auscultation. HEART: S1, S2. Regular. ABDOMEN: Soft. EXTREMITIES: Clubbing, cyanosis, negative. LABORATORY DATA: Blood workup as follows: WBC 5.5, hemoglobin 12.5, hematocrit 38.7, platelet count 163. Chemistry shows sodium 130, potassium 3, chloride 102, carbon dioxide 29, anion gap of 12, BUN 23, creatinine 1.1. Troponin 0.01 x2 negative. Total protein 7, albumin 3.4, albumin and globulin ratio 1. TSH 4.7. IMPRESSION: A 73-year-old male with past medical history significant for coronary artery disease, coronary artery bypass graft 12 years ago at [facility], history of recent pacemaker when the patient presented with syncope, incomplete heart block on 08/15/2018, underwent single-chamber VVI pacemaker, MRI Saskia XT. Date of implant is 08/15/2018, admitted yesterday with atypical chest pain with tenderness, history of severe peripheral artery disease status post multiple peripheral interventions in the past. Given the multiple risk factors for coronary artery disease, cough and shortness of breath though chest pain is atypical given multiple risk factors for coronary artery disease noncompliance, we will schedule a stress test and echo today. Further recommendations after the stress test. The patient has borderline TSH elevated, we will start low dose of Synthroid and continue diuretics. Because of elevated BNP level, continue Plavix, continue deep venous thrombosis prophylaxis. Continue atorvastatin. Continue insulin. Continue baby aspirin. Continue antibiotics for possible bronchitis. We will follow with you. Follow up TSH in three months as recommended. We will start 25 mcg daily. We will keep n.p.o. for stress test today. The patient's previous echo 06/19/2018 revealed ejection fraction 55%, trace aortic regurgitation, moderate valvular aortic stenosis. Peak gradient across the aortic valve 13 mmHg, noncoronary cusp is immobile, [id number] mitral regurgitation, trace tricuspid regurgitation, right ventricular systolic pressure 51. We will supplement potassium. Thank you Dr. Agarwal for providing us an opportunity in taking care of the patient, Brad Barber. Cami Rubio MD
--- NOTE | 2019-01-21 20:42 | DS ---
HISTORY OF PRESENT ILLNESS: The patient is 73 years old, came to emergency room because of chest pain, generalized weakness, difficulty walking, bilateral leg weakness. PHYSICAL EXAMINATION GENERAL: The patient is awake, alert, oriented, communicative. VITAL SIGNS: The patient is afebrile. Pulse 70, respirations 20, blood pressure 120/66. LUNGS: Bilateral fair airflow. No rhonchi or crackle. HEART: S1, S2 audible. ABDOMEN: Soft, nontender. No rebound, no guarding. NEUROLOGIC: The patient is awake, alert, oriented, able to communicate. Bilateral leg weakness. LABORATORY DATA: WBC is 5.5, hemoglobin 12.5, hematocrit 38.7, platelets 163. Chemistry; sodium 139, potassium 3.8, chloride 102, CO2 of 29, BUN 27, creatinine 1.1, blood sugar 163. TSH is 4.7. ASSESSMENT: 1. Chest pain, rule out coronary ischemia. 2. History of cerebrovascular accident. 3. Active smoker. 4. Chronic obstructive pulmonary disease. 5. Peripheral vascular disease status post multiple angioplasty of lower extremities in the past by Dr. David Cordova. 6. Deconditioning and difficulty walking. PLAN: The patient is getting stress test. We will get Physical Therapy evaluation. We will discharge the patient to go to subacute rehab or he can be discharged home. Kierra Agarwal MD
--- NOTE | 2019-01-21 22:01 | CARD ---
APPROVED REPORT Date of service: 01/21/2019 Protocol: LEXISCAN Test Type: Lexiscan Sestamibi Stress Test Attending Physician: Dr. Cami Rubio Referring Physician: Dr. Kierra Agarwal Test Indications: Chest Pain Height:6 ft 0 in Weight:103lbs Medications: duoneb, aspirin, lipitor, zithromax rocephin, plavix, lovenox, lasix humolog, singulair Medical History: 73 year old male with h/o CVA, diabetes, COPD, PVD, CABG and PPM Target HR: 148 bpm Resting ECG: Pacemaker Rythm. Resting Heart Rate: 61 bpm Resting Blood Pressure: 144/86mmHg Submaximum (85%): 126 bpm PROCEDURE Pharmacologic stress testing was performed using 0.4mg per 5ml of regadenoson given intravenously over 7-10 seconds. POST EXERCISE Reason for Termination: Protocol completed Target HR: No Max HR: 61 bpm 47% of Maximum Predicted HR: 148 bpm Exercise duration: 00:31 min:sec, 0 Stage Exercise capacity: 1.0METs Max Blood Pressure: 144/86mmHg Blood Pressure response to exercise: resting hypertension - appropriate response Heart Rate response to exercise: appropriate Chest Pain: No, none Angina index: 0 Arrhythmia: No, none ST Change: Yes, Difficult to comment due to Pacemaker Rythm. Deviation: 0 mm INTERPRETATION Stress EKG Conclusion: IV LEXISCAN NUCLEAR STRESS TEST NEGATIVE FOR CHEST PAIN. DIFFICULT TO COMMENT ABOUT ST-T CHANGES DUE TO PACEMAKER RYTHM. NUCLEAR SCAN REPORT PENDING. Signed by Cami Rubio Electronically Approved: 01/21/2019 11:29:11 EXAM: Myocardial Perfusion STRESS /REST Stress Test Type: Pharmacologic Imaging Protocol The imaging protocol used to acquire images was Stress Tc-99m/rest Tc-99m 1 day Rest Spect myocardial perfusion imaging was performed in supine position 60 minutes following the injection of 30.2 mCi of Tc-99 Myoview. At peak stress, the patient was injected intravenously with 10.6mCi of Tc-99 tetrofosmin after an infusion time of 0 minutes and 10 seconds. Gated Stress Spect was performed 65 minutes after intravenous Tc-99 Myoview injection. The images were gated to evaluate regional wall motion and calculate ventricular ejection fraction.Images were reconstructed using backfilter projection method in short horizontal and verticle long axis. Spect slices were generated. LV Perfusion The quality of the study is good. The left ventricle is mildly enlarged in size. The right ventricle is unremarkable. The lung uptake is within normal limits. The distribution of tracer reveals moderately decreased perfusion invovling mid to distal anteroseptal and apical dickinson and moderately to severely decreased perfusion involving most of inferior wall on the stress study. The remainder of the LV myocardium is unremarkable. The rest myocardial perfusion study shows improvement of the defect. Wall Motion Wall motion study shows diffuse hypokinesis and paradoxical septal wall motion of the left ventricle. LVEF = 40%. Conclusion 1. Abnormal SPECT myocardial perfusion study. 2. Partially reversible, anteroseptal and apical defects are suspicious of ischemia. 3. Fixed, linferior defect is most liklely due to diaphragmatic attenuation or previous myocardial injury. 4. Mild to moderate LV dysfunction with diffuse hypokinesis and paradoxical septal wall motion.
--- NOTE | 2019-01-22 00:55 | CP.PCM.PN ---
<Osito Doherty - Last Filed: 01/22/19 00:52> Subjective - Date & Time of Evaluation Date of Evaluation: 01/22/19 Time of Evaluation: 00:52 - Subjective Subjective: PGY1 House doc note S - Paged about patient being short of breath while receiving nebulizer tx O - Patient has some rhales in the lower lung bases; no respiratory distress or accessory muscle use - SaO2 was 91% on 2L NC A - sob P - Keep patient's head of bed elevated - Increased to 4L on NC - Given 20mg IVP lasix (normal kidney fxn) - continue to monitor Objective - Vital Signs/Intake and Output Vital Signs (last 24 hours): Temp Pulse Resp BP Pulse Ox 97.8 F 90 20 119/51 L 96 01/21/19 23:52 01/21/19 23:52 01/21/19 23:52 01/21/19 23:52 01/21/19 23:52 - Medications Medications: Current Medications Albuterol/Ipratropium (Duoneb 3 Mg/0.5 Mg (3 Ml) Ud) 3 ml IH Q2H PRN PRN Reason: Shortness of Breath Last Admin: 01/21/19 23:50 Dose: 3 ml Albuterol/Ipratropium (Duoneb 3 Mg/0.5 Mg (3 Ml) Ud) 3 ml IH [id number] [facility] Last Admin: 01/21/19 20:10 Dose: 3 ml Aspirin (Ecotrin) 81 mg PO DAILY [facility] Last Admin: 01/21/19 13:31 Dose: Not Given Atorvastatin Calcium (Lipitor) 10 mg PO DIN [facility] Last Admin: 01/21/19 16:47 Dose: 10 mg Azithromycin (Zithromax) 500 mg PO DAILY [facility] Clopidogrel Bisulfate (Plavix) 75 mg PO DAILY [facility] Last Admin: 01/21/19 13:34 Dose: Not Given Enoxaparin Sodium (Lovenox) 30 mg SC DAILY [facility]; Protocol Last Admin: 01/21/19 13:33 Dose: Not Given Furosemide (Lasix) 40 mg IVP DAILY [facility] Last Admin: 01/21/19 13:33 Dose: Not Given Furosemide (Lasix) 20 mg IVP ONCE ONE Stop: 01/22/19 00:49 Ceftriaxone Sodium (Rocephin 1 Gram Ivpb) 1 gm in 100 mls @ 100 mls/hr IVPB DAILY [facility]; Protocol Last Admin: 01/21/19 13:35 Dose: Not Given Insulin Human Lispro (Humalog Med) 0 units SC ACHS [facility]; Protocol Last Admin: 01/21/19 21:13 Dose: Not Given Insulin Lispro Protam/Lispro Human (Humalog Mix 75/25) 20 units SC ACBD [facility] Last Admin: 01/21/19 16:48 Dose: 20 units Levothyroxine Sodium (Synthroid) 25 mcg PO 0600 [facility] Montelukast Sodium (Singulair) 10 mg PO DAILY [facility] Last Admin: 01/21/19 13:35 Dose: Not Given - Labs Labs: 01/21/19 07:10 01/21/19 07:10 PT 14.9 SECONDS (9.4-12.5) H 01/19/19 23:29 INR 1.34 01/19/19 23:29 APTT 37.3 Seconds (26.9-38.3) 01/19/19 23:29 <Maura Fuentes - Last Filed: 01/28/19 21:52> Objective - Vital Signs/Intake and Output Vital Signs (last 24 hours): Temp Pulse Resp BP Pulse Ox 97.8 F 71 20 119/87 96 01/21/19 23:52 01/22/19 02:00 01/21/19 23:52 01/22/19 00:58 01/21/19 23:52 Intake and Output: 01/21/19 01/22/19 18:59 06:59 Intake Total 520 Output Total 650 Balance -130 - Medications Medications: Current Medications Albuterol/Ipratropium (Duoneb 3 Mg/0.5 Mg (3 Ml) Ud) 3 ml IH Q2H PRN PRN Reason: Shortness of Breath Last Admin: 01/21/19 23:50 Dose: 3 ml Albuterol/Ipratropium (Duoneb 3 Mg/0.5 Mg (3 Ml) Ud) 3 ml IH [id number] [facility] Last Admin: 01/22/19 02:10 Dose: 3 ml Aspirin (Ecotrin) 81 mg PO DAILY [facility] Last Admin: 01/21/19 13:31 Dose: Not Given Atorvastatin Calcium (Lipitor) 10 mg PO DIN [facility] Last Admin: 01/21/19 16:47 Dose: 10 mg Azithromycin (Zithromax) 500 mg PO DAILY [facility] Clopidogrel Bisulfate (Plavix) 75 mg PO DAILY [facility] Last Admin: 01/21/19 13:34 Dose: Not Given Enoxaparin Sodium (Lovenox) 30 mg SC DAILY [facility]; Protocol Last Admin: 01/21/19 13:33 Dose: Not Given Furosemide (Lasix) 40 mg IVP DAILY [facility] Last Admin: 01/21/19 13:33 Dose: Not Given Ceftriaxone Sodium (Rocephin 1 Gram Ivpb) 1 gm in 100 mls @ 100 mls/hr IVPB DAILY [facility]; Protocol Last Admin: 01/21/19 13:35 Dose: Not Given Insulin Human Lispro (Humalog Med) 0 units SC ACHS [facility]; Protocol Last Admin: 01/21/19 21:13 Dose: Not Given Insulin Lispro Protam/Lispro Human (Humalog Mix 75/25) 20 units SC ACBD [facility] Last Admin: 01/21/19 16:48 Dose: 20 units Levothyroxine Sodium (Synthroid) 25 mcg PO 0600 [facility] Last Admin: 01/22/19 05:28 Dose: 25 mcg Montelukast Sodium (Singulair) 10 mg PO DAILY [facility] Last Admin: 01/21/19 13:35 Dose: Not Given - Labs Labs: 01/21/19 07:10 01/21/19 07:10 PT 14.9 SECONDS (9.4-12.5) H 01/19/19 23:29 INR 1.34 01/19/19 23:29 APTT 37.3 Seconds (26.9-38.3) 01/19/19 23:29 Attending/Attestation - Attestation I have personally seen and examined this patient.: Yes I have fully participated in the care of the patient.: Yes I have reviewed all pertinent clinical information, including history, physical exam and plan: Yes Notes (Text): 01/28/19 21:49 Pt seen on 01/22/19 and reevaluated after a few hrs after he was treated.[place] much better. 01/28/19 21:51
[2019-01-22] MEDS: Albuterol-Ipratrop 3 mg / 0.5 (3 ml) UD IH SCH ×4 (02:10→21:04)
[2019-01-22] MEDS: Levothyroxine 25 MCG TAB PO SCH (05:28)
[2019-01-22] MEDS: Insulin Lispro (humaLOG) MEDIUM Coverage SC SCH ×4 (07:40→22:42)
[2019-01-22] MEDS: Insulin Lispro (humaLOG) MIX 75/25(10 ml) SC SCH ×2 (07:40→16:55)
--- NOTE | 2019-01-22 07:40 | CP.PCM.PN ---
Subjective - Date & Time of Evaluation Date of Evaluation: 01/22/19 Time of Evaluation: 06:40 - Subjective Subjective: Awake, alert, no distress Reason for conbsultation and follow up: Cardiac evaluation of chest pain, history of coronary artery disease, post CABG, history of permanent pacemaker. Seen and examined by me and Dr. Rubio Objective - Vital Signs/Intake and Output Vital Signs (last 24 hours): Temp Pulse Resp BP Pulse Ox 98.0 F 63 20 133/65 96 01/22/19 06:00 01/22/19 06:00 01/22/19 06:00 01/22/19 06:00 01/22/19 06:00 Intake and Output: 01/22/19 01/22/19 06:59 18:59 Intake Total 520 Output Total 650 Balance -130 - Medications Medications: Current Medications Albuterol/Ipratropium (Duoneb 3 Mg/0.5 Mg (3 Ml) Ud) 3 ml IH Q2H PRN PRN Reason: Shortness of Breath Last Admin: 01/21/19 23:50 Dose: 3 ml Albuterol/Ipratropium (Duoneb 3 Mg/0.5 Mg (3 Ml) Ud) 3 ml IH [id number] [facility] Last Admin: 01/22/19 02:10 Dose: 3 ml Aspirin (Ecotrin) 81 mg PO DAILY [facility] Last Admin: 01/21/19 13:31 Dose: Not Given Atorvastatin Calcium (Lipitor) 10 mg PO DIN [facility] Last Admin: 01/21/19 16:47 Dose: 10 mg Azithromycin (Zithromax) 500 mg PO DAILY [facility] Clopidogrel Bisulfate (Plavix) 75 mg PO DAILY [facility] Last Admin: 01/21/19 13:34 Dose: Not Given Enoxaparin Sodium (Lovenox) 30 mg SC DAILY [facility]; Protocol Last Admin: 01/21/19 13:33 Dose: Not Given Furosemide (Lasix) 40 mg IVP DAILY [facility] Last Admin: 01/21/19 13:33 Dose: Not Given Ceftriaxone Sodium (Rocephin 1 Gram Ivpb) 1 gm in 100 mls @ 100 mls/hr IVPB DAILY [facility]; Protocol Last Admin: 01/21/19 13:35 Dose: Not Given Insulin Human Lispro (Humalog Med) 0 units SC [facility]; Protocol Last Admin: 01/21/19 21:13 Dose: Not Given Insulin Lispro Protam/Lispro Human (Humalog Mix 75/25) 20 units SC ACBD [facility] Last Admin: 01/21/19 16:48 Dose: 20 units Levothyroxine Sodium (Synthroid) 25 mcg PO 0600 [facility] Last Admin: 01/22/19 05:28 Dose: 25 mcg Montelukast Sodium (Singulair) 10 mg PO DAILY [facility] Last Admin: 01/21/19 13:35 Dose: Not Given - Labs Labs: 01/21/19 07:10 01/21/19 07:10 PT 14.9 SECONDS (9.4-12.5) H 01/19/19 23:29 INR 1.34 01/19/19 23:29 APTT 37.3 Seconds (26.9-38.3) 01/19/19 23:29 - Constitutional Appears: Non-toxic, No Acute Distress - Head Exam Head Exam: NORMAL INSPECTION, NORMOCEPHALIC - Eye Exam Eye Exam: Normal appearance Pupil Exam: NORMAL ACCOMODATION - ENT Exam ENT Exam: Mucous Membranes Moist, Normal Exam - Respiratory Exam Respiratory Exam: Decreased Breath Sounds, Clear to Ausculation Bilateral, NORMAL BREATHING PATTERN - Cardiovascular Exam Cardiovascular Exam: +S1, +S2 - GI/Abdominal Exam GI & Abdominal Exam: Soft, Normal Bowel Sounds - Extremities Exam Extremities Exam: Full ROM, Normal Capillary Refill - Neurological Exam Neurological Exam: Alert, Awake, Oriented x3 - Psychiatric Exam Psychiatric exam: Normal Affect, Normal Mood - Skin Skin Exam: Dry, Normal Color, Warm Assessment and Plan - Assessment and Plan (Free Text) Assessment: a 73 year old male who came in to the ER due to chest pain with intermittent shortness of breath. History of hypertension, CVA, coronary artery disease post CABG 12 years ago at [facility] 08/15/2018 for complete heart block. insulin dependent diabetes mellitus,COPD,hyperlipidemia, history of polycythemia vera, peripheral arterial disease with multiple peripheral intervention done by Dr. Cordova, non -compliant with medications. Active tobacco abuse smokes 2 packs per day.Chest X ray showed infiltrates.Troponin normal. Stress test done with abnormal results, partially reversible anteroseptal and apical defects suspicious of ischemia.LVEF 40 %. Echo done yesterday and showed LVEF 55-60%, pacemaker lead intact on right ventricle, Trace AR, moderate valvular aortic stenosis, mild to moderate MR, moderate TR, RVSP 51 mmHg, no vegetation or thr ombus. Will schedule for cardiac catheterization tomorrow. Plan: Abnormal stress test Will schedule cardiac cath tomorrow NPO post midnight Heart rate stable Blood pressure controlled On ASA 81 mg daily, Lipitor 10 mg daily,Plavix 75 mg daily, Lovenox 30 mg daily, lasix 40 mg daily,Synthroid 25 mcg daily Continue current treatment Continue current medications Smoking cessation Continue IV antibiotics as ordered Will follow up Plan and treatment discussed with Dr. Rubio
[2019-01-22] MEDS: cefTRIAXone 1 gm 1 GM/100 ML BAG IVPB SCH (09:47)
[2019-01-22] MEDS: Enoxaparin 30 mg Syringe SC SCH (09:47)
[2019-01-23] MEDS: Albuterol-Ipratrop 3 mg / 0.5 (3 ml) UD IH PRN
[2019-01-23] MEDS: Albuterol-Ipratrop 3 mg / 0.5 (3 ml) UD IH SCH ×4 (02:10→20:53)
[2019-01-23] MEDS ORDERED: Nitroglycerin 0.2 mg/hr Top Patch TD STA (02:20)
[2019-01-23] MEDS: Levothyroxine 25 MCG TAB PO SCH (06:13)
--- NOTE | 2019-01-23 07:01 | CP.PCM.PN ---
Subjective - Date & Time of Evaluation Date of Evaluation: 01/23/19 Time of Evaluation: 06:40 - Subjective Subjective: Awake, alert, no distress, episode of chest pain last night with relief Reason for consultation and follow up: Cardiac evaluation of chest pain, history of coronary artery disease, post CABG, history of permanent pacemaker. Seen and examined by me and Dr. Rubio Objective - Vital Signs/Intake and Output Vital Signs (last 24 hours): Temp Pulse Resp BP Pulse Ox 97.7 F 65 20 147/71 95 01/23/19 05:32 01/23/19 05:33 01/23/19 05:32 01/23/19 05:32 01/23/19 05:32 Intake and Output: 01/23/19 01/23/19 06:59 18:59 Intake Total 100 Output Total 1200 Balance -1100 - Medications Medications: Current Medications Albuterol/Ipratropium (Duoneb 3 Mg/0.5 Mg (3 Ml) Ud) 3 ml IH Q2H PRN PRN Reason: Shortness of Breath Last Admin: 01/23/19 00:00 Dose: 3 ml Albuterol/Ipratropium (Duoneb 3 Mg/0.5 Mg (3 Ml) Ud) 3 ml IH [id number] [facility] Last Admin: 01/23/19 02:10 Dose: 3 ml Aspirin (Ecotrin) 81 mg PO DAILY [facility] Last Admin: 01/22/19 09:43 Dose: 81 mg Atorvastatin Calcium (Lipitor) 10 mg PO DIN [facility] Last Admin: 01/22/19 16:54 Dose: 10 mg Azithromycin (Zithromax) 500 mg PO DAILY [facility] Last Admin: 01/22/19 09:43 Dose: 500 mg Clopidogrel Bisulfate (Plavix) 75 mg PO DAILY [facility] Last Admin: 01/22/19 09:43 Dose: 75 mg Furosemide (Lasix) 40 mg IVP DAILY [facility] Last Admin: 01/22/19 09:48 Dose: 40 mg Ceftriaxone Sodium (Rocephin 1 Gram Ivpb) 1 gm in 100 mls @ 100 mls/hr IVPB DAILY [facility]; Protocol Last Admin: 01/22/19 09:47 Dose: 100 mls/hr Insulin Human Lispro (Humalog Med) 0 units SC ACHS [facility]; Protocol Last Admin: 01/22/19 22:42 Dose: Not Given Insulin Lispro Protam/Lispro Human (Humalog Mix 75/25) 20 units SC ACBD [facility] Last Admin: 01/22/19 16:55 Dose: 20 units Levothyroxine Sodium (Synthroid) 25 mcg PO 0600 [facility] Last Admin: 01/23/19 06:13 Dose: 25 mcg Montelukast Sodium (Singulair) 10 mg PO DAILY [facility] Last Admin: 01/22/19 09:43 Dose: 10 mg Nicotine (Nicoderm Cq) 1 patch TD DAILY [facility] - Labs Labs: 01/21/19 07:10 01/21/19 07:10 PT 14.9 SECONDS (9.4-12.5) H 01/19/19 23:29 INR 1.34 01/19/19 23:29 APTT 37.3 Seconds (26.9-38.3) 01/19/19 23:29 - Constitutional Appears: Non-toxic, No Acute Distress - Head Exam Head Exam: NORMAL INSPECTION, NORMOCEPHALIC - Eye Exam Eye Exam: Normal appearance Pupil Exam: NORMAL ACCOMODATION - ENT Exam ENT Exam: Mucous Membranes Moist, Normal Exam - Respiratory Exam Respiratory Exam: Decreased Breath Sounds, Clear to Ausculation Bilateral, N ORMAL BREATHING PATTERN - Cardiovascular Exam Cardiovascular Exam: REGULAR RHYTHM, +S1, +S2 - GI/Abdominal Exam GI & Abdominal Exam: Soft, Normal Bowel Sounds - Extremities Exam Extremities Exam: Full ROM, Normal Capillary Refill - Neurological Exam Neurological Exam: Alert, Awake, Oriented x3 - Psychiatric Exam Psychiatric exam: Normal Affect, Normal Mood - Skin Skin Exam: Dry, Normal Color, Warm Assessment and Plan - Assessment and Plan (Free Text) Assessment: a 73 year old male who came in to the ER due to chest pain with intermittent shortness of breath. History of hypertension, CVA, coronary artery disease post CABG 12 years ago at [facility] 08/15/2018 for complete heart block. insulin dependent diabetes mellitus,COPD,hyperlipidemia, history of polycythemia vera, peripheral arterial disease with multiple peripheral intervention done by Dr. Cordova, non -compliant with medications. Active tobacco abuse smokes 2 packs per day.Chest X ray showed infiltrates.Troponin normal. Stress test done with abnormal results, partially reversible anteroseptal and apical defects suspicious of ischemia.LVEF 40 %. Echo done yesterday and showed LVEF 55-60%, pacemaker lead intact on right ventricle, Trace AR, moderate valvular aortic stenosis, mild to moderate MR, moderate TR, RVSP 51 mmHg, no vegetation or thrombus.Episode of chest pain last night with relief after giving 2 sublingual Nitroglycerine. For cardiac catheterization today. Plan: Deniers chest pain now, no distress Episode of chest pain last night with relief after giving 2 sublingual Nitroglycerine. For cardiac catheterization today. NPO post midnight Heart rate stable Blood pressure controlled On ASA 81 mg daily, Lipitor 10 mg daily,Plavix 75 mg daily, Synthroid 25 mcg daily, Nicoderm patch daily. Continue current treatment Continue current medications Smoking cessation Continue IV antibiotics as ordered Further recommendation after cardiac catheterization Will follow up Plan and treatment discussed with Dr. Rubio
[2019-01-23] MEDS: Insulin Lispro (humaLOG) MIX 75/25(10 ml) SC SCH (08:23)
[2019-01-23] MEDS: Insulin Lispro (humaLOG) MEDIUM Coverage SC SCH ×4 (08:23→22:00)
--- NOTE | 2019-01-23 08:28 | PN ---
DATE: 01/22/2019 SUBJECTIVE: The patient is a 73 years old, seen and examined, lying in bed, seems to be alert, complained of cough congestion, shortness of breath, has difficulty walking, has left-sided weakness. The patient has sepsis done that seems to be positive for ischemia. The patient is schedule to have catheterization done tomorrow. PHYSICAL EXAMINATION: GENERAL: He is awake, alert, oriented, and communicative. VITAL SIGNS: He is afebrile, pulse 64, respirations 18, and blood pressure 124/63. LUNGS: Bilateral fair airflow. No rhonchi or crackle. HEART: S1 and S2 audible. ABDOMEN: Soft and nontender. No rebound. No guarding. NEUROLOGIC: The patient is awake, alert, oriented, able to communicate. ASSESSMENT: 1. Chest pain with increasing shortness of breath. 2. Coronary artery disease. 3. Status post open heart surgery. 4. Cerebrovascular disease. 5. Chronic obstructive pulmonary disease. 6. Hypertension. 7. Hyperlipidemia. PLAN: We will continue the patient on current medications, given one dose of Nicotine patch test. He is schedule to have cardiac cath done in a.m. It has been requested to geriatric social work professor to arrange for authorization for a visit to TCU or subacute rehab. Kierra Agarwal MD
[2019-01-23] MEDS: cefTRIAXone 1 gm 1 GM/100 ML BAG IVPB SCH (09:58)
[2019-01-23] MEDS ORDERED: Nitroglycerin 0.2 mg/hr Top Patch TD SCH (10:00)
[2019-01-23] MEDS ORDERED: Iodixanol 320 MG/ML 200 ML BOTTLE IV ONE (14:15)
[2019-01-23] MEDS ORDERED: Lidocaine PF 2% (5 ml) Inj (For Cardiac Arrhy) ONE (14:15)
[2019-01-23] MEDS ORDERED: Iodixanol 320 MG/ML 100 ML BOTTLE IV ONE (14:15)
[2019-01-23] MEDS ORDERED: Iohexol 350mgl/ml 50 ML ONE (14:15)
[2019-01-23] MEDS ORDERED: Nitroglycerin 50mg in D5W 0 MG/0 ML BOTTLE IV ONE (14:16)
[2019-01-23] MEDS ORDERED: Phenylephrine 10 mg/ml Inj ONE (14:20)
[2019-01-23] MEDS ORDERED: Midazolam 2 MG/2 ML VIAL ONE (14:42)
--- NOTE | 2019-01-23 15:27 | PN ---
DATE: 01/23/2019 SUBJECTIVE: The patient is 73 years old, went for cath since he was found to have abnormal stress test. PHYSICAL EXAMINATION VITAL SIGNS: He is afebrile, pulse 60, respirations 20, and blood pressure 147/71. LUNGS: Bilateral diffusely decreased breath sounds. Occasional soft crackles. HEART: S1 and S2 audible. ABDOMEN: Soft and nontender. No rebound. No guarding. NEUROLOGIC: He is awake, alert, oriented, communicative. He has left-sided weakness. Motor is 4/5. LABORATORY DATA: Blood sugar is 233. ASSESSMENT 1. Chest pain and shortness of breath with abnormal stress test, scheduled for catheterization today. 2. History of cerebrovascular accident with left hemiparesis. 3. Active smoker. 4. Hypertension. 5. Poorly-controlled diabetes. 6. Hyperlipidemia. 7. Hypothyroidism. PLAN: The patient will go for cath. Continue current medication. We will discontinue his Zithromax and social media manager are in the process of making arrangement for subacute rehab. Kierra Agarwal MD
[2019-01-23] MEDS ORDERED: Sodium Chloride 0.9% 1,000 ML IV SCH (15:45)
--- NOTE | 2019-01-23 16:13 | CPOSTOP ---
DATE: 01/23/2019 PHYSICIAN: Cami Rubio MD PRODUCT SUPPORT CONSULTANT: Margie Moore, recycling technician. TYPE OF ANESTHESIA: Moderate conscious sedation, total 1 mg of Versed and 50 of fentanyl given. PRE-PROCEDURE DIAGNOSIS: Unstable angina, shortness of breath, abnormal stress test, history of coronary artery disease, coronary artery bypass graft. PROCEDURES PERFORMED: 1. Left heart catheterization. 2. Left internal mammary artery injection. 3. Saphenous vein graft injection. FINDINGS: [place] two vessel disease, occluded RCA, patent WHYTE to LAD. POST PROCEDURE CONDITION: The patient's condition is stable. VASCULAR ACCESS SITE: Right femoral artery. CLOSURE DEVICE: Mynx. TOTAL RADIATION DOSE: 26022.6 milligray unit. TOTAL FLUORO TIME: 8.1 minutes. Cami Rubio MD
--- NOTE | 2019-01-23 16:49 | CARD ---
APPROVED REPORT Date of service: 01/23/2019 Procedure(s) performed: Left Heart Catheterization WHYTE Angiogram SVG Angiogram HISTORY The patient is a 73 year-old male with a history of : previous CABG (The CABG date was 2006), admitted with chest pian, CHF, and and abnormal stress test, Hx of SSS s/o ppm.. INDICATION The indication(s) include : positive stress test, unstable angina , chest pain, dyspnea. CASE TECHNIQUE The patient was brought electively to the Cardiac Catheterization Laboratory in a fasting state and was prepped and draped in a sterile manner. The right femoral groin was infiltrated with 2% Lidocaine subcutaneous anesthesia. A 6 Fr x 11 cm Kate sheath was inserted into the right femoral artery without difficulty. Coronary angiography was performed using coronary diagnostic catheters. The left coronary system was accessed and visualized with a Diagnostic,6 Fr JL 4 catheter. The right coronary system was accessed and visualized with a Diagnostic ,6 Fr JR 4 catheter. The left ventricle was accessed and visualized with a Pig tail catheter. catheter. The left internal mammary artery was accessed and visualized with a Diagnostic ,6 Fr RICKY catheter. The saphenous vein graft was accessed and visualized with a Diagnostic ,6 Fr JR 4 catheter. Left ventricular/Aortic Valve gradient assessed on pullback. Left ventriculogram was performed in HUBBARD projection. Closure device was deployed with a 6 Fr / 7 Fr MynxGrip without any complications. The patient tolerated the procedure well and there were no complications associated with the procedure. Vessel Analysis The patient's coronary anatomy is right dominant. The left main coronary artery is a large size vessel with diffuse calcification noted throughout this vessel and without significant stenosis. The left main trifurcates to the left anterior descending, circumflex, and ramus. The left anterior descending artery is a medium size vessel with diffuse calcification noted throughout this vessel and with significant stenosis. There is a 100% stenosis in the mid segment. The first diagonal branch is a medium size vessel with diffuse calcification noted throughout this vessel and without significant stenosis. The circumflex artery is a medium size vessel with diffuse calcification noted throughout this vessel and with significant stenosis. There is a 100% stenosis in the mid segment. The first obtuse marginal branch is a small size vessel with diffuse calcification noted throughout this vessel and without significant stenosis. The right coronary artery is a large size vessel with diffuse calcification noted throughout this vessel and with significant stenosis. There is a 100% stenosis in the proximal segment. The left internal mammary artery to the Mid to distal left anterior descending artery segment is patent . The saphenous vein graft to the distal right coronary artery Occluded. . Left Ventricle The left ventricle is borderline enlarged in size with borderline decreased contractility. Ischemic cardiomyopathy. The left ventricular ejection fraction is estimated to be 45-50%. The left ventricular end diastolic pressure is 15 mmHg. There was no gradient across the aortic valve upon pullback. Conclusion [place] triple vessel Disease. Patent WHYTE to LAD Occluded SVG to RCA. WHYTE to LAD and Cx are Giving Collaterals to R PDA. Borderline LV Dysfunction, EF-45-50%, EDP_-15 mmof Hg. Recommendations Smoking Cessation Aggressive Medical TherapyCardiac Risk Reduction Program KAYLA, Coreg, Diuretic, Aldactone, and Statin. CC; / Filiberto Agarwal MD.
[2019-01-23] MEDS ORDERED: Oxycodone/Acetaminophen 5/325 mg Tab PO PRN (18:23)
[2019-01-23] MEDS ORDERED: Acetaminophen 650mg/20.3ml solution UD PO PRN (18:23)
--- NOTE | 2019-01-23 19:50 | PN ---
DATE: 01/23/2019 REASON FOR CONSULTATION AND FOLLOWUP: Shortness of breath, abnormal stress test, history of pacemaker. SUBJECTIVE: The patient denies any chest pain, shortness of breath, or any palpitations. PHYSICAL EXAMINATION: GENERAL: Not in apparent distress. VITAL SIGNS: Temperature afebrile, heart rate 65, blood pressure 142/75. HEENT: PERRLA. Extraocular muscles intact. NECK: Supple. No carotid bruit. No thyromegaly. CHEST: Clear to auscultation. HEART: S1 and S2, regular. ABDOMEN: Soft. EXTREMITIES: Clubbing and cyanosis negative. LABORATORY DATA: Blood workup as follows: WBC 5.5, hemoglobin 12.5, hematocrit 38.7, platelet count 163. Chemistry shows sodium 130, potassium 3.8, chloride , anion gap of 12, BUN 25, and creatinine 1.1. TSH 4.7. IMPRESSION: A 73-year-old male with past medical history significant for coronary artery disease, status post coronary artery bypass grafting at [facility]. The patient underwent cardiac catheterization that revealed patent left internal mammary artery to left anterior descending and negative two-vessel disease, preserved left ventricular function low limit normal, ejection fraction 40% to 45%. Medical treatment recommended. RECOMMENDATIONS: Continue IV fluids for five hours. Resume back baseline medications. Continue gentle diuretics. Continue and complete cessation of smoking. Low dose of fluids because of the TSH elevated. We will follow with you. Possible discharge to home in a.m. Thank you Dr. Agarwal for providing us an opportunity in taking care of the patient, Brad Barber. Cami Rubio MD cc: Kierra Agarwal MD
[2019-01-24] MEDS: Albuterol-Ipratrop 3 mg / 0.5 (3 ml) UD IH SCH ×4 (02:09→19:34)
[2019-01-24] MEDS ORDERED: Magnesium Hydroxide Susp 30 ml UD PO ONE (02:15)
--- NOTE | 2019-01-24 04:19 | CP.PCM.PCO ---
Addendum Addendum: 01/24/19 04:17 Update: Received a page from nurse regarding Patient vomiting his food x1 episode. Patient hemodynamically stable. EKG obtained and is paged at 60bpm, QTc 496. Troponin ordered and was negative. Discussed with Dr. Ana Paula Venegas PGY1
[2019-01-24] MEDS: Levothyroxine 25 MCG TAB PO SCH (06:08)
--- NOTE | 2019-01-24 06:48 | CP.PCM.PN ---
Subjective - Date & Time of Evaluation Date of Evaluation: 01/24/19 Time of Evaluation: 06:40 - Subjective Subjective: Awake, alert, no distress, episode of vomiting this morning Reason for consultation and follow up: Cardiac evaluation of chest pain, history of coronary artery disease, post CABG, history of permanent pacemaker. Seen and examined by me and Dr. Rubio Objective - Vital Signs/Intake and Output Vital Signs (last 24 hours): Temp Pulse Resp BP Pulse Ox 98.1 F 61 20 143/74 92 L 01/24/19 05:46 01/24/19 06:00 01/24/19 05:46 01/24/19 05:46 01/24/19 05:46 Intake and Output: 01/23/19 01/24/19 18:59 06:59 Intake Total 900 420 Output Total 375 400 Balance 525 20 - Medications Medications: Current Medications Acetaminophen (Tylenol 650mg/20.3ml Solution Ud) 650 mg PO Q6H PRN PRN Reason: Pain, Mild (1-3) Last Admin: 01/24/19 00:20 Dose: 650 mg Albuterol/Ipratropium (Duoneb 3 Mg/0.5 Mg (3 Ml) Ud) 3 ml IH Q2H PRN PRN Reason: Shortness of Breath Last Admin: 01/23/19 00:00 Dose: 3 ml Albuterol/Ipratropium (Duoneb 3 Mg/0.5 Mg (3 Ml) Ud) 3 ml IH [id number] [facility] Last Admin: 01/24/19 02:09 Dose: 3 ml Aspirin (Ecotrin) 81 mg PO DAILY [facility] Last Admin: 01/23/19 09:19 Dose: Not Given Atorvastatin Calcium (Lipitor) 10 mg PO DIN [facility] Last Admin: 01/23/19 17:32 Dose: 10 mg Cefpodoxime Proxetil (Vantin) 200 mg PO Q12 [facility] Stop: 01/25/19 12:31 Clopidogrel Bisulfate (Plavix) 75 mg PO DAILY [facility] Last Admin: 01/23/19 09:19 Dose: Not Given Furosemide (Lasix) 40 mg PO DAILY [facility] Insulin Human Lispro (Humalog Med) 0 units SC ACHS [facility]; Protocol Last Admin: 01/23/19 22:00 Dose: Not Given Insulin Lispro Protam/Lispro Human (Humalog Mix 75/25) 20 units SC ACBD [facility] Last Admin: 01/23/19 08:23 Dose: Not Given Levothyroxine Sodium (Synthroid) 25 mcg PO 0600 [facility] Last Admin: 01/24/19 06:08 Dose: 25 mcg Montelukast Sodium (Singulair) 10 mg PO DAILY [facility] Last Admin: 01/23/19 09:59 Dose: 10 mg Nicotine (Nicoderm Cq) 1 patch TD DAILY [facility] Last Admin: 01/23/19 09:58 Dose: 1 patch Oxycodone/Acetaminophen (Percocet 5/325 Mg Tab) 1 tab PO Q6H PRN PRN Reason: Pain, moderate (4-7) Stop: 01/26/19 18:24 - Labs Labs: 01/21/19 07:10 01/21/19 07:10 PT 14.9 SECONDS (9.4-12.5) H 01/19/19 23:29 INR 1.34 01/19/19 23:29 APTT 37.3 Seconds (26.9-38.3) 01/19/19 23:29 - Constitutional Appears: Non-toxic, No Acute Distress - Head Exam Head Exam: NORMAL INSPECTION, NORMOCEPHALIC - Eye Exam Eye Exam: Normal appearance Pupil Exam: NORMAL ACCOMODATION - ENT Exam ENT Exam: Mucous Membranes Moist, Normal Exam - Respiratory Exam Respiratory Exam: Decreased Breath Sounds, Clear to Ausculation Bilateral, NORMAL BREATHING PATTERN - Cardiovascular Exam Cardiovascular Exam: +S1, +S2 Additional comments: PPM V- pacing at 60's - GI/Abdominal Exam GI & Abdominal Exam: Soft, Normal Bowel Sounds - Extremities Exam Extremities Exam: Full ROM, Normal Capillary Refill - Neurological Exam Neurological Exam: Alert, Awake, Oriented x3 - Psychiatric Exam Psychiatric exam: Normal Affect, Normal Mood - Skin Skin Exam: Dry, Normal Color, Warm Assessment and Plan - Assessment and Plan (Free Text) Assessment: A 73 year old male who came in to the ER due to chest pain with intermittent shortness of breath. History of hypertension, CVA, coronary artery disease post CABG 12 years ago at [facility]. PPM 08/15/2018 for complete heart block, insulin dependent diabetes mellitus, COPD, hyperlipidemia, history of polycythemia vera, peripheral arterial disease with multiple peripheral intervention done by Dr. Cordova, non -compliant with medications. Active tobacco abuse smokes 2 packs per day.Chest X ray showed infiltrates.Troponin normal. Stress test done with abnormal results, partially reversible anteroseptal and apical defects suspicious of ischemia. LVEF 40 %. Echo done and showed LVEF 55- 60%, pacemaker lead intact on right ventricle, Trace AR, moderate valvular aortic stenosis, mild to moderate MR, moderate TR, RVSP 51 mmHg, no vegetation or thrombus.Episode of chest pain with relief after giving 2 sublingual Nitroglycerine. Post cardiac catheterization yesterday and showed enterprise triple vessel disease, WHYTE to LAD patent, Occluded SVG to RCA. WHYTE to LAD and circumflex are giving collaterals to RPDA. LVEF 45-50%. Optimize medical treatment. 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 WHYTE to LAD and circumflex are giving collaterals to RPDA. LVEF 45-50%. Medical treatment Stop smoking Cardiac status stable Heart rate stable Blood pressure controlled On ASA 81 mg daily, Lipitor 10 mg daily,Plavix 75 mg daily, Synthroid 25 mcg daily, Nicoderm patch daily. Continue current treatment Continue current medications Continue IV antibiotics as ordered Discontinue telemetry May discharge from cardiac standpoint Will follow up Plan and treatment discussed with Dr. Rubio
[2019-01-24] MEDS ORDERED: Bacitracin 500 Units/gm Oint Foilpak UD ONE (06:51)
[2019-01-24 07:28] LABS: BASO # 0.05 K/mm3 (0.0-2.0); BASO % 0.9 % (0.0-3.0); EOS # 0.2 (0.0-0.7); EOS % 3.7 % (1.5-5.0); LYMPH # 1.5 (1.2-3.4); LYMPH % 26.1 % (22.0-35.0); MEAN CELL VOLUME 91.4 fl (80.0-105.0); MEAN CORPUSCULAR HEMOGLOBIN 28.6 pg (25.0-35.0); MEAN CORPUSCULAR HGB CONC 31.3 g/dl (31.0-37.0); MONO # 0.6 (0.1-0.6); MONO % 10.5 % (1.0-6.0); RBC 4.54 10^6/uL (3.5-6.1); WHITE BLOOD COUNT 5.6 10^3/uL (4.5-11.0)
[2019-01-24 07:52] LABS: BLOOD UREA NITROGEN 26 mg/dL (7-21); CALCIUM 8.9 mg/dL (8.4-10.5); GFR NON-AFRICAN AMERICAN > 60
[2019-01-24] MEDS: Insulin Lispro (humaLOG) MIX 75/25(10 ml) SC SCH ×2 (08:36→16:57)
[2019-01-24] MEDS: Insulin Lispro (humaLOG) MEDIUM Coverage SC SCH ×4 (08:36→23:26)
[2019-01-24] MEDS: Cefpodoxime (Vantin) 200 mg Tab PO SCH ×2 (09:09→21:24)
--- NOTE | 2019-01-24 10:48 | CARD ---
APPROVED REPORT Date of service: 01/24/2019 EKG Measurement Heart [id number] <Conclusion> Electronic ventricular pacemaker
--- NOTE | 2019-01-24 17:14 | PN ---
DATE: 01/24/2019 SUBJECTIVE: The patient is 73-year-old, seen and examined. Sitting in chair seems to be comfortable. Complained of shortness of breath, complained of feeling weak, and complained of having difficulty walking. PHYSICAL EXAMINATION: VITAL SIGNS: The patient is afebrile, pulse 61, respiration 20, and blood pressure 135/64. LUNGS: Bilateral diffusely decreased breath sounds, expiratory rhonchi. HEART: S1 and S2 audible. ABDOMEN: Soft and nontender. No rebound. No guarding. NEUROLOGIC: He is awake, alert, oriented, and communicative. Walks with the cane, has left upper and lower extremity weakness. LABORATORY DATA: WBC 5.6, hemoglobin 13, hematocrit 41.5, and platelet of 183. Chemistry; sodium 135, potassium 5.0, chloride 98, CO2 of 30, BUN 26, and creatinine 1.0. Blood sugar 257. ASSESSMENT: 1. Chest pain secondary to status post cardiac catheterization. 2. Chronic obstructive pulmonary disease. 3. Coronary artery disease, status post open heart surgery. 4. Hypertension. 5. Hyperlipidemia. 6. Status post pacemaker placement. 7. Insulin-dependent diabetes. 8. History of polycythemia vera secondary to smoking. 9. Peripheral vascular disease, status post multiple angioplasty by Dr. David Cordova. PLAN: Had cardiac catheterization done by Dr. Rubio showed internal mammary artery to left anterior descending patent. However, he has occluded saphenous vein graft to right coronary artery. Recommendation was medical treatment. Physical therapy note appreciated. Recommending for subacute rehab. Awaiting to hear from Agricultural Economics Teacher. Once the patient will be transferred to subacute rehab. Kierra Agarwal MD
[2019-01-25] MEDS: Albuterol-Ipratrop 3 mg / 0.5 (3 ml) UD IH SCH ×4 (01:13→20:17)
[2019-01-25] MEDS: Albuterol-Ipratrop 3 mg / 0.5 (3 ml) UD IH PRN (03:26)
[2019-01-25] MEDS: Levothyroxine 25 MCG TAB PO SCH (05:30)
[2019-01-25] MEDS: Insulin Lispro (humaLOG) MIX 75/25(10 ml) SC SCH ×3 (08:54→17:47)
[2019-01-25] MEDS: Insulin Lispro (humaLOG) MEDIUM Coverage SC SCH ×3 (08:54→16:22)
[2019-01-25] MEDS: Cefpodoxime (Vantin) 200 mg Tab PO SCH (10:08)
--- NOTE | 2019-01-25 17:41 | PN ---
DATE: 01/25/2019 SUBJECTIVE: The patient is 73 years old, seen and examined, sitting in chair. Complaining of cough, congestion, shortness of breath. No chest pain. PHYSICAL EXAMINATION: VITAL SIGNS: He is afebrile, pulse 68, respirations 19, blood pressure 144/75. LUNGS: Bilateral diffusely decreased breath sounds secondary to COPD. HEART: S1, S2 audible. ABDOMEN: Soft, nontender. No rebound. No guarding. EXTREMITIES: Bilateral legs, no edema. NEUROLOGIC: He is awake and alert, able to communicate. LABORATORY EXAMINATION: WBC 5.6, hemoglobin 13, hematocrit 41, platelets of 183. Chemistry: Blood sugar 265. ASSESSMENT: 1. Chest pain, status post cardiac catheterization. 2. Coronary artery disease. 3. Hypertension. 4. Chronic obstructive pulmonary disease. 5. Cerebrovascular accident, status post left hemiparesis, difficulty walking. 6. Active smoker. 7. Polycythemia vera, secondary to smoking. 8. Deconditioning and difficulty walking. PLAN: So plan is the patient was evaluated by Physical Therapy, recommended subacute rehab, awaiting for acceptance. Kierra Agarwal MD
--- NOTE | 2019-01-25 23:36 | CP.PCM.PN ---
Subjective - Date & Time of Evaluation Date of Evaluation: 01/25/19 Time of Evaluation: 23:33 - Subjective Subjective: Patient was seen at bedside. He states that he gets palpitation after he receives nebulizer treatment. Has no other complaints. Medical record was reviewed. This 73 year old white male was admitted with sob, congestion, cough. Has PMH of HTN,CVA with left hemiparesis, CAD,HLD, IDDM, PVD, multiple angioplasty history. Objective - Vital Signs/Intake and Output Vital Signs (last 24 hours): Temp Pulse Resp BP Pulse Ox 99 F 79 22 151/68 H 93 L 01/25/19 22:00 01/25/19 22:00 01/25/19 22:00 01/25/19 22:00 01/25/19 22:00 Intake and Output: 01/25/19 01/26/19 18:59 06:59 Intake Total 360 Output Total 325 Balance 35 - Medications Medications: Current Medications Albuterol/Ipratropium (Duoneb 3 Mg/0.5 Mg (3 Ml) Ud) 3 ml IH [id number] [facility] Last Admin: 01/25/19 20:17 Dose: 3 ml Aspirin (Ecotrin) 81 mg PO DAILY [facility] Last Admin: 01/25/19 10:10 Dose: 81 mg Atorvastatin Calcium (Lipitor) 10 mg PO DIN [facility] Last Admin: 01/25/19 17:49 Dose: 10 mg Clopidogrel Bisulfate (Plavix) 75 mg PO DAILY [facility] Last Admin: 01/25/19 10:07 Dose: 75 mg Furosemide (Lasix) 40 mg PO DAILY [facility] Last Admin: 01/25/19 10:08 Dose: 40 mg Insulin Human Lispro (Humalog Med) 0 units SC ACHS [facility]; Protocol Last Admin: 01/25/19 16:22 Dose: Not Given Insulin Lispro Protam/Lispro Human (Humalog Mix 75/25) 20 units SC ACBD [facility] Last Admin: 01/25/19 17:47 Dose: 20 units Levalbuterol HCl (Xopenex) 0.63 mg IH [id number] PRN PRN Reason: Shortness of Breath Levothyroxine Sodium (Synthroid) 25 mcg PO 0600 [facility] Last Admin: 01/25/19 05:30 Dose: 25 mcg Montelukast Sodium (Singulair) 10 mg PO DAILY [facility] Last Admin: 01/25/19 10:07 Dose: 10 mg Nicotine (Nicoderm Cq) 1 patch TD DAILY [facility] Last Admin: 01/25/19 10:08 Dose: 1 patch Oxycodone/Acetaminophen (Percocet 5/325 Mg Tab) 1 tab PO Q6H PRN PRN Reason: Pain, moderate (4-7) Stop: 01/26/19 18:24 Last Admin: 01/25/19 10:07 Dose: 1 tab - Labs Labs: 01/24/19 07:00 01/24/19 07:00 PT 14.9 SECONDS (9.4-12.5) H 01/19/19 23:29 INR 1.34 01/19/19 23:29 APTT 37.3 Seconds (26.9-38.3) 01/19/19 23:29 - Constitutional Appears: Well, No Acute Distress - Head Exam Head Exam: ATRAUMATIC, NORMAL INSPECTION, NORMOCEPHALIC - Eye Exam Eye Exam: Normal appearance - ENT Exam ENT Exam: Normal External Ear Exam - Neck Exam Neck Exam: Normal Inspection - Respiratory Exam Respiratory Exam: NORMAL BREATHING PATTERN - Cardiovascular Exam Cardiovascular Exam: absent: JVD - GI/Abdominal Exam GI & Abdominal Exam: absent: Distended - Rectal Exam Rectal Exam: Deferred - Exam Additional comments: Deferred. - Extremities Exam Extremities Exam: Normal Inspection - Back Exam Back Exam: NORMAL INSPECTION - Neurological Exam Neurological Exam: Alert, Awake - Psychiatric Exam Psychiatric exam: Normal Affect, Normal Mood - Skin Skin Exam: Normal Color Assessment and Plan - Assessment and Plan (Free Text) Assessment: Palpitation secondary to duoneb. HTN. CAD HLD IDDM PVD Plan: Will change to Xopenex. Continue present management.
[2019-01-26] MEDS: Levalbuterol 0.63 MG/3 ML Inhal Soln UD IH PRN (00:25)
[2019-01-26] MEDS: Insulin Lispro (humaLOG) MEDIUM Coverage SC SCH ×4 (02:01→21:21)
[2019-01-26] MEDS: Albuterol-Ipratrop 3 mg / 0.5 (3 ml) UD IH SCH ×4 (03:00→20:46)
[2019-01-26] MEDS ORDERED: guaiFENesin-DM 600-30 mg ER Tab PO ONE (03:51)
[2019-01-26] MEDS: Levothyroxine 25 MCG TAB PO SCH (05:13)
[2019-01-26] MEDS: Insulin Lispro (humaLOG) MIX 75/25(10 ml) SC SCH ×2 (10:41→18:17)
--- NOTE | 2019-01-26 21:52 | PN ---
DATE: 01/26/2019 SUBJECTIVE: The patient is 73 years old. Seen and examined. Eating and tolerating. No nausea or vomiting. No diarrhea. PHYSICAL EXAMINATION: VITAL SIGNS: He is afebrile, pulse 64, respirations 18, and blood pressure 115/67. LUNGS: Bilateral fair airflow. No rhonchi or crackle. HEART: S1 and S2 audible. ABDOMEN: Soft, nontender. No rebound. No guarding. NEUROLOGIC: He is awake, alert, and oriented. Has left-sided weakness. Had difficulty walking. Unstable walking with cane. ASSESSMENT AND PLAN: 1. Chronic obstructive pulmonary disease exacerbation. 2. Congestive heart failure. 3. Peripheral vascular disease. 4. History of cerebrovascular accident with left hemiparesis. 5. Status post cardiac catheterization, conclusion was to optimize medical treatment. 6. Insulin-dependent diabetes. 7. Ex-smoker. PLAN: We will continue the patient's current medical regimen. Awaiting him to be transferred to subacute rehab. Kierra Agarwal MD
[2019-01-27] MEDS: Levothyroxine 25 MCG TAB PO SCH (06:31)
[2019-01-27] MEDS: Albuterol-Ipratrop 3 mg / 0.5 (3 ml) UD IH SCH ×3 (07:34→19:45)
[2019-01-27] MEDS: Insulin Lispro (humaLOG) MIX 75/25(10 ml) SC SCH ×2 (08:49→17:41)
[2019-01-27] MEDS: Insulin Lispro (humaLOG) MEDIUM Coverage SC SCH ×3 (08:49→17:41)
[2019-01-27] MEDS: Bacitracin 500 Units/gm Oint Foilpak UD TOP SCH ×2 (09:51→17:40)
[2019-01-27] MEDS: Levalbuterol 0.63 MG/3 ML Inhal Soln UD IH PRN (11:39)
[2019-01-27] MEDS ORDERED: Magnesium Citrate Oral SOL (300 ml) PO ONE (12:20)
--- NOTE | 2019-01-27 13:11 | PN ---
DATE: 01/27/2019 REASON FOR CONSULTATION AND FOLLOWUP: Shortness of breath, abnormal stress test, history of CABG, history of PTCA in the past Status post cardiac cath as medical treatment. SUBJECTIVE: The patient denies any chest pain, shortness of breath or any palpitation. OBJECTIVE: GENERAL: Not in apparent distress. VITAL SIGNS: Temperature afebrile, heart rate 67 and blood pressure 106/73. HEENT: PERRLA. Extraocular muscles intact. NECK: Supple. No carotid bruit or thyromegaly. CHEST: Clear to auscultation. HEART: S1 and S2, regular. ABDOMEN: Soft. EXTREMITIES: Clubbing and cyanosis negative. LABORATORY DATA: Blood workup as follows, WBC 5.3, hemoglobin 13, hematocrit 41.5 and platelet count 183. Chemistry shows sodium 135, potassium 5, chloride 98, carbon dioxide 30, anion gap of 4, BUN 26 and creatinine 1.0. IMPRESSION: A 73-year-old male with past medical history significant for coronary artery disease status post coronary artery bypass surgery at [facility]. The patient admitted with shortness of breath, abnormal stress test underwent cardiac catheterization that revealed patent left internal mammary graft to left anterior descending, [place] three-vessels disease and preserved left ventricular function. Medical treatment recommended ejection fraction 40%-45%. The patient underwent stress test because the patient had a abnormal stress test, history of coronary artery bypass surgery in 2006, 12 years ago at [facility] and recent cardiac catheterization revealed [place] three-vessel disease, without significant disease left anterior descending occluded in the mid circumflex occluded in the mid segment, right coronary artery is proximally occluded, patent left internal mammary artery to left anterior descending. The patient occluded ramus intermedius, occluded to right coronary artery, left internal mammary artery is patent given left anterior descending and circumflex giving collateral through RPDA, borderline left ventricular dysfunction, ejection fraction 45%-50%. ADP in the range of 45. Medical treatment recommended. The patient had a pacemaker when the patient presented with 6 sinus syndrome, awaiting to go for rehab facility. The patient is large ramus lateral wall. Medical treatment recommended. RECOMMENDATION: Continue aspirin. Continue Lasix p.o. Continue atorvastatin. Continue Plavix. Medical treatment, awaiting to go for rehab facility. Cami Rubio MD [facility] # [id number]
--- NOTE | 2019-01-28 00:08 | PN ---
DATE: 01/27/2019 SUBJECTIVE: The patient is a 73-year-old, seen and examined, lying in bed, seems to be comfortable, complaining of constipation today, awaiting physician to be transferred to subacute rehab. PHYSICAL EXAMINATION: GENERAL: He is awake, alert, oriented and communicative. VITAL SIGNS: He is afebrile. Pulse 56, respirations 20, blood pressure 121/68. LUNGS: Bilateral fair airflow. No rhonchi or crackles. HEART: S1 and S2 audible. ABDOMEN: Soft, nontender. No rebound. No guarding. NEUROLOGIC: He is awake, alert, oriented and communicative. LABORATORY DATA: Blood sugar is 170. ASSESSMENT: 1. Coronary artery disease, status post cardiac catheterization because of an abnormal stress test. The patient has a history of open heart surgery. 2. History of percutaneous transluminal coronary angioplasty. Advised medical treatment. 3. History of cerebrovascular accident with left hemiparesis. 4. Hypertension. 5. Hyperlipidemia. 6. Insulin-dependent diabetes. 7. Peripheral vascular disease. PLAN: The patient will be given magnesium citrate today and will continue all other medications. Once accepted by subacute rehab, the patient will be transferred. Kierra Agarwal MD
[2019-01-28] MEDS: Insulin Lispro (humaLOG) MEDIUM Coverage SC SCH ×2 (00:44→08:17)
[2019-01-28] MEDS: Albuterol-Ipratrop 3 mg / 0.5 (3 ml) UD IH SCH ×4 (01:02→19:20)
[2019-01-28] MEDS: Levothyroxine 25 MCG TAB PO SCH (06:06)
--- NOTE | 2019-01-28 06:52 | CP.PCM.PN ---
Subjective - Date & Time of Evaluation Date of Evaluation: 01/28/19 Time of Evaluation: 06:15 - Subjective Subjective: Awake, alert, no distress, feels okay Reason for consultation and follow up: Cardiac evaluation of chest pain, history of coronary artery disease, post CABG, history of permanent pacemaker. Seen and examined by me and Dr. Rubio Objective - Vital Signs/Intake and Output Vital Signs (last 24 hours): Temp Pulse Resp BP Pulse Ox 98 F 68 20 127/77 95 01/27/19 21:38 01/27/19 21:38 01/27/19 21:38 01/27/19 21:38 01/27/19 21:38 Intake and Output: 01/27/19 01/28/19 18:59 06:59 Intake Total 900 900 Output Total 1250 Balance 900 -350 - Medications Medications: Current Medications Albuterol/Ipratropium (Duoneb 3 Mg/0.5 Mg (3 Ml) Ud) 3 ml IH [id number] [facility] Last Admin: 01/28/19 01:02 Dose: 3 ml Aspirin (Ecotrin) 81 mg PO DAILY [facility] Last Admin: 01/27/19 09:52 Dose: 81 mg Atorvastatin Calcium (Lipitor) 10 mg PO DIN [facility] Last Admin: 01/27/19 17:40 Dose: 10 mg Bacitracin (Bacitracin) 2 ea TOP BID [facility] Last Admin: 01/27/19 17:40 Dose: 2 ea Clopidogrel Bisulfate (Plavix) 75 mg PO DAILY [facility] Last Admin: 01/27/19 09:52 Dose: 75 mg Furosemide (Lasix) 40 mg PO DAILY [facility] Last Admin: 01/27/19 09:52 Dose: 40 mg Insulin Human Lispro (Humalog Med) 0 units SC ACHS [facility]; Protocol Last Admin: 01/28/19 00:44 Dose: Not Given Insulin Lispro Protam/Lispro Human (Humalog Mix 75/25) 20 units SC ACBD [facility] Last Admin: 01/27/19 17:41 Dose: 20 units Levalbuterol HCl (Xopenex) 0.63 mg IH [id number] PRN PRN Reason: Shortness of Breath Last Admin: 01/27/19 11:39 Dose: 0.63 mg Levothyroxine Sodium (Synthroid) 25 mcg PO 0600 [facility] Last Admin: 01/28/19 06:06 Dose: 25 mcg Montelukast Sodium (Singulair) 10 mg PO DAILY [facility] Last Admin: 01/27/19 09:52 Dose: 10 mg Nicotine (Nicoderm Cq) 1 patch TD DAILY [facility] Last Admin: 01/27/19 09:51 Dose: 1 patch - Labs Labs: 01/24/19 07:00 01/24/19 07:00 PT 14.9 SECONDS (9.4-12.5) H 01/19/19 23:29 INR 1.34 01/19/19 23:29 APTT 37.3 Seconds (26.9-38.3) 01/19/19 23:29 - Constitutional Appears: Non-toxic, No Acute Distress - Head Exam Head Exam: NORMAL INSPECTION, NORMOCEPHALIC - Eye Exam Eye Exam: Normal appearance Pupil Exam: NORMAL ACCOMODATION - ENT Exam ENT Exam: Mucous Membranes Moist, Normal Exam - Respiratory Exam Respiratory Exam: Clear to Ausculation Bilateral, NORMAL BREATHING PATTERN - Cardiovascular Exam Cardiovascular Exam: +S1, +S2 Additional comments: PPM - Extremities Exam Extremities Exam: Full ROM, Normal Capillary Refill - Neurological Exam Neurological Exam: Alert, Awake - Psychiatric Exam Psychiatric exam: Normal Affect, Normal Mood - Skin Skin Exam: Dry, Normal Color, Warm Assessment and Plan - Assessment and Plan (Free Text) Assessment: A 73 year old male who came in to the ER due to chest pain with intermittent shortness of breath. History of hypertension, CVA, coronary artery disease post CABG 12 years ago at [facility]. PPM 08/15/2018 for complete heart block, insulin dependent diabetes mellitus, COPD, hyperlipidemia, history of polycythemia vera, peripheral arterial disease with multiple peripheral intervention done by Dr. Cordova, non -compliant with medications. Active tobacco abuse smokes 2 packs per day.Chest X ray showed infiltrates.Troponin normal. Stress test done with abnormal results, partially reversible anteroseptal and apical defects suspicious of ischemia. LVEF 40 %. Echo done and showed LVEF 55- 60%, pacemaker lead intact on right ventricle, Trace AR, moderate valvular aortic stenosis, mild to moderate MR, moderate TR, RVSP 51 mmHg, no vegetation or thrombus.Episode of chest pain with relief after giving 2 sublingual Nitroglycerine. Post cardiac catheterization yesterday and showed [place] triple vessel disease, WHYTE to LAD patent, Occluded SVG to RCA. WHYTE to LAD and circumflex are giving collaterals to RPDA. LVEF 45-50%. Optimize medical treatment.Cardiac status stable. Discharge planning, Awaiting rehab placement. Plan: Cardiac status stable Heart rate stable Blood pressure controlled On ASA 81 mg daily, Lipitor 10 mg daily,Plavix 75 mg daily, Lasix 40 mg daily, Synthroid 25 mcg daily, Nicoderm patch daily. Continue current treatment Continue current medications Smoking cessation May discharge from cardiac standpoint Discharge planning Awaiting rehab placement Will follow up Plan and treatment discussed with Dr. Rubio
[2019-01-28] MEDS: Insulin Lispro (humaLOG) MIX 75/25(10 ml) SC SCH ×2 (08:17→17:28)
[2019-01-28] MEDS: Bacitracin 500 Units/gm Oint Foilpak UD TOP SCH ×2 (09:54→18:06)
--- NOTE | 2019-01-28 10:41 | PQF ---
PROVIDER RESPONSE TEXT: Acute on chronic systolic REVIEWER QUERY TEXT: CHF Acuity and Type Congestive Heart Failure is documented in the Medical Record. Please document the type and acuity (in cludes probable or suspected) Such as: Type: -- Systolic -- Diastolic -- Combined -- Other, please specify Acuity: -- Acute -- Chronic -- Acute on chronic -- Other, please specify Also please document the underlying cause of the CHF (includes probable or suspected) The patient's Clinical Indicators include: Patient noted to have CHF with preserved LVF with EF 40-45%. Please specify the acuity. Query created by: Janet Mead on 01/27/2019 12:19 PM Electronically signed by: Kierra Agarwal MD 01/28/2019 10:38 AM
[2019-01-28] MEDS: Insulin Lispro (HUMAlog) HIGH Coverage SC SCH ×3 (12:26→21:21)
--- NOTE | 2019-01-28 13:14 | RAD ---
Date of service: 01/28/2019 HISTORY: F/U pneumonia and compare COMPARISON: 01/19/2019 TECHNIQUE: Chest PA and lateral FINDINGS: LUNGS: Bibasilar infiltrates probable atelectasis PLEURA: There is a loculated pleural effusion on the right extending into the minor fissure. There is a small left pleural effusion. CARDIOVASCULAR: Aortic calcification Mild cardiomegaly no pulmonary vascular congestion. OSSEOUS STRUCTURES: Sternal wires VISUALIZED UPPER ABDOMEN: Normal. OTHER FINDINGS: Single lead pacemaker IMPRESSION: Bibasilar atelectasis and small bilateral pleural effusions
--- NOTE | 2019-01-28 15:04 | PN ---
DATE: 01/28/2019 SUBJECTIVE: The patient is 73-year-old, seen and examined, lying in bed complaining of constipation bowel movement yesterday, but denies any chest pain or shortness of breath. Does have cough and congestion. PHYSICAL EXAMINATION: VITAL SIGNS: He is afebrile. Pulse 61, respiration 18 and blood pressure 102/45. LUNGS: Bilateral occasional expiratory rhonchi with soft occasional crackle. HEART: S1 and S2, audible. ABDOMEN: Soft and nontender. No rebound. No guarding. NEUROLOGIC: The patient is awake, alert and able to communicate. Has left sided weakness. LABORATORY DATA: Blood sugar is . ASSESSMENT: 1. Chest pain, history of coronary artery disease, status post open heart surgery, status post recent cardiac cath and concluded to maximum medical treatment. 2. Insulin-dependant diabetes. 3. Hypertension. 4. Hyperlipidemia. 5. Status post cerebrovascular accident with left hemiparesis. PLAN: Currently, the patient is on nebulizer treatment. He is on aspirin. He is on statin. We increased his insulin from 20-25 unit before breakfast and dinner and increase his insulin coverage to high dose coverage. He is on Plavix. He is on Singulair. We will continue on levothyroxine and we will follow the patient in a.m. We will start him on MiraLax. health services administrator are in the process of getting authorization for subacute rehab. Kierra Agarwal MD
[2019-01-28] MEDS: POLYETHYLENE GLYCOL 3350 17 GM/Dose PACKET PO SCH (15:19)
[2019-01-29] MEDS: Albuterol-Ipratrop 3 mg / 0.5 (3 ml) UD IH SCH ×3 (00:59→13:32)
[2019-01-29] MEDS: Levalbuterol 0.63 MG/3 ML Inhal Soln UD IH PRN (03:00)
[2019-01-29] MEDS: Levothyroxine 25 MCG TAB PO SCH (05:10)
--- NOTE | 2019-01-29 06:54 | CP.PCM.PN ---
Subjective - Date & Time of Evaluation Date of Evaluation: 01/29/19 Time of Evaluation: 06:40 - Subjective Subjective: Awake, alert, no distress, lying in bed Reason for consultation and follow up: Cardiac evaluation of chest pain, history of coronary artery disease, post CABG, history of permanent pacemaker. Seen and examined by me and Dr. Rubio Objective - Vital Signs/Intake and Output Vital Signs (last 24 hours): Temp Pulse Resp BP Pulse Ox 97.9 F 60 19 122/71 94 L 01/28/19 21:23 01/28/19 21:23 01/28/19 21:23 01/28/19 21:23 01/28/19 21:23 Intake and Output: 01/28/19 01/29/19 18:59 06:59 Output Total 400 Balance -400 - Medications Medications: Current Medications Albuterol/Ipratropium (Duoneb 3 Mg/0.5 Mg (3 Ml) Ud) 3 ml [facility] [id number] [facility] Last Admin: 01/29/19 00:59 Dose: 3 ml Aspirin (Ecotrin) 81 mg PO DAILY [facility] Last Admin: 01/28/19 09:54 Dose: 81 mg Atorvastatin Calcium (Lipitor) 10 mg PO DIN [facility] Last Admin: 01/28/19 18:06 Dose: 10 mg Bacitracin (Bacitracin) 2 ea TOP BID [facility] Last Admin: 01/28/19 18:06 Dose: 2 ea Clopidogrel Bisulfate (Plavix) 75 mg PO DAILY [facility] Last Admin: 01/28/19 09:54 Dose: 75 mg Furosemide (Lasix) 40 mg PO DAILY [facility] Last Admin: 01/28/19 10:02 Dose: Not Given Insulin Human Lispro (Humalog High) 0 units SC ACHS [facility]; Protocol Last Admin: 01/28/19 21:21 Dose: Not Given Insulin Lispro Protam/Lispro Human (Humalog Mix 75/25) 25 units SC ACBD [facility] Last Admin: 01/28/19 17:28 Dose: Not Given Levalbuterol HCl (Xopenex) 0.63 mg IH [id number] PRN PRN Reason: Shortness of Breath Last Admin: 01/29/19 03:00 Dose: 0.63 mg Levothyroxine Sodium (Synthroid) 25 mcg PO 0600 [facility] Last Admin: 01/29/19 05:10 Dose: 25 mcg Montelukast Sodium (Singulair) 10 mg PO DAILY [facility] Last Admin: 01/28/19 09:54 Dose: 10 mg Nicotine (Nicoderm Cq) 1 patch TD DAILY [facility] Last Admin: 01/28/19 09:55 Dose: 1 patch Polyethylene Glycol (Miralax) 17 gm PO DAILY [facility] Last Admin: 01/28/19 15:19 Dose: 17 gm - Labs Labs: 01/24/19 07:00 01/24/19 07:00 PT 14.9 SECONDS (9.4-12.5) H 01/19/19 23:29 INR 1.34 01/19/19 23:29 APTT 37.3 Seconds (26.9-38.3) 01/19/19 23:29 - Constitutional Appears: Non-toxic, No Acute Distress - Head Exam Head Exam: NORMAL INSPECTION, NORMOCEPHALIC - Eye Exam Eye Exam: Normal appearance Pupil Exam: NORMAL ACCOMODATION - ENT Exam ENT Exam: Mucous Membranes Moist - Respiratory Exam Respiratory Exam: Decreased Breath Sounds, NORMAL BREATHING PATTERN - Cardiovascular Exam Cardiovascular Exam: +S1, +S2 Additional comments: PPM - Extremities Exam Extremities Exam: Full ROM, Normal Capillary Refill - Neurological Exam Neurological Exam: Alert, Awake - Psychiatric Exam Psychiatric exam: Normal Affect, Normal Mood - Skin Skin Exam: Dry, Normal Color, Warm Assessment and Plan - Assessment and Plan (Free Text) Assessment: A 73 year old male who came in to the ER due to chest pain with intermittent shortness of breath. History of hypertension, CVA, coronary artery disease post CABG 12 years ago at [facility] PPM 08/15/2018 for complete heart block, insulin dependent diabetes mellitus, COPD, hyperlipidemia, history of polycythemia vera, peripheral arterial disease with multiple peripheral intervention done by Dr. Cordova, non -compliant with medications. Active tobacco abuse smokes 2 packs per day.Chest X ray showed infiltrates.Troponin normal. Stress test done with abnormal results, partially reversible anteroseptal and apical defects suspicious of ischemia. LVEF 40 %. Echo done and showed LVEF 55- 60%, pacemaker lead intact on right ventricle, Trace AR, moderate valvular aortic stenosis, mild to moderate MR, moderate TR, RVSP 51 mmHg, no vegetation or thrombus.Episode of chest pain with relief after giving 2 sublingual Nitroglycerine. Post cardiac catheterization yesterday and showed [place] triple vessel disease, WHYTE to LAD patent, Occluded SVG to RCA. WHYTE to LAD and circumflex are giving collaterals to RPDA. LVEF 45-50%. Optimize medical treatment.Cardiac status stable. Discharge planning, Awaiting rehab placement. Extra dose of lasix given. Chest X ray done and showed bibasalar atelectasis and small bilateral effusion. Continue daily Lasix. Plan: Chest X ray done and showed bibasalar atelectasis and small bilateral effusion. Continue daily Lasix. Cardiac status stable Heart rate stable Blood pressure controlled On ASA 81 mg daily, Lipitor 10 mg daily,Plavix 75 mg daily, Lasix 40 mg daily, Synthroid 25 mcg daily, Nicoderm patch daily. Continue current treatment Continue current medications Smoking cessation Discharge planning Awaiting rehab placement Incentive spirometer while awake Will follow up Plan and treatment discussed with Dr. Rubio
[2019-01-29 07:11] LABS: BASO # 0.03 K/mm3 (0.0-2.0); BASO % 0.5 % (0.0-3.0); EOS # 0.4 (0.0-0.7); EOS % 6.4 % (1.5-5.0); HEMOGLOBIN 13.3 g/dL (14.0-18.0); LYMPH # 1.9 (1.2-3.4); LYMPH % 34.2 % (22.0-35.0); MEAN CELL VOLUME 90.8 fl (80.0-105.0); MEAN CORPUSCULAR HEMOGLOBIN 29.2 pg (25.0-35.0); MEAN CORPUSCULAR HGB CONC 32.2 g/dl (31.0-37.0); MEAN PLATELET VOLUME 12.8 fl (7.0-11.0); MONO # 0.4 (0.1-0.6); MONO % 6.4 % (1.0-6.0); RBC 4.55 10^6/uL (3.5-6.1); RED CELL DISTRIBUTION WIDTH 14.9 % (11.5-14.5); WHITE BLOOD COUNT 5.6 10^3/uL (4.5-11.0)
[2019-01-29 07:30] LABS: ALBUMIN 3.6 g/dL (3.0-4.8); ALT/SGPT 7 U/L (7-56); AST/SGOT 21 U/L (17-59); BLOOD UREA NITROGEN 30 mg/dL (7-21); CALCIUM 9.1 mg/dL (8.4-10.5); GFR NON-AFRICAN AMERICAN > 60
[2019-01-29] MEDS: Insulin Lispro (humaLOG) MIX 75/25(10 ml) SC SCH (08:28)
[2019-01-29] MEDS: Insulin Lispro (HUMAlog) HIGH Coverage SC SCH ×2 (08:28→12:06)
[2019-01-29] MEDS: POLYETHYLENE GLYCOL 3350 17 GM/Dose PACKET PO SCH (10:00)
[2019-01-29] MEDS: Bacitracin 500 Units/gm Oint Foilpak UD TOP SCH (10:00)
[2019-01-29 10:29] VITALS: BP 131/74; PULSE 78; RESP 18; TEMP 97.6; O2SAT 98
--- NOTE | 2019-01-29 22:34 | DS ---
HISTORY OF PRESENT ILLNESS: The patient is 73 years old, who was admitted with chest pain, shortness of breath, generalized weakness, difficulty walking, multiple falls at home and he has multiple scab on his knees because of multiple falls at home. The patient is still active smoker. PAST MEDICAL HISTORY: Significant for; 1. Hypertension. 2. Coronary artery disease, status post multiple angioplasties and cardiac cath. 3. COPD, secondary to heavy smoking. 4. Peripheral vascular disease, status post angioplasty. 5. Hypertension. 6. Hyperlipidemia. 7. Insulin-dependant diabetes. The patient was admitted had cardiac cath done. He was found to have reversible anteroseptal and apical defect suspicious for ischemia had cath done shows left ventricular ejection fraction 40%. CAT scan shows [place] triple vessel disease and WHYTE to LAD is patent, occluded saphenous vein graft to RCA. WHYTE to LAD and circumflex given collateral to RPDA with left ventricular ejection fraction 45%. PHYSICAL EXAMINATION: GENERAL: Today, he is awake, alert, oriented and communicative. VITAL SIGNS: He is afebrile, pulse 70, respiration 18 and blood pressure 131/74. LUNGS: Bilateral fair airflow. No rhonchi or crackle. HEART: S1 and S2, audible. ABDOMEN: Soft and nontender. No rebound. No guarding. NEUROLOGIC: The patient is awake, alert, oriented and communicative. Moves all extremities, has left sided weakness secondary to previous stroke. ASSESSMENT: 1. Recurrent chest pain. 2. Coronary artery disease, status post cath. 3. History of coronary artery bypass graft multiple years ago. 4. Insulin-dependant diabetes. 5. Active smoker currently on nicotine patch. 6. Hyperlipidemia. 7. Deconditioning and difficulty walking. DISCHARGE PLAN: The patient is medically stable. He is being transferred to TCU for rehab and close monitoring. Kierra Agarwal MD
== END 2019-01-29 15:57 | DRG 286 ==
LOC: ED 22:48 → ERH 01-20 00:28 → 2RSO 01-20 01:58 → OBSVTOIN 01-21 15:10 → 5RSO 01-24 09:56
PROVIDERS: ADMIT Internal Medicine; ATTEND Internal Medicine
PROC: 4A023N7 Measurement of Cardiac Sampling and Pressure, Left Heart, Percutaneous Approach (ICD-10-PCS; principal; 2019-01-23)
PROC: B211YZZ Fluoroscopy of Multiple Coronary Arteries using Other Contrast (ICD-10-PCS; 2019-01-23)
PROC: B215YZZ Fluoroscopy of Left Heart using Other Contrast (ICD-10-PCS; 2019-01-23)
PROC: B218YZZ Fluoroscopy of Left Internal Mammary Bypass Graft using Other Contrast (ICD-10-PCS; 2019-01-23)
DX: I25.110 Atherosclerotic heart disease of native coronary artery with unstable angina pectoris (principal); I50.23 Acute on chronic systolic (congestive) heart failure; T82.857A Stenosis of other cardiac prosthetic devices, implants and grafts, initial encounter; I69.354 Hemiplegia and hemiparesis following cerebral infarction affecting left non-dominant side; J44.1 Chronic obstructive pulmonary disease with (acute) exacerbation; J98.11 Atelectasis; I11.0 Hypertensive heart disease with heart failure; E11.51 Type 2 diabetes mellitus with diabetic peripheral angiopathy without gangrene; D45 Polycythemia vera; F17.210 Nicotine dependence, cigarettes, uncomplicated; I25.5 Ischemic cardiomyopathy; E03.9 Hypothyroidism, unspecified; E11.65 Type 2 diabetes mellitus with hyperglycemia; E78.5 Hyperlipidemia, unspecified; I08.3 Combined rheumatic disorders of mitral, aortic and tricuspid valves; R26.2 Difficulty in walking, not elsewhere classified; G47.00 Insomnia, unspecified; R00.2 Palpitations; T48.6X5A Adverse effect of antiasthmatics, initial encounter; Y83.2 Surgical operation with anastomosis, bypass or graft as the cause of abnormal reaction of the patient, or of later complication, without mention of misadventure at the time of the procedure; Z95.0 Presence of cardiac pacemaker; Z79.02 Long term (current) use of antithrombotics/antiplatelets; Z79.4 Long term (current) use of insulin; Z91.19 Patient's noncompliance with other medical treatment and regimen; Z98.62 Peripheral vascular angioplasty status; Z91.14 Patient's other noncompliance with medication regimen

== ENCOUNTER 2019-01-29 15:28 | Inpatient (IN) | payer BC, OTHER ==
[2019-01-29 16:18] VITALS: BMI 24.8
[2019-01-29] MEDS ORDERED: Dextrose 50% SYRINGE Inj (50 ml) IV PRN (16:36)
[2019-01-29] MEDS: Bacitracin 500 Units/gm Oint Foilpak UD TOP SCH (18:20)
[2019-01-29] MEDS ORDERED: Influenza Vaccine 60 mcg/0.5 mL SYR (4YR UP) IM ONE (20:55)
[2019-01-29] MEDS ORDERED: Pneumococcal 23-Valent Vaccine IM ONE (20:55)
[2019-01-29] MEDS: Insulin Lispro (HUMAlog) HIGH Coverage SC SCH (21:55)
[2019-01-29] MEDS: Albuterol-Ipratrop 3 mg / 0.5 (3 ml) UD IH SCH (22:00)
[2019-01-30] MEDS: Albuterol-Ipratrop 3 mg / 0.5 (3 ml) UD IH SCH ×4 (02:12→19:56)
[2019-01-30] MEDS: Levalbuterol 0.63 MG/3 ML Inhal Soln UD IH PRN (05:40)
[2019-01-30] MEDS: Insulin Lispro (HUMAlog) HIGH Coverage SC SCH ×4 (06:31→22:32)
[2019-01-30] MEDS: Insulin Lispro (humaLOG) MIX 75/25(10 ml) SC SCH ×2 (06:31→17:30)
[2019-01-30] MEDS: Levothyroxine 25 MCG TAB PO SCH (06:32)
[2019-01-30] MEDS: POLYETHYLENE GLYCOL 3350 17 GM/Dose PACKET PO SCH (11:00)
[2019-01-30] MEDS: Bacitracin 500 Units/gm Oint Foilpak UD TOP SCH ×2 (11:00→17:56)
--- NOTE | 2019-01-30 22:03 | HP ---
DATE OF EXAM: 01/30/2019 HISTORY OF PRESENT ILLNESS: The patient is a 73-year-old came to emergency room because of chest pain and pressure. He was taken to [facility] and conclusion was to maximize medical treatment. PAST MEDICAL HISTORY: He has past medical history significant for: 1. COPD. 2. Hypertension. 3. Coronary artery disease. 4. Heavy active smoker. 5. Peripheral vascular disease, status post angioplasty. 6. Status post CVA with left hemiparesis. ALLERGIES: HE IS NOT ALLERGIC TO ANY MEDICATIONS. MEDICATIONS: Sent to home as per MAR. REVIEW OF SYSTEMS: Significant for shortness of breath and scanty cough. PHYSICAL EXAMINATION: GENERAL: He is awake, alert, oriented, and communicative. VITAL SIGNS: He is afebrile, pulse 60, respirations 20, and blood pressure 94/57. LUNGS: Bilateral diffusely decreased breath sounds. HEART: S1 and S2 audible. ABDOMEN: Soft and nontender. No rebound. No guarding. NEUROLOGICAL: He is awake, alert, oriented, and communicative and has left-sided residual weakness from previous CVA. ASSESSMENT: 1. Coronary artery disease, status post open heart surgery, status post multiple cardiac catheterization. 2. Peripheral vascular disease. 3. Chronic obstructive pulmonary disease. 4. Hypertension. 5. Hyperlipidemia. 6. Insulin-dependent diabetes. PLAN: MAR reviewed, seem to be appropriate. Continue current medications. We will monitor blood sugar. Aggressive physical therapy and gait training. Kierra Agarwal MD
--- NOTE | 2019-01-31 00:50 | CON ---
DATE: 01/30/2019 LOCATION: The patient is in room 304, bed 1. REASON FOR CONSULTATION: Followup coronary artery disease, status post CABG, pacemaker insertion, LV dysfunction, status post cardiac catheterization, and deconditioning. HISTORY OF PRESENT ILLNESS: A 73-year-old male who is known to have coronary artery disease, history of CVA, coronary artery bypass surgery, insulin-dependent diabetes, COPD, and status post pacemaker insertion. The patient was admitted to medical floor with chest pain. The patient also has tenderness on the left side of the chest underneath the pacemaker area. The patient's stress test was abnormal, so the patient had cardiac catheterization and medical therapy was suggested. Now, the patient is in Transitional Care Unit for deconditioning and physical therapy. The patient lying flat in bed without chest pain, shortness of breath or palpitation. PAST MEDICAL HISTORY: Significant for coronary artery disease and CABG about 2 to 3 years ago. The patient has pacemaker insertion on 08/15/2018. The patient has history of diabetes, hypertension, hyperlipidemia, polycythemia vera, peripheral arterial disease, COPD, and peripheral intervention was done in the past by Dr. David Cordova. The patient is compliant patient with the follow up and medication and has history of tobacco abuse. PERSONAL HISTORY: Active tobacco abuse, two packs a day, still smoke. Denies any alcohol abuse. HOME MEDICATIONS: Included Crestor, Singulair, NovoLog insulin, Plavix, and aspirin. RECENT CARDIAC WORKUP: The patient had insertion of single-chamber VVI pacemaker on 08/15/2018 due to complete heart block, Medtronic ventricular lead MRI safe and pulse generator Saskia XT MRI safe were inserted, single-chamber VVI Medtronic pacemaker. The patient had echocardiogram on 01/21/2019, which showed left ventricular normal size, mild concentric left ventricular hypertrophy with LV ejection fraction was 55% to 60%, right ventricle borderline dilated, pacemaker lead right ventricle, trace aortic regurgitation, moderate valvular aortic stenosis, mitral regurgitation [id number], moderate tricuspid regurgitation, RVSP of 51 mmHg suggestive of moderate pulmonary hypertension. The patient has stress test on 01/21/2019, which showed partially reversible anteroseptal and apical defect suspicious for ischemia with the stress test LV ejection fraction was 40%. The patient had cardiac catheterization on 01/23/2019, which showed [place] triple vessel disease, patent to WHYTE to LAD, occluded SVG to RCA, circ is occluded 100% in the mid segment, first obtuse marginal branch is a small vessel with diffuse calcification noted towards the vessel without significant focal stenosis, WHYTE to LAD and first obtuse marginal branch of circ are giving collateral to the RPDA, borderline LV dysfunction, ejection fraction 45% to 50%, and EDP in the range 50 mmHg. Medical therapy and cessation of smoking was suggested to the patient. REVIEW OF SYSTEMS: All the systems are reviewed positive as mentioned in the history. PHYSICAL EXAMINATION: VITAL SIGNS: Blood pressure 94/57, respirations 20, pulse 60, and temperature 97.4. HEENT: Head is normocephalic. Eyes; pupils are normal. Conjunctivae normal. Nose and throat normal. NECK: JVP low. Carotids equal. THORAX: AP diameter normal. The patient from CABG. LUNGS: Clear. CARDIOVASCULAR: S1 and S2. Systolic murmur. No rub. ABDOMEN: Soft and no tenderness. No organomegaly. Bowel sounds normal. EXTREMITIES: No clubbing. No cyanosis. LABORATORY DATA: WBC 5.6, hemoglobin 13.3, hematocrit 41.3, and platelet 195. Random sugar 177. On 01/29/2019; sodium was 132, potassium 4.4, BUN 30, creatinine 1, random sugar 336, calcium 9.1, phosphorus 3.9, magnesium 2.5, total protein 7.3, and globulin 3.7. Chest x-ray; the patient had mild pulmonary venous congestion on admission to the medical floor. Electrocardiogram showed pacemaker rhythm. DIAGNOSES: Coronary artery disease, status post coronary artery bypass surgery; left ventricular dysfunction; history of congestive heart failure; diabetes; mellitus; hypertension; hyperlipidemia; chronic obstructive pulmonary disease, status post pacemaker insertion; coronary artery bypass surgery three years ago; history of cerebrovascular accident; history of peripheral arterial disease; and deconditioning. Poor compliant patient, tobacco abuse. PLAN: Again, transferred the patient for regular followup and then stop smoking. As mentioned, the patient is a poor compliant patient. The patient will continue insulin as per . The patient is on Lasix 40 IV daily and atorvastatin 10 mg daily. The patient on nicotine patch, Plavix 75 daily, montelukast, Singulair 10 mg at bedtime, levothyroxine 25 mcg daily, Xopenex hand nebulizer therapy, and aspirin 81 mg daily. Continue physical therapy and we will follow with you. Cami Starks MD
[2019-01-31] MEDS: Albuterol-Ipratrop 3 mg / 0.5 (3 ml) UD IH SCH ×4 (01:33→20:27)
[2019-01-31] MEDS: Levothyroxine 25 MCG TAB PO SCH (05:51)
[2019-01-31] MEDS: Insulin Lispro (HUMAlog) HIGH Coverage SC SCH ×4 (06:54→22:19)
[2019-01-31] MEDS: Insulin Lispro (humaLOG) MIX 75/25(10 ml) SC SCH ×2 (06:55→17:23)
[2019-01-31] MEDS: Bacitracin 500 Units/gm Oint Foilpak UD TOP SCH ×2 (09:26→17:21)
[2019-01-31] MEDS: POLYETHYLENE GLYCOL 3350 17 GM/Dose PACKET PO SCH (09:27)
--- NOTE | 2019-01-31 14:38 | PN ---
DATE: 01/31/2019 LOCATION: The patient is in room 304, bed 1. REASON FOR CONSULTATION AND FOLLOWUP: Coronary artery disease, status post CABG, pacemaker insertion, LV dysfunction, status post cardiac catheterization, and deconditioning. SUBJECTIVE: The patient lying flat in bed without any chest pain, shortness of breath, or palpitation. PHYSICAL EXAMINATION: VITAL SIGNS: Blood pressure 131/70, respiratory rate 20, pulse 60, and temperature 97.4. HEENT: Head is normocephalic. Eyes, pupils normal. Conjunctivae normal. Nose and throat normal. NECK: JVP low. Carotid equal. THORAX: AP diameter normal. LUNGS: No significant rales. CARDIOVASCULAR: S1 and S2. ABDOMEN: Soft. No tenderness and no organomegaly. EXTREMITIES: No clubbing, no cyanosis. LABORATORY DATA: Labs were done on the medical floor and they were reported normal on notes from medical floor. The patient's sugar yesterday was 172. DIAGNOSES: Coronary artery disease, status post coronary artery bypass surgery, left ventricular dysfunction, history of congestive heart failure, diabetes mellitus, hypertension, hyperlipidemia, chronic obstructive pulmonary disease, status post pacemaker insertion, history of cerebrovascular accident, history of peripheral arterial disease, deconditioning, poor compliant patient, and tobacco abuse. The patient's detailed cardiac history has been mentioned in the consultation done on 01/30/2019. The patient is on aspirin 81 mg daily, insulin lispro mix 75/30, getting 25 units subcutaneously , furosemide 40 mg IV daily, atorvastatin 10 daily, Plavix 75 daily, Singulair 10 mg at bedtime, and levothyroxine 25 mcg daily. Chest x-ray on 01/28/2019 showed bibasilar atelectasis and small bilateral pleural effusion. PLAN: We will repeat chest x-ray tomorrow morning to see improvement. We will follow with you. Cami Starks MD
--- NOTE | 2019-01-31 16:01 | PN ---
DATE: 01/31/2019 SUBJECTIVE: The patient is 73 years old, seen and examined, lying in bed, seems to be comfortable, participating in therapy. No nausea, vomiting, or diarrhea. Eating and tolerating. PHYSICAL EXAMINATION: VITAL SIGNS: He is afebrile. Pulse 60, respirations 20, blood pressure 131/70. LUNGS: Bilateral fair airflow. No rhonchi or crackle. HEART: S1, S2 audible. ABDOMEN: Soft. Nontender. No rebound. No guarding. NEUROLOGIC: He is awake and alert. Able to communicate. LABORATORY DATA: Blood sugar is 182. ASSESSMENT: 1. Coronary artery disease. 2. Chronic obstructive pulmonary disease. 3. Status post cerebrovascular accident with left hemiparesis. 4. Hypertension. 5. Insulin-dependent diabetes. PLAN: The patient is clinically stable. Continue physical therapy. Monitor blood sugar closely. Will follow up the patient in a.m. Kierra Agarwal MD
[2019-02-01] MEDS: Albuterol-Ipratrop 3 mg / 0.5 (3 ml) UD IH SCH ×4 (02:40→19:47)
[2019-02-01] MEDS: Levothyroxine 25 MCG TAB PO SCH (05:19)
[2019-02-01] MEDS: Levalbuterol 0.63 MG/3 ML Inhal Soln UD IH PRN ×2 (05:22→11:19)
[2019-02-01] MEDS: Insulin Lispro (humaLOG) MIX 75/25(10 ml) SC SCH ×2 (06:55→17:09)
[2019-02-01] MEDS: Insulin Lispro (HUMAlog) HIGH Coverage SC SCH ×4 (06:56→21:20)
[2019-02-01] MEDS: POLYETHYLENE GLYCOL 3350 17 GM/Dose PACKET PO SCH (10:23)
[2019-02-01] MEDS: Bacitracin 500 Units/gm Oint Foilpak UD TOP SCH ×2 (10:24→17:12)
--- NOTE | 2019-02-01 11:51 | RAD ---
Date of service: 02/01/2019 HISTORY: Compare to see improvement of CHF and Effusion. COMPARISON: Chest radiographs 01/28/2019. TECHNIQUE: Chest PA and lateral FINDINGS: LUNGS: Diminished infiltrate right base with minimal residual at the left. No new infiltrate appreciated bilaterally. PLEURA: Small pleural effusion remains. None is seen the right. No pneumothorax bilaterally. CARDIOVASCULAR: Calcific atherosclerotic changes are seen related to the thoracic aorta. Stable cardiac size. Unipolar permanent cardiac pacemaker reiterated as well as post CABG changes. No pulmonary vascular congestion. OSSEOUS STRUCTURES: No significant abnormalities. VISUALIZED UPPER ABDOMEN: Normal. OTHER FINDINGS: None. IMPRESSION: Improved aeration bilaterally with trace residual infiltrate left base and minimal residual right base. Small pleural effusion remains. Pacemaker reiterated.
--- NOTE | 2019-02-01 16:05 | PN ---
DATE: 02/01/2019 SUBJECTIVE: The patient is 73 years old, seen and examined, complained of shortness of breath. No chest pain. Eating and tolerating, participating in therapy. PHYSICAL EXAMINATION: VITAL SIGNS: He is afebrile, pulse 60, respirations 18, and blood pressure 120/70. LUNGS: Bilateral fair airflow, no rhonchi or crackles. Posteriorly, he has rhonchi. HEART: S1 and S2 audible. ABDOMEN: Soft and nontender. No rebound, no guarding. NEUROLOGIC: He is awake, alert, and oriented, able to communicate. LABORATORY DATA: His blood sugar this morning was 210, around 11:28, it was 205. ASSESSMENT: 1. Coronary artery disease, status post open heart surgery, status post multiple stents. 2. Hypertension. 3. Chronic obstructive pulmonary disease. 4. Active smoker. 5. Insulin-dependent diabetes. PLAN: I will add Levemir 10 units at bedtime to control his morning sugar and continue physical therapy. We will follow this patient on Sunday. Kierra Agarwal MD
--- NOTE | 2019-02-01 16:20 | PN ---
DATE: 02/01/2019 LOCATION: The patient is in room 304, bed 1. REASON FOR CONSULTATION AND FOLLOWUP: Coronary artery disease, status post CABG; pacemaker insertion; LV dysfunction, status post cardiac catheterization; and deconditioning. SUBJECTIVE: The patient denies any chest pain, shortness of breath, palpitation. The patient is lying comfortably at present. PHYSICAL EXAMINATION VITAL SIGNS: Blood pressure 120/70, respirations 18, pulse 60, and temperature 98.1. HEENT: Head is normocephalic. Eyes, pupils normal. Conjunctivae normal. Nose and throat normal. NECK: JVP low. Carotid equal. THORAX: AP diameter normal. LUNGS: Clear. CARDIOVASCULAR: S1 and S2. ABDOMEN: Soft. No tenderness. No organomegaly. EXTREMITIES: No clubbing. No cyanosis. LABORATORY DATA: Sugar 205. Other labs were done in medical floor and they were reported in our progress note from medical floor. The patient's detailed cardiac workup was also mentioned in our consult. DIAGNOSES: Coronary artery disease, status post coronary artery bypass surgery; left ventricular dysfunction; history of congestive heart failure; diabetes mellitus; hypertension; hyperlipidemia; chronic obstructive pulmonary disease, status post pacemaker insertion; history of cerebrovascular accident; history of peripheral arterial disease; deconditioning; poor compliant patient; and tobacco abuse. Detailed finding and workup of the cardiac is mentioned in our consult dated 01/30/2019. PLAN: We will continue insulin as ordered, furosemide 40 mg IV daily, aspirin 81 mg daily, atorvastatin 10 mg daily, Plavix 75 mg daily, Singulair 10 mg at bedtime, and levothyroxine 25 mcg daily. The patient supposed to have repeat chest x-ray today, we will follow that and we will follow with you. Cami Starks MD
[2019-02-01] MEDS: Insulin Detemir 100 units/ml Vial (Levemir) SC SCH (22:02)
[2019-02-02] MEDS: Albuterol-Ipratrop 3 mg / 0.5 (3 ml) UD IH SCH ×4 (01:46→19:39)
[2019-02-02] MEDS: Levothyroxine 25 MCG TAB PO SCH (05:22)
[2019-02-02] MEDS: Levalbuterol 0.63 MG/3 ML Inhal Soln UD IH PRN (06:00)
[2019-02-02] MEDS: Insulin Lispro (humaLOG) MIX 75/25(10 ml) SC SCH ×2 (07:31→17:07)
[2019-02-02] MEDS: Insulin Lispro (HUMAlog) HIGH Coverage SC SCH ×4 (07:31→21:32)
--- NOTE | 2019-02-02 09:07 | PN ---
DATE: 02/02/2019 LOCATION: The patient is in room 304, bed 1. REASON FOR CONSULTATION AND FOLLOWUP: Coronary artery disease, status post CABG; pacemaker insertion; LV dysfunction, status post cardiac catheterization; and deconditioning. SUBJECTIVE: The patient is lying comfortably in bed without any chest pain, shortness of breath, or palpitation. The patient is getting physical therapy. PHYSICAL EXAMINATION: VITAL SIGNS: Blood pressure 120/70, respirations 20, pulse 65, and temperature 98.6. HEENT: Head is normocephalic. Eyes, pupils normal. Conjunctivae normal. NECK: JVP low. Carotid equal. THORAX: AP diameter normal. LUNGS: No significant rales. CARDIOVASCULAR: S1 and S2. ABDOMEN: Soft. No tenderness. No organomegaly. EXTREMITIES: No clubbing. No cyanosis. LABORATORY DATA: Blood sugar 223. Other labs were previously reported in the notes on medical floor. Chest x-ray was repeated yesterday and showed improvement of aeration bilaterally with trace residual infiltrates at the left base and minimal residual at the right base, small pleural effusion seen. DIAGNOSES: Coronary artery disease, status post coronary artery bypass surgery; left ventricular dysfunction; history of congestive heart failure; diabetes mellitus; hypertension; hyperlipidemia; chronic obstructive pulmonary disease, status post pacemaker insertion; history of cerebrovascular accident; peripheral vascular disease; deconditioning; poor compliant patient; tobacco abuse; infiltrate in the lung which is improving, and pleural effusion small. Detailed findings for cardiac workup have been discussed in our consult dated 01/30/2019. PLAN: The patient will be getting DuoNeb and nebulizer therapy, aspirin 81 mg daily, insulin as ordered, furosemide 40 mg IV daily, Plavix 75 mg daily, Singulair 10 mg at bedtime, and levothyroxine 25 mcg daily. We will continue present therapy and continue physical therapy. We will follow with you. Cami Starks MD
[2019-02-02] MEDS: Bacitracin 500 Units/gm Oint Foilpak UD TOP SCH ×2 (10:55→17:03)
[2019-02-02] MEDS: POLYETHYLENE GLYCOL 3350 17 GM/Dose PACKET PO SCH (10:55)
[2019-02-02] MEDS: Insulin Detemir 100 units/ml Vial (Levemir) SC SCH (22:25)
[2019-02-03] MEDS: Albuterol-Ipratrop 3 mg / 0.5 (3 ml) UD IH SCH ×4 (01:49→20:29)
[2019-02-03] MEDS: Levothyroxine 25 MCG TAB PO SCH (05:32)
[2019-02-03] MEDS: Insulin Lispro (humaLOG) MIX 75/25(10 ml) SC SCH ×2 (06:40→18:07)
[2019-02-03] MEDS: Insulin Lispro (HUMAlog) HIGH Coverage SC SCH ×4 (06:40→22:07)
[2019-02-03] MEDS: POLYETHYLENE GLYCOL 3350 17 GM/Dose PACKET PO SCH (10:12)
[2019-02-03] MEDS: Bacitracin 500 Units/gm Oint Foilpak UD TOP SCH ×2 (10:12→18:09)
[2019-02-03 15:54] VITALS: RESP 20
--- NOTE | 2019-02-03 17:13 | PN ---
DATE: 02/03/2019 REASON FOR CONSULTATION AND FOLLOWUP: Coronary artery disease, status post CABG, pacemaker insertion, LV dysfunction, status post cardiac catheterization, and deconditioning. SUBJECTIVE: The patient is sitting in chair comfortably without any chest pain, shortness of breath, or palpitation. The patient is having physical therapy without any cardiac symptoms. PHYSICAL EXAMINATION: VITAL SIGNS: Blood pressure 139/75, respiration 22, pulse 61, and temperature 97.4. HEENT: Head is normocephalic. Eyes, pupils normal. Conjunctivae normal. Nose and throat normal. NECK: JVP low. Carotid equal. THORAX: AP diameter normal. LUNGS: No significant rales. CARDIOVASCULAR: S1 and S2. ABDOMEN: Soft. No tenderness. No organomegaly. Bowel sounds normal. EXTREMITIES: No clubbing. No cyanosis. LABORATORY DATA: The patient's sugar is 139. Other labs were done previously and they were reported in the previous progress notes. DIAGNOSES: Coronary artery disease, status post coronary artery bypass surgery; left ventricular dysfunction; history of congestive heart failure; diabetes mellitus; hypertension; hyperlipidemia; chronic obstructive pulmonary disease, status post pacemaker insertion; history of cerebrovascular accident; peripheral vascular disease; deconditioning; poor compliant patient; tobacco abuse; infiltrate in the lung which is improving; and small pleural effusion. Detailed findings of cardiac catheterization have been discussed in our consult dated 01/30/2019. PLAN: Continue physical therapy for deconditioning. The patient is on insulin as ordered, furosemide 40 IV daily, Plavix 75 daily, Singulair 10 mg at bedtime, levothyroxine 25 mcg daily, DuoNeb and nebulizer therapy. We will repeat chest x-ray tomorrow morning, and in the meantime we will continue present therapy. We will follow with you. Cami Starks MD
--- NOTE | 2019-02-03 18:28 | PN ---
DATE: 02/03/2019 SUBJECTIVE: The patient is 73 years old, seen and examined, seen in therapy and gets desaturated on minimal exertion. Pulse ox was in the low at 86 and need home oxygen also. PHYSICAL EXAMINATION: VITAL SIGNS: He is afebrile, pulse 61, respirations 22, and blood pressure 139/75. LUNGS: Bilateral fair airflow, no rhonchi or crackles. HEART: S1 and S2 audible. ABDOMEN: Soft and nontender. No rebound, no guarding. NEUROLOGIC: He is awake, alert, and he has left hemiparesis from previous stroke. LABORATORY DATA: Blood sugar 139. ASSESSMENT AND PLAN: 1. Deconditioning and difficulty walking. 2. Left hemiparesis from multiple previous strokes. 3. Coronary artery disease. 4. Chronic obstructive pulmonary disease. 5. Active smoker. 6. Hypertension. PLAN: I will request Dr. Corona to evaluate the patient to arrange for home oxygen and for evaluation if the patient needs home oxygen or BIPAP. director of tax services are in the process of making arrangement from home O2, but however, want him to be in long-term care. She states she works and she cannot take care of him. Kierra Agarwal MD
[2019-02-03] MEDS: Insulin Detemir 100 units/ml Vial (Levemir) SC SCH (22:07)
[2019-02-04] MEDS: Albuterol-Ipratrop 3 mg / 0.5 (3 ml) UD IH SCH ×4 (01:38→21:35)
[2019-02-04] MEDS: Levothyroxine 25 MCG TAB PO SCH (05:28)
[2019-02-04] MEDS: Levalbuterol 0.63 MG/3 ML Inhal Soln UD IH PRN (06:16)
[2019-02-04] MEDS: Insulin Lispro (humaLOG) MIX 75/25(10 ml) SC SCH ×2 (06:37→17:00)
[2019-02-04] MEDS: Insulin Lispro (HUMAlog) HIGH Coverage SC SCH ×4 (06:37→21:57)
[2019-02-04 07:42] LABS: BASO # 0.04 K/mm3 (0.0-2.0); BASO % 0.8 % (0.0-3.0); EOS # 0.6 (0.0-0.7); EOS % 12.6 % (1.5-5.0); HEMOGLOBIN 13.1 g/dL (14.0-18.0); LYMPH # 2.3 (1.2-3.4); LYMPH % 45.2 % (22.0-35.0); MEAN CELL VOLUME 91.9 fl (80.0-105.0); MEAN CORPUSCULAR HEMOGLOBIN 29.6 pg (25.0-35.0); MEAN CORPUSCULAR HGB CONC 32.2 g/dl (31.0-37.0); MONO # 0.4 (0.1-0.6); MONO % 8.1 % (1.0-6.0); RBC 4.43 10^6/uL (3.5-6.1); RED CELL DISTRIBUTION WIDTH 14.8 % (11.5-14.5); WHITE BLOOD COUNT 5.1 10^3/uL (4.5-11.0)
[2019-02-04 08:02] LABS: BLOOD UREA NITROGEN 29 mg/dL (7-21); CALCIUM 9.3 mg/dL (8.4-10.5); GFR NON-AFRICAN AMERICAN > 60
[2019-02-04] MEDS: Bacitracin 500 Units/gm Oint Foilpak UD TOP SCH ×2 (09:28→17:39)
[2019-02-04] MEDS: POLYETHYLENE GLYCOL 3350 17 GM/Dose PACKET PO SCH (09:29)
--- NOTE | 2019-02-04 10:19 | CON ---
DATE OF CONSULTATION: 02/04/2019 PULMONARY CONSULTATION REASON FOR PULMONARY CONSULTATION: Evaluate for home oxygen. REFERRING PHYSICIAN: Dr. Agarwal. SOURCE OF HISTORY: History is obtained via extensive discussion with the night nurse. I have also reviewed the chart at length, and discussed the case with the patient at length. HISTORY OF PRESENT ILLNESS: The patient is a chronically ill 73-year-old male, with past medical history significant for chronic obstructive pulmonary disease, positive extensive smoking history - still smokes, coronary artery disease, status post multiple angioplasties, status post open heart surgery, cardiomyopathy, hypertension, diabetes mellitus, CVA, who presented to [facility] - originally on 01/19/2019 - with shortness of breath and chest pain. In the emergency room, the patient was diagnosed with acute congestive heart failure and admitted to the telemetry floor. The patient's stay on the telemetry floor was fairly unremarkable. He did have a cardiac catheterization procedure done - which showed multivessel coronary artery disease. He was also diuresed effectively. He did have resolution of his chest pain and shortness of breath. He was then transferred to the transitional unit for physical therapy. Again, I did discuss the case with the night nurse at length. Apparently, upon ambulation, the patient does desaturate. I am thus asked to evaluate on this case for possible home oxygen therapy. The patient is not short of breath at rest. He does state to occasional dyspnea on exertion. He also states to chronic occasional cough with occasional sputum production. As above, his chest pain has resolved. There is no history of coughing up of blood. There is no history of chest pain - brought on with deep respirations.. There is no history of temperatures, chills, or infectious exposure. There is no history of night sweats, weight loss or appetite change prior to the above events. No history of calf pains. No history of syncope or diaphoresis. No history of recent travel or trauma. REVIEW OF SYSTEMS: The patient does have a chronic left hemipareses from a previous stroke. There are no acute urinary complaints. There is no nausea, vomiting, or diarrhea. Rest of the review of systems is negative. ALLERGIES: NO KNOWN ALLERGIES. SOCIAL HISTORY: Positive for excessive tobacco usage - still smokes, no alcohol. FAMILY HISTORY: Positive for coronary artery disease. MEDICATIONS: Home medications include Plavix, aspirin, Crestor, Singulair, insulin. PHYSICAL EXAMINATION: GENERAL: The patient appears quite comfortable this morning. He is not short of breath at rest. VITAL SIGNS (LAST NOTED IN THE COMPUTER): Temperature is 97.6, pulse 70, respirations 18/20, blood pressure 139/75. Oxygen saturation on nasal cannula is 97%. HEENT: Normocephalic, atraumatic. NECK: No JVD. CARDIOVASCULAR: Systolic ejection murmur at the lower left sternal border. Questionable S3, gallop. LUNGS: Decreased breath sounds at the bases. No rhonchi. No wheezing. EXTREMITIES: Mild edema. No cyanosis. No clubbing. Calves are nontender to palpation. GASTROINTESTINAL: Abdomen is soft, nontender and nondistended. Bowel sounds are positive. SKIN: No acute rash. NEUROLOGIC: Exam limited at the present time. PERTINENT LABORATORY DATA: Chest x-ray was done on 02/01/2019 and reviewed. Compared to the previous film, this film shows less pulmonary vascular congestion. It also shows decreased effusions. IMPRESSION: 1. Chronic obstructive pulmonary disease - probably advanced. 2. Acute congestive heart failure. 3. Extensive coronary artery disease. 4. Cardiomyopathy. 5. Small bilateral pleural effusions. PLAN: Again, I did discuss the case with the night nurse at length. I have also reviewed the chart at length, and discussed the case with the patient at length. The patient did present to [facility] - originally on 01/19/2019 - with shortness of breath and chest pain. The patient was found to be in congestive heart failure and admitted to the telemetry floor. As above, the patient did undergo a cardiac catheterization on 01/23/2019. The cardiac catheterization did show multivessel coronary artery disease, with a decrease in the ejection fraction. Input by Cardiology (Dr. Rubio) is noted. At this point in time, the patient offers only mild chronic pulmonary symptoms. Again, he is a long-term smoker. I have advised him to stop as soon as possible. On physical exam, there is no significant bronchospasm noted. In addition, there is no significant alveolar-arterial gradient. I will continue the current nebulizer treatments for now. Again, I did discuss the case with the nurse at length. The patient will be ambulated without oxygen this morning. If the patient does qualify for home oxygen, I will fill out the necessary paperwork this morning. I will discuss the above with the attending physician this morning. Thank you very much for this pulmonary consultation. Dany Corona MD [facility]
--- NOTE | 2019-02-04 13:46 | PN ---
DATE: 02/04/2019 REASON FOR CONSULTATION AND FOLLOWUP: Coronary artery disease, status post CABG, pacemaker placement, LV dysfunction, status post cardiac cath, deconditioning of body, in transitional care unit for continuity of care, status post pneumonia. SUBJECTIVE: The patient denies any chest pain, shortness of breath or any palpitation. He has been complaining of some cough and brining some phlegm. OBJECTIVE: GENERAL: Not in apparent distress. VITAL SIGNS: Temperature afebrile, heart rate 72 and blood pressure 139/75. HEENT: PERRLA. Extraocular muscles intact. NECK: Supple. No carotid bruit or thyromegaly. CHEST: Clear to auscultation. HEART: S1 and S2, regular. ABDOMEN: Soft. EXTREMITIES: Clubbing and cyanosis negative. LABORATORY DATA: Blood workup; WBC 5.8, hemoglobin 13.2, hematocrit 40.7 and platelet count 194. Chemistry shows sodium 130, potassium 4, chloride 102, carbon dioxide 29, anion gap of 2, BUN 29 and creatinine 1.1. IMPRESSION: A 73-year-old male with past medical history significant for coronary artery disease status post coronary artery bypass surgery, history of congestive heart failure, history of recent abnormal stress test and the patient underwent cardiac catheterization and medical treatment recommended, history of peripheral artery disease, history of pacemaker, sick sinus syndrome, history of pneumonia, deconditioning of the body, in transitional care unit for continuity of care . RECOMMENDATION: Continue aspirin. Continue Lasix 40 mg. Continue atorvastatin. Continue Plavix. Continue levothyroxine. Aggressive treatment for chronic obstructive pulmonary disease, and consider pulmonary evaluation. Thank you Dr. Agarwal for providing us an opportunity in taking care of Brad Barber. We will follow with you. [facility] status is stable. Cami Rubio MD
--- NOTE | 2019-02-04 13:49 | RAD ---
Date of service: 02/04/2019 HISTORY: Follow-up COMPARISON: 02/01/2019 TECHNIQUE: Chest PA and lateral FINDINGS: LINES AND TUBES: None. LUNG AND PLEURA: The lungs are well inflated. There is subsegmental atelectasis in the right lower lobe. There is dense airspace disease in the left lower lobe. Again seen is loculated fluid in the right major and minor fissures and small left pleural effusion. HEART AND MEDIASTINUM: The heart is not enlarged. Status post CABG. There are aortic atherosclerotic calcifications present. There is stable position of left-sided unipolar permanent pacing device with the hilar and mediastinal contours are within normal limits. SKELETAL STRUCTURES: The bony structures are within normal limits for the patient's age. VISUALIZED UPPER ABDOMEN: Normal. OTHER FINDINGS: None. IMPRESSION: Little interval change in loculated right pleural effusion in the major and minor fissures and small left pleural effusion. Airspace disease in the left lower lobe concerning for pneumonia.
--- NOTE | 2019-02-04 16:05 | PN ---
DATE: 02/04/2019 SUBJECTIVE: The patient is 73 years old, seen and examined, complained of cough and congestion at times. No nausea or vomiting. No diarrhea. Eating and tolerating. PHYSICAL EXAMINATION: VITAL SIGNS: He is afebrile, pulse 72, respirations 20, and blood pressure 156/83. LUNGS: Bilateral fair airflow, occasional expiratory rhonchi. HEART: S1 and S2 audible. ABDOMEN: Soft and nontender. No rebound, no guarding. NEUROLOGIC: He is awake, alert, oriented and able to communicate and moves all extremities. Has left sided weakness because of previous stroke. LABORATORY DATA: WBC 5.1, hemoglobin 13, hematocrit 40, platelets of 194. Chemistry; sodium 137, potassium 4.5, chloride 102, CO2 of 29, BUN 29, and creatinine 1.1. Blood sugar 186. ASSESSMENT: 1. Chronic obstructive pulmonary disease excerebration. 2. Chest pain. No active ischemia, however he has coronary artery disease, status post open heart surgery and multiple angioplasties. 3. Status post multiple cerebrovascular accidents, left hemiparesis. 4. Active smoker. 5. Insulin dependent diabetes. PLAN: So plan is, we will continue the patient on current medications. Discharge plan on . Kierra Agarwal MD
[2019-02-04] MEDS: Insulin Detemir 100 units/ml Vial (Levemir) SC SCH (21:44)
[2019-02-05] MEDS: Albuterol-Ipratrop 3 mg / 0.5 (3 ml) UD IH SCH ×4 (02:40→22:00)
[2019-02-05] MEDS: Levothyroxine 25 MCG TAB PO SCH (06:06)
[2019-02-05] MEDS: Insulin Lispro (HUMAlog) HIGH Coverage SC SCH ×4 (06:46→21:51)
[2019-02-05] MEDS: Insulin Lispro (humaLOG) MIX 75/25(10 ml) SC SCH ×2 (07:29→17:30)
--- NOTE | 2019-02-05 10:12 | PN ---
DATE: 02/05/2019 PULMONARY NOTE SUBJECTIVE: The patient appears quite comfortable this morning. He is not short of breath at rest. He is out of bed, sitting in the chair. PHYSICAL EXAMINATION VITAL SIGNS: (Last noted in the computer): Temperature is 97.9, pulse 68, respirations 18/20 and blood pressure 114/70. Oxygen saturation on nasal cannula is 95%. HEENT: Normocephalic and atraumatic. No JVD. CARDIOVASCULAR: Systolic ejection murmur at the lower left sternal border. Questionable S3 gallop. LUNGS: Decreased breath sounds at the bases. No rhonchi. No wheezing. EXTREMITIES: Mild edema. No cyanosis, no clubbing. Calves are nontender to palpation. GI: Abdomen is soft, nontender and nondistended. Bowel sounds are positive. SKIN: No acute rash. NEUROLOGIC: Exam limited at the present time. IMPRESSION: 1. Chronic obstructive pulmonary disease - probably advanced. 2. Acute congestive heart failure. 3. Extensive coronary artery disease. 4. Cardiomyopathy. 5. Small bilateral pleural effusions. PLAN: The patient appears very comfortable this morning. He is not short of breath at rest. He is awake and alert. He is out of bed. On physical exam, there is no bronchospasm noted. In addition, there is no significant alveolar-arterial gradient. I will continue the current nebulizer treatments for now. I would continue with the treatment for congestive heart failure as per Cardiology. The patient remains on intravenous Lasix. The patient also remains on DuoNeb treatments.. Clinical status of the patient certainly appears improved - compared to the initial presentation. However, given the above, the future status/prognosis for this patient does remain guarded. I did discuss with the case with physical therapy again. The patient will be ambulated on room air - to assess need for home oxygen. I will discuss the above with the attending physician. Dany Corona MD MTDKy
[2019-02-05] MEDS: Bacitracin 500 Units/gm Oint Foilpak UD TOP SCH ×2 (10:43→17:45)
[2019-02-05] MEDS: Enoxaparin 40 mg Syringe SC SCH (10:44)
[2019-02-05] MEDS: POLYETHYLENE GLYCOL 3350 17 GM/Dose PACKET PO SCH (10:44)
--- NOTE | 2019-02-05 11:55 | PN ---
DATE: 02/05/2019 REASON FOR CONSULTATION: Followup coronary artery disease status post CABG, permanent pacemaker, LV dysfunction status post cath, deconditioning of body, continuity of care to transitional care unit, status post pneumonia. SUBJECTIVE: The patient denies any chest pain, shortness of breath, or any palpitation. OBJECTIVE: GENERAL: Not in apparent distress, eating the breakfast, claims that cough got better. VITAL SIGNS: Temperature afebrile, heart rate 68, blood pressure 114/78. HEENT: PERRLA. Extraocular muscles intact. NECK: Supple. No carotid bruit or thyromegaly. CHEST: Clear to auscultation. HEART: S1 and S2 regular. ABDOMEN: Soft. EXTREMITIES: Clubbing and cyanosis, negative. LABORATORY DATA: Blood workup as follows: WBC 5.1, hemoglobin 13.1, hematocrit 40.7, platelet count 194. Chemistry showed sodium 137, potassium 4.5, chloride 102, carbon dioxide 29, anion gap of 10, BUN 29, creatinine 1.1 as of 02/04/2019. IMPRESSION: A 73-year-old male with past medical history significant for coronary artery disease status post coronary artery bypass grafting at [facility] 10 years ago, admitted with pneumonia, decompensated congestive heart failure, abnormal stress test and underwent cardiac catheterization, medical treatment recommended, history of pacemaker, sick sinus syndrome a year ago, history of pneumonia, deconditioning of body. Continuity as an outpatient to transitional care for continuity of care. RECOMMENDATIONS: Continue baby aspirin, continue Lasix, continue atorvastatin, continue Plavix, continue levothyroxine. Aggressive treatment for COPD. Pulmonary evaluation and followup. Seen by Dr. Coorna yesterday. We will put DVT prophylaxis because the patient is most of the time on the bed. Thank you Dr. Agarwal, for providing us the opportunity in taking care of the patient, Brad Barber. Cami Rubio MD
[2019-02-05] MEDS: Insulin Detemir 100 units/ml Vial (Levemir) SC SCH (21:58)
[2019-02-06] MEDS: Albuterol-Ipratrop 3 mg / 0.5 (3 ml) UD IH SCH ×4 (03:20→20:09)
[2019-02-06] MEDS: Levothyroxine 25 MCG TAB PO SCH (05:18)
[2019-02-06] MEDS: Insulin Lispro (humaLOG) MIX 75/25(10 ml) SC SCH ×2 (06:35→17:36)
[2019-02-06] MEDS: Insulin Lispro (HUMAlog) HIGH Coverage SC SCH ×3 (06:58→17:38)
--- NOTE | 2019-02-06 07:57 | PN ---
DATE: 02/06/2019 PULMONARY PROGRESS NOTE SUBJECTIVE: The patient appears very comfortable this morning. He is not short of breath at rest. PHYSICAL EXAMINATION VITAL SIGNS: (Last noted in the computer); temperature is 97.4, pulse is 60, respirations 18/20, blood pressure 117/62. Oxygen saturation on nasal cannula is 95%. HEENT: Normocephalic, atraumatic. No JVD. CARDIOVASCULAR: Systolic ejection murmur at the lower left sternal border. Questionable S3 gallop. LUNGS: Decreased breath sounds at the bases. No rhonchi. No wheezing. GI: Soft, nontender and nondistended. Bowel sounds are positive. EXTREMITIES: Mild edema. No cyanosis, no clubbing. Calves are nontender to palpation. SKIN: No acute rash. NEUROLOGIC: Limited at the present time. IMPRESSION 1. Chronic obstructive pulmonary disease -- probably advanced. 2. Acute congestive heart failure. 3. Extensive coronary artery disease. 4. Cardiomyopathy. 5. Small bilateral pleural effusions. PLAN: The patient appears very comfortable this morning. He is not short of breath at rest. He does state to feeling much better overall. I did discuss the case with the night nurse at length. The night nurse stated the patient had a very good night. On physical exam, there is no significant bronchospasm noted. In addition, there is no significant alveolar-arterial gradient. I will continue with the current nebulizer treatments for now. I would continue with the treatment for congestive heart failure as per Cardiology. The patient remains on intravenous Lasix. Inputs are noted. Clinical status of the patient is significantly improved -- compared to the initial presentation. Again, I did discuss the case with the night nurse at length. The night nurse stated the patient did qualify for home oxygen. He is for discharge in the near future. I will discuss the above with the attending physician. Dany Corona MD [facility]
--- NOTE | 2019-02-06 09:04 | PN ---
DATE: 02/05/2019 SUBJECTIVE: The patient is 73 years old, seen and examined, complains of mild shortness of breath, complains of generalized body aches and pain. No nausea or vomiting. No diarrhea. PHYSICAL EXAMINATION VITAL SIGNS: The patient is afebrile. Pulse 68, respirations 20, blood pressure 114/70. LUNGS: Bilateral fair airflow. No rhonchi or crackles. HEART: S1 and S2 audible. ABDOMEN: Soft, nontender. No rebound. No guarding. NEUROLOGIC: The patient is awake and alert, able to communicate. LABORATORY DATA: His blood sugar is 71 this afternoon, morning was 205. The patient is very noncompliant with medication. He was found to have cakes, cookies and by bedside brought by family. ASSESSMENT 1. Poorly-controlled diabetes. 2. History of cerebrovascular accident. 3. Status post chest pain, shortness of breath. Had cath done, unremarkable and it was advised to maximize medical treatment. 4. Previous multiple cerebrovascular accidents with left hemiparesis. 5. Deconditioning, difficulty walking. PLAN: We will continue the patient on current medications. The patient has terminal COPD because of his excessive smoking for many, many years. He requires oxygen at home that is being arranged. I spoke to the patient's , . She is willing to take him home most probably Sunday morning, because she works during the week, and I will make arrangement for home oxygen nebulizer treatment and discharge plan. Kierra Agarwal MD
[2019-02-06] MEDS: Bacitracin 500 Units/gm Oint Foilpak UD TOP SCH ×2 (10:57→17:35)
[2019-02-06] MEDS: Enoxaparin 40 mg Syringe SC SCH (10:59)
[2019-02-06] MEDS: POLYETHYLENE GLYCOL 3350 17 GM/Dose PACKET PO SCH (11:00)
[2019-02-06 11:10] VITALS: BP 128/77
[2019-02-06 14:02] VITALS: PULSE 68; TEMP 97.5; O2SAT 93
--- NOTE | 2019-02-06 21:25 | PN ---
DATE: 02/06/2019 REASON FOR CONSULTATION AND FOLLOWUP: Coronary artery disease status post CABG, permanent pacemaker, LV dysfunction, status post cath, deconditioning of body, continuity of care to Transitional Care Unit, status post pneumonia. SUBJECTIVE: The patient denies any chest pain, shortness of breath, or any palpitation. OBJECTIVE: GENERAL: Not in apparent distress. VITAL SIGNS: Temperature afebrile, heart rate 86, and blood pressure 120/77. HEENT: PERRLA. Extraocular muscles intact. NECK: Supple. No carotid bruit or thyromegaly. LUNGS: Clear to auscultation. HEART: S1 and S2 regular. ABDOMEN: Soft. EXTREMITIES: Clubbing and cyanosis, negative. LABORATORY DATA: Blood work up as follows. WBC 5.1, hemoglobin 13, hematocrit 40.0, and platelet count 194 as of 02/04/2019. IMPRESSION: A 73-year-old male with past medical history significant for coronary artery disease status post coronary artery bypass grafting at [facility] 10 years ago with pneumonia, decompensated congestive heart failure, abnormal stress test and underwent cardiac catheterization. Medical treatment recommended, status post pacemaker, sick sinus syndrome, deconditioning of body. Continuity of care in Transitional Care Unit. RECOMMENDATIONS: Continue baby aspirin, continue Lasix p.o., continue atorvastatin, continue Plavix, continue levothyroxine. Aggressive medical treatment for COPD. DVT prophylaxis. Possible discharge home in a day or two. Thank you Dr. Agarwal, for providing us the opportunity in taking care of the patient, Brad Barber. Cami Rubio MD
--- NOTE | 2019-02-06 23:45 | DS ---
HISTORY OF PRESENT ILLNESS: The patient is a 73-year-old, seen and examined, who came in with chest pain, shortness of breath, has cardiac cath done, was similar to the previous finding and conclusion was to maximize medical treatment. Otherwise, he complained of cough, congestion, wheezing at times and has complained of left-sided weakness and difficulty walking. The patient received physical therapy. He should be doing well with the walker. PHYSICAL EXAMINATION: GENERA: He is awake, alert, oriented, communicative. VITAL SIGNS: He is afebrile. Pulse 60, respirations 20, blood pressure 128/77. LUNGS: Bilateral fair airflow. No rhonchi or crackle. HEART: S1, S2 audible. ABDOMEN: Soft, nontender. No rebound, no guarding. NEUROLOGIC: He is awake and alert, able to communicate. He has left-sided weakness, residual from previous CVA. LABORATORY DATA: Blood sugar is 187. ASSESSMENT: 1. Congestive heart failure, resolved, acute on chronic, systolic. 2. Hypertension. 3. Insulin-dependent diabetes. 4. Chronic obstructive pulmonary disease. 5. Active smoker. 6. History of cerebrovascular accident with left residual weakness. PLAN: The patient is being discharged home on home oxygen. He has nebulizer machine at home. He will be going home on Plavix 75 daily, aspirin 81 daily, Crestor 20 mg daily, Singulair 10 mg daily. I will continue him on Lipitor, levothyroxine and follow up this patient Kierra Agarwal MD
== END 2019-02-06 20:55 | DRG 555 ==
LOC: TRCU 15:28
PROVIDERS: ADMIT Internal Medicine; ATTEND Internal Medicine
PROC: F07Z9FZ Gait Training/Functional Ambulation Treatment using Assistive, Adaptive, Supportive or Protective Equipment (ICD-10-PCS; principal; 2019-01-31)
PROC: F07Z5ZZ Bed Mobility Treatment (ICD-10-PCS; 2019-01-31)
PROC: F07Z8FZ Transfer Training Treatment using Assistive, Adaptive, Supportive or Protective Equipment (ICD-10-PCS; 2019-01-31)
PROC: F08Z1FZ Dressing Techniques Treatment using Assistive, Adaptive, Supportive or Protective Equipment (ICD-10-PCS; 2019-01-31)
PROC: F07L6FZ Therapeutic Exercise Treatment of Musculoskeletal System - Lower Back / Lower Extremity using Assistive, Adaptive, Supportive or Protective Equipment (ICD-10-PCS; 2019-02-01)
PROC: F08Z0FZ Bathing/Showering Techniques Treatment using Assistive, Adaptive, Supportive or Protective Equipment (ICD-10-PCS; 2019-02-04)
DX: R26.2 Difficulty in walking, not elsewhere classified (principal); I50.23 Acute on chronic systolic (congestive) heart failure; I42.9 Cardiomyopathy, unspecified; I69.354 Hemiplegia and hemiparesis following cerebral infarction affecting left non-dominant side; I25.10 Atherosclerotic heart disease of native coronary artery without angina pectoris; I11.0 Hypertensive heart disease with heart failure; D45 Polycythemia vera; E11.51 Type 2 diabetes mellitus with diabetic peripheral angiopathy without gangrene; E11.65 Type 2 diabetes mellitus with hyperglycemia; F17.200 Nicotine dependence, unspecified, uncomplicated; E78.5 Hyperlipidemia, unspecified; J44.9 Chronic obstructive pulmonary disease, unspecified; Z79.4 Long term (current) use of insulin; Z79.02 Long term (current) use of antithrombotics/antiplatelets; Z79.82 Long term (current) use of aspirin; Z95.0 Presence of cardiac pacemaker; Z99.81 Dependence on supplemental oxygen; Z95.1 Presence of aortocoronary bypass graft; Z95.5 Presence of coronary angioplasty implant and graft; Z87.01 Personal history of pneumonia (recurrent)

== ENCOUNTER 2019-03-13 21:19 | Inpatient (IN) | payer BC, MEDICARE ==
[2019-03-13 21:22] VITALS: BMI 24.4
--- NOTE | 2019-03-13 21:45 | ED PDOC ---
Arrival/HPI - General Time Seen by Provider: 03/13/19 21:19 Historian: Patient, Spouse - History of Present Illness Narrative History of Present Illness (Text): 03/13/19 21:42 73 year old male, whose past medical hsitory includes pacemaker, CVA, hypertens ion, CAD s/p CABG, IDDM, and COPD, who presents to the emergency department accompanied by complaining of shortness of breath. Patient states he has been experiencing intermittent shortness of breath with associated chest pain for the past 2 days, worsening today. Patient reports some orthopnea that wakes him from sleep. Patient also informs of some dyspnea when walking. Patient states he used his O2 treatment at home with little relief. Patient denies any fever, chills, abdominal pain, nausea, vomiting, diarrhea, urinary symptoms, back pain, neck pain, headache, dizziness, or any other complaints. PMD: Dr. Agarwal It Admin: Dr. Rubio Time/Duration: Prior to Arrival, < week Symptom Onset: Gradual Symptom Course: Unchanged Activities at Onset: Light Context: Home Past Medical History - Provider Review Nursing Documentation Reviewed: Yes - Infectious Disease Hx of Infectious Diseases: None - Past Medical History Past Medical History: No Previous - Cardiac Hx Cardiac Disorders: Yes (pacemaker, CAD, S/P CABG,) Hx Hypertension: Yes - Pulmonary Hx Chronic Obstructive Pulmonary Disease (COPD): Yes - Neurological HX Cerebrovascular Accident: Yes (Lt hemiparesis.) - HEENT Hx HEENT Disorder: No - Renal Hx Renal Disorder: No - Endocrine/Metabolic Hx Diabetes Mellitus Type 2: Yes - Hematological/Oncological Hx Blood Disorders: No - Integumentary Hx Dermatological Disorder: No - Musculoskeletal/Rheumatological Hx Arthritis: Yes - Gastrointestinal Hx Gastrointestinal Disorders: No - Genitourinary/Gynecological Hx Genitourinary Disorders: No Hx Reproductive Disorders: No - Psychiatric Hx Psychophysiologic Disorder: No Hx Substance Use: No - Surgical History Hx Cholecystectomy: Yes Hx Open Heart Surgery: Yes - Anesthesia Hx Anesthesia Reactions: No Hx Malignant Hyperthermia: No - Suicidal Assessment Feels Threatened In Home Enviroment: No Family/Social History - Physician Review Nursing Documentation Reviewed: Yes Family/Social History: No Known Family HX Smoking Status: Light Smoker < 10 Cigarettes Daily Hx Alcohol Use: No Hx Substance Use: No Hx Substance Use Treatment: No Allergies/Home Meds Allergies/Adverse Reactions: Allergies No Known Allergies Allergy (Verified 01/29/19 17:55) Home Medications: Home Meds Medication Instructions Recorded Confirmed Aspirin [Adult Low Dose Aspirin EC] 1 tab PO DAILY 01/20/19 01/29/19 Clopidogrel [Plavix] 1 tab PO DAILY 01/20/19 01/29/19 Insulin Aspart Prot/Insuln Asp SC 01/20/19 [Novolog Mix 70-30 Vial] Insulin Aspart [Novolog Flexpen] DAILY 01/20/19 01/20/19 Montelukast [Singulair] 1 tab PO DAILY 01/20/19 01/29/19 Rosuvastatin Calcium [Crestor] 1 tab PO DAILY 01/20/19 01/29/19 Review of Systems - Physician Review All systems were reviewed & negative as marked: Yes - Review of Systems Constitutional: absent: Fevers, Night Sweats Respiratory: SOB Cardiovascular: Chest Pain Gastrointestinal: absent: Abdominal Pain, Diarrhea, Nausea, Vomiting Musculoskeletal: absent: Back Pain, Neck Pain Neurological: absent: Headache, Dizziness Physical Exam - Systems Exam Head: Present: Atraumatic, Normocephalic Pupils: Present: PERRL Extroacular Muscles: Present: EOMI Conjunctiva: Present: Normal Mouth: Present: Moist Mucous Membranes Neck: Present: Normal Range of Motion Respiratory/Chest: Present: Rales (Rales at the bases, worse at right base) Cardiovascular: Present: Regular Rate and Rhythm, Normal S1, S2. No: Murmurs Abdomen: No: Tenderness, Distention, Peritoneal Signs Back: Present: Normal Inspection Upper Extremity: Present: Normal Inspection. No: Cyanosis, Edema Lower Extremity: Present: Normal Inspection. No: Edema Neurological: Present: GCS=15, CN II-XII Intact, Speech Normal Skin: Present: Warm, Dry, Normal Color. No: Rashes Psychiatric: Present: Alert, Oriented x 3, Normal Insight, Normal Concentration Medical Decision Making ED Course and Treatment: 03/13/19 21:47 Impression: 73 year old male presents with shortness of breath and chest pain. suspect chf. Plan: -- EKG -- Cardiac Iso, CMP, Mg, BNP -- CBC, Platelets -- Chest X-ray -- Urinalysis -- Reassess and disposition Prior Visits: Notes and results from previous visits were reviewed. Progress Notes: 03/13/19 22:40 EKG Reviewed by me, shows: Paced rhythm @ 71bpm 03/14/19 03:21 lasix given. cxr loculated pleural effusoin, congestion, ?underlying consolidation. empriica antibitocs ordered. accepted dr agarwal. 03/14/19 03:23 family request specifically rrequest dr ruiz consult - RAD Interpretation Radiology Orders: 03/13/19 21:37 CHEST PORTABLE [RAD] Stat - Scribe Statement The provider has reviewed the documentation as recorded by the Scribe David Cage Provider Scribe Attestation: All medical record entries made by the Scribe were at my direction and personally dictated by me. I have reviewed the chart and agree that the record accurately reflects my personal performance of the history, physical exam, medical decision making, and the department course for this patient. I have also personally directed, reviewed, and agree with the discharge instructions and disposition. Disposition/Present on Arrival - Present on Arrival Any Indicators Present on Arrival: No History of DVT/PE: No History of Uncontrolled Diabetes: No Urinary Catheter: No History Surgical Site Infection Following: None - Disposition Have Diagnosis and Disposition been Completed?: Yes Diagnosis: CHF (congestive heart failure) Disposition: HOSPITALIZED Disposition Time: 22:00 Condition: FAIR
[2019-03-13 21:59] LABS: BASO # 0.03 K/mm3 (0.0-2.0); BASO % 0.4 % (0.0-3.0); EOS # 0.1 (0.0-0.7); EOS % 0.9 % (1.5-5.0); HEMOGLOBIN 13.7 g/dL (14.0-18.0); MEAN CELL VOLUME 92.3 fl (80.0-105.0); MEAN CORPUSCULAR HGB CONC 32.5 g/dl (31.0-37.0); MEAN PLATELET VOLUME 12.9 fl (7.0-11.0); MONO # 0.5 (0.1-0.6); MONO % 6.8 % (1.0-6.0); RBC 4.57 10^6/uL (3.5-6.1); RED CELL DISTRIBUTION WIDTH 14.7 % (11.5-14.5); WHITE BLOOD COUNT 6.7 10^3/uL (4.5-11.0)
[2019-03-13 22:11] LABS: ALB/GLOB RATIO 0.9 (1.1-1.8); ALBUMIN 3.9 g/dL (3.0-4.8); ALT/SGPT 7 U/L (7-56); AST/SGOT 29 U/L (17-59); BLOOD UREA NITROGEN 19 mg/dL (7-21); CALCIUM 9.2 mg/dL (8.4-10.5); GFR NON-AFRICAN AMERICAN > 60
[2019-03-13 22:17] LABS: INR 1.36; PROTHROMBIN TIME 15.1 SECONDS (9.4-12.5)
[2019-03-13 22:22] LABS: B-TYPE NATRIURETIC PEPTIDE 2720 pg/mL (0-450); TROPONIN I < 0.01 ng/mL
[2019-03-13] MEDS ORDERED: Oxycodone/Acetaminophen 5/325 mg Tab PO PRN (22:49)
[2019-03-13] MEDS ORDERED: Piperacillin/Tazobact 3.375 gm 100 ML IVPB STA (22:54)
[2019-03-13] MEDS ORDERED: Vancomycin 1gm in NS 250ml 1 GM/250 ML BAG IVPB STA (22:54)
[2019-03-14] MEDS: Insulin Detemir 100 units/ml Vial (Levemir) SC SCH ×2 (00:26→22:10)
[2019-03-14] MEDS: Albuterol-Ipratrop 3 mg / 0.5 (3 ml) UD IH PRN ×2 (00:28→20:48)
--- NOTE | 2019-03-14 02:10 | HP ---
DATE OF EXAM: 03/13/2019 HISTORY OF PRESENT ILLNESS: The patient is 73 years old known to me from multiple previous admissions, was brought to emergency room by family. He was complaining of shortness of breath and chest pain. He has multiple admissions with similar complaints. He was recently discharged to rehab. On discharge from rehab, he was well for a few days, started to have chest discomfort and shortness of breath intermittently and got worse today. He was therefore brought to emergency room. Also complained of chest discomfort on walking and also shortness of breath on walking. According to , he was given multiple nebulizer treatments and oxygen with no significant relief. No history of fever. No chills. No hemoptysis. No hematemesis. No nausea, vomiting, or diarrhea. PAST MEDICAL HISTORY: Significant for; 1. 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 2. Status post pacemaker placement. 3. History of hypertension. 4. Insulin-dependent diabetes. 5. History of open heart surgery. 6. Active smoker. 7. COPD. 8. Peripheral vascular disease status post angioplasty. ALLERGIES: NOT ALLERGIC TO ANY MEDICATION. HOME MEDICATIONS: He is on Plavix 75 mg daily, aspirin 81 mg daily, Crestor 20 mg daily, he is on Lantus and Humalog and nebulizer treatment. SOCIAL HISTORY: He is , lives with his . He has two sons, one lives in [place] and one lives locally. He was a heavy smoker, 3 to 4 packs daily. 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 Denies alcohol use. PHYSICAL EXAMINATION GENERAL: Mild shortness of breath. VITAL SIGNS: He is afebrile, pulse 60, respirations 18, blood pressure 126/67. LUNGS: Bilateral rhonchi. Basal crackle. HEART: S1, S2 audible. ABDOMEN: Soft, nontender. No rebound. No guarding. NEUROLOGIC: He is awake and alert, able to communicate. Able to move all extremities, however, he has left sided weakness. LABORATORY DATA: Sodium 138, potassium 3.9, chloride 96, CO2 of 34, BUN 19, creatinine 0.7, blood sugar 267, magnesium 2.3, total bili 2.2, AST 29, ALT 7. CPK 30. Troponin 0.01. EKG is pending. X-ray chest is unremarkable. ASSESSMENT: 1. Chest pain rule out acute congestive heart failure. 2. History of chronic obstructive pulmonary disease. 3. Hypertension. 4. Hyperlipidemia. 5. History of open heart surgery. 6. Severe peripheral vascular disease. 7. Insulin-dependent diabetes. PLAN: We will start his medication. We will start him on aspirin. He is on Plavix. We will start him on statin. He will be given nebulizer treatment. We will monitor his troponin. Monitor his blood sugar. The patient's family want Dr. Ontiveros for consult. We will respect Dr. Ontiveros's input and request for physical therapy evaluation in a.m. We will follow up patient in the a.m. Kierra Agarwal MD
[2019-03-14 04:28] LABS: TROPONIN I < 0.01 ng/mL
[2019-03-14 04:57] LABS: ALBUMIN 3.3 g/dL (3.0-4.8); BLOOD UREA NITROGEN 20 mg/dL (7-21); CALCIUM 8.8 mg/dL (8.4-10.5); GFR NON-AFRICAN AMERICAN > 60
[2019-03-14 04:58] LABS: ALB/GLOB RATIO 0.9 (1.1-1.8); ALT/SGPT 6 U/L (7-56); AST/SGOT 22 U/L (17-59)
[2019-03-14 07:10] LABS: URINE BILIRUBIN NEGATIVE (NEGATIVE); URINE BLOOD NEGATIVE (NEGATIVE); URINE GLUCOSE (UA) 100 mg/dL (NEGATIVE); URINE LEUKOCYTE ESTERASE NEGATIVE Leu/uL (NEGATIVE); URINE PROTEIN 30 mg/dL (<30 mg/dL)
[2019-03-14 07:13] LABS: URINE APPEARANCE CLEAR (CLEAR); URINE COLOR YELLOW (YELLOW)
[2019-03-14] MEDS: Pantoprazole 40 mg EC Tab PO SCH (07:15)
[2019-03-14 07:33] LABS: URINE WBC 0 - 2 /hpf (0-6)
[2019-03-14 07:34] LABS: URINE BACTERIA FEW /hpf; URINE EPITHELIAL CELLS 0 - 2 /hpf (0-5)
[2019-03-14] MEDS: Insulin Reg-HIGH-Coverage SC SCH ×4 (08:35→21:47)
[2019-03-14] MEDS: Insulin Lispro (humaLOG) MIX 75/25(10 ml) SC SCH ×2 (08:35→17:33)
[2019-03-14] MEDS: Albuterol-Ipratrop 3 mg / 0.5 (3 ml) UD IH SCH ×2 (09:09→14:44)
--- NOTE | 2019-03-14 09:12 | RAD ---
Date of service: 03/13/2019 HISTORY: sob COMPARISON: 02/04/2019 TECHNIQUE: 1 view obtained. FINDINGS: LUNGS: No active pulmonary disease. PLEURA: There is a moderate size right pleural effusion which extends along the major and minor fissure CARDIOVASCULAR: Aortic calcification Mild cardiomegaly no pulmonary vascular congestion. OSSEOUS STRUCTURES: Sternal wires VISUALIZED UPPER ABDOMEN: Normal. OTHER FINDINGS: None. IMPRESSION: There is a moderate size right pleural effusion which extends along the major and minor fissure
[2019-03-14] MEDS ORDERED: Potassium Chloride 20 mEq/15 ml LIQ UD PO STA (10:48)
--- NOTE | 2019-03-14 12:43 | CP.PCM.APN ---
Subjective - Date & Time of Evaluation Date of Evaluation: 03/14/19 Time of Evaluation: 10:00 - Subjective Subjective: pt seen and examined at bedside , Pt in NAD , reports sob and cough Review of Systems - Constitutional Constitutional: As Per HPI Objective - Vital Signs/Intake and Output Vital Signs (last 24 hours): Temp Pulse Resp BP Pulse Ox 97.7 F 60 20 120/65 95 03/14/19 06:00 03/14/19 06:00 03/14/19 06:00 03/14/19 09:10 03/14/19 06:00 Intake and Output: 03/14/19 03/14/19 06:59 18:59 Intake Total 1210 Output Total 700 Balance 510 - Medications Medications: Current Medications Acetaminophen (Tylenol 325mg Tab) 650 mg PO Q6H PRN PRN Reason: Fever >100.4 F Albuterol/Ipratropium (Duoneb 3 Mg/0.5 Mg (3 Ml) Ud) 3 ml IH Q2H PRN PRN Reason: Shortness of Breath Last Admin: 03/14/19 00:28 Dose: 3 ml Albuterol/Ipratropium (Duoneb 3 Mg/0.5 Mg (3 Ml) Ud) 3 ml IH [id number] [facility] Last Admin: 03/14/19 09:09 Dose: 3 ml Aspirin (Ecotrin) 81 mg PO DAILY [facility] Last Admin: 03/14/19 09:10 Dose: 81 mg Atorvastatin Calcium (Lipitor) 20 mg PO DIN [facility] Clopidogrel Bisulfate (Plavix) 75 mg PO DAILY [facility] Last Admin: 03/14/19 09:10 Dose: 75 mg Furosemide (Lasix) 40 mg IVP DAILY [facility] Last Admin: 03/14/19 09:10 Dose: 40 mg Insulin Detemir (Levemir) 20 unit SC HS [facility] Last Admin: 03/14/19 00:26 Dose: 20 u Insulin Human Regular (Humulin R High) 0 units SC [facility]; Protocol Last Admin: 03/14/19 11:53 Dose: Not Given Insulin Lispro Protam/Lispro Human (Humalog Mix 75/25) 15 units SC ACBD [facility] Last Admin: 03/14/19 08:35 Dose: 15 u Isosorbide Mononitrate (Imdur Er) 30 mg PO DAILY [facility] Last Admin: 03/14/19 09:10 Dose: 30 mg Montelukast Sodium (Singulair) 10 mg PO HS [facility] Ondansetron HCl (Zofran Inj) 4 mg IVP Q6H PRN PRN Reason: Nausea/Vomiting Oxycodone/Acetaminophen (Percocet 5/325 Mg Tab) 1 tab PO Q6H PRN PRN Reason: Pain, moderate (4-7) Stop: 03/16/19 22:50 Pantoprazole Sodium (Protonix Ec Tab) 40 mg PO 0600 [facility] Last Admin: 03/14/19 07:15 Dose: 40 mg - Labs Labs: 03/13/19 21:30 03/14/19 03:40 PT 15.1 SECONDS (9.4-12.5) H 03/13/19 21:30 INR 1.36 03/13/19 21:30 APTT 35.0 Seconds (26.9-38.3) 03/13/19 21:30 - Constitutional Appears: No Acute Distress - Head Exam Head Exam: NORMAL INSPECTION - Eye Exam Eye Exam: Normal appearance - ENT Exam ENT Exam: Normal Exam - Respiratory Exam Respiratory Exam: Rhonchi - Cardiovascular Exam Cardiovascular Exam: +S1, +S2 - GI/Abdominal Exam GI & Abdominal Exam: Soft, Normal Bowel Sounds - Neurological Exam Neurological Exam: Alert, Awake Additional comments: left side weaker than right Assessment and Plan - Assessment and Plan (Free Text) Assessment: ITS Impressions Chest X-Ray 03/13/19 21:37 IMPRESSION: There is a moderate size right pleural effusion which extends along the major and minor fissure Plan: ITS Impressions Chest X-Ray 03/13/19 21:37 IMPRESSION: There is a moderate size right pleural effusion which extends along the major and minor fissure 73 yr old with pmh sig for cad s/p CABG, HTN, IDDM, severe PVD, active smoker, HLD who presented with SOB associated with cp x 2 days, pt also had elevated BNP 2180, cxr shows mod size pleural effusion. Pt is now admitted for further mgmt with Cardiology consultation. BPCI/TIC - BPCIA/TIC Pt/family verbalized understanding & agreed to program: Yes
--- NOTE | 2019-03-14 12:45 | CON ---
DATE OF CONSULTATION: 03/14/2019 CARDIOLOGY CONSULTATION HISTORY: The patient is a 73-year-old male, who presented with several days of shortness of breath and pleuritic-like chest pain. The patient's past medical history reveals extensive COPD from years of smoking, history of coronary artery bypass surgery with a catheterization done last year where he was found to have triple-vessel disease with a patent WHYTE to the LAD, pulmonary hypertension noted on echocardiogram, and a left ventricular function with an ejection fraction of 45-50%. In addition, the patient suffers from diabetes mellitus, hypercholesterolemia, and hypertension. He denies pedal edema. SOCIAL HISTORY: The patient states he stopped smoking a yrsc-yay-g-half ago, although that issue is questionable. REVIEW OF SYSTEMS: Fourteen-point review of systems is reviewed in detail. This is dominated by shortness of breath and intermittent chest pain. In addition, the patient is status post pacemaker placement. PHYSICAL EXAMINATION: VITAL SIGNS: Blood pressure is 126/71, heart rate is paced in the 60s. NECK: Negative JVD. LUNGS: Bilateral rhonchi. HEART: Revealed S1 and S2. EXTREMITIES: Without edema. EKG is a paced rhythm. Chest x-ray reveals moderate-sized right-sided pleural effusion. LABORATORY DATA: Laboratories, troponins are negative x3. Glucose is 239 with a hemoglobin of 13.7. IMPRESSION: 1. Exacerbation of chronic obstructive pulmonary disease. 2. Acute systolic congestive heart failure. 3. Ischemic cardiomyopathy with an ejection fraction of 45-50%. 4. Status post coronary artery bypass surgery. 5. Documented patent WHYTE to the LAD with an occluded RCA. 6. Pulmonary hypertension. 7. Severe chronic obstructive pulmonary disease. 8. Right pleural effusion. PLAN: Given these findings, I agree with a trial of Lasix. Bronchodilators have been ordered. We will obtain a stat BMP. If the patient's improved, we would consider a pleural tap. David Ontiveros MD
[2019-03-14] MEDS ORDERED: MethylPREDNISolone 40 mg Vial IVP ONE (13:01)
--- NOTE | 2019-03-14 15:41 | PN ---
DATE: 03/14/2019 SUBJECTIVE: The patient is a 73-year-old seen and examined. No more chest pain, does complain of shortness of breath. nausea or vomiting. Eating and tolerating, complain of feeling weak, tired, difficulty walking, previous CVA. PHYSICAL EXAMINATION VITAL SIGNS: The patient is afebrile, pulse 60, respirations 20 and blood pressure 120/65. LUNGS: Bilateral fair airflow. No rhonchi or crackle. HEART: S1 and S2 audible. ABDOMEN: Soft and nontender. No rebound. No guarding. NEUROLOGICAL: The patient is awake and alert, able to communicate, has left-sided weakness. LABORATORY DATA: WBC is 6.7, hemoglobin 13.7, hematocrit 42.2 and platelet 161. Chemistry: Sodium 140, potassium 3.5, chloride 99, CO2 of 30, BUN 20, creatinine 0.9 and blood sugar of 123. Two sets of cardiac enzymes are negative. ASSESSMENT: 1. Chest pain seems to be noncardiac versus chronic stable angina. 2. Coronary artery disease, status post open heart surgery. 3. Insulin-dependent diabetes. 4. Hypokalemia. 5. History of cerebrovascular accident with left-sided residual weakness. 6. Chronic obstructive pulmonary disease. PLAN: Awaiting Cardiology input. Continue current medication and current physical therapy, out of bed to chair and followup third cardiac enzyme. disposition plan according to the physical therapy report. Kierra Agarwal MD
[2019-03-14] MEDS: MethylPREDNISolone 40 mg Vial IVP SCH (21:18)
--- NOTE | 2019-03-15 | CARD ---
APPROVED REPORT Date of service: 03/13/2019 EKG Measurement Heart [id number] NC P34 [id number] <Conclusion> Electronic ventricular pacemaker
[2019-03-15] MEDS: Albuterol-Ipratrop 3 mg / 0.5 (3 ml) UD IH SCH ×6 (01:32→20:23)
[2019-03-15] MEDS: Pantoprazole 40 mg EC Tab PO SCH (06:00)
[2019-03-15] MEDS: Insulin Reg-HIGH-Coverage SC SCH ×4 (08:38→22:39)
[2019-03-15] MEDS: Insulin Lispro (humaLOG) MIX 75/25(10 ml) SC SCH ×2 (08:44→17:24)
[2019-03-15] MEDS: MethylPREDNISolone 40 mg Vial IVP SCH ×2 (09:25→22:21)
--- NOTE | 2019-03-15 13:27 | PN ---
DATE: 03/15/2019 REASON FOR DICTATION: Covering Dr. David Ontiveros. REASON FOR CONSULTATION: Difficulty in breathing, history of coronary artery disease with pacemaker, history of coronary artery disease, CABG in the past. SUBJECTIVE: The patient denies any chest pain, shortness of breath any palpitation. OBJECTIVE: GENERAL: Not in distress. VITAL SIGNS: Temperature afebrile. Heart rate 64 and blood pressure 119/61. HEENT: PERRLA. Extraocular muscles intact. NECK: Supple. No carotid bruits or thyromegaly. CHEST: Clear to auscultation. HEART: S1 and S2, regular. ABDOMEN: Soft. EXTREMITIES: Clubbing and cyanosis negative. LABORATORY DATA: Blood work, WBC 6.3, hemoglobin 13.3, hematocrit 42.2 and platelet count 161. Chemistry shows sodium 140, potassium 3.5, chloride 99, carbon dioxide 31, anion gap 40, BUN 20, creatinine 0.9 and troponin 0.01 x3 negative. IMPRESSION: A 73-year-old male with past medical history significant for coronary artery disease, status post coronary artery bypass grafting in the past, history of pacemaker, sick sinus syndrome, recently catheterization in 01/2019 shows patent left internal mammary artery to left anterior descending. Medical treatment recommended. Admitted with complaint of shortness of breath, so far no evidence of acute myocardial infarction, exacerbation of chronic obstructive pulmonary disease, history of recent pneumonia and non-ischemic cardiomyopathy occluded saphenous vein graft to right coronary artery, history of chronic obstructive pulmonary disease. The patient admitted right pleural effusion. Recently the patient was admitted in January and cardiac catheterization done and revealed patent left internal mammary artery to left anterior descending occluded saphenous vein graft to right coronary artery. The patient use to see me for years, but he seems after the cardiac catheterization everything is up side down, so the patient is very upset and told in ER do not call me for consult and see Dr. Ontiveros. Discussed with the patient, the patient thinks that after the cardiac catheterization his condition get worse, explained to the patient and I am seeing the patient today for Dr. Ontiveros and we will transfer his care on Sunday to Dr. David Ontiveros. Interim continue Lasix daily. Continue albuterol. Continue aspirin. Continue atorvastatin. Continue Plavix. Aggressively treat chronic obstructive pulmonary disease and antibiotic. Repeat the chest x-ray tomorrow morning. We will change that chest x-ray PA lateral to compare effusion, if he does not get better consider thoracentesis. We will transfer care to Dr. David Ontiveros on Sunday morning. Cami Rubio MD
[2019-03-15] MEDS: Insulin Detemir 100 units/ml Vial (Levemir) SC SCH (22:25)
--- NOTE | 2019-03-16 00:45 | DS ---
HISTORY OF PRESENT ILLNESS: The patient is 73-year-old, came to emergency room because of increasing shortness of breath, cough and congestion. The patient is used to be very heavy smoker. Has terminal COPD and has 20 coronary artery disease, status post open heart surgery followed by multiple angioplasty. He also has severe peripheral vascular disease, also has peripheral angioplasty done by Dr. David Cordova 3-4 years ago. The patient was placed on observation. No chest pain noted. Shortness of breath is better. The patient has multiple stroke in the past with residual left-sided weakness that seems to be stable. The patient does have difficulty walking. He has multiple admissions for rehab. Since he was not making much progress, so he was discharge on previous admission and last time, we are tried to get him in rehab but he was not accepted anyway, so he end up going to hospital. So on recent admission he was found to have shortness of breath and difficulty walking. He was observed, no evidence of acute ischemia. Eating and tolerating. No nausea or vomiting. No diarrhea. He is not short of breath at rest. PHYSICAL EXAMINATION: VITAL SIGNS: He is afebrile. Pulse 64, respirations 18 and blood pressure 119/61. LUNGS: Bilateral diffusely decreased breath sound. HEART: S1 and S2, audible. ABDOMEN: Soft and nontender. No rebound. No guarding. NEUROLOGIC: The patient is awake and alert, able to communicate. He has left-sided weakness, walks with a walker. LABORATORY DATA: His blood sugar is 297. BNP was 2180. ASSESSMENT: 1. Chest pain, no evidence of acute ischemia. 2. History of coronary artery disease. 3. History of chronic obstructive pulmonary disease. 4. Insulin-dependant diabetes. 5. Peripheral vascular disease. 6. History of smoking. Currently, the patient is stable. He had physical therapy evaluation done and was recommended for subacute rehab that probably will be started on Sunday. I will request Dr. David Cordova also to evaluate for pleural effusion, so he can discontinue telemetry and if Dr. David Cordova agree, might need thoracentesis that might alleviate his symptoms of shortness of breath when he walks. Kierra Agarwal MD
[2019-03-16] MEDS: Albuterol-Ipratrop 3 mg / 0.5 (3 ml) UD IH SCH ×4 (01:06→19:39)
[2019-03-16] MEDS: Pantoprazole 40 mg EC Tab PO SCH (06:21)
[2019-03-16] MEDS: Insulin Lispro (humaLOG) MIX 75/25(10 ml) SC SCH ×2 (08:12→16:43)
[2019-03-16] MEDS: Insulin Reg-HIGH-Coverage SC SCH ×4 (08:13→22:21)
[2019-03-16 08:36] LABS: ALBUMIN 3.9 g/dL (3.0-4.8); ALT/SGPT 9 U/L (7-56); AST/SGOT 22 U/L (17-59); BLOOD UREA NITROGEN 38 mg/dL (7-21); CALCIUM 9.1 mg/dL (8.4-10.5); GFR NON-AFRICAN AMERICAN > 60
[2019-03-16] MEDS: MethylPREDNISolone 40 mg Vial IVP SCH ×2 (10:13→22:21)
--- NOTE | 2019-03-16 10:27 | RAD ---
Date of service: 03/16/2019 HISTORY: F/U pneumonia and compare COMPARISON: 03/13/2019 TECHNIQUE: Chest PA and lateral views FINDINGS: LUNGS: There is a peripheral infiltrate and effusion in the right lower lobe and a minimal infiltrate at the left lung base. PLEURA: Small bilateral pleural effusions CARDIOVASCULAR: Aortic calcification Mild cardiomegaly no pulmonary vascular congestion. OSSEOUS STRUCTURES: No significant abnormalities. VISUALIZED UPPER ABDOMEN: Normal. OTHER FINDINGS: Single lead pacemaker IMPRESSION: Peripheral infiltrate and effusion in the right lower lobe and minimal infiltrate at the left lung base
--- NOTE | 2019-03-16 17:03 | PN ---
DATE: 03/16/[address] David Ontiveros REASON FOR CONSULTATION: Difficulty in breathing, history of pacemaker, history of coronary artery disease, CABG in the past. SUBJECTIVE: The patient denies any chest pain, shortness of breath, any palpitation, coming from chest x-ray. OBJECTIVE: GENERAL: Not in apparent distress. VITAL SIGNS: Temperature afebrile, heart rate 62, blood pressure 126/72. HEENT: PERRLA. Extraocular muscles intact. NECK: Supple. No carotid bruits or thyromegaly. CHEST: Clear to auscultation. HEART: S1, S2. Regular. ABDOMEN: Soft. EXTREMITIES: Clubbing, cyanosis negative. LABORATORY DATA: Blood workup as follows: WBC 6.7, hemoglobin 13.7, hematocrit 42.2 and platelet count 161. Sodium 136, potassium 4.8, chloride 99, carbon dioxide 29, anion gap 50, BUN 38, creatinine 1.1. Random sugar 305. Chest x-ray done today read by Dr. Smith mentioned peripheral infiltrate and effusion in the right lower lobe and minimal infiltrate at the left lung bases. When compared the films, little bit improvement but right lower lobe infiltrate noted. IMPRESSION: A 73-year-old male with past medical history significant for coronary artery disease, status post coronary artery bypass surgery in the past, history of pacemaker, sick sinus syndrome, recently had cardiac catheterization dated 01/2019, patent left internal mammary artery to left anterior descending. Medical treatment recommended. Admitted with complaint of shortness of breath, so far no evidence of acute myocardial infarction. The patient was usually followed by me in the past, but this admission, the patient Dr. Ontiveros because they think after the last catheterization, his life is upside down and he has difficulty in breathing, admitted with pneumonia this time. RECOMMENDATIONS: Continue aspirin, continue albuterol, continue , continue IV Lasix. Continue broad spectrum antibiotics. Continue Plavix. Further recommendation as per Dr. Agarwal. We will transfer care tomorrow to Dr. Ontiveros. Cami Rubio MD
--- NOTE | 2019-03-16 20:42 | PN ---
DATE: 03/16/2019 SUBJECTIVE: The patient is 73-year-old, seen and examined. Lying in bed. Seems to be comfortable. Denies any chest pain. Does complain of cough. Feeling weak. PHYSICAL EXAMINATION: VITAL SIGNS: He is afebrile. Pulse 59, respirations 18 and blood pressure 118/77. LUNGS: Bilateral fair airflow. Decreased breath sounds in the right lower lung area. ABDOMEN: Soft and nontender. No rebound. No guarding. NEUROLOGIC: The patient is awake, alert and able to communicate. LABORATORY DATA: WBC 6.7, hemoglobin 13.7, hematocrit 42 and platelet 161. Chemistry: Sodium 136, potassium 4.8, chloride 97, CO2 of 29, BUN 38, creatinine 1.1 and blood sugar of 291. X-ray of chest done this morning, questionable right lower lobe pneumonia. ASSESSMENT: 1. Increasing weakness, difficulty walking. 2. Chest pain, no acute ischemic events noted. 3. Coronary artery disease, status post open heart surgery followed by multiple angioplasties. 4. Severe peripheral vascular disease. 5. History of hypertension. 6. Hyperlipidemia. 7. Chronic obstructive pulmonary disease. 8. History of heavy smoking. PLAN: I will order for IV antibiotic. I will order for CT scan of the chest to assess pleural effusion, also if any thoracentesis can be managed with medication. Kierra Agarwal MD
[2019-03-16] MEDS: Insulin Detemir 100 units/ml Vial (Levemir) SC SCH (22:22)
--- NOTE | 2019-03-16 23:32 | CT ---
Date of service: 03/16/2019 PROCEDURE: CT Chest without contrast HISTORY: ??pneumonia COMPARISON: Comparison is made to the previous study dated 01/17/2019. TECHNIQUE: Contiguous axial images were obtained through the chest without intravenous contrast enhancement. Sagittal and coronal reconstructions were performed. Radiation dose: Total exam DLP = 357.3 mGy-cm. This CT exam was performed using one or more of the following dose reduction techniques: Automated exposure control, adjustment of the mA and/or kV according to patient size, and/or use of iterative reconstruction technique. FINDINGS: LUNGS: Moderate central lobular and panlobular emphysema predominant in the upper lobes is again noted. Again noted are reticular and nodular opacities in the lungs more prominent at the mid and lower portion which have not significantly changed since the prior exam. Linear shape opacities at the lung bases may represent infiltrate or atelectasis. MEDIASTINUM: Unremarkable thoracic aorta. No aneurysm. The heart is mildly to moderately enlarged. Main pulmonary artery is mildly enlarged. Mild pulmonary vascular congestion is noted. Pacemaker wire is extending to the right heart. Post sternotomy changes are again noted. No significant interval change in prominent mediastinal lymph nodes previously noted. Diffuse esophageal mucosal thickening is noted. No aortic atherosclerotic calcification. PLEURA: Bilateral foci of lobulated likely localize pleural effusions are again noted. Small bilateral pleural effusion noted larger on the left. Foci of pleural thickening and foci of pleural calcification are again noted. BONES: No fracture. No destructive lesion. UPPER ABDOMEN: The stomach is distended. Partially visualized 5 small foci of calcification in the left kidney may represent vascular calcification OTHER FINDINGS: . IMPRESSION: Bibasilar opacities may represent atelectasis or infiltrates. No evidence of significant interval changes in the lungs otherwise noted since the previous exam. Moderate emphysema. Eljk-es-hbjencsz cardiomegaly and mild pulmonary vascular congestion. Stable bilateral localized pleural effusions. Preliminary report was submitted by [facility] Radiology contains concordant findings.
[2019-03-17] MEDS: Albuterol-Ipratrop 3 mg / 0.5 (3 ml) UD IH PRN (00:26)
[2019-03-17] MEDS: Albuterol-Ipratrop 3 mg / 0.5 (3 ml) UD IH SCH ×4 (01:49→19:38)
[2019-03-17] MEDS: Pantoprazole 40 mg EC Tab PO SCH (05:15)
[2019-03-17] MEDS: Insulin Lispro (humaLOG) MIX 75/25(10 ml) SC SCH ×2 (07:57→17:18)
[2019-03-17] MEDS: Insulin Reg-HIGH-Coverage SC SCH ×4 (07:57→21:53)
[2019-03-17] MEDS: MethylPREDNISolone 40 mg Vial IVP SCH ×2 (09:19→21:55)
--- NOTE | 2019-03-17 11:30 | CP.PCM.PCO ---
Additional Comments - Additional Comments Additional Comments: Pt seen and examined at bedside. Sleeping but easily arousable. States breathing is a little better. Still c/o cough. Denies chest pain. Currently on Doxy IV, Lasix IV and Solumedrol 40 IV q12, continue w/ CPT. Physical Therapy recommends JACQUELINE. Will continue to follow. Impressions Chest CT 03/16/19 14:56 IMPRESSION: Bibasilar opacities may represent atelectasis or infiltrates. No evidence of significant interval changes in the lungs otherwise noted since the previous exam. Moderate emphysema. Ulbo-vm-mgjeeiws cardiomegaly and mild pulmonary vascular congestion. Stable bilateral localized pleural effusions. Preliminary report was submitted by [facility] contains concordant findings.
--- NOTE | 2019-03-17 14:31 | PN ---
DATE: 03/17/2019 SUBJECTIVE: The patient is 73-year-old, seen and examined. Complains of some cough and congestion. Sitting in chair. No more chest pain, still has productive cough. PHYSICAL EXAMINATION: VITAL SIGNS: He is afebrile. Pulse 66, respirations 20, and blood pressure 132/70. LUNGS: Bilateral soft crackles, most pronounced posteriorly. HEART: S1, S2 audible. ABDOMEN: Soft and nontender. No rebound. No guarding. NEUROLOGIC: The patient is awake and alert, able to communicate. LABORATORY DATA: Blood sugar is 296. Blood cultures are negative. Had CT scan of the chest done that shows bibasilar opacities, atelectasis versus infiltrate. No evidence of significant change in the lungs otherwise. He has moderate emphysema, iwdq-be-ojdauwzs cardiomegaly with pulmonary vascular congestion and stable bilateral pleural effusions. ASSESSMENT: 1. Chest pain, no evidence of acute ischemia, however, he has history of. 2. Chronic obstructive pulmonary disease. 3. Bibasilar atelectasis. 4. Deconditioning, difficulty walking. 5. History of previous cerebrovascular accident with residual left-sided weakness. 6. History of heavy smoking. 7. Bronchitis. PLAN: Currently, the patient is on doxycycline. We will continue on nebulizer treatments. I will increase his coverage of 75/25 to 20 units before breakfast and dinner and monitor his blood sugar closely. I will continue him on IV Lasix, gave him 20 mg of Lasix extra today. We will continue all other medications including isosorbide, Lipitor, Plavix, Protonix, Singulair, aspirin, and nebulizer treatments. From medical point of view, the patient is cleared to be discharged to subacute rehab. Kierra Agarwal MD
--- NOTE | 2019-03-17 15:02 | PN ---
DATE: 03/17/2019 SUBJECTIVE: The patient's breathing is much improved from last week. PHYSICAL EXAMINATION: VITAL SIGNS: Blood pressure 132/70. Heart rate is in the 60s. NECK: Negative JVD. LUNGS: Bilateral rhonchi. HEART: S1, S2. EXTREMITIES: Without edema. LABORATORY DATA: Glucose is 296. IMPRESSION: 1. Exacerbation of chronic obstructive pulmonary disease. 2. History of coronary bypass surgery. 3. History of percutaneous transluminal coronary angioplasty and stent. 4. Pulmonary hypertension. 5. Severe chronic obstructive pulmonary disease. 6. Ischemic cardiomyopathy with ejection fraction of 45% to 50%. PLAN: Given these findings, the patient's respiratory status has improved. His cardiac status is unchanged from before. David Ontiveros MD
[2019-03-17] MEDS: Insulin Detemir 100 units/ml Vial (Levemir) SC SCH (21:54)
[2019-03-18] MEDS: Albuterol-Ipratrop 3 mg / 0.5 (3 ml) UD IH SCH ×4 (01:30→20:40)
[2019-03-18] MEDS: Pantoprazole 40 mg EC Tab PO SCH (06:30)
[2019-03-18] MEDS: Insulin Lispro (humaLOG) MIX 75/25(10 ml) SC SCH ×2 (08:55→16:19)
[2019-03-18] MEDS: Insulin Reg-HIGH-Coverage SC SCH ×4 (08:55→22:09)
[2019-03-18] MEDS: MethylPREDNISolone 40 mg Vial IVP SCH ×2 (09:59→22:10)
[2019-03-18] MEDS: Insulin Detemir 100 units/ml Vial (Levemir) SC SCH (22:09)
[2019-03-19] MEDS: Albuterol-Ipratrop 3 mg / 0.5 (3 ml) UD IH SCH ×4 (01:10→20:53)
--- NOTE | 2019-03-19 02:57 | DS ---
HISTORY OF PRESENT ILLNESS: The patient is a 73-year-old came to emergency room because of chest pain. He has history of COPD, coronary artery disease, status post open heart surgery and status post multiple angioplasties, history of CVA with generalized weakness more so in the left upper and lower extremities. The patient had initial blood work were negative for acute ischemia. Awaiting subacute rehab. PHYSICAL EXAMINATION: GENERAL: He is awake and alert and able to communicate. VITAL SIGNS: He is afebrile, pulse 64, respirations 18, and blood pressure 113/63. LUNGS: Bilateral fair airflow. No rhonchi or crackle. HEART: S1 and S2 audible. ABDOMEN: Soft and nontender. No rebound. No guarding. NEUROLOGIC: The patient is awake and alert, able to communicate. He walks with a walker, but has unstable gait. LABORATORY DATA: Blood sugar is 273. ASSESSMENT: 1. Chest pain seems to be stable angina. 2. History of coronary artery disease. 3. Hypertension. 4. History of pulmonary hypertension. 5. Chronic obstructive pulmonary disease. 6. Status post multiple cerebrovascular accident. 7. Deconditioning and difficulty walking. 8. Severe peripheral vascular disease. PLAN: We will continue the patient on current medications. He is being accepted in [facility] where he will be transferred to continue his physical therapy. Kierra Agarwal MD
[2019-03-19] MEDS: Pantoprazole 40 mg EC Tab PO SCH (06:30)
[2019-03-19] MEDS: Insulin Reg-HIGH-Coverage SC SCH ×3 (08:21→18:04)
[2019-03-19] MEDS: Insulin Lispro (humaLOG) MIX 75/25(10 ml) SC SCH ×2 (08:21→18:06)
[2019-03-19] MEDS: MethylPREDNISolone 40 mg Vial IVP SCH ×2 (09:53→21:49)
[2019-03-19] MEDS ORDERED: Magnesium Citrate Oral SOL (300 ml) PO ONE (17:06)
[2019-03-19] MEDS: Insulin Detemir 100 units/ml Vial (Levemir) SC SCH (21:49)
[2019-03-20] MEDS: Albuterol-Ipratrop 3 mg / 0.5 (3 ml) UD IH SCH ×3 (02:35→14:15)
--- NOTE | 2019-03-20 07:50 | DS ---
HISTORY OF PRESENT ILLNESS: The patient is a 73-year-old, seen and examined. He was admitted with chest pain. He was evaluated by Cardiology, no intervention needed. Dr. Ontiveros evaluated the patient and just recommended to optimize medical treatment. The patient has multiple falls at home because of his generalized weakness. He is unattended most of the time during the day because his and son works and he is home alone. is asking for help and physical therapy to get him stronger atleast he can take care of himself. PHYSICAL EXAMINATION: VITAL SIGNS: He is afebrile. Pulse 76, respirations 20 and blood pressure 119/72. LUNGS: Bilateral fair airflow. No rhonchi or crackle. HEART: S1 and S2, audible. ABDOMEN: Soft and nontender. No rebound. No guarding. NEUROLOGIC: The patient is awake, alert and able to communicate. ASSESSMENT: 1. Chest pain probably secondary to stable angina. 2. Chronic obstructive pulmonary disease because of heavy smoking in the past and still active smoker. 3. History of hypertension. 4. Coronary artery disease, status post open heart surgery. 5. Insulin-dependant diabetes. 6. Hypertension. 7. Hyperlipidemia. PLAN: We will continue the patient on current medication. Disposition plan to send the patient to subacute rehab once the arrangement is made. Kierra Agarwal MD
[2019-03-20] MEDS: Insulin Reg-HIGH-Coverage SC SCH ×3 (07:55→17:09)
[2019-03-20] MEDS: Insulin Lispro (humaLOG) MIX 75/25(10 ml) SC SCH ×2 (07:59→17:10)
[2019-03-20] MEDS: MethylPREDNISolone 40 mg Vial IVP SCH (10:48)
--- NOTE | 2019-03-20 12:56 | PN ---
DATE: 03/20/2019 SUBJECTIVE: The patient is a 73-year-old, admitted with chest pain and shortness of breath. Workup so far was negative and awaiting to be authorized by insurance company for rehab. PHYSICAL EXAMINATION GENERAL: He is awake and alert, able to communicate. VITAL SIGNS: He is afebrile, pulse 63, respirations 18, blood pressure 125/65. LUNGS: Bilateral fair airflow. No rhonchi or crackle. HEART: S1 and S2 audible. ABDOMEN: Soft, nontender. No rebound. No guarding. NEUROLOGICALLY: The patient is awake and alert, able to communicate. EXTREMITIES: Bilateral leg edema. LABORATORY DATA: Blood sugar is 329. ASSESSMENT: 1. Uncontrolled diabetes. 2. Hypertension. 3. History of chronic obstructive pulmonary disease. 4. Coronary artery disease, status post open heart surgery. 5. Ex-smoker. PLAN: We will continue the patient on current medications. We will taper down his steroid to p.o. prednisone. Awaiting authorization by insurance company and to be transferred to subacute rehab. Kierra Agarwal MD
[2019-03-20 15:32] VITALS: BP 126/67; PULSE 61; RESP 17; TEMP 97.9; O2SAT 97
== END 2019-03-20 17:59 | DRG 190 ==
LOC: ED 21:19 → ERH 22:55 → 2RNO 03-14 01:17 → 5RSO 03-15 18:46
PROVIDERS: ADMIT Internal Medicine; ATTEND Internal Medicine
DX: J43.9 Emphysema, unspecified (principal); I50.21 Acute systolic (congestive) heart failure; J18.9 Pneumonia, unspecified organism; J98.11 Atelectasis; I69.354 Hemiplegia and hemiparesis following cerebral infarction affecting left non-dominant side; I11.0 Hypertensive heart disease with heart failure; I27.20 Pulmonary hypertension, unspecified; E11.51 Type 2 diabetes mellitus with diabetic peripheral angiopathy without gangrene; I25.5 Ischemic cardiomyopathy; E87.6 Hypokalemia; I25.118 Atherosclerotic heart disease of native coronary artery with other forms of angina pectoris; E11.65 Type 2 diabetes mellitus with hyperglycemia; F17.200 Nicotine dependence, unspecified, uncomplicated; E78.00 Pure hypercholesterolemia, unspecified; E78.5 Hyperlipidemia, unspecified; R29.6 Repeated falls; Z98.62 Peripheral vascular angioplasty status; Z79.82 Long term (current) use of aspirin; Z79.02 Long term (current) use of antithrombotics/antiplatelets; Z95.0 Presence of cardiac pacemaker; Z79.4 Long term (current) use of insulin; Z95.5 Presence of coronary angioplasty implant and graft; Z95.1 Presence of aortocoronary bypass graft